=== PATIENT | male | born 1995 | race Caucasian/White ===

== ENCOUNTER 2018-07-03 02:26 | Observation (INO) ==
[2018-07-03] MEDS ORDERED: IOPAMIDOL 100 ML BOTTLE IV ONE (02:27)
[2018-07-03] MEDS ORDERED: ONDANSETRON 4 MG/2 ML VIAL IV ONE (02:40)
[2018-07-03] MEDS ORDERED: 0.9 % SODIUM CHLORIDE 1,000 ML IV ONE ×2 (02:59→04:01)
[2018-07-03] MEDS ORDERED: PROMETHAZINE 25 MG/ML VIAL IV ONE ×2 (03:16→07:08)
--- NOTE | 2018-07-03 03:23 | Emergency Department Note ---
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 Patient unable to give us a history. Does not know if he is aspirated or not. There is been no flulike symptoms he has had no cough, no sputum production. Is been no diarrhea no hematemesis denies urgency frequency dysuriaTemperature is 97.5 the initial pulse was 140 is down to 117 at this time abrasions are 18 blood pressure 145/96 pulse ox is 93. Vital signs reveal a pulse of 117 and a pulse ox of 96% on room air at this time. Apparently patient gets constipated a lot and he was admitted to [facility] in April for fecal impaction - Related Data Home Medications Medication Instructions Recorded Confirmed polyethylene glycol 3350 17 17 g PO BID 03/06/15 07/03/18 gram/dose oral powder Sennosides [Ex-Lax] 15 mg PO DAILY 05/01/18 07/03/18 oxyCODONE HCL [Oxycodone HCl] 1 tab PO Q6 05/01/18 07/03/18 tiZANidine [Zanaflex] 8 mg PO BID 05/01/18 07/03/18 Allergies Allergy/AdvReac Type Severity Reaction Status Date / Time No Known Drug Allergies Allergy Verified 05/15/18 10:38 Review of Systems All systems ED: reviewed and negative except as stated. Constitutional: Denies: fever, chills Cardiovascular: Denies: chest pain Respiratory: Reports: as per HPI. Denies: cough, wheezes Gastrointestinal: Reports: as per HPI, nausea, vomiting, constipation. Denies: diarrhea, hematochezia, melena Genitourinary: Denies: dysuria, frequency, urgency Musculoskeletal: Denies: back pain, joint swelling Integumentary: Denies: rash Neurological: Denies: headache Psychiatric: Denies: anxiety Endocrine: Denies: fatigue Hematological/Lymphatic: Denies: easy bleeding Allergic/Immunologic: Denies: facial swelling Past Medical History - Past Medical History [facility] Narrative: All Active Problems Encounter for postoperative wound check (Acute) Abdominal pain (Acute) Drug-induced nausea and vomiting (Acute) Bacterial conjunctivitis of left eye (Acute) Constipation (Acute) Intractable nausea and vomiting (Acute) Fecal impaction of colon (Acute) Accidental drug ingestion (Acute) S/P orchiopexy (Acute 03/11/15) History of orchiectomy, unilateral (Acute 03/11/15) Torsion of testicle (Acute) Syncope (Acute) History of hip surgery (Acute) Intentional self-harm (Acute) Sleep disturbance (Acute) Epilepsy, generalized nonconvulsive, with intractable epilepsy (Acute) Wheelchair dependent (Acute) Angelman syndrome (Acute) Urinary incontinence (Acute) Epididymitis (Acute) Developmental delay, severe (Acute) Right testicular torsion (Acute) Past Surgical History S/P orchiopexy (Acute 03/11/15) History of orchiectomy, unilateral (Acute 03/11/15) History of hip surgery (Acute) Family History Mother Diabetes mellitus Medical history: Reports: other. Denies: cancer Surgical history ED: Reports: orthopedic, other, other - Social History smoking status: Never smoker Alcohol use: Reports: None Drug use: Reports: none Physical Exam Limitations: no limitations General appearance: alert Head: atraumatic, normocephalic Eye: Present: normal appearance, PERRL ENT: normal exam, normal oropharynx, mucous membranes dry Neck: Present: normal inspection, full ROM, trachea midline Chest: Present: normal inspection, symmetric chest wall rise. Absent: tende rness Respiratory: Present: normal lung sounds bilaterally. Absent: respiratory distress, rales/crackles, wheezes Cardiovascular: Present: regular rate, normal rhythm. Absent: bradycardia, tachycardia Abdominal: Present: soft, normal bowel sounds. Absent: distention, tenderness, guarding, rebound, rigidity Back: Present: normal inspection, full ROM. Absent: tenderness Neurological: Present: other (Patient has Angelman's syndrome developmentally delayed). Absent: motor sensory deficit Skin: Present: warm, dry Course Vital Signs Temperature 97.5 F 07/03/18 02:26 Pulse Rate 140 H 07/03/18 02:26 Respiratory Rate 18 07/03/18 02:26 Blood Pressure 145/96 07/03/18 02:26 Pulse Oximetry (%) 93 07/03/18 02:26 Temperature 101.7 F H 07/03/18 07:09 Pulse Rate 117 H 07/03/18 07:09 Respiratory Rate 20 07/03/18 07:09 Blood Pressure 116/80 07/03/18 07:09 Pulse Oximetry (%) 98 07/03/18 07:09 Nausea/Vomiting/Diarrhea - [facility] Narrative Medical decision making narrative: WBC is 28,000 hemoglobin 14.1 hematocrit of 43.6. Chest x-ray was read as negative via tele-epic radiant analyst acid is 1.1 Evans is 139 potassium 4.2 creatinine is 0.62 BUN is 11 glucose is 157 test shows 2 WBCs 14 RBCs. Case discussed with Dr. Holley. Tested CT of the abdomen first. Patient had a normal temperature when he first arrived there his temperature has spiked to 101.7 his initial temperature was 97.5. His flu test was negative CT of the abdomen revealed fecal impaction with a large amount of stool. dr Clark contacted and patient to be admitted to his service - Lab Data Result diagrams: 07/03/18 02:45 Lab Results 07/03/18 07/03/18 07/03/18 Range/Units 02:45 02:45 03:30 WBC 28.0 H (4.5-11.0) K/mcL RBC 5.24 (4.50-5.90) M/mcL Hgb 14.1 (13.5-16.5) g/dL Hct 43.6 (41.0-55.0) % POC Hct 45.0 (41.0-55.0) % MCV 83.3 (80.0-100.0) fL MCH 26.9 (26.0-34.0) pg MCHC 32.3 (31.0-36.0) g/dL RDW 13.0 (11.5-14.5) % Plt Count 431 (140-440) K/mcL MPV 9.7 (7.4-10.4) fL Gran % 92.2 H (38.0-78.0) % Lymph % (Auto) 4.6 L (15.5-49.0) % Starr % (Auto) 3.0 (1.0-12.0) % Eos % (Auto) 0 (0.0-7.0) % Baso % (Auto) 0.2 (0.0-2.0) % Gran # 25.8 H (1.8-8.0) K/mcL Lymph # (Auto) 1.3 L (1.5-4.8) K/mcL Starr # (Auto) 0.8 (0.1-0.9) K/mcL Eos # (Auto) 0 (0.0-0.7) K/mcL Baso # (Auto) 0.1 (0.0-0.3) K/mcL VBG Lactic Acid 1.1 (0.5-2.0) mmol/L POC Sodium 139 (133-145) mmol/L POC Potassium 4.2 (3.3-5.1) mmol/L POC Chloride 98 (96-108) mmol/L POC Total CO2 28 (22-30) mmol/L POC BUN 11 (6-20) mg/dl POC Creatinine 0.6 L (0.7-1.2) mg/dl POC Glucose 157 H (70-105) mg/dL POC WB Ioniz Calcium 1.18 (1.16-1.32) mmol/L Urine Color Urine Appearance Urine pH (5.0-9.0) Ur Specific [place] (1.000-1.035) Urine Protein (NEG) mg/dL Urine Glucose (UA) (NEG) mg/dL Urine Ketones (NEG) mg/dL Urine Occult Blood (<0.03) mg/dL Urine Nitrate (NEG) Urine Bilirubin (NEG) mg/dL Urine Urobilinogen (NEG) mg/dL Ur Leukocyte Esterase (NEG) /uL Urine RBC (0-1) /hpf Urine WBC (0-4) /hpf Ur Squamous Epith Cells (0-4) /hpf Urine Bacteria (0) /hpf Hyaline Casts (0-2) /lpf Urine Mucus (0) /hpf Ur Culture Indicated? 07/03/18 Range/Units 05:15 WBC (4.5-11.0) K/mcL RBC (4.50-5.90) M/mcL Hgb (13.5-16.5) g/dL Hct (41.0-55.0) % POC Hct (41.0-55.0) % MCV (80.0-100.0) fL MCH (26.0-34.0) pg MCHC (31.0-36.0) g/dL RDW (11.5-14.5) % Plt Count (140-440) K/mcL MPV (7.4-10.4) fL Gran % (38.0-78.0) % Lymph % (Auto) (15.5-49.0) % Starr % (Auto) (1.0-12.0) % Eos % (Auto) (0.0-7.0) % Baso % (Auto) (0.0-2.0) % Gran # (1.8-8.0) K/mcL Lymph # (Auto) (1.5-4.8) K/mcL Starr # (Auto) (0.1-0.9) K/mcL Eos # (Auto) (0.0-0.7) K/mcL Baso # (Auto) (0.0-0.3) K/mcL VBG Lactic Acid (0.5-2.0) mmol/L POC Sodium (133-145) mmol/L POC Potassium (3.3-5.1) mmol/L POC Chloride (96-108) mmol/L POC Total CO2 (22-30) mmol/L POC BUN (6-20) mg/dl POC Creatinine (0.7-1.2) mg/dl POC Glucose (70-105) mg/dL POC WB Ioniz Calcium (1.16-1.32) mmol/L Urine Color Yellow Urine Appearance Hazy Urine pH 7.0 (5.0-9.0) Ur Specific [place] 1.014 (1.000-1.035) Urine Protein Neg (NEG) mg/dL Urine Glucose (UA) Negative (NEG) mg/dL Urine Ketones Neg (NEG) mg/dL Urine Occult Blood 0.03 A (<0.03) mg/dL Urine Nitrate Neg (NEG) Urine Bilirubin Neg (NEG) mg/dL Urine Urobilinogen Neg (NEG) mg/dL Ur Leukocyte Esterase Neg (NEG) /uL Urine RBC 14 H (0-1) /hpf Urine WBC 2 (0-4) /hpf Ur Squamous Epith Cells 0 (0-4) /hpf Urine Bacteria 0 (0) /hpf Hyaline Casts 3 H (0-2) /lpf Urine Mucus Few (0) /hpf Ur Culture Indicated? No Disposition Pt seen by FACILITY SUPERVISOR/PA only: No Clinical Impression: Nausea and vomiting, Leukocytosis, Fecal impaction Disposition: Xfer As Inpt ([facility]) Condition: Fair Referrals: Inez Elkins ARNP [Primary Care Provider] -
[2018-07-03 03:40] LABS: Basophils # (Auto) 0.1 K/mcL (0.0-0.3); Basophils % (Auto) 0.2 % (0.0-2.0); Eosinophils # (Auto) 0 K/mcL (0.0-0.7); Eosinophils % (Auto) 0 % (0.0-7.0); Granulocytes % (Auto) 92.2 % (38.0-78.0); Lymphocytes # (Auto) 1.3 K/mcL (1.5-4.8); Lymphocytes % (Auto) 4.6 % (15.5-49.0); Mean Cell Volume 83.3 fL (80.0-100.0); Mean Corpuscular HGB Conc 32.3 g/dL (31.0-36.0); Monocytes # (Auto) 0.8 K/mcL (0.1-0.9); Platelet Count 431 K/mcL (140-440); RBC 5.24 M/mcL (4.50-5.90)
[2018-07-03 05:59] LABS: Appearance,Urine HAZY; Bacteria,Urine 0 /hpf (0); Bilirubin,Urine NEG (NEG); Color,Urine YELLOW; Glucose,Urine (UA) NEGATIVE (NEG); Leukocyte Esterase,Urine NEG /uL (NEG); Mucus,Urine FEW /hpf (0); Protein,Urine NEG (NEG); Specific Gravity,Urine 1.014 (1.000-1.035); Urine Blood 0.03 mg/dL (<0.03); Urine Hyaline Cast 3 /lpf (0-2); Urine RBC 14 /hpf (0-1); Urine Squamous Epithelial Cell 0 /hpf (0-4); Urine WBC 2 /hpf (0-4); Urobilinogen,Urine NEG (NEG)
[2018-07-03] MEDS ORDERED: cefTRIAXone 1 GM VIAL IV ONE (07:00)
[2018-07-03] MEDS ORDERED: ACETAMINOPHEN 650 MG SUPP.RECT ONE (07:22)
[2018-07-03] MEDS ORDERED: ACETAMINOPHEN 650 MG SUPP.RECT PR ONE (07:40)
--- NOTE | 2018-07-03 08:08 | XRay Report ---
HISTORY: Nausea and aspiration risk FINDINGS: Behind the left heart border there is a band of consolidated lung parenchyma which has developed since 02/13/16. This could be scar or atelectasis. The remainder of the lung william are clear. There is no pleural effusion. The heart size is normal. A moderate dextroscoliotic curvature is present in the midthoracic spine and there is moderately severe rotatory scoliotic curvature in the mid lumbar spine. IMPRESSION: Atelectasis versus scar medially in the left lung base Interpreted and Authenticated by: Danny Garg 07/03/18
--- NOTE | 2018-07-03 08:28 | Cat Scan Report ---
CLINICAL INFORMATION: Nausea and bowel obstruction COMPARISON: 04/30/18 TECHNIQUE: Following injection of intravenous contrast the patient was scanned during the portal venous phase from the diaphragm through the symphysis pubis. Sagittal and coronal reformats were created.. Radiation exposure was limited using dose reduction technology FINDINGS: There is severe fecal impaction in the rectum. The rectum distal sigmoid are distended with stool. The rectum measures up to 10 x 11 cm in transverse dimension. Moderate amount stool is present in the cecum and ascending colon. The transverse and descending colon are normal in caliber. There is a large amount of air within the small intestine but the small bowel is not abnormally dilated heart is a contained abnormal air-fluid levels. There is a percutaneous gastrostomy tube placed through the antrum of the stomach. The antrum of the stomach around the tube is abnormally thickened and appears edematous. Measures up to 1.6 cm in thickness. The esophagus contains some fluid but is not abnormally dilated. Lung bases are clear. The liver, spleen, gallbladder pancreas, adrenals and kidneys are normal. The aorta is normal in caliber. No ascites or abscess are present. 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 Comparison with the prior CT shows fecal impaction become significantly worse IMPRESSION: Severe fecal impaction in the rectum. This is not causing a small bowel obstruction. Abnormally thickened antrum of the stomach surrounding the percutaneous gastrostomy tube. The tube was not present on the recent CT scan. This could be an inflammatory reaction following the tube insertion. Dr. Peace was called with the results Interpreted and Authenticated by: Danny Garg 07/03/18
[2018-07-03] MEDS ORDERED: ONDANSETRON 4 MG/2 ML VIAL IV PRN (08:34)
[2018-07-03] MEDS: 0.9 % SODIUM CHLORIDE 1,000 ML IV SCH ×2 (08:45→18:57)
[2018-07-03 10:23] LABS: ALT/SGPT 17 U/l (0-40); Albumin 4.7 gm/dL (3.2-5.2); Albumin/Globulin Ratio 1.3 (1.0-2.3); Alkaline Phosphatase 93 U/L (39-117); Blood Urea Nitrogen 11 mg/dl (6-20)
--- NOTE | 2018-07-03 13:46 | General Surg History&Physical ---
History of Present Illness Patient information: Note initiated : 07/03/18 at 1:44 pm Service Date, if different from initiated Date: [] Patient: Raúl Hammond 22 y/o M admitted on 07/03/18 for Nausea. Chief Complaint: [] HPI: Mr. Hammond is a 22 year old M with Angelman syndrome. The patient has a long history of recurrent severe constipation. He takes MiraLAX and Ex-Lax on a daily basis. He has been having progressively smaller. He had onset of nausea with vomiting 2 days and was brought to the emergency room where he was noted that he has severe constipation with fecal impaction extending back to the right colon with secondary small bowel obstruction. He is admitted for treatment because of the nausea and vomiting.. Review of Systems ROS unobtainable: due to mental status Past History Past medical history: I Angelman syndrome Seizure disorder Developmental delay Past surgical history: Right orchiectomy History of hip surgery Past family history: Unobtainable Past social history: Totally bedridden and dependent No tobacco alcohol or drug use Recent institution of marijuana use for pain control Medications and Allergies Home Medications Medication Instructions Recorded Confirmed Type polyethylene glycol 3350 17 17 g PO BID 03/06/15 07/03/18 History gram/dose oral powder Sennosides [Ex-Lax] 15 mg PO DAILY 05/01/18 07/03/18 History oxyCODONE HCL [Oxycodone HCl] 1 tab PO Q6H PRN 05/01/18 07/03/18 History tiZANidine [Zanaflex] 8 mg PO TID 05/01/18 07/03/18 History Allergies Allergy/AdvReac Type Severity Reaction Status Date / Time No Known Drug Allergies Allergy Verified 05/15/18 10:38 Exam Temp Pulse Resp BP Pulse Ox 98.8 F 122 H 22 111/70 95 07/03/18 10:23 07/03/18 10:23 07/03/18 09:45 07/03/18 10:23 07/03/18 10:23 - General physical appearance no distress, other (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 Absent: normocephalic ( dysmorphic skull and faCIES) - Neck no masses, no bruits, trachea midline, no lymphadenopathy, no venous distension - Cardiovascular Cardiovascular exam IM: Present: normal rate and rhythm, RRR, +S1, +S2. Absent: JVD - Respiratory normal expansion, normal respiratory effort, clear to auscultation - Abdomen Abdomen: Present: soft, bowel sounds, distended ( diffusely distended with active bowel sounds ;guarding with palpation) Hernia: Present: none - Genitourinary Present: normal penis with no external lesions - Rectum Rectum: Present: normal sphincter tone, no hemorrhoids, no tenderness, no masses, no bleeding, other ( normal anal sphincter with massive volume of soft stool in rectal vault) - Integumentary Present: no rash, no growths, no abnormal pigmentation, other ( superficial skin breakdown left greater trochanter) - Neurologic Present: other ( severe neurologic deficit with spasticITY extensive flexion contractures of upper and lower extremities) - Musculoskeletal Present: normal gait, normal posture - Psychiatric Present: other ( probably not oriented). Absent: oriented to time, oriented to person, oriented to place, speech is normal, memory intact Assessment and Plan (1) Fecal impaction of colon Manual disimpaction MiraLAX 8 ounces 3 times daily by PEG tube Milk of magnesia 30 cc 3 times daily by PEG tube Neurological 12 mg subcutaneous daily 4 days Status: Acute (2) Nausea and vomiting Zofran IV every 4 hours as needed Status: Acute (3) Angelman syndrome Continue oral medication when patient can take by mouth Status: Acute Comment: with severe mental retardation (4) Developmental delay, severe Status: Acute (5) Epilepsy, generalized nonconvulsive, with intractable epilepsy Status: Acute
[2018-07-03] MEDS: METHYLNALTREXONE BROMIDE 12 MG/0.6 ML SYRINGE SQ SCH (16:00)
[2018-07-03] MEDS: POLYETHYLENE GLYCOL 3350 17 GM PACKET PO SCH (16:46)
[2018-07-03] MEDS: MAGNESIUM HYDROXIDE 30 ML ORAL.SUSP PO SCH ×2 (16:46→19:57)
[2018-07-03] MEDS: tiZANidine 4 MG TABLET PO SCH (19:57)
[2018-07-03] MEDS ORDERED: ACETAMINOPHEN 1,000 MG/100 ML BOTTLE IV ONE (22:45)
[2018-07-04] MEDS: POLYETHYLENE GLYCOL 3350 17 GM PACKET PO SCH ×4 (00:14→18:11)
[2018-07-04] MEDS: MAGNESIUM HYDROXIDE 30 ML ORAL.SUSP PO SCH ×4 (02:21→18:33)
[2018-07-04] MEDS ORDERED: ACETAMINOPHEN 1,000 MG/100 ML BOTTLE IV ONE (05:44)
[2018-07-04] MEDS: 0.9 % SODIUM CHLORIDE 1,000 ML IV SCH ×2 (06:10→17:13)
--- NOTE | 2018-07-04 08:46 | XRay Report ---
HISTORY: Follow-up fecal impaction FINDINGS: The severe fecal impaction seen on the CT scan done on 07/03/18 has been corrected. There is no gas in normal caliber colon. Small amount of air seen within nondistended small intestine. Gastrostomy tube remains in the antrum of stomach. IMPRESSION: Resolved fecal impaction Interpreted and Authenticated by: Danny Garg 07/04/18
[2018-07-04] MEDS: tiZANidine 4 MG TABLET PO SCH ×3 (09:46→21:32)
[2018-07-04] MEDS: METHYLNALTREXONE BROMIDE 12 MG/0.6 ML SYRINGE SQ SCH (10:44)
[2018-07-04] MEDS: METOCLOPRAMIDE 10 MG/2 ML VIAL IV SCH ×2 (12:31→18:11)
[2018-07-04] MEDS: ACETAMINOPHEN 500 MG/50 ML BOTTLE IV PRN ×2 (12:32→18:13)
[2018-07-04 13:08] LABS: Basophils # (Auto) 0.1 K/mcL (0.0-0.3); Basophils % (Auto) 0.5 % (0.0-2.0); Eosinophils # (Auto) 0.2 K/mcL (0.0-0.7); Eosinophils % (Auto) 1.4 % (0.0-7.0); Granulocytes % (Auto) 82.1 % (38.0-78.0); Lymphocytes # (Auto) 1.5 K/mcL (1.5-4.8); Lymphocytes % (Auto) 10.4 % (15.5-49.0); Mean Cell Volume 83.3 fL (80.0-100.0); Mean Corpuscular HGB Conc 32.6 g/dL (31.0-36.0); Monocytes # (Auto) 0.8 K/mcL (0.1-0.9); Monocytes % (Auto) 5.6 % (1.0-12.0); Platelet Count 253 K/mcL (140-440); Red Cell Distribution Width 13.3 % (11.5-14.5)
[2018-07-04 13:10] LABS: ALT/SGPT 10 U/l (0-40); Albumin 3.3 gm/dL (3.2-5.2); Albumin/Globulin Ratio 1.2 (1.0-2.3); Alkaline Phosphatase 70 U/L (39-117); Bilirubin,Direct < 0.2 mg/dL (0.0-0.3); Blood Urea Nitrogen 12 mg/dl (6-20); Gamma Glutamyl Transpeptidase 15 U/L (8-61); Uric Acid 3.4 mg/dL (2.5-8.0)
--- NOTE | 2018-07-04 14:41 | General Surgery Progress Note ---
Subjective Patient reports: feels better, pain is less, tolerating liquids well, flatus, bowel movement Narrative: Note initiated : 07/04/18 at 2:39 pm Service Date, if different from initiated Date: [] Patient: Raúl Hammond 22 y/o M admitted on 07/03/18 for Nausea. Chief Complaint: [patient is doing well. He had multiple bowel movements last night and today. His abdominal exam is benign. He had major clearing of his intestinal impaction on the morning x-rays.] Objective Temp Pulse Resp BP Pulse Ox 97.6 F 84 18 82/60 98 07/04/18 11:37 07/04/18 11:37 07/04/18 11:37 07/04/18 11:37 07/04/18 11:37 - Additional Data Intake & Output - Last 24 hours: Intake & Output 07/02/18 07/03/18 07/04/18 07/05/18 05:59 05:59 05:59 05:59 Intake Total 1000 3000 1402 Output Total 1 1 Balance 1000 2999 1401 Weight 70 lb 70 lb 70 lb - General physical appearance no distress, no pain, cachectic, chronically ill - Eyes PERRL, normal ocular movement - ENT normal pinna, normal nares, normal mucosa, no congestion - Neck no masses, no bruits, trachea midline, no lymphadenopathy, no venous distension - Respiratory normal expansion, normal respiratory effort, clear to auscultation - Cardiovascular Cardiovascular exam: Present: normal rate and rhythm, RRR, +S1, +S2. Absent: JVD, tachycardia - Abdomen non tender (abdomen is mildly distended; he has active bowel sounds; his abdominal wall is soft.) - Integumentary no rash, no growths, no abnormal pigmentation - Labs 07/04/18 12:13 07/04/18 12:13 Diabetes panel 07/04/18 Range/Units 12:13 Sodium 137 (133-145) mmol/L Potassium 4.7 (3.3-5.1) mmol/L Chloride 101 (96-108) mmol/L Carbon Dioxide 28 (22-30) mmol/L BUN 12 (6-20) mg/dl Creatinine 0.5 L (0.7-1.2) mg/dl Glucose 80 (70-105) mg/dL Calcium 8.8 (8.6-10.4) mg/dl AST 18 (0-37) U/l ALT 10 (0-40) U/l Alkaline Phosphatase 70 (39-117) U/L Total Protein 6.0 (5.9-8.4) gm/dL Albumin 3.3 (3.2-5.2) gm/dL Triglycerides 55 (<150) mg/dl Calcium panel 07/04/18 Range/Units 12:13 Calcium 8.8 (8.6-10.4) mg/dl Phosphorus 2.9 (2.7-4.5) mg/dL Albumin 3.3 (3.2-5.2) gm/dL Pituitary panel 07/04/18 Range/Units 12:13 Sodium 137 (133-145) mmol/L Potassium 4.7 (3.3-5.1) mmol/L Chloride 101 (96-108) mmol/L Carbon Dioxide 28 (22-30) mmol/L BUN 12 (6-20) mg/dl Creatinine 0.5 L (0.7-1.2) mg/dl Glucose 80 (70-105) mg/dL Calcium 8.8 (8.6-10.4) mg/dl Adrenal panel 07/04/18 Range/Units 12:13 Sodium 137 (133-145) mmol/L Potassium 4.7 (3.3-5.1) mmol/L Chloride 101 (96-108) mmol/L Carbon Dioxide 28 (22-30) mmol/L BUN 12 (6-20) mg/dl Creatinine 0.5 L (0.7-1.2) mg/dl Glucose 80 (70-105) mg/dL Calcium 8.8 (8.6-10.4) mg/dl Total Bilirubin 0.5 (0.0-1.0) mg/dL AST 18 (0-37) U/l ALT 10 (0-40) U/l Alkaline Phosphatase 70 (39-117) U/L Total Protein 6.0 (5.9-8.4) gm/dL Albumin 3.3 (3.2-5.2) gm/dL Assessment and Plan (1) Fecal impaction of colon Status: Acute Assessment and plan: fecal impaction has resolved Diet will be advanced and tube feedings will be started Will probably discharge home tomorrow Current Visit: Yes (2) Nausea and vomiting Status: Acute Assessment and plan: Tolerating liquids and tube feedings without difficulty Current Visit: Yes (3) Angelman syndrome Problem details: with severe mental retardation Status: Acute Current Visit: No (4) Developmental delay, severe Status: Acute Current Visit: No (5) Epilepsy, generalized nonconvulsive, with intractable epilepsy Status: Acute Current Visit: No - Time Spent With Patient Total time spent is greater than 50% in coordination of care (as documented) at patient's floor/unit and/or counseling patient:
[2018-07-05] MEDS: ACETAMINOPHEN 500 MG/50 ML BOTTLE IV PRN ×2 (00:02→06:37)
[2018-07-05] MEDS: METOCLOPRAMIDE 10 MG/2 ML VIAL IV SCH ×3 (00:03→12:07)
[2018-07-05] MEDS: POLYETHYLENE GLYCOL 3350 17 GM PACKET PO SCH ×3 (00:03→12:19)
[2018-07-05] MEDS: 0.9 % SODIUM CHLORIDE 1,000 ML IV SCH ×2 (00:50→05:09)
[2018-07-05] MEDS: MAGNESIUM HYDROXIDE 30 ML ORAL.SUSP PO SCH ×2 (03:06→12:18)
[2018-07-05 06:14] LABS: Basophils # (Auto) 0.1 K/mcL (0.0-0.3); Basophils % (Auto) 0.6 % (0.0-2.0); Eosinophils # (Auto) 0.4 K/mcL (0.0-0.7); Eosinophils % (Auto) 4.1 % (0.0-7.0); Granulocytes % (Auto) 65.5 % (38.0-78.0); Lymphocytes % (Auto) 21.3 % (15.5-49.0); Mean Cell Volume 83.9 fL (80.0-100.0); Mean Corpuscular HGB Conc 32.4 g/dL (31.0-36.0); Monocytes # (Auto) 0.8 K/mcL (0.1-0.9); Monocytes % (Auto) 8.5 % (1.0-12.0); Platelet Count 293 K/mcL (140-440); RBC 4.04 M/mcL (4.50-5.90); Red Cell Distribution Width 12.8 % (11.5-14.5)
[2018-07-05 07:02] LABS: ALT/SGPT 13 U/l (0-40); Albumin 3.3 gm/dL (3.2-5.2); Albumin/Globulin Ratio 1.2 (1.0-2.3); Alkaline Phosphatase 74 U/L (39-117); Bilirubin,Direct < 0.2 mg/dL (0.0-0.3); Blood Urea Nitrogen 9 mg/dl (6-20); Gamma Glutamyl Transpeptidase 14 U/L (8-61); Uric Acid 2.5 mg/dL (2.5-8.0)
[2018-07-05] MEDS: tiZANidine 4 MG TABLET PO SCH ×2 (10:08→15:17)
[2018-07-05] MEDS: METHYLNALTREXONE BROMIDE 12 MG/0.6 ML SYRINGE SQ SCH (12:18)
--- NOTE | 2018-07-05 14:45 | Discharge Summary ---
Providers - Providers Patient information: Note initiated : 07/05/18 at 2:42 pm Service Date, if different from initiated Date: [] Patient: Raúl Hammond 22 y/o M admitted on 07/03/18 for Nausea. 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 Patient has long history of chronic constipation and presented with recurrent nausea and vomiting. She had evidence of major fecal impaction secondary small bowel obstruction leading to nausea and vomiting. He was disimpacted and given a milk and molasses enema followed by MiraLAX and milk of magnesia by G-tube. He had multiple large bowel movements and has now effectively clear his colon and small bowel. Patient is stable for discharge home Discharge diagnosis: massive fecal impaction Secondary discharge diagnosis: Secondary small bowel obstruction Angelman's syndrome Chronic seizure disorder Developmental delay Reason for admission: recurrent nausea and vomiting Procedures: None Pertinent studies/significant findings: CT of abdomen and pelvis with contrast Complications: None Exam Temp Pulse Resp BP Pulse Ox 96.5 F L 66 20 91/54 99 07/05/18 12:00 07/05/18 12:00 07/05/18 12:00 07/05/18 12:00 07/05/18 12:00 - General physical appearance no distress, cachectic, chronically ill - Eyes PERRL, normal ocular movement - ENT normal pinna, normal nares, normal mucosa, no hearing loss, no congestion - Head Head exam IM: Present: atraumatic, normocephalic - Neck no masses, no bruits, trachea midline, no lymphadenopathy, no venous distension - Cardiovascular Cardiovascular exam IM: Present: normal rate and rhythm, RRR, +S1, +S2. Absent: tachycardia - Respiratory normal expansion, normal respiratory effort, clear to auscultation - Abdomen Abdomen: Present: soft, non tender, bowel sounds Hernia: Present: none - Genitourinary Present: normal penis with no external lesions - Rectum Rectum: Present: normal sphincter tone, no hemorrhoids, no tenderness, no masses - Integumentary Present: no rash, no growths, no abnormal pigmentation, other (superficial skin breakdown left hip) - Neurologic Present: other ( severe developmental delay; altered mental status; Extensive flexion contractures and spasticity of upper and lower extremities more prominent in lower extremities) Discharge Plan - Patient/Caregiver Discharge Instructions Activity: increase activity as tolerated Diet: Regular Diet Additional Instructions: MiraLAX 17 g in liquid 3-5 times daily as needed to maintain regular bowel movements - Follow up Plan Follow up with: Inez Elkins ARNP [Primary Care Provider] - Disposition: Home, Self-Care Prognosis: Fair Rehab Potential: Fair I certify that the patient requires SNF services.: No Overall status at discharge: patient is back to baseline Pending Studies Resuscitation Status Full Code Diet Dysphagia Mechanical Altered Diet L2 Start MonJul 04 1027 Sodium Chloride (Sodium Chloride 0.9%) 1,000 mls @ 100 mls/hr IV .Q10H LEON Last Admin: 07/05/18 05:09 Dose: 100 mls/hr Documented by: Infusion: 07/05/18 05:02 Dose: 0 mls/hr Documented by: Admin: 07/05/18 00:50 Dose: Not Given Documented by: Admin: 07/04/18 17:13 Dose: 100 mls/hr Documented by: Infusion: 07/04/18 17:08 Dose: 0 mls/hr Documented by: [email or web address] Admin: 07/04/18 06:10 Dose: 100 mls/hr Documented by: Infusion: 07/04/18 04:57 Dose: 0 mls/hr Documented by: Admin: 07/03/18 18:57 Dose: 100 mls/hr Documented by: Infusion: 07/03/18 18:45 Dose: 0 mls/hr Documented by: Admin: 07/03/18 08:45 Dose: 100 mls/hr Documented by: [email or web address] Acetaminophen (Ofirmev) 500 mg in 50 mls @ 100 mls/hr IV Q6HP PRN PRN Reason: Pain Last Infusion: 07/05/18 07:35 Dose: 100 mls/hr Documented by: Admin: 07/05/18 06:37 Dose: 100 mls/hr Documented by: Infusion: 07/05/18 00:50 Dose: 0 mls/hr Documented by: Admin: 07/05/18 00:02 Dose: 100 mls/hr Documented by: Infusion: 07/04/18 18:45 Dose: 0 mls/hr Documented by: Admin: 07/04/18 18:13 Dose: 100 mls/hr Documented by: Infusion: 07/04/18 14:37 Dose: 0 mls/hr Documented by: Admin: 07/04/18 12:32 Dose: 100 mls/hr Documented by: JEROME Magnesium Hydroxide (Milk Of Magnesia) 30 ml PO Q8H LEON Stop: 07/06/18 03:01 Last Admin: 07/05/18 12:18 Dose: Not Given Documented by: Admin: 07/05/18 03:06 Dose: Not Given Documented by: Admin: 07/04/18 18:33 Dose: 30 ml Documented by: Admin: 07/04/18 12:28 Dose: Not Given Documented by: JEROME Metoclopramide HCl (Reglan) 10 mg IV Q6 [facility] Last Admin: 07/05/18 12:07 Dose: 10 mg Documented by: Admin: 07/05/18 05:09 Dose: 10 mg Documented by: Admin: 07/05/18 00:03 Dose: 10 mg Documented by: Admin: 07/04/18 18:11 Dose: 10 mg Documented by: Admin: 07/04/18 12:31 Dose: 10 mg Documented by: JEROME Polyethylene Glycol (Miralax) 17 gm PO Q6H LEON Stop: 07/06/18 12:01 Last Admin: 07/05/18 12:19 Dose: Not Given Documented by: Admin: 07/05/18 05:09 Dose: 17 gm Documented by: Admin: 07/05/18 00:03 Dose: 17 gm Documented by: Admin: 07/04/18 18:11 Dose: 17 gm Documented by: Admin: 07/04/18 12:32 Dose: 17 gm Documented by: Admin: 07/04/18 06:08 Dose: 17 gm Documented by: Admin: 07/04/18 00:14 Dose: 17 gm Documented by: Admin: 07/03/18 16:46 Dose: 17 gm Documented by: [email or web address] Tizanidine HCl (Zanaflex) 8 mg PO TID [facility] Last Admin: 07/05/18 10:08 Dose: 8 mg Documented by: [email or web address] Admin: 07/04/18 21:32 Dose: 8 mg Documented by: Admin: 07/04/18 14:45 Dose: 8 mg Documented by: [email or web address] Admin: 07/04/18 09:46 Dose: 8 mg Documented by: [email or web address] Admin: 07/03/18 19:57 Dose: 8 mg Documented by: BERNARDA Shift Summary 07/05/18 02:46 Shift Summary by Tulio Foster Hx of Angelman Syndrome, nonverbal, developmentally delayed. Also Hx of recurrent bowel obstructions, pt takes Miralax and Ex-lax daily at home. Pt presented to ED for nausea, was found on CT to have fecal impaction with secondary bowel obstruction. Started on MOM and Miralax q6Hr, as well as enemas and Relistor. Abdomen X-ray yesterday found that impaction cleared and bowel obstruction cleared. Pt has had 4 large, loose liquid bowel movements requiring several bed changes through the night. Averaging one every 2 hours. Caregivers at bedside at all times. Started on diet yesterday as well as 8oz of Ensure QID. Vitals stable. Any further updates to be provided at bedside as necessary. Thank you for the opportunity to provide care for this patient. Pt may possibly be DC'd home today. Initialized on 07/05/18 02:46 - END OF NOTE
== END 2018-07-05 15:50 | disposition home or self-care (01) ==
LOC: ED 02:26 → MEDSUR 09:45 → INTOOBSV 09:54 → MEDSUR 09:54
PROVIDERS: ADMIT Family Medicine Adult Medicine; ATTEND Family Medicine Adult Medicine

== ENCOUNTER 2019-05-03 10:00 | Inpatient (IN) ==
[2019-05-08] MEDS ORDERED: SCOPOLAMINE 1 PATCH PATCH TOPICAL PRN (06:00)
[2019-05-08] MEDS ORDERED: IPRATROPIUM/ALBUTEROL 3 ML AMPUL.NEB NEB PRN ×2 (06:00→10:48)
[2019-05-08 06:04] LABS: POC Blood Urea Nitrogen 14 mg/dl (6-20); POC CO2 28 mmol/L (22-30); POC Calcium, Ionized 1.21 mmol/L (1.16-1.32); POC Chloride 103 mmol/L (96-108); POC Creatinine 0.5 mg/dl (0.7-1.2); POC Glucose, Random 101 mg/dL (70-105); POC Potassium 4.1 mmol/L (3.3-5.1); POC Sodium 139 mmol/L (133-145)
[2019-05-08] MEDS ORDERED: LEVOFLOXACIN 250 MG/50 ML BAG IV SCH (06:45)
[2019-05-08 06:58] LABS: Prothrombin Time 12.9 sec (11.9-14.5)
[2019-05-08 06:59] LABS: Basophils # (Auto) 0.1 K/mcL (0.0-0.3); Basophils % (Auto) 0.6 % (0.0-2.0); Eosinophils # (Auto) 0.6 K/mcL (0.0-0.7); Eosinophils % (Auto) 6.7 % (0.0-7.0); Granulocytes % (Auto) 57.3 % (38.0-78.0); Hematocrit 32.7 % (41.0-55.0); Lymphocytes # (Auto) 2.3 K/mcL (1.5-4.8); Lymphocytes % (Auto) 27.5 % (15.5-49.0); Mean Cell Volume 66.7 fL (80.0-100.0); Mean Corpuscular HGB Conc 30.5 g/dL (31.0-36.0); Mean Platelet Volume 8.8 fL (7.4-10.4); Monocytes # (Auto) 0.7 K/mcL (0.1-0.9); Monocytes % (Auto) 7.9 % (1.0-12.0); Platelet Count 334 K/mcL (140-440); RBC 4.89 M/mcL (4.50-5.90); Red Cell Distribution Width 18.8 % (11.5-14.5); WBC 8.5 K/mcL (4.5-11.0)
[2019-05-08] MEDS ORDERED: DEXAMETHASONE 4 MG/ML VIAL IV ONE (09:50)
[2019-05-08] MEDS ORDERED: fentaNYL 100 MCG/2 ML VIAL IV ONE (09:50)
[2019-05-08] MEDS ORDERED: KETAMINE 10 MG/ML ML IV ONE (09:50)
[2019-05-08] MEDS ORDERED: ROPIVACAINE HCL/PF 20 ML VIAL IJ ONE (09:50)
[2019-05-08] MEDS ORDERED: PROPOFOL 200 MG/20 ML VIAL IV ONE (09:50)
[2019-05-08] MEDS ORDERED: ONDANSETRON 4 MG/2 ML VIAL IV ONE (09:50)
[2019-05-08] MEDS ORDERED: PHENYLEPHRINE 10 MG/ML VIAL IV ONE (09:50)
[2019-05-08] MEDS ORDERED: ROCURONIUM 10 MG/ML ML IV ONE (09:50)
[2019-05-08] MEDS ORDERED: SUGAMMADEX SODIUM 200 MG/2 ML VIAL IV ONE (09:50)
[2019-05-08] MEDS ORDERED: MIDAZOLAM 2 MG/2 ML VIAL IV ONE (09:50)
[2019-05-08] MEDS ORDERED: LIDOCAINE HCL/PF 100 MG/5 ML SYRINGE IV ONE (09:50)
[2019-05-08] MEDS ORDERED: ACETAMINOPHEN 600 MG/60 ML BOTTLE IV ONE (10:48)
[2019-05-08] MEDS ORDERED: FLUMAZENIL 0.1 MG/ML ML IV PRN (10:48)
[2019-05-08] MEDS ORDERED: BENZOCAINE/MENTHOL 1 LOZENGE PO PRN (10:48)
[2019-05-08] MEDS ORDERED: fentaNYL 100 MCG/2 ML VIAL IV PRN (10:48)
[2019-05-08] MEDS ORDERED: ONDANSETRON 4 MG/2 ML VIAL IV PRN (10:48)
[2019-05-08] MEDS ORDERED: NALOXONE HCL 0.4 MG/ML VIAL IV PRN (10:48)
[2019-05-08] MEDS ORDERED: LACTATED RINGERS 250 ML IV PRN (10:48)
[2019-05-08] MEDS ORDERED: LACTATED RINGERS 1,000 ML IV SCH (11:00)
--- NOTE | 2019-05-08 11:59 | Brief Operative Note ---
Date of procedure: 05/16/19 Pre-op diagnosis: gatric reflux with recurrent emesis Post-op diagnosis: same Procedure: gastro jejunostomy with gj tubeinto distal jejunum Grafts/Implants: No (gastrojejunostomy tube) Anesthesia: GETA Complications: none Surgeon: Dara Clark Estimated blood loss (cc): 25 Specimens Removed/Pathology: none sent Condition: stable Disposition: PACU
[2019-05-08] MEDS: 0.9 % SODIUM CHLORIDE 1,000 ML IV SCH (13:05)
[2019-05-08] MEDS: METOCLOPRAMIDE 10 MG/2 ML VIAL IV SCH ×2 (13:21→18:09)
[2019-05-08] MEDS: fentaNYL 100 MCG/2 ML VIAL IV PRN ×4 (13:21→23:31)
[2019-05-08] MEDS: 0.9 % SODIUM CHLORIDE 10 ML SYRINGE IV SCH ×2 (13:44→23:32)
[2019-05-08] MEDS: ACETAMINOPHEN 600 MG/60 ML BOTTLE IV SCH (18:13)
[2019-05-09] MEDS: METOCLOPRAMIDE 10 MG/2 ML VIAL IV SCH ×5 (00:15→23:27)
[2019-05-09] MEDS: ACETAMINOPHEN 600 MG/60 ML BOTTLE IV SCH ×3 (00:15→11:57)
[2019-05-09] MEDS: fentaNYL 100 MCG/2 ML VIAL IV PRN ×5 (02:26→16:48)
[2019-05-09] MEDS: 0.9 % SODIUM CHLORIDE 1,000 ML IV SCH ×2 (04:00→19:56)
[2019-05-09 06:39] LABS: Basophils # (Auto) 0 K/mcL (0.0-0.3); Basophils % (Auto) 0.1 % (0.0-2.0); Eosinophils # (Auto) 0 K/mcL (0.0-0.7); Eosinophils % (Auto) 0.1 % (0.0-7.0); Granulocytes % (Auto) 84.9 % (38.0-78.0); Hematocrit 26.2 % (41.0-55.0); Lymphocytes # (Auto) 1.6 K/mcL (1.5-4.8); Lymphocytes % (Auto) 10.9 % (15.5-49.0); Mean Cell Volume 67.4 fL (80.0-100.0); Mean Corpuscular HGB Conc 30.5 g/dL (31.0-36.0); Mean Platelet Volume 8.6 fL (7.4-10.4); Monocytes # (Auto) 0.6 K/mcL (0.1-0.9); Platelet Count 257 K/mcL (140-440); RBC 3.89 M/mcL (4.50-5.90); Red Cell Distribution Width 18.5 % (11.5-14.5); WBC 14.3 K/mcL (4.5-11.0)
[2019-05-09] MEDS: 0.9 % SODIUM CHLORIDE 10 ML SYRINGE IV SCH ×3 (07:07→21:34)
[2019-05-09] MEDS: BISACODYL 10 MG SUPP.RECT PR SCH (11:48)
--- NOTE | 2019-05-09 16:39 | General Surgery Progress Note ---
Subjective Narrative: Note initiated : 05/09/19 at 4:37 pm Service Date, if different from initiated Date: [] Patient: Raúl Hammond 23 y/o M admitted on 05/08/19 for Open Gastrojejunostomy with J Tube Placement. Chief Complaint: [Patient is clinically stable. Vital signs stable and he's admitted. Incision looks good.] Objective Temp Pulse Resp BP Pulse Ox 98.6 F 108 H 14 93/56 97 05/09/19 08:00 05/09/19 08:00 05/09/19 08:00 05/09/19 08:00 05/09/19 08:00 - Additional Data Intake & Output - Last 24 hours: Intake & Output 05/07/19 05/08/19 05/09/19 05/10/19 05:59 05:59 05:59 05:59 Intake Total 2930 120 Output Total 5 Balance 2925 120 Weight 86 lb 3.2 oz 90 lb 90 lb - General physical appearance moderate pain, chronically ill - Eyes PERRL, normal ocular movement - Neck no masses, no bruits, trachea midline, no lymphadenopathy, no venous distension - Respiratory normal expansion, normal respiratory effort, clear to auscultation - Cardiovascular Cardiovascular exam: Present: normal rate and rhythm, RRR, +S1, +S2. Absent: JVD, tachycardia - Abdomen distended (mild distention; active bowel sounds ) - Labs 05/09/19 03:55 Assessment and Plan (1) Intractable nausea and vomiting Status: Acute Current Visit: No (2) Gastrostomy tube dysfunction Status: Acute Current Visit: No (3) Angelman syndrome Problem details: with severe mental retardation Status: Acute Current Visit: No (4) Developmental delay, severe Status: Acute Current Visit: No - Time Spent With Patient Total time spent is greater than 50% in coordination of care (as documented) at patient's floor/unit and/or counseling patient:
[2019-05-10] MEDS ORDERED: PROMETHAZINE 25 MG/ML VIAL IV PRN (00:33)
[2019-05-10] MEDS ORDERED: ONDANSETRON 4 MG/2 ML VIAL ONE (00:42)
[2019-05-10] MEDS: ONDANSETRON 4 MG/2 ML VIAL IV PRN ×2 (00:45→23:33)
[2019-05-10] MEDS: fentaNYL 100 MCG/2 ML VIAL IV PRN (01:22)
[2019-05-10] MEDS ORDERED: PROMETHAZINE 25 MG/ML VIAL ONE (02:14)
[2019-05-10] MEDS: METOCLOPRAMIDE 10 MG/2 ML VIAL IV SCH ×4 (05:53→23:22)
[2019-05-10] MEDS: 0.9 % SODIUM CHLORIDE 10 ML SYRINGE IV SCH ×3 (05:54→21:19)
--- NOTE | 2019-05-10 08:04 | XRay Report ---
CLINICAL INFORMATION: Status post placement of feeding tube. TECHNIQUE: Supine portable abdomen COMPARISON: Previous CT scan dated 04/18/2019 FINDINGS: There are skin perico in a vertical abdominal incision. There is a catheter overlying the left upper quadrant extending to the right across midline. There is also a curled catheter with fixation device to the right of midline. Anatomic location of this catheter is not certain based upon single AP projection. There is gas throughout small and large bowel. No evidence for obstruction. No focal abnormality. IMPRESSION: Status post feeding tube placement. Interpreted and Authenticated by: Winston Damon 05/10/19
[2019-05-10] MEDS: 0.9 % SODIUM CHLORIDE 1,000 ML IV SCH ×2 (09:01→22:05)
[2019-05-10] MEDS: BISACODYL 10 MG SUPP.RECT PR SCH (09:18)
--- NOTE | 2019-05-10 14:22 | General Surgery Progress Note ---
Subjective Patient reports: pain is less, flatus, bowel movement, nausea, vomiting, afebrile Narrative: Note initiated : 05/10/19 at 2:21 pm Service Date, if different from initiated Date: [] Patient: Raúl Hammond 23 y/o M admitted on 05/08/19 for Open Gastrojejunostomy with J Tube Placement. Chief Complaint: [patient is clinically stable. patient is afebrile. He had some nausea and vomiting last evening but has done well throughout the day. Abdominal x-ray shows the GJ tube to be in the jejunum. He has dilated loops of bowel with gas but it extends into:. His incision looks good.] Objective Temp Pulse Resp BP Pulse Ox 98.1 F 103 H 14 102/64 97 05/10/19 08:00 05/10/19 09:52 05/10/19 09:52 05/10/19 08:00 05/10/19 09:52 - Additional Data Intake & Output - Last 24 hours: Intake & Output 05/08/19 05/09/19 05/10/19 05/11/19 05:59 05:59 05:59 05:59 Intake Total 2930 1120 981 Output Total 5 7 1 Balance 2925 1113 980 Weight 86 lb 3.2 oz 90 lb 92 lb - General physical appearance moderate pain, chronically ill - Eyes PERRL, normal ocular movement - Neck no masses, no bruits, trachea midline, no lymphadenopathy, no venous distension - Respiratory normal expansion, normal respiratory effort, clear to auscultation - Cardiovascular Cardiovascular exam: Present: RRR, +S1, +S2. 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
[2019-05-10] MEDS: DIAZEPAM 10 MG/2 ML SYRINGE IV PRN (14:24)
[2019-05-10] MEDS: MAGNESIUM CITRATE 300 ML ORAL.SOL PO SCH ×3 (16:07→23:22)
[2019-05-11] MEDS: fentaNYL 100 MCG/2 ML VIAL IV PRN ×2 (03:15→09:11)
[2019-05-11] MEDS: MAGNESIUM CITRATE 300 ML ORAL.SOL PO SCH ×2 (03:17→08:57)
[2019-05-11] MEDS: 0.9 % SODIUM CHLORIDE 10 ML SYRINGE IV SCH ×3 (05:27→23:35)
[2019-05-11] MEDS: METOCLOPRAMIDE 10 MG/2 ML VIAL IV SCH ×5 (05:46→23:47)
[2019-05-11] MEDS: DIAZEPAM 10 MG/2 ML SYRINGE IV PRN ×2 (06:30→15:49)
[2019-05-11] MEDS: 0.9 % SODIUM CHLORIDE 1,000 ML IV SCH ×3 (07:35→23:35)
[2019-05-11] MEDS: BISACODYL 10 MG SUPP.RECT PR SCH (10:14)
--- NOTE | 2019-05-11 10:32 | XRay Report ---
CLINICAL INFORMATION: Follow-up ileus TECHNIQUE: AP supine abdomen and pelvis COMPARISON: Previous examination dated 05/10/2019 FINDINGS: Bowel gas pattern is unremarkable. There is gas throughout the colon. No dilated gas filled small bowel. No evidence for mechanical small bowel obstruction or significant ileus No biliary or portal venous gas. No pneumatosis. There is a left-sided feeding tube. There are skin perico in a vertical incision IMPRESSION: Unremarkable bowel gas pattern. No evidence for ileus or obstruction Interpreted and Authenticated by: Winston Damon 05/11/19
--- NOTE | 2019-05-11 13:32 | General Surgery Progress Note ---
Subjective Patient reports: flatus, bowel movement, afebrile Narrative: Note initiated : 05/11/19 at 1:31 pm Service Date, if different from initiated Date: [] Patient: Raúl Hammond 23 y/o M admitted on 05/08/19 for Open Gastrojejunostomy with J Tube Placement. Chief Complaint: [] Patient is stable. He will be started on tube feedings at 30 cc an hour for the next 24 hours and then increase as needed. He is otherwise doing very well. Objective Temp Pulse Resp BP Pulse Ox 98.2 F 101 H 16 114/78 98 05/11/19 11:34 05/11/19 11:34 05/11/19 11:34 05/11/19 11:34 05/11/19 11:34 - Additional Data Intake & Output - Last 24 hours: Intake & Output 05/09/19 05/10/19 05/11/19 05/12/19 05:59 05:59 05:59 05:59 Intake Total 2930 1120 2257 977 Output Total 5 7 60 Balance 2925 1113 2197 977 Weight 90 lb 92 lb 91 lb 9.6 oz - Labs 05/09/19 03:55 Assessment and Plan (1) Intractable nausea and vomiting Status: Resolved Assessment and plan: Started on tube feedings via jejunostomy tube Current Visit: No (2) Angelman syndrome Problem details: with severe mental retardation Status: Acute Current Visit: No (3) Developmental delay, severe Status: Acute Current Visit: No - Time Spent With Patient Total time spent is greater than 50% in coordination of care (as documented) at patient's floor/unit and/or counseling patient:
[2019-05-11] MEDS: ACETAMINOPHEN IV PRN (22:58)
[2019-05-12] MEDS: 0.9 % SODIUM CHLORIDE 1,000 ML IV SCH ×3 (00:48→14:36)
[2019-05-12] MEDS: DIAZEPAM 10 MG/2 ML SYRINGE IV PRN ×4 (02:41→22:43)
[2019-05-12] MEDS: 0.9 % SODIUM CHLORIDE 10 ML SYRINGE IV SCH ×3 (04:01→21:11)
[2019-05-12] MEDS: METOCLOPRAMIDE 10 MG/2 ML VIAL IV SCH ×3 (05:53→17:19)
[2019-05-12 06:13] LABS: Basophils # (Auto) 0 K/mcL (0.0-0.3); Basophils % (Auto) 0.2 % (0.0-2.0); Eosinophils % (Auto) 9.1 % (0.0-7.0); Granulocytes % (Auto) 70.7 % (38.0-78.0); Hematocrit 28.8 % (41.0-55.0); Hemoglobin 8.9 g/dL (13.5-16.5); Lymphocytes # (Auto) 1.3 K/mcL (1.5-4.8); Lymphocytes % (Auto) 12.7 % (15.5-49.0); Mean Cell Volume 66.9 fL (80.0-100.0); Mean Corpuscular HGB Conc 30.8 g/dL (31.0-36.0); Mean Platelet Volume 8.6 fL (7.4-10.4); Monocytes # (Auto) 0.8 K/mcL (0.1-0.9); Monocytes % (Auto) 7.3 % (1.0-12.0); Platelet Count 358 K/mcL (140-440); RBC 4.31 M/mcL (4.50-5.90); Red Cell Distribution Width 18.8 % (11.5-14.5); WBC 10.6 K/mcL (4.5-11.0)
[2019-05-12 06:51] LABS: ALT/SGPT 11 U/l (0-40); AST/SGOT 17 U/l (0-37); Albumin 3.6 gm/dL (3.2-5.2); Albumin/Globulin Ratio 1.4 (1.0-2.3); Alkaline Phosphatase 75 U/L (39-117); Bilirubin,Direct < 0.2 mg/dL (0.0-0.3); Bilirubin,Total < 0.2 mg/dL (0.0-1.0); Blood Urea Nitrogen 5 mg/dl (6-20); Calcium 8.6 mg/dl (8.6-10.4); Carbon Dioxide 26 mmol/L (22-30); Chloride 104 mmol/L (96-108); Globulin 2.5 gm/dL (2.2-3.7); Glomerular Filtration Rate 166; Glucose 105 mg/dL (70-105); Lactate Dehydrogenase 191 U/L (94-250); Phosphorous 2.6 mg/dL (2.7-4.5); Triglycerides 74 mg/dl (<150); Uric Acid 3.7 mg/dL (2.5-8.0)
[2019-05-12] MEDS: BISACODYL 10 MG SUPP.RECT PR SCH (07:35)
[2019-05-12] MEDS: ONDANSETRON 4 MG/2 ML VIAL IV PRN (08:32)
--- NOTE | 2019-05-12 09:45 | XRay Report ---
CLINICAL INFORMATION:Dyspnea. Possible aspiration TECHNIQUE: AP portable semierect chest x-ray COMPARISON: Previous chest x-rays dated 07/03/2018, 02/13/2016 FINDINGS:No focal pulmonary parenchymal infiltrate or mass. Lungs are negative. Heart size and vascularity are normal. No pulmonary edema or pulmonary congestion. There is severe thoracolumbar scoliosis IMPRESSION: Negative AP chest x-ray. No focal or acute abnormality Interpreted and Authenticated by: Winston Damon 05/12/19
--- NOTE | 2019-05-12 09:48 | XRay Report ---
CLINICAL INFORMATION: Status post feeding tube placement TECHNIQUE: AP, supine abdomen COMPARISON: Previous examination dated 05/11/2019 FINDINGS: Severe thoracic and lumbar scoliosis. There are skin perico in the vertical incision. There is a feeding tube in the left upper quadrant consistent with PEG tube. Bowel gas pattern is unremarkable. No mechanical small bowel obstruction. No biliary or portal venous gas. There is no pneumatosis. IMPRESSION: 1. Feeding tube in the left upper abdominal quadrant 2. Unremarkable bowel gas pattern Interpreted and Authenticated by: Winston Damon 05/12/19
[2019-05-12 10:30] LABS: Lactate Dehydrogenase 158 U/L (94-250)
[2019-05-12 10:37] LABS: Basophils # (Auto) 0 K/mcL (0.0-0.3); Basophils % (Auto) 0.2 % (0.0-2.0); Eosinophils # (Auto) 0.8 K/mcL (0.0-0.7); Eosinophils % (Auto) 7.4 % (0.0-7.0); Granulocytes % (Auto) 77.5 % (38.0-78.0); Hematocrit 28.6 % (41.0-55.0); Hemoglobin 8.9 g/dL (13.5-16.5); Lymphocytes % (Auto) 9.2 % (15.5-49.0); Mean Cell Volume 66.7 fL (80.0-100.0); Mean Platelet Volume 8.5 fL (7.4-10.4); Monocytes # (Auto) 0.6 K/mcL (0.1-0.9); Monocytes % (Auto) 5.7 % (1.0-12.0); Platelet Count 391 K/mcL (140-440); RBC 4.29 M/mcL (4.50-5.90); Red Cell Distribution Width 19.3 % (11.5-14.5); WBC 11.2 K/mcL (4.5-11.0)
[2019-05-12] MEDS: ACETAMINOPHEN IV PRN (11:24)
--- NOTE | 2019-05-12 14:23 | General Surgery Progress Note ---
Subjective Patient reports: pain is less, flatus, bowel movement, nausea, vomiting, fever Narrative: Note initiated : 05/12/19 at 2:21 pm Service Date, if different from initiated Date: [] Patient: Raúl Hammond 23 y/o M admitted on 05/08/19 for Open Gastrojejunostomy with J Tube Placement. Chief Complaint: [patient is stable. He did have low-grade temperature. His white count increased to 11.2. He had no nausea, vomiting, and there was some concern about aspiration. The chest x-ray is negative for far. White blood count 11.2, hemoglobin 8.9, hematocrit 28.6, potassium 3.7, BUN 5, creatinine 0.4. Abdominal series is normal and the jejunostomy tube is adequately positioned. Will delay increase in feedings until tomorrow. Will also delay discharge until I'm sure that the nausea and vomiting is improved. He will definitely needs Reglan at the time of discharge.] Objective Temp Pulse Resp BP Pulse Ox 99.0 F 115 H 20 115/71 96 05/12/19 12:00 05/12/19 12:00 05/12/19 12:00 05/12/19 12:00 05/12/19 12:00 - Additional Data Intake & Output - Last 24 hours: Intake & Output 05/10/19 05/11/19 05/12/19 05/13/19 05:59 05:59 05:59 05:59 Intake Total 1120 2257 2549 710 Output Total 7 60 6 1 Balance 1113 2197 2543 709 Weight 92 lb 91 lb 9.6 oz 91 lb 9.6 oz 91 lb 9.6 oz - General physical appearance moderate pain, chronically ill - Eyes PERRL, normal ocular movement - ENT normal pinna, normal nares, normal mucosa, no hearing loss, no congestion - Neck no masses, no bruits, trachea midline, no lymphadenopathy, no venous distension - Respiratory normal expansion, normal respiratory effort, clear to auscultation, other (good breath sounds bilaterally without rhonchi, rales or wheezes) - Cardiovascular Cardiovascular exam: Present: normal rate and rhythm, RRR, +S1, +S2. Absent: JVD, tachycardia - Abdomen non tender, bowel sounds (present), surgical scars (none), masses (none), distended ( nondistended; good active bowel sounds; incision looks good) - Integumentary no rash, no growths, no abnormal pigmentation - Labs 05/12/19 09:36 05/12/19 04:08 Diabetes panel 05/12/19 Range/Units 04:08 Sodium 140 (133-145) mmol/L Potassium 3.7 (3.3-5.1) mmol/L Chloride 104 (96-108) mmol/L Carbon Dioxide 26 (22-30) mmol/L BUN 5 L (6-20) mg/dl Creatinine 0.4 L (0.7-1.2) mg/dl Glucose 105 (70-105) mg/dL Calcium 8.6 (8.6-10.4) mg/dl AST 17 (0-37) U/l ALT 11 (0-40) U/l Alkaline Phosphatase 75 (39-117) U/L Total Protein 6.1 (5.9-8.4) gm/dL Albumin 3.6 (3.2-5.2) gm/dL Triglycerides 74 (<150) mg/dl Calcium panel 05/12/19 Range/Units 04:08 Calcium 8.6 (8.6-10.4) mg/dl Phosphorus 2.6 L (2.7-4.5) mg/dL Albumin 3.6 (3.2-5.2) gm/dL Pituitary panel 05/12/19 Range/Units 04:08 Sodium 140 (133-145) mmol/L Potassium 3.7 (3.3-5.1) mmol/L Chloride 104 (96-108) mmol/L Carbon Dioxide 26 (22-30) mmol/L BUN 5 L (6-20) mg/dl Creatinine 0.4 L (0.7-1.2) mg/dl Glucose 105 (70-105) mg/dL Calcium 8.6 (8.6-10.4) mg/dl Adrenal panel 05/12/19 Range/Units 04:08 Sodium 140 (133-145) mmol/L Potassium 3.7 (3.3-5.1) mmol/L Chloride 104 (96-108) mmol/L Carbon Dioxide 26 (22-30) mmol/L BUN 5 L (6-20) mg/dl Creatinine 0.4 L (0.7-1.2) mg/dl Glucose 105 (70-105) mg/dL Calcium 8.6 (8.6-10.4) mg/dl Total Bilirubin < 0.2 (0.0-1.0) mg/dL AST 17 (0-37) U/l ALT 11 (0-40) U/l Alkaline Phosphatase 75 (39-117) U/L Total Protein 6.1 (5.9-8.4) gm/dL Albumin 3.6 (3.2-5.2) gm/dL Assessment and Plan (1) Intractable nausea and vomiting Status: Resolved Assessment and plan: Started on tube feedings via jejunostomy tube We'll delay discharge because of nausea and vomiting last evening. We'll try to get family A suction set up for gastric decompression When he is at home Current Visit: No (2) Angelman syndrome Problem details: with severe mental retardation Status: Acute Current Visit: No (3) Developmental delay, severe Status: Acute Current Visit: No - Time Spent With Patient Total time spent is greater than 50% in coordination of care (as documented) at patient's floor/unit and/or counseling patient:
[2019-05-13] MEDS: METOCLOPRAMIDE 10 MG/2 ML VIAL IV SCH ×3 (00:30→14:22)
[2019-05-13] MEDS: 0.9 % SODIUM CHLORIDE 10 ML SYRINGE IV SCH ×2 (05:02→13:56)
[2019-05-13 05:46] LABS: ALT/SGPT 12 U/l (0-40); AST/SGOT 14 U/l (0-37); Albumin 3.2 gm/dL (3.2-5.2); Albumin/Globulin Ratio 1.1 (1.0-2.3); Alkaline Phosphatase 68 U/L (39-117); Bilirubin,Direct < 0.2 mg/dL (0.0-0.3); Bilirubin,Total 0.2 mg/dL (0.0-1.0); Blood Urea Nitrogen 6 mg/dl (6-20); Calcium 8.8 mg/dl (8.6-10.4); Carbon Dioxide 23 mmol/L (22-30); Chloride 105 mmol/L (96-108); Globulin 2.9 gm/dL (2.2-3.7); Glomerular Filtration Rate 166; Glucose 115 mg/dL (70-105); Lactate Dehydrogenase 184 U/L (94-250); Phosphorous 2.7 mg/dL (2.7-4.5); Triglycerides 117 mg/dl (<150)
[2019-05-13 05:48] LABS: Uric Acid 2.2 mg/dL (2.5-8.0)
[2019-05-13] MEDS: DIAZEPAM 10 MG/2 ML SYRINGE IV PRN (08:35)
[2019-05-13 10:22] LABS: Basophils # (Auto) 0 K/mcL (0.0-0.3); Basophils % (Auto) 0.1 % (0.0-2.0); Eosinophils # (Auto) 0.8 K/mcL (0.0-0.7); Granulocytes % (Auto) 76.5 % (38.0-78.0); Hematocrit 28.1 % (41.0-55.0); Hemoglobin 8.7 g/dL (13.5-16.5); Lymphocytes # (Auto) 1.2 K/mcL (1.5-4.8); Mean Cell Volume 66.6 fL (80.0-100.0); Mean Corpuscular HGB Conc 30.8 g/dL (31.0-36.0); Mean Platelet Volume 8.7 fL (7.4-10.4); Monocytes # (Auto) 0.8 K/mcL (0.1-0.9); Monocytes % (Auto) 6.4 % (1.0-12.0); Platelet Count 402 K/mcL (140-440); RBC 4.22 M/mcL (4.50-5.90); Red Cell Distribution Width 19.4 % (11.5-14.5); WBC 12.2 K/mcL (4.5-11.0)
[2019-05-13] MEDS ORDERED: METOCLOPRAMIDE ORAL SOL 1 MG/ML ML PT SCH (12:00)
[2019-05-13] MEDS ORDERED: ACETAMINOPHEN 160 MG/5 ML ORAL.SOL PT PRN (13:26)
[2019-05-13] MEDS ORDERED: DIAZEPAM 5 MG TABLET PT PRN (13:33)
--- NOTE | 2019-05-13 13:43 | Discharge Summary ---
Providers - Providers Patient information: Note initiated : 05/13/19 at 1:37 pm Service Date, if different from initiated Date: [] Patient: Raúl Hammond 23 y/o M admitted on 05/08/19 for Open Gastrojejunostomy with J Tube Placement. 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 Patient has severe gastroesophageal reflux and recurrent emesis. He has had multiple gastrostomy tubes in gastrojejunostomy tube in placed without success. The tube would migrate from the proximal jejunum back into the stomach. After much discussion it was decided to do a primary open gastrojejunostomy with positioning of the tube in the distal jejunum through the gastrojejunal anastomosis. This was carried out on the 08 May and he was admitted postoperatively. The tube was secured in the distal jejunum by a single stitch placed around the distal tube through the bowel wall. He had ileus in the postoperative period and has been able to tolerate continuous feeding at 30 cc per hour. He does sleep, intermittent gastrostomy suctioning because of poor emptying of the stomach, through the gastrojejunal anastomosis. In spite of this, the formula is not being instruction and is going distally. Based on x- ray studies the tube has not changed position since surgery and the infusions are occurring without problems. Patient has been able to tolerate feedings and is stable for discharge home. The plan is to increase the feedings by 5 cc/h every 2 days for maximum of 60 cc per hour. The family will be given a suction machine that they can hope to the gastrostomy port intermittently to do gastric decompression. Discharge diagnosis: intractable nausea and vomiting. Secondary discharge diagnosis: Gastroesophageal reflux. Nonfunctioning gastrojejunal tube. Romulo men's syndrome. Developmental delay. Reason for admission: recurrent nausea and vomiting Procedures: Open gastrojejunostomy with gastrojejunal tube placement Distal jejunum Pertinent studies/significant findings: None Complications: None Exam Temp Pulse Resp BP Pulse Ox 99.6 F H 124 H 12 125/75 96 05/13/19 12:00 05/13/19 12:00 05/13/19 12:00 05/13/19 12:00 05/13/19 12:00 - General physical appearance no distress, cachectic, chronically ill - Eyes PERRL, normal ocular movement - ENT normal pinna, normal nares, normal mucosa, no hearing loss, no congestion - Head Head exam IM: Present: atraumatic, normocephalic - Neck no masses, no bruits, trachea midline, no lymphadenopathy, no venous distension - Cardiovascular Cardiovascular exam IM: Present: normal rate and rhythm - Respiratory normal expansion, normal respiratory effort, clear to auscultation - Abdomen Abdomen: Present: soft, tender (mild tenderness of incision; adequately positioned. Gastrojejunal tube.), bowel sounds (Active bowel sounds) Hernia: Present: none - Genitourinary Present: normal penis with no external lesions - Integumentary Present: no rash, no growths, no abnormal pigmentation - Neurologic Present: other (extensive spasm of lower extremities including hips, knees and feet with flexion contractures) - Musculoskeletal Present: other ( in multiple except for upper extremities and head; bony deformity of hips, knees, ankles and feet) - Psychiatric Present: other ( minimal recognition of familial people; tracks with eyes and responds nonverbally) Discharge Plan - Patient/Caregiver Discharge Instructions Activity: increase activity as tolerated, other ( Patient needs total care) Diet: Full Liquid (. Tube feedings as prior to admission) Prescriptions: Metoclopramide Oral Sabina [Reglan Oral Sabina] 5 mg PT Q6 #240 ml Transmission Status: Pending to [facility] - Follow up Plan Disposition: Home Health Service Prognosis: Fair Rehab Potential: Fair I certify that the patient requires SNF services.: No Overall status at discharge: patient is back to baseline Pending Studies Resuscitation Status Full Code Diet Full Liquid Diet Start MonMay 12 1627 Bisacodyl (Dulcolax) 10 mg [place] DAILY [facility] Last Admin: 05/12/19 07:35 Dose: Not Given Documented by: Admin: 05/11/19 10:14 Dose: Not Given Documented by: Admin: 05/10/19 09:18 Dose: Not Given Documented by: Admin: 05/09/19 11:48 Dose: Not Given Documented by: [email or web address] Fentanyl (Sublimaze) 25 mcg IV Q3HP PRN; Protocol PRN Reason: Per Pain Protocol Last Admin: 05/11/19 09:11 Dose: 25 mcg Documented by: Admin: 05/11/19 03:15 Dose: 25 mcg Documented by: Admin: 05/10/19 01:22 Dose: 25 mcg Documented by: Admin: 05/09/19 16:48 Dose: 25 mcg Documented by: Admin: 05/09/19 11:56 Dose: 25 mcg Documented by: Admin: 05/09/19 08:24 Dose: 25 mcg Documented by: Admin: 05/09/19 05:27 Dose: 25 mcg Documented by: Admin: 05/09/19 02:26 Dose: 25 mcg Documented by: Admin: 05/08/19 23:31 Dose: 25 mcg Documented by: Admin: 05/08/19 20:37 Dose: 25 mcg Documented by: Admin: 05/08/19 16:28 Dose: 25 mcg Documented by: [email or web address] Admin: 05/08/19 13:21 Dose: 25 mcg Documented by: DANIEL Sodium Chloride (Sodium Chloride 0.9%) 1,000 mls @ 50 mls/hr IV .Q20H LEON Last Infusion: 05/13/19 09:19 Dose: 0 mls/hr Documented by: Admin: 05/12/19 14:36 Dose: 50 mls/hr Documented by: ANDRÉS Ondansetron HCl (Zofran) 4 mg IV Q4HP PRN PRN Reason: Nausea And Vomiting Last Admin: 05/12/19 08:32 Dose: 4 mg Documented by: Admin: 05/10/19 23:33 Dose: 4 mg Documented by: Admin: 05/10/19 00:45 Dose: 4 mg Documented by: NARENDRA Promethazine HCl (Phenergan) 6.25 mg IV Q4HP PRN PRN Reason: Nausea And Vomiting Last Admin: 05/10/19 02:16 Dose: 6.25 mg Documented by: NARENDRA Sodium Chloride (Saline Flush) 10 ml IV Q8 LEON Last Admin: 05/13/19 05:02 Dose: Not Given Documented by: Admin: 05/12/19 21:11 Dose: Not Given Documented by: Admin: 05/12/19 14:29 Dose: Not Given Documented by: Admin: 05/12/19 04:01 Dose: Not Given Documented by: Admin: 05/11/19 23:35 Dose: Not Given Documented by: Admin: 05/11/19 14:17 Dose: Not Given Documented by: Admin: 05/11/19 05:27 Dose: Not Given Documented by: Admin: 05/10/19 21:19 Dose: Not Given Documented by: Admin: 05/10/19 14:24 Dose: 10 ml Documented by: [email or web address] Admin: 05/10/19 05:54 Dose: Not Given Documented by: Admin: 05/09/19 21:34 Dose: Not Given Documented by: Admin: 05/09/19 14:03 Dose: Not Given Documented by: [email or web address] Admin: 05/09/19 07:07 Dose: Not Given Documented by: [email or web address] Admin: 05/08/19 23:32 Dose: Not Given Documented by: Admin: 05/08/19 13:44 Dose: Not Given Documented by: DANIEL Shift Summary 05/13/19 02:21 Shift Summary by Allison Martinez 05/12/19 Pt. is alert, non-verbal, and developmentally delayed, pleasant and cooperative with nursing cares. Pt. is on a 2QH turning schedule. Pt. slept well last night and was awake and alert most of the morning. Pt. developed chest congestion this morning and was running a low grade temp. Chest x-ray and abdominal x-ray were ordered, both came back with normal findings. Pt. wears attends and has severe contractures to his legs. Dressing to abdomen is c/d/i. IV to rt. upper arm is patent and infusing 75mls/hr of NS. Pt. is to receive tube feedings (home formula) at 30mls/hr continuously. Patient developed nausea and was place pt on suction via the gastric port x1H, with immediate results. Valium given for muscle spasms. Family is requesting that pt. have a 1:1 from [id number]. Update at bedside. 05/13/19 Pt continues on home formula tube feeds at 30mls/hr. HOB at 30deg and tube feed on hold when flat. Patient was placed on suction x1 for "gaging" per family. Green fluid in return. Valium given x1 this shift. Pt able to sleep only a few hours this shift. Family hopes patient can go home today. Family present 18- 00, nursing staff present 00-06. Will update with verbal report. Initialized on 05/13/19 02:21 - END OF NOTE
[2019-05-13] MEDS: BISACODYL 10 MG SUPP.RECT PR SCH (13:45)
[2019-05-13] MEDS: 0.9 % SODIUM CHLORIDE 1,000 ML IV SCH (13:45)
--- NOTE | 2019-05-17 15:00 | Operative Note ---
DATE OF OPERATION: 05/08/2019 PREOPERATIVE DIAGNOSIS: Gastric reflux with recurrent emesis. POSTOPERATIVE DIAGNOSES: Gastroesophageal reflux with recurrent emesis. PROCEDURE: Open gastrojejunostomy with gastrojejunal tube insertion into the distal jejunum. SURGEON: Dara Clark M.D. DESCRIPTION OF PROCEDURE: Under general anesthesia, the patient's abdomen was prepped and draped in a sterile field. Timeout procedure was carried out as per protocol. A midline incision was made. The bowel was eviscerated and followed proximally. The edge of the stomach along its greater curvature was grasped with two Allis clamps. The anterior surface of the stomach was stapled to the antimesenteric side of the jejunum using a LIZZETTE 55 stapler. The old gastrostomy tube was removed and the new gastrojejunal tube was placed. It was positioned through the old opening and then was passed and placed through the anastomosis into the distal jejunum. The opening in the stomach was closed with TA 30 stapler. The staple line was oversewn using running locking 2-0 Prolene. The stomach was sutured to the peritoneum with interrupted 3-0 silk. This was done to prevent traction on the anastomosis. After inspection, it was elected to close but it appeared that the jejunal tube was pulling back, so a single stitch of 3-0 Vicryl was sutured around the jejunostomy tube to hold it in place against the wall of the jejunum, but not tied tight enough to constrict the openings. The balloon to the gastric retention port was insufflated with 15 mL of saline. Position of the tube in the jejunum was confirmed. Irrigation was carried out. Fascia was closed with #1 Prolene. There was no significant subcutaneous tissue. Skin was closed with perico. Dressing was placed. The retention bolster was sutured to the abdominal wall without difficulty. Tegaderm dressing was placed over the dressing. The patient tolerated the procedure well. He was awakened and transferred to the post-anesthetic care unit in a satisfactory condition. LCS:bentley Job ID: [id number] Doc ID: [id number] Dara Clark M.D.
== END 2019-05-13 18:41 | disposition home health service (06) | DRG 345 ==
LOC: MEDSUR 05-08 05:45
PROVIDERS: ADMIT Family Medicine Adult Medicine; ATTEND Family Medicine Adult Medicine

== ENCOUNTER 2019-05-20 06:45 | Inpatient (IN) ==
[2019-05-20] MEDS ORDERED: 0.9 % SODIUM CHLORIDE 1,000 ML IV ONE ×2 (07:11→11:06)
--- NOTE | 2019-05-20 07:24 | Emergency Department Note ---
General Adult HPI - General Chief complaint: Nausea/Vomiting/Diarrhea Stated complaint: Nausea, vomiting Time Seen by Provider: 05/20/19 07:11 Source: family Mode of arrival: wheelchair Limitations: language barrier, physical limitation - History of Present Illness HPI Narrative: 23-year-old male presenting to the emergency department chief complaint of malfunction with his GJ tube. Family states they are noticing that things placed into the J port are returned immediately through the G port when set to suction. Patient with recent malfunction of the tube resulting in Dr. Clark attending him and unplugging the tube. This occurred on Monday. Patient is having ongoing vomiting they have tried some Phenergan and Zofran without benefit. - Related Data Home Medications Medication Instructions Recorded Confirmed polyethylene glycol 3350 17 17 g PT QID 03/06/15 05/08/19 gram/dose oral powder tiZANidine [Zanaflex] 8 mg PT TID 05/01/18 05/08/19 omeprazole 20 mg tablet,delayed 20 mg PT BID tab 04/04/19 05/08/19 release Cannabidiol (Cbd) Extract 3 drop PT PRN PRN 05/02/19 05/10/19 [Epidiolex] Promethazine [Phenergan] 25 mg [place] TID PRN 05/02/19 05/08/19 Previous Rx's Medication Instructions Recorded Metoclopramide Oral Sabina [Reglan 5 mg PT Q6 #240 ml 05/13/19 Oral Sabina] Ondansetron [Zofran ODT] 4 mg SL Q4-6HP PRN #10 tab 05/15/19 Allergies Allergy/AdvReac Type Severity Reaction Status Date / Time No Known Drug Allergies Allergy Verified 05/15/19 23:18 Review of Systems All systems ED: reviewed and negative except as stated. Past Medical History - Past Medical History PMFSH Narrative: All Active Problems (Last Reviewed 04/23/19 @ 12:44 by Dara Clark MD) Encounter for postoperative wound check (Acute) Abdominal pain (Acute) Drug-induced nausea and vomiting (Acute) Bacterial conjunctivitis of left eye (Acute) Constipation (Acute) Fecal impaction of colon (Acute) Accidental drug ingestion (Acute) Nausea and vomiting (Acute) Leukocytosis (Acute) Fecal impaction (Acute) Fecal impaction of colon (Acute) Nausea and vomiting (Acute) PEG tube malfunction (Acute) Vomiting (Acute) S/P orchiopexy (Acute 03/11/15) History of orchiectomy, unilateral (Acute 03/11/15) Torsion of testicle (Acute) Syncope (Acute) History of hip surgery (Acute) Intentional self-harm (Acute) Sleep disturbance (Acute) Epilepsy, generalized nonconvulsive, with intractable epilepsy (Acute) Wheelchair dependent (Acute) Angelman syndrome (Acute) Urinary incontinence (Acute) Epididymitis (Acute) Developmental delay, severe (Acute) Right testicular torsion (Acute) Medical history: Reports: other (history of Angelman syndrome.). Denies: cancer Surgical history ED: Reports: other (status post G-tube placement.) - Social History smoking status: Never smoker Alcohol use: Reports: None Drug use: Reports: none Physical Exam General: Patient is at baseline alertness however does appear like his eyes are more sunken than on previous visits when I am seeing him. Head: Atraumatic, normocephalic Eyes: Extraocular movements intact Neck: Trachea midline, full range of motion Chest: Symmetrical chest wall rise, breathing normally Cardiovascular: Patient with excellent perfusion to the extremities; patient with tachycardia Extremities: Diffuse contractures, warm well perfused Neuro: At neuro baseline Psychiatric: At baseline Limitations: language barrier, physical limitation Course Vital Signs Temperature 97.2 F 05/20/19 06:46 Pulse Rate 126 H 05/20/19 06:46 Respiratory Rate 20 05/20/19 06:46 Blood Pressure 115/94 05/20/19 06:46 Pulse Oximetry (%) 93 05/20/19 06:46 Temperature 97.2 F 05/20/19 06:46 Pulse Rate 123 H 05/20/19 08:16 Respiratory Rate 21 05/20/19 08:16 Blood Pressure 120/84 05/20/19 08:16 Pulse Oximetry (%) 96 05/20/19 08:16 Medical Decision Making - MDM Narrative Medical decision making narrative: 23-year-old male presenting to the emergency department with concern for feeding tube issue. Plain film does demonstrate shift in position of the small caliber tube. Surgeon on-call is actively reviewing the case at time of shift change. Patient still in the emergency department other concerns included possible hypoxia in consultation with nurse patient does have history of not adhering to keeping the O2 sat monitor in place on his finger and had been chewing on it at time of my evaluation. We did place the patient on some oxygen and his sats did improve. Discussed the case with Dr. Singh at time of shift change for ongoing care. - Lab Data Lab Results 05/20/19 Range/Units 07:27 POC Hct 47.0 (41.0-55.0) % POC Sodium 134 (133-145) mmol/L POC Potassium 4.8 (3.3-5.1) mmol/L POC Chloride 98 (96-108) mmol/L POC Total CO2 24 (22-30) mmol/L POC BUN 38 H (6-20) mg/dl POC Creatinine 2.1 H (0.7-1.2) mg/dl POC Glucose 160 H (70-105) mg/dL POC WB Ioniz Calcium 1.14 L (1.16-1.32) mmol/L Disposition Pt seen by LICENSE REGISTRATION EXAMINER/PA only: No Clinical Impression: Feeding tube dysfunction Qualifiers: Encounter type: subsequent encounter Qualified Code(s): T85.598D - Other mechanical complication of other gastrointestinal prosthetic devices, implants and grafts, subsequent encounter Disposition: Still a Patient Condition: Good Referrals: Inez Elkins ARNP [Primary Care Provider] -
[2019-05-20 07:30] LABS: POC Blood Urea Nitrogen 38 mg/dl (6-20); POC CO2 24 mmol/L (22-30); POC Calcium, Ionized 1.14 mmol/L (1.16-1.32); POC Chloride 98 mmol/L (96-108); POC Creatinine 2.1 mg/dl (0.7-1.2); POC Glucose, Random 160 mg/dL (70-105); POC Potassium 4.8 mmol/L (3.3-5.1); POC Sodium 134 mmol/L (133-145)
--- NOTE | 2019-05-20 08:15 | XRay Report ---
HISTORY: Nausea, vomiting and status post recent insertion of a gastrojejunostomy catheter FINDINGS: There is a small caliber catheter oriented vertically. One end is located lateral to the left side of the L2 vertebra and is pointing inferiorly. There is a row sutures superimposed over this end of the catheter. The catheter then extends superiorly and forms a loop in the lower chest, superimposed over the heart and then proceeds inferiorly. At the end of this catheter there is a balloon located to the right side of the L2 vertebra. This is in the general location of the gastric antrum. There is a larger caliber percutaneous catheter connected to the balloon, which extends to the left side of the abdomen. The placement of the percutaneous catheter and balloon is unchanged from 05/17/19. The placement of the smaller caliber catheter has shifted . No free intra-abdominal air is present. The lung bases are clear. There is no apparent bowel obstruction. Stomach is decompressed. IMPRESSION: No evidence of bowel obstruction Changing positioning of the smaller caliber catheter in the left upper quadrant. IMPRESSION: Interpreted and Authenticated by: Danny Garg 05/20/19
--- NOTE | 2019-05-20 09:50 | XRay Report ---
HISTORY: Nausea and vomiting, evaluate placement of percutaneous jejunostomy tube FINDINGS: Barium was injected through the percutaneous feeding tube. The tip of the catheter is in the proximal jejunum. There is no filling of the stomach. Visualized portion of the jejunum appears normal without evidence of obstruction or inflammation. There is no evidence of a leak. IMPRESSION: Normally positioned and functioning jejunostomy catheter Interpreted and Authenticated by: Danny Garg 05/20/19
--- NOTE | 2019-05-20 09:59 | General Surgery Consult Note ---
History of Present Illness Patient information: Note initiated : 05/20/19 at 9:53 am Service Date, if different from initiated Date: [] Patient: Raúl Hammond 23 y/o M admitted on for Nausea, vomiting. Chief Complaint: [] Consult date: 05/20/19 Reason for consult: other (problems with tubes) History of present illness: 23 yo man with Angleman's syndrome Dr. Clark notified me about when he signed out. Complicated history - incredible care by his mother, aunt & 2 brothers since hsi diagnosis at 1 yo. About a year ago required G tube due to inability to eat & maintain nutrition. Done endoscopically at [facility] to my best understanding. Thereafter problems ensued - eventually ended up with endoscopic combined G/J tube but then began having problems with J tube portion "flipping up" back into stomach and actually into esophagus. No mention of aspiration - but was gagging & coughing more. Presented end of March after multiple other possible courses to Dr. Clark - and open side/side gastrojejunostomy done with another combined G/J tube inserted percutaneously through old tract - J tube portion advanced into distal jejunum. At time of surgery noted to be getting pushed back towards stomach - so vicryl suture actually used thru & thru open to attempt to hold tube in jejunum. Came back couple of days ago with tube clogged - able to be opened with forceful irrigation by Dr. Clark. Had about 24 hours doing well - but then last couple of days has had increased gagging & vomiting - and last 24 hours noted that coke and/or tube feedings put down J tube immediately come out of G tube. Had some problems/misunderstandings evidently about how to manage G tube portion - have been irrigating J tube with Coke to keep open & flushed. Brought to ER today - noted to be more lethargic. Weight he originally was able to gain last year up to 80 pounds roughly now back down prior to all the interventions with tubes. Also noted to have tachycardia on presentation - and hypoxia into 80's. O2 started here & SVO2 came up and heart rate came down, according to very observant family. No other new or different changes noted by family. Review of Systems ROS unobtainable: due to mental status - Constitutional weight loss, no fever(s) - Respiratory as per HPI - Gastrointestinal as per HPI Past History Past medical history: no changes from Dr. Clark's prior notes Past surgical history: no changes from Dr. Clark's prior notes Past family history: 2 brothers with no health issues Past social history: very good care at home Medications and Allergies Home Medications Medication Instructions Recorded Confirmed Type polyethylene glycol 3350 17 17 g PT QID 03/06/15 05/08/19 History gram/dose oral powder tiZANidine [Zanaflex] 8 mg PT TID 05/01/18 05/08/19 History omeprazole 20 mg tablet,delayed 20 mg PT BID tab 04/04/19 05/08/19 History release Cannabidiol (Cbd) Extract 3 drop PT PRN PRN 05/02/19 05/10/19 History [Epidiolex] Promethazine [Phenergan] 25 mg [place] TID PRN 05/02/19 05/08/19 History Metoclopramide Oral Sabina [Reglan 5 mg PT Q6 #240 ml 05/13/19 Rx Oral Sabina] Ondansetron [Zofran ODT] 4 mg SL Q4-6HP PRN #10 tab 05/15/19 Rx Allergies Allergy/AdvReac Type Severity Reaction Status Date / Time No Known Drug Allergies Allergy Verified 05/15/19 23:18 Exam Temp Pulse Resp BP Pulse Ox 97.2 F 127 H 21 115/93 96 05/20/19 06:46 05/20/19 09:46 05/20/19 09:46 05/20/19 09:46 05/20/19 09:46 - General physical appearance no distress, cachectic, chronically ill - Eyes PERRL - ENT other (dry mucosa) - Neck no masses, no bruits, trachea midline, no lymphadenopathy, no venous distension - Cardiovascular Cardiovascular exam IM: Present: normal rate and rhythm - Respiratory clear to auscultation, other (decent BS with poor excursion - no rales or rhon chi noted) - Abdomen Abdomen: Present: soft, non tender, bowel sounds, surgical scars (triple tube in place - incision with perico C&D) - Integumentary Present: no rash - Neurologic Present: disoriented, confused, memory loss - Musculoskeletal Present: other (scoliosis, contractures) - Psychiatric Absent: oriented to time, oriented to person, oriented to place, speech is normal, memory intact Results - Labs 05/20/19 07:27 Abnormal lab results 05/20/19 Range/Units 07:27 POC BUN 38 H (6-20) mg/dl POC Creatinine 2.1 H (0.7-1.2) mg/dl POC Glucose 160 H (70-105) mg/dL POC WB Ioniz Calcium 1.14 L (1.16-1.32) mmol/L All other labs normal. Marked leukocytosis - Imaging Chest x-ray: report reviewed, image reviewed (LLL pneumonia by report) Abdominal x-ray: report reviewed, image reviewed (second film shows contrast easily going into colon, no SB dilation, no obstruction and most importantly NO reflux into stomach.), other (multiple plain AXR reviewed Did GG injection into J tube and shows good flow into jejunum immediately) Assessment and Plan (1) Feeding tube dysfunction No evidence obstruction or problem with J tube. No evidence of reflux into stomach - OK to use. Might consider different J tube feeding - son is concerned current one might not be as well as tolerated as one they gave at [place] - associate juvenile court judge will help discus s this. G tube needs to be at constant, low, INTERMITTENT suction over 75 minutes spent in direct patient care/coordination/review of labs/images & discussion with family Status: Acute Qualifiers: Encounter type: subsequent encounter Qualified Code(s): T85.598D - Other mechanical complication of other gastrointestinal prosthetic devices, implants and grafts, subsequent encounter (2) Angelman syndrome Status: Acute Comment: with severe mental retardation (3) Developmental delay, severe Status: Acute (4) Left lower lobe pneumonia With multiple medical problems and significant leukocytosis - defer care/admission/treatment to hospitalist I'll be available PRN Status: Acute Qualifiers: Pneumonia type: due to unspecified organism Qualified Code(s): J18.9 - Pneumonia, unspecified organism
[2019-05-20 10:06] LABS: Basophils # (Auto) 0 K/mcL (0.0-0.3); Basophils % (Auto) 0 % (0.0-2.0); Eosinophils # (Auto) 0 K/mcL (0.0-0.7); Eosinophils % (Auto) 0 % (0.0-7.0); Granulocytes % (Auto) 93.6 % (38.0-78.0); Hematocrit 43.3 % (41.0-55.0); Lymphocytes # (Auto) 1.3 K/mcL (1.5-4.8); Lymphocytes % (Auto) 3.7 % (15.5-49.0); Mean Cell Volume 67.1 fL (80.0-100.0); Mean Corpuscular HGB Conc 30.1 g/dL (31.0-36.0); Mean Platelet Volume 8.2 fL (7.4-10.4); Monocytes # (Auto) 0.9 K/mcL (0.1-0.9); Monocytes % (Auto) 2.7 % (1.0-12.0); Platelet Count 932 K/mcL (140-440); RBC 6.45 M/mcL (4.50-5.90); Red Cell Distribution Width 19.2 % (11.5-14.5); WBC 34.8 K/mcL (4.5-11.0)
--- NOTE | 2019-05-20 11:31 | XRay Report ---
HISTORY: Nausea and vomiting FINDINGS: Supine image was obtained one hour following the injection of Gastrografin contrast through the indwelling jejunostomy catheter. The contrast has passed through the small intestine into the colon without obstruction. Large and small bowel are nondilated. The stomach is decompressed. IMPRESSION: Normal exam Interpreted and Authenticated by: Danny Garg 05/20/19
--- NOTE | 2019-05-20 11:32 | XRay Report ---
HISTORY: Fever, cough, vomiting and elevated white blood cell count FINDINGS: There is a subtle infiltrate posteriorly and medially in the left lower lobe. This has developed since 05/12/19. The right lung is clear. There is no pleural effusion. The heart size is normal. Patient has a moderately severe scoliotic curvature in the thoracic and lumbar spine. Feeding tube is seen beneath the left diaphragm. IMPRESSION: Mild left lower lobe pneumonia Interpreted and Authenticated by: Danny Gagr 05/20/19
--- NOTE | 2019-05-20 12:25 | Internal Med History&Physical ---
Medical - H&P: [facility] Patient information: Note initiated : 05/20/19 at 12:21 pm Service Date, if different from initiated Date: [] Patient: Raúl Hammond 23 y/o M admitted on for Nausea, vomiting. Chief Complaint: [] History of present illness: Mr. Hammond is a 23 year old M He was recently in the hospital at a procedure after multiple gastrostomy tubes and gastrojejunostomy tubes have failed. Then she while here he had a primary open gastrojejunostomy with position of the tube in distal jejunum. He was discharged about a week ago. Since then he did report back to the ER with the tube was clogged which was opened by Dr. Clark. Days after getting home he had some nausea vomiting that is continued to worse. Is noted today that he was hypoxic. Chest x-ray with a mild left lower lobe infiltrate, concern with aspiration pneumonia given the recurrent nausea vomiting problems with the GI track and hypoxia. Able to wean down the oxygen to room air at the moment. Dr. Tracy surgeon evaluated the tube and found to be adequate and patent. Family and ED staff request admission. Also noted on a [id number] his creatinine was elevated, likely prerenal. Leukocytosis is elevated above his normal as well as thrombocytosis. Unable to gather review of systems given patient's underlying mental state. Medical - H&P: H Medical history: Medical History (Last Reviewed 04/23/19 @ 12:44 by Dara Clark MD) Encounter for postoperative wound check (Acute) Abdominal pain (Acute) Drug-induced nausea and vomiting (Acute) Bacterial conjunctivitis of left eye (Acute) Torsion of testicle (Acute) Syncope (Acute) Intentional self-harm (Acute) Sleep disturbance (Acute) Epilepsy, generalized nonconvulsive, with intractable epilepsy (Acute) Wheelchair dependent (Acute) Angelman syndrome (Acute) Urinary incontinence (Acute) Epididymitis (Acute) Developmental delay, severe (Acute) Right testicular torsion (Acute) Past Surgical History (Last Reviewed 04/23/19 @ 12:36 by Ayesha Burns CMA) S/P orchiopexy (Acute 03/11/15) History of orchiectomy, unilateral (Acute 03/11/15) History of hip surgery (Acute) Family History (Last Reviewed 04/23/19 @ 12:36 by Ayesha Grant, CRUDE OIL TREATER) Mother Diabetes mellitus Social History (Last Updated 04/23/19 @ 12:49 by Dara Clark MD) Patient lives at home with family who are primary caretakers Medical - H&P: Meds Home Medications Medication Instructions Recorded Confirmed Type polyethylene glycol 3350 17 17 g PT QID 03/06/15 05/08/19 History gram/dose oral powder tiZANidine [Zanaflex] 8 mg PT TID 05/01/18 05/08/19 History omeprazole 20 mg tablet,delayed 20 mg PT BID tab 04/04/19 05/08/19 History release Cannabidiol (Cbd) Extract 3 drop PT PRN PRN 05/02/19 05/10/19 History [Epidiolex] Promethazine [Phenergan] 25 mg [place] TID PRN 05/02/19 05/08/19 History Metoclopramide Oral Sabina [Reglan 5 mg PT Q6 #240 ml 05/13/19 Rx Oral Sabina] Ondansetron [Zofran ODT] 4 mg SL Q4-6HP PRN #10 tab 05/15/19 Rx Allergies Allergy/AdvReac Type Severity Reaction Status Date / Time No Known Drug Allergies Allergy Verified 05/15/19 23:18 Medical - H&P: Exam - Constitutional Vitals: Temp Pulse Resp BP Pulse Ox 97.2 F 141 H 20 115/80 99 05/20/19 06:46 05/20/19 12:05 05/20/19 12:05 05/20/19 12:01 05/20/19 12:05 Exam: General: Alert, Awake, No acute Distress Eyes/N/T: EOMI, PERRL, Head/Neck: neck supple, normocephalic atraumatic CV: RRR, No murmurs, normal s1/s2 Pulm: Clear b/l, no wheezing/rhonchi/rales Abd: soft, nontender, +BS x4 Ext: no clubbing/cyanosis/edema Neuro: Alert, moves all extremities, does not verbalize skin: warm/dry Medical - H&P: Reslt - Labs CBC & Chem 7: 05/20/19 07:27 Labs: Short CBC 05/20/19 Range/Units 07:27 WBC 34.8 H* (4.5-11.0) K/mcL Hgb 13.0 L (13.5-16.5) g/dL Hct 43.3 (41.0-55.0) % Plt Count 932 H* (140-440) K/mcL Medical - H&P: A/P - Narrative A/P Narrative: A: *Asp PNA: -CXR with LLL infiltrate *Acute hypoxic respiratory failure: Improved significantly in the ED. *ARNAUD: Prerenal *N/V: Feeding tube evaluated by surgeon (Dr. Tracy) and felt adequate and patent *Chronic leukocytosis: ED lab above baseline *Thrombocytosis: 2/2 infection/reactive *Anemia, chronic: *Angelman syndrome/developmental delay: *GERD: * P: -Zosyn, pending BC/SC -check PCT/lactate -IVF's -hold TF's until AM -monitor O2 -ppx: lovenox/home ppi
--- NOTE | 2019-05-20 12:43 | Emergency Department Note ---
Nausea/Vomiting/Diarrhea HPI - General Chief complaint: Nausea/Vomiting/Diarrhea Stated complaint: Nausea, vomiting Time Seen by Provider: 05/20/19 07:11 Source: family Mode of arrival: wheelchair Limitations: language barrier, physical limitation - History of Present Illness HPI Narrative: This mentally handicapped individual has had several days with vomiting even greater than 12 times. This seems to be related with any injection of fluid, pills, formula through his G or J-tube. He has had several procedures to adjust these tubes. He was evaluated by Dr. Tracy here, Gastrografin used to determine function and location with no abnormal findings. Patient had a chest x-ray because of his elevated white count which demonstrates a left lower lobe pneumonia. I am following up patient after change in shift. See history and physical dictated by Dr. Lester Anne also. Patient was seen 2 days ago and given IV fluids and ondansetron. He appears sometimes pale and sunken eyed. His last surgery was on the and was given antibiotics until the day before discharge which was the . He has had temperatures in the 99.2 range. Family reports he has been coughing but no obvious shortness of breath or wheezing or phlegm; but they were observant with his hypoxia noted here in the emergency room. He has had some twitching which they think is indicative of him having abdominal pain. Some of his vomiting may have been related to coughing badly. - Related Data Home Medications Medication Instructions Recorded Confirmed polyethylene glycol 3350 17 17 g PT QID 03/06/15 05/08/19 gram/dose oral powder RX: tiZANidine [Zanaflex] 8 mg PT TID 05/01/18 05/08/19 omeprazole 20 mg tablet,delayed 20 mg PT BID tab 04/04/19 05/08/19 release RX: Cannabidiol (Cbd) Extract 3 drop PT PRN PRN 05/02/19 05/10/19 [Epidiolex] RX: Promethazine [Phenergan] 25 mg [place] TID PRN 05/02/19 05/08/19 Previous Rx's Medication Instructions Recorded RX: Metoclopramide Oral Sabina 5 mg PT Q6 #240 ml 05/13/19 [Reglan Oral Sabina] Ondansetron [Zofran ODT] 4 mg SL Q4-6HP PRN #10 tab 05/15/19 Allergies Allergy/AdvReac Type Severity Reaction Status Date / Time No Known Drug Allergies Allergy Verified 05/15/19 23:18 Past Medical History - Past Medical History Medical history: Reports: other (history of Angelman syndrome.). Denies: cancer Surgical history ED: Reports: other (status post G-tube placement.) - Social History smoking status: Never smoker Alcohol use: Reports: None Drug use: Reports: none Physical Exam Limitations: language barrier, physical limitation General appearance: alert, nontoxic, other (Dysmorphic and microcephalic.) Head: atraumatic Respiratory: Absent: respiratory distress Extremities: Present: other (With hip and knees flexed most of the time/contractures.) Skin: Present: cool, dry Course Vital Signs Temperature 97.2 F 05/20/19 06:46 Pulse Rate 126 H 05/20/19 06:46 Respiratory Rate 20 05/20/19 06:46 Blood Pressure 115/94 05/20/19 06:46 Pulse Oximetry (%) 93 05/20/19 06:46 Temperature 97.2 F 05/20/19 06:46 Pulse Rate 155 H 05/20/19 12:36 Respiratory Rate 20 05/20/19 12:36 Blood Pressure 115/80 05/20/19 12:36 Pulse Oximetry (%) 97 05/20/19 12:36 Nausea/Vomiting/Diarrhea - Lab Data Lab results reviewed: Yes I reviewed the patient's lab results. Result diagrams: 05/20/19 07:27 05/20/19 12:29 Lab Results 05/20/19 05/20/19 05/20/19 Range/Units 07:27 07:27 12:29 WBC 34.8 H* (4.5-11.0) K/mcL RBC 6.45 H (4.50-5.90) M/mcL Hgb 13.0 L (13.5-16.5) g/dL Hct 43.3 (41.0-55.0) % POC Hct 47.0 (41.0-55.0) % MCV 67.1 L (80.0-100.0) fL MCH 20.2 L (26.0-34.0) pg MCHC 30.1 L (31.0-36.0) g/dL RDW 19.2 H (11.5-14.5) % Plt Count 932 H* (140-440) K/mcL MPV 8.2 (7.4-10.4) fL Gran % 93.6 H (38.0-78.0) % Lymph % (Auto) 3.7 L (15.5-49.0) % [place] % (Auto) 2.7 (1.0-12.0) % Eos % (Auto) 0 (0.0-7.0) % Baso % (Auto) 0 (0.0-2.0) % Gran # 32.5 H (1.8-8.0) K/mcL Lymph # (Auto) 1.3 L (1.5-4.8) K/mcL [place] # (Auto) 0.9 (0.1-0.9) K/mcL Eos # (Auto) 0 (0.0-0.7) K/mcL Baso # (Auto) 0 (0.0-0.3) K/mcL Band Neutrophils % Not Reportable POC Sodium 134 (133-145) mmol/L POC Potassium 4.8 (3.3-5.1) mmol/L POC Chloride 98 (96-108) mmol/L POC Total CO2 24 (22-30) mmol/L POC BUN 38 H (6-20) mg/dl POC Creatinine 2.1 H (0.7-1.2) mg/dl POC Glucose 160 H (70-105) mg/dL POC WB Ioniz Calcium 1.14 L (1.16-1.32) mmol/L - Radiology Data Radiology results reviewed: Yes I reviewed the patient's radiology results. Disposition Pt seen by ASSISTANT WOMENS VOLLEYBALL COACH/PA only: No Clinical Impression: LLL pneumonia Qualifiers: Pneumonia type: due to unspecified organism Qualified Code(s): J18.9 - Pneumonia, unspecified organism Nausea & vomiting Qualifiers: Vomiting type: unspecified Vomiting Intractability: non-intractable Qualified Code(s): R11.2 - Nausea with vomiting, unspecified Summary: See previous history and physical. With patient's elevated white count, left lower lobe pneumonia, recent vomiting, aspiration pneumonia certainly of significant concern. Adding hypoxia to this he warrants being in the hospital for treatment. Evaluation of his tube feeding placement and function has concluded adequate and appropriate function and placement, see Dr. Tracy's consultation. I spoke with Dr. Gilmore who kindly accepts this patient for inpatient therapy and evaluation further or treatments. Disposition: Xfer As Inpt ([facility]) Condition: Fair Referrals: Inez Elkins ARNP [Primary Care Provider] -
[2019-05-20] MEDS ORDERED: PIPERACILLIN SODIUM/TAZOBACTAM 3.375 GM in DEXTROSE 5% IN WATER 50 ML IV SCH (13:00)
[2019-05-20 13:26] LABS: ALT/SGPT 117 U/l (0-40); AST/SGOT 36 U/l (0-37); Albumin 4.1 gm/dL (3.2-5.2); Albumin/Globulin Ratio 1.1 (1.0-2.3); Alkaline Phosphatase 127 U/L (39-117); Bilirubin,Direct < 0.2 mg/dL (0.0-0.3); Bilirubin,Total 0.3 mg/dL (0.0-1.0); Calcium 9.3 mg/dl (8.6-10.4); Carbon Dioxide 22 mmol/L (22-30); Chloride 98 mmol/L (96-108); Globulin 3.6 gm/dL (2.2-3.7); Glucose 127 mg/dL (70-105); Lactate Dehydrogenase 182 U/L (94-250); Triglycerides 119 mg/dl (<150)
[2019-05-20 13:27] LABS: Blood Urea Nitrogen 32 mg/dl (6-20); Glomerular Filtration Rate 105; Phosphorous 5.2 mg/dL (2.7-4.5); Uric Acid 6.7 mg/dL (2.5-8.0)
[2019-05-20] MEDS ORDERED: DIAZEPAM 10 MG/2 ML SYRINGE IV ONE (13:34)
[2019-05-20 13:38] LABS: Anisocytosis 1+ (NONE SEEN); Band Neutrophils % 4 % (0-10); Eosinophils % (Manual) 1 % (0-7); Hypochromasia 2+ (NONE SEEN); Lymphocytes % 6 % (15-49); Microcytosis 3+ (NONE SEEN); Monocytes % (Manual) 8 % (1-12); Platelet Estimate INCREASED (NORMAL); Polychromasia 1+ (NONE SEEN); RBC Morphology ABNORM (NORMAL); Segmented Neutrophils % 81 % (38-78)
[2019-05-20] MEDS ORDERED: DIAZEPAM 10 MG/2 ML SYRINGE IM ONE (13:41)
[2019-05-20] MEDS ORDERED: PROMETHAZINE 25 MG/ML VIAL IV PRN (15:10)
[2019-05-20] MEDS ORDERED: SENNOSIDES 1 TABLET PO PRN (15:10)
[2019-05-20] MEDS ORDERED: POTASSIUM CHLORIDE 40 MEQ in DEXTROSE 5% IN WATER 500 ML IV PRN (15:10)
[2019-05-20] MEDS ORDERED: ONDANSETRON 4 MG/2 ML VIAL IV PRN (15:10)
[2019-05-20] MEDS ORDERED: POTASSIUM CHLORIDE 20 MEQ TABLET PO PRN ×2 (15:10)
[2019-05-20] MEDS ORDERED: PROCHLORPERAZINE 10 MG/2 ML VIAL IV PRN (15:10)
[2019-05-20] MEDS ORDERED: POLYETHYLENE GLYCOL 3350 17 GM PACKET PO PRN (15:10)
[2019-05-20] MEDS ORDERED: LACTULOSE 20 GM/30 ML ORAL.SOL PO PRN (15:10)
[2019-05-20] MEDS ORDERED: MAGNESIUM SULFATE 2 GM/50 ML BAG IV PRN (15:10)
[2019-05-20] MEDS ORDERED: IPRATROPIUM/ALBUTEROL 3 ML AMPUL.NEB NEB PRN (15:10)
[2019-05-20] MEDS ORDERED: DEXTROSE 5%-NS 1,000 ML IV SCH (15:10)
[2019-05-20] MEDS ORDERED: METOCLOPRAMIDE 10 MG/2 ML VIAL IV PRN (15:10)
[2019-05-20] MEDS: 0.9 % SODIUM CHLORIDE 10 ML SYRINGE IV SCH ×2 (15:16→22:04)
[2019-05-20] MEDS ORDERED: METOPROLOL TARTRATE 5 MG/5 ML VIAL IV ONE (16:54)
[2019-05-20] MEDS: POLYETHYLENE GLYCOL 3350 17 GM PACKET PT SCH ×2 (20:02→22:03)
[2019-05-20] MEDS: METOCLOPRAMIDE ORAL SOL 1 MG/ML ML PT SCH (20:02)
[2019-05-20] MEDS: FAMOTIDINE 20 MG TABLET PO SCH (20:06)
[2019-05-20] MEDS ORDERED: tiZANidine 4 MG TABLET PO SCH (21:00)
[2019-05-20] MEDS: PIPERACILLIN SODIUM/TAZOBACTAM 3.375 GM in DEXTROSE 5% IN WATER 50 ML IV SCH (21:52)
[2019-05-20] MEDS ORDERED: tiZANidine 4 MG TABLET PO ONE (22:12)
[2019-05-21] MEDS: METOCLOPRAMIDE ORAL SOL 1 MG/ML ML PT SCH ×4 (02:01→17:54)
[2019-05-21] MEDS: PIPERACILLIN SODIUM/TAZOBACTAM 3.375 GM in DEXTROSE 5% IN WATER 50 ML IV SCH ×3 (05:12→22:27)
[2019-05-21] MEDS: 0.9 % SODIUM CHLORIDE 10 ML SYRINGE IV SCH ×3 (05:13→22:29)
[2019-05-21 06:18] LABS: Hematocrit 27.1 % (41.0-55.0); Hemoglobin 8.3 g/dL (13.5-16.5); Mean Cell Volume 67.5 fL (80.0-100.0); Mean Corpuscular HGB Conc 30.5 g/dL (31.0-36.0); Mean Platelet Volume 8.3 fL (7.4-10.4); Platelet Count 565 K/mcL (140-440); RBC 4.01 M/mcL (4.50-5.90); Red Cell Distribution Width 18.7 % (11.5-14.5)
[2019-05-21 06:35] LABS: ALT/SGPT 69 U/l (0-40); AST/SGOT 21 U/l (0-37); Albumin 3.1 gm/dL (3.2-5.2); Albumin/Globulin Ratio 1.1 (1.0-2.3); Alkaline Phosphatase 98 U/L (39-117); Bilirubin,Direct < 0.2 mg/dL (0.0-0.3); Bilirubin,Total 0.2 mg/dL (0.0-1.0); Calcium 8.5 mg/dl (8.6-10.4); Carbon Dioxide 23 mmol/L (22-30); Chloride 105 mmol/L (96-108); Globulin 2.8 gm/dL (2.2-3.7); Glucose 101 mg/dL (70-105); Lactate Dehydrogenase 143 U/L (94-250); Triglycerides 92 mg/dl (<150); Uric Acid 4.9 mg/dL (2.5-8.0)
[2019-05-21 06:36] LABS: Blood Urea Nitrogen 19 mg/dl (6-20); Glomerular Filtration Rate 152
--- NOTE | 2019-05-21 07:19 | Internal Med Progress Note ---
Medical - PN: Subj Patient information: Note initiated : 05/21/19 at 7:12 am Service Date, if different from initiated Date: [] Patient: Ralú Hammond 23 y/o M admitted on 05/20/19 for Nausea, vomiting. Chief Complaint: [] Interval history: Mr. Hammond is a 23 year old M He was recently in the hospital at a procedure after multiple gastrostomy tubes and gastrojejunostomy tubes have failed. Then she while here he had a primary open gastrojejunostomy with position of the tube in distal jejunum. He was discharged about a week ago. Since then he did report back to the ER with the tube was clogged which was opened by Dr. Clark. Days after getting home he had some nausea vomiting that is continued to worse. Is noted today that he was hypoxic. Chest x-ray with a mild left lower lobe infiltrate, concern with aspiration pneumonia given the recurrent nausea vomiting problems with the GI track and hypoxia. Able to wean down the oxygen to room air at the moment. Dr. Tracy surgeon evaluated the tube and found to be adequate and patent. Family and ED staff request admission. Also noted on a [id number] his creatinine was elevated, likely prerenal. Leukocytosis is elevated above his normal as well as thrombocytosis. 05/21 No overnight events. His brother states his cough is loosening up. Patient is on room air. We will start tube feedings today. Awaiting cultures. Unable to gather review of systems given patient's underlying mental state. - Constitutional Vitals: Vital Signs Temp Pulse Resp BP Pulse Ox 99.0 F 104 H 14 114/75 98 05/21/19 04:41 05/21/19 04:41 05/21/19 04:41 05/21/19 04:41 05/21/19 04:41 Period Temp Pulse Resp BP Sys/Lemus Pulse Ox Last 24 Hr 97.2 F-99.8 F 103-157 14-29 81-133/47-110 87-99 Intake and Output 05/20/19 05/21/19 05/21/19 21:59 05:59 13:59 Intake Total 1200 130 Output Total 1 1 Balance 1199 129 Weight 36.287 kg Intake & Output: Intake & Output 05/20/19 05/21/19 05/21/19 21:59 05:59 13:59 Intake Total 1200 130 Output Total 1 1 Balance 1199 129 Weight 36.287 kg Intake: IV 1000 50 Sodium Chloride 0.9% 1,000 ml @ 1000 Wide Open IV BOLUS ONE Rx#: [id number] Zosyn 3.375 gm In Dextrose 5% 50 in Water 50 ml @ 100 mls/hr IV Q8H [facility] Rx#:[id number] Oral 0 GI Tube Flush 200 80 Output: # of times incontinent of urine 1 1 Other: Stool Size Large Stool Color Maria Maria Stool Consistency Liquid Liquid Watery # of times incontinent of 1 1 Bowels Exam: General: Alert, Awake, No acute Distress Eyes/N/T: EOMI, Head/Neck: neck supple, CV: tachy but regular - improved, No murmurs, Pulm: Clear b/l, no wheezing/rhonchi/rales Abd: soft, nontender, +BS x4 Ext: no clubbing/cyanosis/edema Neuro: Alert, moves all extremities, does not verbalize skin: warm/dry Medical - PN: Obj Da - Labs CBC & Chem 7: 05/21/19 04:35 05/21/19 04:35 Labs: Abnormal Lab Results 05/21/19 05/21/19 05/20/19 04:35 04:35 12:29 WBC 24.0 H RBC 4.01 L Hgb 8.3 L Hct 27.1 L MCV 67.5 L MCH 20.6 L MCHC 30.5 L RDW 18.7 H Plt Count 565 H Gran % Lymph % (Auto) Gran # Lymph # (Auto) Seg Neutrophils % Lymphocytes % Platelet Estimate RBC Morphology Polychromasia Hypochromasia Anisocytosis Microcytosis VBG Lactic Acid 2.2 H Anion Gap POC BUN BUN Creatinine 0.5 L POC Creatinine Glucose POC Glucose Calcium 8.5 L POC WB Ioniz Calcium Phosphorus 2.0 L ALT 69 H Alkaline Phosphatase Albumin 3.1 L 05/20/19 05/20/19 05/20/19 12:29 12:29 07:27 WBC 34.8 H* RBC 6.45 H Hgb 13.0 L Hct MCV 67.1 L MCH 20.2 L MCHC 30.1 L RDW 19.2 H Plt Count 932 H* Gran % 93.6 H Lymph % (Auto) 3.7 L Gran # 32.5 H Lymph # (Auto) 1.3 L Seg Neutrophils % 81 H Lymphocytes % 6 L Platelet Estimate Increased A RBC Morphology Abnorm A Polychromasia 1+ A Hypochromasia 2+ A Anisocytosis 1+ A Microcytosis 3+ A VBG Lactic Acid Anion Gap 18.0 H POC BUN BUN 32 H Creatinine POC Creatinine Glucose 127 H POC Glucose Calcium POC WB Ioniz Calcium Phosphorus 5.2 H ALT 117 H Alkaline Phosphatase 127 H Albumin 05/20/19 07:27 WBC RBC Hgb Hct MCV MCH MCHC RDW Plt Count Gran % Lymph % (Auto) Gran # Lymph # (Auto) Seg Neutrophils % Lymphocytes % Platelet Estimate RBC Morphology Polychromasia Hypochromasia Anisocytosis Microcytosis VBG Lactic Acid Anion Gap POC BUN 38 H BUN Creatinine POC Creatinine 2.1 H Glucose POC Glucose 160 H Calcium POC WB Ioniz Calcium 1.14 L Phosphorus ALT Alkaline Phosphatase Albumin Meds: Medications Albuterol/Ipratropium (Duoneb) 3 ml NEB Q4HP PRN PRN Reason: Shortness Of Breath Enoxaparin Sodium (Lovenox) 30 mg SQ DAILY [facility] Famotidine (Pepcid) 20 mg PO BID [facility] Last Admin: 05/20/19 20:06 Dose: 20 mg Documented by: Potassium Chloride 40 meq/ (Dextrose) 520 mls @ 130 mls/hr IV UD PRN PRN Reason: Potassium < 3 Magnesium Sulfate (Magnesium Sulfate) 2 gm in 50 mls @ 50 mls/hr IV UD PRN PRN Reason: Magnesium </= 1.6 Dextrose/Sodium Chloride (Dextrose 5%-Ns Iv Solution) 1,000 mls @ 50 mls/hr IV .Q20H [facility] Stop: 05/21/19 11:09 Last Admin: 05/20/19 15:15 Dose: 50 mls/hr Documented by: Piperacillin Sod/Tazobactam (Sod 3.375 gm/ Dextrose) 50 mls @ 100 mls/hr IV Q8H [facility]; Protocol Last Admin: 05/21/19 05:12 Dose: 100 mls/hr Documented by: Lactulose (Cephulac) 20 gm PO DAILYP PRN PRN Reason: Constipation Metoclopramide HCl (Reglan Oral Sabina) 10 mg PT Q6 [facility] Last Admin: 05/21/19 05:12 Dose: 10 mg Documented by: Ondansetron HCl (Zofran) 4 mg IV Q4HP PRN PRN Reason: Nausea And Vomiting Pneumococcal Polyvalent Vaccine (Pneumovax 23) 0.5 ml IM .ONCE ONE Stop: 05/21/19 10:01 Polyethylene Glycol (Miralax) 17 gm PO DAILYP PRN PRN Reason: Constipation Polyethylene Glycol (Miralax) 17 gm PT QID [facility] Last Admin: 05/20/19 22:03 Dose: Not Given Documented by: Potassium Chloride (Kdur) 40 meq PO UD PRN PRN Reason: Potssium is 3-3.5 Potassium Chloride (Kdur) 40 meq PO UD PRN PRN Reason: Potassium < 3 Prochlorperazine (Compazine) 10 mg IV Q6HP PRN PRN Reason: Nausea And Vomiting Promethazine HCl (Phenergan) 12.5 mg IV Q6HP PRN PRN Reason: Nausea And Vomiting Senna (Senokot) 2 tab PO DAILYP PRN PRN Reason: Constipation Sodium Chloride (Saline Flush) 10 ml IV Q8 [facility] Last Admin: 05/21/19 05:13 Dose: 10 ml Documented by: Tizanidine HCl (Zanaflex) 8 mg PO TID [facility] Medical - PN: A/P - Time Spent With Patient Total time spent is greater than 50% in coordination of care (as documented) at patient's floor/unit and/or counseling patient: - Narrative A/P Narrative: A: *Asp PNA: -CXR with LLL infiltrate -leukocytosis improved; PCT improving *Acute hypoxic respiratory failure: Improved significantly in the ED. -lactic acidosis resolved -on room air overnight *Volume Depletion w/hemoconcentration: Improved *N/V: Feeding tube evaluated by surgeon (Dr. Tracy) and felt adequate and patent -improved, *Chronic leukocytosis: ED lab above baseline *Thrombocytosis: 2/2 infection/reactive *Anemia, chronic: *Angelman syndrome/developmental delay: *GERD: *chronic sinus tach: back to baseline *Dysphagia, with G-J tube: P: -Zosyn, pending BC/SC -IVF's d/c today -restart TF's, dietary consult -monitor O2 -ppx: lovenox/home ppi Medical - PN: Qual - VTE Deep Vein Thrombosis/Pulmonary Embolism Present on Admission: No
[2019-05-21 07:20] LABS: Anisocytosis 1+ (NONE SEEN); Eosinophils % (Manual) 1 % (0-7); Hypochromasia 2+ (NONE SEEN); Lymphocytes % 10 % (15-49); Microcytosis 3+ (NONE SEEN); Monocytes % (Manual) 4 % (1-12); Platelet Estimate INCREASED (NORMAL); RBC Morphology ABNORM (NORMAL); Segmented Neutrophils % 85 % (38-78)
[2019-05-21] MEDS: ENOXAPARIN 30 MG/0.3 ML SYRINGE SQ SCH (08:44)
[2019-05-21] MEDS: POLYETHYLENE GLYCOL 3350 17 GM PACKET PT SCH ×4 (08:45→20:14)
[2019-05-21] MEDS: tiZANidine 4 MG TABLET PO SCH ×3 (08:47→20:13)
[2019-05-21] MEDS: FAMOTIDINE 20 MG TABLET PO SCH ×2 (08:47→20:13)
--- NOTE | 2019-05-21 09:34 | General Surgery Progress Note ---
Subjective Narrative: Note initiated : 05/21/19 at 9:32 am Service Date, if different from initiated Date: [] Patient: Raúl Hammond 23 y/o M admitted on 05/20/19 for Nausea, vomiting. Chief Complaint: [] Following patient just to help with tube management & feedings. Cough seems more productive overnight according to brother. came in last night to clarify orders regarding meds per which tube & how to administer. I routinely try to avoid anything with granularity down J tube but his family has been doing this but with longer times to soak and dissolve pills/capsules then would be reasonably possible here while in-pt. So - we changed routes as noted in med orders. Swimming Pool Service Technician discussing other options with family - concern being less concentrated formula would require higher rates. Objective Temp Pulse Resp BP Pulse Ox 99.0 F 104 H 14 114/75 98 05/21/19 04:41 05/21/19 04:41 05/21/19 04:41 05/21/19 04:41 05/21/19 04:41 - Additional Data Intake & Output - Last 24 hours: Intake & Output 05/19/19 05/20/19 05/21/19 05/22/19 05:59 05:59 05:59 05:59 Intake Total 2380 50 Output Total 2 Balance 2378 50 Weight 80 lb - General physical appearance other (essentially no changes today - no significant exam by me) - Labs 05/21/19 04:35 05/21/19 04:35 Diabetes panel 05/20/19 05/21/19 Range/Units 12:29 04:35 Sodium 138 139 (133-145) mmol/L Potassium 4.3 4.0 (3.3-5.1) mmol/L Chloride 98 105 (96-108) mmol/L Carbon Dioxide 22 23 (22-30) mmol/L BUN 32 H 19 (6-20) mg/dl Creatinine 1.0 0.5 L (0.7-1.2) mg/dl Glucose 127 H 101 (70-105) mg/dL Calcium 9.3 8.5 L (8.6-10.4) mg/dl AST 36 21 (0-37) U/l ALT 117 H 69 H (0-40) U/l Alkaline Phosphatase 127 H 98 (39-117) U/L Total Protein 7.7 5.9 (5.9-8.4) gm/dL Albumin 4.1 3.1 L (3.2-5.2) gm/dL Triglycerides 119 92 (<150) mg/dl Calcium panel 05/20/19 05/21/19 Range/Units 12:29 04:35 Calcium 9.3 8.5 L (8.6-10.4) mg/dl Phosphorus 5.2 H 2.0 L (2.7-4.5) mg/dL Albumin 4.1 3.1 L (3.2-5.2) gm/dL Pituitary panel 05/20/19 05/21/19 Range/Units 12:29 04:35 Sodium 138 139 (133-145) mmol/L Potassium 4.3 4.0 (3.3-5.1) mmol/L Chloride 98 105 (96-108) mmol/L Carbon Dioxide 22 23 (22-30) mmol/L BUN 32 H 19 (6-20) mg/dl Creatinine 1.0 0.5 L (0.7-1.2) mg/dl Glucose 127 H 101 (70-105) mg/dL Calcium 9.3 8.5 L (8.6-10.4) mg/dl Adrenal panel 05/20/19 05/21/19 Range/Units 12:29 04:35 Sodium 138 139 (133-145) mmol/L Potassium 4.3 4.0 (3.3-5.1) mmol/L Chloride 98 105 (96-108) mmol/L Carbon Dioxide 22 23 (22-30) mmol/L BUN 32 H 19 (6-20) mg/dl Creatinine 1.0 0.5 L (0.7-1.2) mg/dl Glucose 127 H 101 (70-105) mg/dL Calcium 9.3 8.5 L (8.6-10.4) mg/dl Total Bilirubin 0.3 0.2 (0.0-1.0) mg/dL AST 36 21 (0-37) U/l ALT 117 H 69 H (0-40) U/l Alkaline Phosphatase 127 H 98 (39-117) U/L Total Protein 7.7 5.9 (5.9-8.4) gm/dL Albumin 4.1 3.1 L (3.2-5.2) gm/dL Assessment and Plan (1) Angelman syndrome Problem details: with severe mental retardation Status: Acute Current Visit: No (2) Developmental delay, severe Status: Acute Current Visit: No (3) Left lower lobe pneumonia Status: Acute Current Visit: Yes - Narrative A/P Narrative: As noted - meds per route we discussed last night TF per dietary I'll see prn. - Time Spent With Patient Total time spent is greater than 50% in coordination of care (as documented) at patient's floor/unit and/or counseling patient: less than 15 minutes
--- NOTE | 2019-05-21 09:50 | Discharge Summary ---
Medical - DS: Prov Patient information: Note initiated : 05/21/19 at 9:45 am Service Date, if different from initiated Date: [] Patient: Raúl Hammond 23 y/o M admitted on 05/20/19 for Nausea, vomiting. Chief Complaint: [] Date of admission: 05/20/19 14:12 Discharge date: 05/22/19 Primary care physician: Inez Elkins Consults: 05/20/19 07:54 Consult to Physician [CONS] Stat Comment: Consulting Provider: Armand Tracy Reason For Exam: Physician to Consult 05/20/19 12:21 Consult to Physician [CONS] Stat Comment: Consulting Provider: Singh Gilmore Reason For Exam: Physician to Consult Medical - DS: Meds - Discharge Medications Prescriptions: Amoxicillin/Potassium Clav [Augmentin] 875 mg PT Q12H #8 tab Active and Home Medications: Home Medications polyethylene glycol 3350 17 gram/dose oral powder 17 g PT QID 03/06/15 [History Confirmed 05/20/19 Last Taken 05/19/19] tiZANidine [Zanaflex] 4 mg PT TID 05/01/18 [History Confirmed 05/20/19 Last Taken 05/19/19] omeprazole 20 mg tablet,delayed release 20 mg PT BID tab 04/04/19 [History Confirmed 05/20/19 Last Taken 05/19/19] Cannabidiol (Cbd) Extract [Epidiolex] 3 drop PT PRN PRN 05/02/19 [History Confirmed 05/20/19 Last Taken 05/19/19] Promethazine [Phenergan] 25 mg SD TID PRN 05/02/19 [History Confirmed 05/20/19 Last Taken 05/19/19] Ondansetron [Zofran ODT] 4 mg SL Q4-6HP PRN #10 tab 05/15/19 [Rx Confirmed 05/20/19 Last Taken 05/19/19] Metoclopramide Oral Sabina [Reglan Oral Sabina] 10 mg PT Q6 05/20/19 [History Confirmed 05/20/19 Last Taken 05/19/19] Medical - DS: Hosp Hospital Course: A: *Asp PNA: -CXR with LLL infiltrate -leukocytosis improved; PCT improving *Acute hypoxic respiratory failure: Improved significantly in the ED. -lactic acidosis resolved -on room air overnight *Volume Depletion w/hemoconcentration: Improved *N/V: Feeding tube evaluated by surgeon (Dr. Tracy) and felt adequate and patent -improved, *Chronic leukocytosis: ED lab above baseline *Thrombocytosis: 2/2 infection/reactive *Anemia, chronic: *Angelman syndrome/developmental delay: *GERD: *chronic sinus tach: back to baseline *Dysphagia, with G-J tube: Mr. Hammond is a 23 year old M He was recently in the hospital at a procedure after multiple gastrostomy tubes and gastrojejunostomy tubes have failed. Then she while here he had a primary open gastrojejunostomy with position of the tube in distal jejunum. He was discharged about a week ago. Since then he did report back to the ER with the tube was clogged which was opened by Dr. Clark. Days after getting home he had some nausea vomiting that is continued to worse. Is noted today that he was hypoxic. Chest x-ray with a mild left lower lobe infiltrate, concern with aspiration pneumonia given the recurrent nausea vomiting problems with the GI track and hypoxia. Able to wean down the oxygen to room air at the moment. Dr. Tracy surgeon evaluated the tube and found to be adequate and patent. Family and ED staff request admission. Also noted on a [id number] his creatinine was elevated, likely prerenal. Leukocytosis is elevated above his normal as well as thrombocytosis. 05/21 No overnight events. His brother states his cough is loosening up. Patient is on room air. We will start tube feedings today. Awaiting cultures. 05/22 Overnight events. Patient doing well on room air. Stable for discharge. Discharge diagnosis: Aspiration pneumonia acute hypoxic respite failure developed depletion naus Secondary discharge diagnosis: Chronic leukocytosis chronic sinus tach dysphasia GERD - Time Spent with Patient Total time spent providing and/or coordinating discharge services: Greater than 30 minutes Medical - DS: Exam - Constitutional Vitals: Vital Signs Temp Pulse Pulse Resp BP BP Pulse Ox 05/21/19 04:41 99.0 F 104 H 14 114/75 98 05/20/19 23:50 99/58 05/20/19 23:34 98.6 F 103 H 16 81/47 95 05/20/19 18:41 99.2 F H 108 H 16 114/68 95 05/20/19 17:32 123/78 05/20/19 15:10 99.8 F H 135 H 18 102/67 94 05/20/19 14:12 97.2 F 157 H 135 H 19 128/81 102/67 95 05/20/19 13:16 157 H 19 128/81 95 05/20/19 13:01 156 H 22 114/88 94 05/20/19 12:46 156 H 18 103/92 96 05/20/19 12:36 155 H 20 115/80 97 05/20/19 12:05 141 H 20 99 05/20/19 12:01 139 H 23 H 115/80 99 05/20/19 11:51 142 H 24 H 97 05/20/19 11:31 134 H 23 H 120/81 97 05/20/19 11:01 129 H 23 H 109/81 98 05/20/19 10:31 132 H 22 122/68 96 05/20/19 10:16 127 H 25 H 111/93 96 05/20/19 10:01 124 H 23 H 125/93 96 05/20/19 09:46 127 H 21 115/93 96 Intake and Output 05/20/19 05/21/19 05/21/19 21:59 05:59 13:59 Intake Total 1200 130 50 Output Total 1 1 Balance 1199 129 50 Intake: IV 1000 50 50 Sodium Chloride 0.9% 1,000 ml @ 1000 Wide Open IV BOLUS ONE Rx#: [id number] Zosyn 3.375 gm In Dextrose 5% 50 50 in Water 50 ml @ 100 mls/hr IV Q8H LEON Rx#:[id number] Oral 0 GI Tube Flush 200 80 Output: # of times incontinent of urine 1 1 Other: Stool Size Large Stool Color Maria Maria Stool Consistency Liquid Liquid Watery # of times incontinent of 1 1 Bowels Weight 36.287 kg Medical - DS: Data Labs on day of discharge: Labs from last 24 hours 05/21/19 05/21/19 05/21/19 04:35 04:35 04:35 WBC 24.0 H RBC 4.01 L Hgb 8.3 L Hct 27.1 L MCV 67.5 L MCH 20.6 L MCHC 30.5 L RDW 18.7 H Plt Count 565 H MPV 8.3 Gran % Lymph % (Auto) [place] % (Auto) Eos % (Auto) Baso % (Auto) Gran # Lymph # (Auto) [place] # (Auto) Eos # (Auto) Baso # (Auto) Total Counted 100 Seg Neutrophils % 85 H Band Neutrophils % Not Reportable Lymphocytes % 10 L Monocytes % (Manual) 4 Eosinophils % (Manual) 1 Platelet Estimate Increased A RBC Morphology Abnorm A Polychromasia Hypochromasia 2+ A Anisocytosis 1+ A Microcytosis 3+ A VBG Lactic Acid Sodium 139 Potassium 4.0 Chloride 105 Carbon Dioxide 23 Anion Gap 11.0 BUN 19 Creatinine 0.5 L GFR Calculation 152 Glucose 101 Uric Acid 4.9 Calcium 8.5 L Phosphorus 2.0 L Magnesium 2.4 Total Bilirubin 0.2 Direct Bilirubin < 0.2 GGT 42 AST 21 ALT 69 H Alkaline Phosphatase 98 Lactate Dehydrogenase 143 Total Protein 5.9 Albumin 3.1 L Globulin 2.8 Albumin/Globulin Ratio 1.1 Triglycerides 92 Procalcitonin 0.80 05/21/19 05/20/19 05/20/19 04:35 12:29 12:29 WBC RBC Hgb Hct MCV MCH MCHC RDW Plt Count MPV Gran % Lymph % (Auto) [place] % (Auto) Eos % (Auto) Baso % (Auto) Gran # Lymph # (Auto) [place] # (Auto) Eos # (Auto) Baso # (Auto) Total Counted Seg Neutrophils % Band Neutrophils % Lymphocytes % Monocytes % (Manual) Eosinophils % (Manual) Platelet Estimate RBC Morphology Polychromasia Hypochromasia Anisocytosis Microcytosis VBG Lactic Acid 0.5 2.2 H Sodium Potassium Chloride Carbon Dioxide Anion Gap BUN Creatinine GFR Calculation Glucose Uric Acid Calcium Phosphorus Magnesium Total Bilirubin Direct Bilirubin GGT AST ALT Alkaline Phosphatase Lactate Dehydrogenase Total Protein Albumin Globulin Albumin/Globulin Ratio Triglycerides Procalcitonin 0.92 05/20/19 05/20/19 05/20/19 12:29 12:29 07:27 WBC 34.8 H* RBC 6.45 H Hgb 13.0 L Hct 43.3 MCV 67.1 L MCH 20.2 L MCHC 30.1 L RDW 19.2 H Plt Count 932 H* MPV 8.2 Gran % 93.6 H Lymph % (Auto) 3.7 L [place] % (Auto) 2.7 Eos % (Auto) 0 Baso % (Auto) 0 Gran # 32.5 H Lymph # (Auto) 1.3 L [place] # (Auto) 0.9 Eos # (Auto) 0 Baso # (Auto) 0 Total Counted 100 Seg Neutrophils % 81 H Band Neutrophils % 4 Lymphocytes % 6 L Monocytes % (Manual) 8 Eosinophils % (Manual) 1 Platelet Estimate Increased A RBC Morphology Abnorm A Polychromasia 1+ A Hypochromasia 2+ A Anisocytosis 1+ A Microcytosis 3+ A VBG Lactic Acid Sodium 138 Potassium 4.3 Chloride 98 Carbon Dioxide 22 Anion Gap 18.0 H BUN 32 H Creatinine 1.0 GFR Calculation 105 Glucose 127 H Uric Acid 6.7 Calcium 9.3 Phosphorus 5.2 H Magnesium 2.3 Total Bilirubin 0.3 Direct Bilirubin < 0.2 GGT 59 AST 36 ALT 117 H Alkaline Phosphatase 127 H Lactate Dehydrogenase 182 Total Protein 7.7 Albumin 4.1 Globulin 3.6 Albumin/Globulin Ratio 1.1 Triglycerides 119 Procalcitonin Medical - DS: A/P - Patient/Caregiver Discharge Instructions Activity: increase activity as tolerated Diet: NPO (tube feed) Prescriptions: Amoxicillin/Potassium Clav [Augmentin] 875 mg PT Q12H #8 tab - Follow up Plan Follow up with: Inez Elkins ARNP [Primary Care Provider] - Disposition: Home, Self-Care Care Plan Goals: This discharge packet is provided to you to help keep you informed about your care. We want to ensure you get everything you need when you go home. You will also be receiving a call from us in a few days to follow up with you and see how you are doing since your discharge. This gives us a chance to listen to any concerns you maybe experiencing since you were discharged or any additional needs you may have, as well as providing us feedback on your care experience. We strive to always provide excellent care and thank you for your feedback and for choosing [facility]. Prognosis: Fair Rehab Potential: Fair Overall status at discharge: patient is progressing back to baseline Medical - DS: Qual - VTE Deep Vein Thrombosis/Pulmonary Embolism Present on Admission: No
[2019-05-21] MEDS ORDERED: PNEUMOCOCCAL 23-VAL P-SAC VAC 0.5 ML SYRINGE IM ONE (10:00)
[2019-05-21 12:31] LABS: Prealbumin 15.9 mg/dl (20-40)
[2019-05-21] MEDS ORDERED: DEXTROSE 50% 50 ML VIAL IV PRN (19:58)
[2019-05-21] MEDS ORDERED: DEXTROSE 31 GM ORAL.SUSP PO PRN (19:58)
[2019-05-21] MEDS: CHLORHEXIDINE GLUCONATE 1 ML ORAL.SOL SWABMOUTH SCH (20:13)
[2019-05-21] MEDS: INSULIN LISPRO 1 UNIT/0.01 ML UNIT SQ SCH (21:19)
[2019-05-22] MEDS: METOCLOPRAMIDE ORAL SOL 1 MG/ML ML PT SCH ×2 (00:02→05:34)
[2019-05-22] MEDS: INSULIN LISPRO 1 UNIT/0.01 ML UNIT SQ SCH ×2 (01:22→05:47)
[2019-05-22] MEDS: 0.9 % SODIUM CHLORIDE 10 ML SYRINGE IV SCH (05:35)
[2019-05-22] MEDS: PIPERACILLIN SODIUM/TAZOBACTAM 3.375 GM in DEXTROSE 5% IN WATER 50 ML IV SCH (05:35)
[2019-05-22 06:29] LABS: Basophils # (Auto) 0.1 K/mcL (0.0-0.3); Basophils % (Auto) 0.4 % (0.0-2.0); Eosinophils # (Auto) 0.6 K/mcL (0.0-0.7); Eosinophils % (Auto) 4.1 % (0.0-7.0); Granulocytes % (Auto) 70.8 % (38.0-78.0); Hematocrit 25.8 % (41.0-55.0); Hemoglobin 7.9 g/dL (13.5-16.5); Lymphocytes # (Auto) 2.6 K/mcL (1.5-4.8); Lymphocytes % (Auto) 16.6 % (15.5-49.0); Mean Cell Volume 67.3 fL (80.0-100.0); Mean Corpuscular HGB Conc 30.5 g/dL (31.0-36.0); Mean Platelet Volume 8.2 fL (7.4-10.4); Monocytes # (Auto) 1.3 K/mcL (0.1-0.9); Monocytes % (Auto) 8.1 % (1.0-12.0); Platelet Count 505 K/mcL (140-440); RBC 3.84 M/mcL (4.50-5.90); WBC 15.4 K/mcL (4.5-11.0)
[2019-05-22 06:51] LABS: ALT/SGPT 48 U/l (0-40); AST/SGOT 17 U/l (0-37); Albumin 3.2 gm/dL (3.2-5.2); Albumin/Globulin Ratio 1.1 (1.0-2.3); Alkaline Phosphatase 86 U/L (39-117); Bilirubin,Direct < 0.2 mg/dL (0.0-0.3); Bilirubin,Total 0.2 mg/dL (0.0-1.0); Blood Urea Nitrogen 8 mg/dl (6-20); Calcium 8.5 mg/dl (8.6-10.4); Carbon Dioxide 23 mmol/L (22-30); Chloride 102 mmol/L (96-108); Globulin 2.8 gm/dL (2.2-3.7); Glomerular Filtration Rate 166; Glucose 91 mg/dL (70-105); Lactate Dehydrogenase 143 U/L (94-250); Phosphorous 2.5 mg/dL (2.7-4.5); Triglycerides 121 mg/dl (<150); Uric Acid 2.4 mg/dL (2.5-8.0)
[2019-05-22] MEDS: FAMOTIDINE 20 MG TABLET PO SCH (09:24)
[2019-05-22] MEDS: tiZANidine 4 MG TABLET PO SCH (09:24)
[2019-05-22] MEDS: ENOXAPARIN 30 MG/0.3 ML SYRINGE SQ SCH (09:25)
[2019-05-22] MEDS: CHLORHEXIDINE GLUCONATE 1 ML ORAL.SOL SWABMOUTH SCH (09:31)
[2019-05-22] MEDS: POLYETHYLENE GLYCOL 3350 17 GM PACKET PT SCH (09:31)
== END 2019-05-22 10:15 | disposition home or self-care (01) | DRG 177 ==
LOC: ED 06:45 → MEDSUR 14:12
PROVIDERS: ADMIT Internal Medicine; ATTEND Internal Medicine

== ENCOUNTER 2019-06-07 16:28 | Inpatient (IN) ==
--- NOTE | 2019-06-07 18:07 | Emergency Department Note ---
Nausea/Vomiting/Diarrhea HPI - General Chief complaint: Nausea/Vomiting/Diarrhea Stated complaint: Not Able to Eat Time Seen by Provider: 06/07/19 17:05 Mode of arrival: wheelchair - History of Present Illness HPI Narrative: Patient presents to the emergency room with problems of tube feedings going into the stomach followed by quickly vomiting and coming out the mouth. He was 2 days ago released from [facility] in [place] after he was seen for aspiration pneumonia and G-J tube difficulties and problems. Patient's brother is accompanying him today has caregiver and information personal care assistant. He reports that the radiologist was able to identify that the tube had oriented into the duodenum instead of the jejunum and was able to get it to change back to the jejunum but had informed the family that there was a significant concern or risk that it could to where it was. The brother reports that there has been no similar aspiration that he has seen her known. There is been no breathing difficulties. But because of not being able to keep down food and fluids today concern of dehydration etc. The problem began even some yesterday even after being released. There is been no rapid breathing, obvious shortness of breath or other respiratory difficulties. No fevers. This current G-J-tube was placed by Dr. Clark May 08. He also reports that family at one point was considering a simple J-tube but were concerned about higher reported risks of infection; now they would consider this. Patient has been able to tolerate Reglan 10 mg (10 mL's) every 6 hours without vomiting this. He has not exhibited other pain behaviors except his normal pain behaviors that seem to be related to his con tractures and scoliosis. He has lost 10 pounds since the complications and problems since April when the tube was placed. He is down to 75 pounds. - Related Data Home Medications Medication Instructions Recorded Confirmed polyethylene glycol 3350 17 17 g PT QID 03/06/15 05/30/19 gram/dose oral powder tiZANidine [Zanaflex] 4 mg PT TID 05/01/18 05/30/19 omeprazole 20 mg tablet,delayed 20 mg PT BID tab 04/04/19 05/30/19 release Cannabidiol (Cbd) Extract 3 drop PT PRN PRN 05/02/19 05/30/19 [Epidiolex] Promethazine [Phenergan] 25 mg RI TID PRN 05/02/19 05/30/19 Metoclopramide Oral Sabina [Reglan 10 mg PT Q6 05/20/19 05/30/19 Oral Sabina] Previous Rx's Medication Instructions Recorded Ondansetron [Zofran ODT] 4 mg SL Q4-6HP PRN #10 tab 05/15/19 Allergies Allergy/AdvReac Type Severity Reaction Status Date / Time No Known Drug Allergies Allergy Verified 05/26/19 19:19 Past Medical History - Past Medical History [facility] Narrative: Medical History (Last Updated 06/07/19 @ 19:21 by Jr Singh DO) History of aspiration pneumonia (Chronic) Angelman syndrome (Chronic) Constipation (Chronic) PEG tube malfunction (Resolved) Intentional self-harm (Chronic) Sleep disturbance (Chronic) Epilepsy, generalized nonconvulsive, with intractable epilepsy (Chronic) Wheelchair dependent (Chronic) Urinary incontinence (Chronic) Developmental delay, severe (Chronic) Abdominal pain (Resolved) Accidental drug ingestion (Resolved) Community acquired pneumonia (Resolved) Encounter for postoperative wound check (Resolved) Epididymitis (Resolved) Fecal impaction (Resolved) Fecal impaction of colon (Resolved) Fecal impaction of colon (Resolved) Intractable nausea and vomiting (Resolved) Left lower lobe pneumonia (Resolved) Leukocytosis (Resolved) Nausea and vomiting (Resolved) Nausea and vomiting (Resolved) Right testicular torsion (Resolved) Syncope (Resolved) Torsion of testicle (Resolved) Vomiting (Resolved) Past Surgical History (Last Updated 06/07/19 @ 19:30 by Jr Singh DO) History of laparotomy (Acute ~04/2019) History of hip surgery (Acute) History of orchiectomy, unilateral (Acute 03/11/15) S/P orchiopexy (Acute 03/11/15) Family History (Last Reviewed 04/23/19 @ 12:36 by Ayesha Burns CMA) Mother Diabetes mellitus Medical history: Reports: other (history of Angelman syndrome.). Denies: cancer Surgical history ED: Reports: other (status post G-tube placement.) - Social History smoking status: Never smoker Alcohol use: Reports: None Drug use: Reports: none Physical Exam Limitations: language barrier, altered mental status, physical limitation General appearance: alert, in no apparent distress Head: atraumatic Eye: Present: other (usual asymmetric gaze with limited movements, sometimes focuses on face or screen.) ENT: Present: mucous membranes moist Chest: Present: symmetric chest wall rise Respiratory: Present: normal lung sounds bilaterally. Absent: respiratory distress, wheezes, stridor, accessory muscle use, prolonged expiratory phase Cardiovascular: Present: regular rate, normal rhythm. Absent: tachycardia, systolic murmur, diastolic murmur Abdominal: Present: soft, other (the tube button is in place. There is surrounding normal erythema and changes of some chronic moisture but no erosions or ulcers or cellulitic appearance or swelling.). Absent: distention, tenderness, guarding, rebound, rigidity, organomegaly, mass Extremities: Present: other (Significantly contracted and with generalized muscle atrophy.) Neurological: Present: other (Awake but nonverbal and limited communication ability except grimacing for pain.) Psychiatric: Present: other (See neurology above) Skin: Present: cool, dry Course Vital Signs Temperature 97.3 F 06/07/19 16:29 Pulse Rate 117 H 06/07/19 16:29 Respiratory Rate 18 06/07/19 16:29 Blood Pressure 85/49 06/07/19 16:29 Pulse Oximetry (%) 95 06/07/19 16:29 Temperature 97.3 F 06/07/19 16:29 Pulse Rate 92 H 06/07/19 19:26 Respiratory Rate 18 06/07/19 16:29 Blood Pressure 121/76 06/07/19 19:26 Pulse Oximetry (%) 98 06/07/19 19:26 Nausea/Vomiting/Diarrhea - [facility] Narrative Medical decision making narrative: 5:17 PM - vomiting with any significant fluids and nutrition through the GJ tube with history of displacement of the tip. I will draw some basic labs although is not tachycardic at this point so he is not likely to be severely dehydrated at this point. I will discuss with his surgeon, Dr. Clark. 5:48 PM - I spoke with Dr. Clark who indicates that likely this patient's problem is not actually fixable correctable. He is willing to put a J-tube to see if this will work. It would require an operative intervention. Patient has or seems to have reflux and/or lower bowel dysfunction no matter which type of tube is present. His current tube goes through his gastric wall and jejunum and is fairly long and fairly stiff. How it displaces into the duodenum is peculiar but this is what was documented apparently it [place] and was able to actually be moved back into the jejunum. He indicates that it is long enough that it is at or just above the jejunal ileal junction. Any lower than this then malnutrition becomes problematic. Patient requires open tube placement i.e. laparotomy, because of his torsion from scoliosis and trunk as well as visceral malposition. He is willing to see patient in the hospital and discussed with family and arrange the circumstances. He does not feel that a plain jejunostomy tube will work specifically although he is willing to have it give a try. I had patient's brother talk with the mother regarding these considerations. They would like to consider going ahead and trying the J-tube. 7:20 PM - I called the [facility] med-con service to discuss considerations and options. 7:37 PM - General surgeon on-order caller called me back directly. [email or web address]. 7:41 PM - I spoke with on-call general surgeon above who asked about previous jejunostomy tubes and that this seemed to be a consideration in an option. Also wondering if fundoplication would be a consideration or an option. I spoke with family who says that that had never been mentioned previously. 7:50 PM - I spoke with Dr. Clark again about circumstances. A fundoplication would make things worse, patient unable to burp, is contraindicated because of his gastroparesis, etc. He will be admitted under observation and given his usual medications, IV fluids and further discussion with family tomorrow with Dr. Clark in consideration for the probability of a jejunostomy tube. Because of his history with also constipation, tube placement issues it, etc. a plain film abdomen also was ordered. Of note is that I did speak with patient's brother who reports that he is also spoken with the mother regarding the limited options to fix the underlying problem, possibility of prognosis being rather poor, considerations of how serious or aggressive interventions should be you are aware there should be a limitation considering quality of life circumstances etc. He reports having discussed and mention these things with his mother. This may be the last option her last ditch effort and they are aware of this. - Lab Data Lab results reviewed: Yes I reviewed the patient's lab results. Result diagrams: 06/07/19 17:46 06/07/19 17:45 Lab Results 06/07/19 06/07/19 Range/Units 17:45 17:46 WBC 7.6 (4.50-11.00) K/mcL RBC 5.02 (4.63-6.08) M/mcL Hgb 9.9 L (13.7-17.5) g/dL Hct 34.3 L (40.1-51.0) % MCV 68.3 L (80.0-100.0) fL MCH 19.7 L (26.0-34.0) pg MCHC 28.9 L (31.0-36.0) g/dL RDW 17.7 H (11.5-14.5) % Plt Count 382 (140-440) K/mcL MPV 9.6 (7.4-10.4) fL Gran % 67.1 (38.0-78.0) % Lymph % (Auto) 20.7 (15.5-49.0) % [place] % (Auto) 8.8 (1.0-12.0) % Eos % (Auto) 3.0 (0.0-7.0) % Baso % (Auto) 0.4 (0.0-2.0) % Gran # 5.13 (1.80-8.00) K/mcL Lymph # (Auto) 1.58 (1.50-4.80) K/mcL [place] # (Auto) 0.67 (0.10-0.90) K/mcL Eos # (Auto) 0.23 (0.00-0.70) K/mcL Baso # (Auto) 0.03 (0.00-0.30) K/mcL Sodium 134 (133-145) mmol/L Potassium 3.9 (3.3-5.1) mmol/L Chloride 99 (96-108) mmol/L Carbon Dioxide 19 L (22-30) mmol/L Anion Gap 16.0 (8-16) BUN 9 (6-20) mg/dl Creatinine 0.6 L (0.7-1.2) mg/dl GFR Calculation 141 Glucose 96 (70-105) mg/dL Calcium 8.9 (8.6-10.4) mg/dl Total Bilirubin 0.2 (0.0-1.0) mg/dL AST 19 (0-37) U/l ALT 14 (0-40) U/l Alkaline Phosphatase 81 (39-117) U/L Total Protein 6.6 (5.9-8.4) gm/dL Albumin 3.7 (3.2-5.2) gm/dL Globulin 2.9 (2.2-3.7) gm/dL Albumin/Globulin Ratio 1.3 (1.0-2.3) Disposition Pt seen by AGRICULTURAL EDUCATION TEACHER/PA only: No Clinical Impression: Vomiting alone, Encounter for care related to feeding tube Disposition: Xfer As Outpt/Obs ([facility]) Condition: Fair Referrals: Inez Elkins ARNP [Primary Care Provider] -
[2019-06-07 18:26] LABS: Basophils # (Auto) 0.03 K/mcL (0.00-0.30); Basophils % (Auto) 0.4 % (0.0-2.0); Eosinophils # (Auto) 0.23 K/mcL (0.00-0.70); Granulocytes % (Auto) 67.1 % (38.0-78.0); Hematocrit 34.3 % (40.1-51.0); Hemoglobin 9.9 g/dL (13.7-17.5); Lymphocytes # (Auto) 1.58 K/mcL (1.50-4.80); Lymphocytes % (Auto) 20.7 % (15.5-49.0); Mean Cell Volume 68.3 fL (80.0-100.0); Mean Corpuscular HGB Conc 28.9 g/dL (31.0-36.0); Mean Platelet Volume 9.6 fL (7.4-10.4); Monocytes # (Auto) 0.67 K/mcL (0.10-0.90); Monocytes % (Auto) 8.8 % (1.0-12.0); RBC 5.02 M/mcL (4.63-6.08); Red Cell Distribution Width 17.7 % (11.5-14.5); WBC 7.6 K/mcL (4.50-11.00)
[2019-06-07] MEDS: LACTATED RINGERS 1,000 ML IV SCH ×3 (18:26→23:17)
[2019-06-07 18:35] LABS: ALT/SGPT 14 U/l (0-40); AST/SGOT 19 U/l (0-37); Albumin 3.7 gm/dL (3.2-5.2); Albumin/Globulin Ratio 1.3 (1.0-2.3); Alkaline Phosphatase 81 U/L (39-117); Bilirubin,Total 0.2 mg/dL (0.0-1.0); Blood Urea Nitrogen 9 mg/dl (6-20); Calcium 8.9 mg/dl (8.6-10.4); Globulin 2.9 gm/dL (2.2-3.7); Glomerular Filtration Rate 141; Glucose 96 mg/dL (70-105)
[2019-06-07 18:38] LABS: Carbon Dioxide 19 mmol/L (22-30); Chloride 99 mmol/L (96-108)
[2019-06-07 18:39] LABS: Platelet Count 382 K/mcL (140-440)
[2019-06-07] MEDS ORDERED: DIAZEPAM 10 MG/2 ML SYRINGE IV PRN (20:12)
[2019-06-08] MEDS ORDERED: METOCLOPRAMIDE ORAL SOL 1 MG/ML ML PO SCH
[2019-06-08] MEDS ORDERED: fentaNYL 100 MCG/2 ML VIAL IV PRN (00:04)
[2019-06-08] MEDS: METOCLOPRAMIDE 10 MG/2 ML VIAL IV SCH ×5 (00:11→23:42)
[2019-06-08] MEDS: DIAZEPAM 10 MG/2 ML SYRINGE IV PRN ×2 (00:11→07:24)
--- NOTE | 2019-06-08 09:28 | XRay Report ---
HISTORY: Vomiting FINDINGS: There is a percutaneous gastrostomy tube in the stomach. Stomach, small intestine and colon are decompressed. No gross free intra-abdominal air is seen on the supine view. There is a row of surgical sutures in the left upper quadrant. The lung bases are clear. A severe rotary scoliotic curvature is noted. IMPRESSION: No acute abnormality Interpreted and Authenticated by: Danny Garg 06/08/19
--- NOTE | 2019-06-08 13:41 | General Surg History&Physical ---
History of Present Illness Patient information: Note initiated : 06/08/19 at 1:36 pm Service Date, if different from initiated Date: [] Patient: Raúl Hammond 23 y/o M admitted on 06/07/19 for Not Able to Eat. Chief Complaint: [] HPI: Mr. Hammond is a 23 year old M admitted for evaluation of recurrent nausea, vomiting. The patient has a long history of difficulty with feedings. He has poor gastric emptying and extensive reflux of gastric contents into his retropharynx. He was recently discharged from [facility] in [place] for treatment of aspiration pneumonia. He started having recurrent episodes of vomiting yesterday and was admitted last evening. His problem is that he has poor emptying and it has been difficult to place percutaneous or open replace a gastrojejunal tube. He had placement of gastrojejunostomy with positioning of jejunal tube through the anastomosis into the distal jejunum in April. He has a gastrojejunal tube which will allow suction on the gastric port since reflux of contents into the stomach Leads to nausea and vomiting. He has been on Reglan every 6 hours without major improvement. Over the past month has lost about 10 pounds. I will try to get regular jejunostomy tubes and another gastrojejunal tube and determine whether or not I can place the tube open and sutured the end of the tube to low wall of the bowel to keep it from dislodging. 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 Past surgical history: Right orchiectomy. History of hip surgery Past family history: Mother with diabetes mellitus Past social history: Disabled Total care. History of CBD use for medical reasons Medications and Allergies Home Medications Medication Instructions Recorded Confirmed Type polyethylene glycol 3350 17 17 g PT QID 03/06/15 06/07/19 History gram/dose oral powder tiZANidine [Zanaflex] 4 mg PT TID 05/01/18 06/07/19 History omeprazole 20 mg tablet,delayed 20 mg PT BID tab 04/04/19 06/07/19 History release Cannabidiol (Cbd) Extract 3 drop PT PRN PRN 05/02/19 06/07/19 History [Epidiolex] Promethazine [Phenergan] 25 mg NJ TID PRN 05/02/19 06/07/19 History Ondansetron [Zofran ODT] 4 mg SL Q4-6HP PRN #10 tab 05/15/19 06/07/19 Rx Metoclopramide Oral Sabina [Reglan 10 mg PT Q6 05/20/19 06/07/19 History Oral Sabina] Allergies Allergy/AdvReac Type Severity Reaction Status Date / Time No Known Drug Allergies Allergy Verified 05/26/19 19:19 Exam Temp Pulse Resp BP Pulse Ox 98.3 F 85 12 112/77 98 06/08/19 11:41 06/08/19 11:41 06/08/19 11:41 06/08/19 11:41 06/08/19 11:41 - General physical appearance no distress, cachectic, chronically ill - Eyes PERRL, normal ocular movement - ENT normal pinna, normal nares, normal mucosa, no hearing loss, no congestion - Head Head exam IM: Present: atraumatic, normal inspection, normocephalic - Neck no masses, no bruits, trachea midline, no lymphadenopathy, no venous distension - Cardiovascular Cardiovascular exam IM: Present: normal rate and rhythm, RRR, +S1, +S2, tachycardia. Absent: JVD - Respiratory normal expansion, normal respiratory effort, clear to percussion, clear to auscultation - Abdomen Abdomen: Present: soft, non tender, bowel sounds, surgical scars (well-healed surgical scar upper midline; Gastrojejunal tube epigastrium) Hernia: Present: none - Genitourinary Present: normal penis with no external lesions - Integumentary Present: no rash, no growths, no abnormal pigmentation - Neurologic Present: other (severe flexion contractures of upper and lower extremities, especially in hips, knees, and ankles) - Musculoskeletal Present: other (extensive bony deformity of pelvis and lower extremities) - Psychiatric Present: other (noncommunicative but relates to family members with eye movements and hand gestures) Assessment and Plan (1) Intractable nausea and vomiting Discussed with geek squad agent, the potential for open repositioning of the tube with the permanent suturing of the tube to the bowel wall. We'll discuss this further. Continue Reglan IV every 6 hours Consider placement of percutaneous jejunostomy tube Status: Acute (2) Malfunction of jejunostomy tube Tube to be repositioned endoscopically or open Status: Acute (3) History of aspiration pneumonia Monitor closely for vomiting. 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
[2019-06-08] MEDS ORDERED: ONDANSETRON 4 MG/2 ML VIAL IV PRN (14:15)
[2019-06-08] MEDS: LACTATED RINGERS 1,000 ML IV SCH (18:07)
[2019-06-08] MEDS: DOCUSATE SODIUM 100 MG CAPSULE PO SCH (20:25)
[2019-06-08] MEDS ORDERED: SENNOSIDES 1 TABLET PO SCH (21:00)
[2019-06-08] MEDS: 0.9 % SODIUM CHLORIDE 10 ML SYRINGE IV SCH (21:07)
[2019-06-09] MEDS: METOCLOPRAMIDE 10 MG/2 ML VIAL IV SCH ×4 (05:30→23:55)
[2019-06-09] MEDS: 0.9 % SODIUM CHLORIDE 10 ML SYRINGE IV SCH ×3 (05:30→22:02)
[2019-06-09] MEDS: DIAZEPAM 10 MG/2 ML SYRINGE IV PRN ×2 (05:38→12:27)
[2019-06-09] MEDS: DOCUSATE SODIUM 100 MG CAPSULE PO SCH (09:02)
--- NOTE | 2019-06-09 14:16 | General Surgery Progress Note ---
Subjective Patient reports: other Narrative: Note initiated : 06/09/19 at 2:13 pm Service Date, if different from initiated Date: [] Patient: Raúl Hammond 23 y/o M admitted on 06/08/19 for Not Able to Eat. Chief Complaint: [Patient is stable. There is no significant change clinically. Discussed with family the plan to proceed with laparotomy and open placement of the jejunostomy tube with suturing of the tube to the jejunal wall. They are agreeable with this and it will be done tomorrow. We'll also try to place a PICC line while patient is asleep for supplemental TPN while he is recovering from the surgery.] Objective Temp Pulse Resp BP Pulse Ox 98.6 F 118 H 14 120/74 96 06/09/19 06:36 06/09/19 06:36 06/09/19 06:36 06/09/19 06:36 06/09/19 06:36 - Additional Data Intake & Output - Last 24 hours: Intake & Output 06/07/19 06/08/19 06/09/19 06/10/19 05:59 05:59 05:59 05:59 Intake Total 1000 942 Output Total 1 353 1 Balance 999 589 -1 Weight 79 lb 78 lb 6.4 oz - General physical appearance no distress, no pain, chronically ill - Eyes PERRL, normal ocular movement - ENT normal pinna, normal nares, normal mucosa, no hearing loss, no congestion - Neck no masses, no bruits, trachea midline, no lymphadenopathy, no venous distension - Respiratory normal respiratory effort, clear to auscultation - Cardiovascular Cardiovascular exam: Present: normal rate and rhythm, RRR, +S1, +S2. Absent: JVD, tachycardia - Abdomen non tender, bowel sounds (present), surgical scars (none), masses (none) - Integumentary no rash, no growths, no abnormal pigmentation - Neurologic normal coordination, normal sensation - Musculoskeletal normal gait, normal posture - Psychiatric oriented to time, oriented to person, oriented to place, speech is normal, memory intact - Labs 06/07/19 17:46 06/07/19 17:45 Assessment and Plan (1) Intractable nausea and vomiting Status: Acute Assessment and plan: Patient is scheduled for exploratory laparotomy and positioning of jejunostomy tube tomorrow Current Visit: Yes (2) Malfunction of jejunostomy tube Status: Acute Current Visit: Yes (3) History of aspiration pneumonia Status: Chronic Current Visit: No (4) Angelman syndrome Problem details: with severe mental retardation Status: Chronic Current Vi sit: No (5) Epilepsy, generalized nonconvulsive, with intractable epilepsy Status: Chronic Current Visit: No (6) Developmental delay, severe Status: Chronic Current Visit: No - Time Spent With Patient Total time spent is greater than 50% in coordination of care (as documented) at patient's floor/unit and/or counseling patient:
[2019-06-09] MEDS: LACTATED RINGERS 1,000 ML IV SCH (15:57)
[2019-06-10] MEDS: METOCLOPRAMIDE 10 MG/2 ML VIAL IV SCH ×4 (05:52→23:20)
[2019-06-10] MEDS: 0.9 % SODIUM CHLORIDE 10 ML SYRINGE IV SCH ×3 (05:53→23:02)
[2019-06-10 06:51] LABS: Basophils # (Auto) 0.05 K/mcL (0.00-0.30); Basophils % (Auto) 0.6 % (0.0-2.0); Eosinophils # (Auto) 0.24 K/mcL (0.00-0.70); Eosinophils % (Auto) 3.1 % (0.0-7.0); Granulocytes % (Auto) 58.3 % (38.0-78.0); Hematocrit 31.4 % (40.1-51.0); Hemoglobin 9.1 g/dL (13.7-17.5); Lymphocytes # (Auto) 2.34 K/mcL (1.50-4.80); Lymphocytes % (Auto) 30.1 % (15.5-49.0); Mean Cell Volume 69.6 fL (80.0-100.0); Mean Platelet Volume 9.8 fL (7.4-10.4); Monocytes # (Auto) 0.61 K/mcL (0.10-0.90); Monocytes % (Auto) 7.9 % (1.0-12.0); Platelet Count 411 K/mcL (140-440); RBC 4.51 M/mcL (4.63-6.08); Red Cell Distribution Width 17.8 % (11.5-14.5); WBC 7.8 K/mcL (4.50-11.00)
[2019-06-10 07:16] LABS: ALT/SGPT 9 U/l (0-40); AST/SGOT 13 U/l (0-37); Albumin 3.7 gm/dL (3.2-5.2); Albumin/Globulin Ratio 1.4 (1.0-2.3); Alkaline Phosphatase 78 U/L (39-117); Bilirubin,Direct < 0.2 mg/dL (0.0-0.3); Bilirubin,Total 0.2 mg/dL (0.0-1.0); Blood Urea Nitrogen 4 mg/dl (6-20); Calcium 9.2 mg/dl (8.6-10.4); Carbon Dioxide 20 mmol/L (22-30); Chloride 98 mmol/L (96-108); Globulin 2.7 gm/dL (2.2-3.7); Glomerular Filtration Rate 152; Glucose 60 mg/dL (70-105); Lactate Dehydrogenase 139 U/L (94-250); Phosphorous 3.2 mg/dL (2.7-4.5); Triglycerides 71 mg/dl (<150); Uric Acid 7.2 mg/dL (2.5-8.0)
[2019-06-10] MEDS: LACTATED RINGERS 1,000 ML IV SCH (07:53)
[2019-06-10] MEDS ORDERED: DEXTROSE 5%-LR 1,000 ML IV SCH (08:00)
--- NOTE | 2019-06-10 15:12 | General Surgery Progress Note ---
Subjective Patient reports: other (patient has not had any clinical change. He still has emesis with any feedings. His surgery is rescheduled for tomorrow because of scheduling conflicts. Discussed this with his mother. He is scheduled for 7:30 in the morning) Narrative: Note initiated : 06/10/19 at 3:11 pm Service Date, if different from initiated Date: [] Patient: Raúl Hammond 23 y/o M admitted on 06/08/19 for Not Able to Eat. Chief Complaint: [] Objective Temp Pulse Resp BP Pulse Ox 97.8 F 80 16 118/76 97 06/10/19 12:00 06/10/19 12:00 06/10/19 12:00 06/10/19 12:00 06/10/19 12:00 - Additional Data Intake & Output - Last 24 hours: Intake & Output 06/08/19 06/09/19 06/10/19 06/11/19 05:59 05:59 05:59 05:59 Intake Total 2959 050 9625 796 Output Total 1 353 554 1 Balance 999 589 446 795 Weight 79 lb 78 lb 6.4 oz 75 lb 8 oz 75 lb 8 oz - Labs 06/10/19 05:53 06/10/19 05:53 Diabetes panel 06/10/19 Range/Units 05:53 Sodium 138 (133-145) mmol/L Potassium 3.7 (3.3-5.1) mmol/L Chloride 98 (96-108) mmol/L Carbon Dioxide 20 L (22-30) mmol/L BUN 4 L (6-20) mg/dl Creatinine 0.5 L (0.7-1.2) mg/dl Glucose 60 L (70-105) mg/dL Calcium 9.2 (8.6-10.4) mg/dl AST 13 (0-37) U/l ALT 9 (0-40) U/l Alkaline Phosphatase 78 (39-117) U/L Total Protein 6.4 (5.9-8.4) gm/dL Albumin 3.7 (3.2-5.2) gm/dL Triglycerides 71 (<150) mg/dl Calcium panel 06/10/19 Range/Units 05:53 Calcium 9.2 (8.6-10.4) mg/dl Phosphorus 3.2 (2.7-4.5) mg/dL Albumin 3.7 (3.2-5.2) gm/dL Pituitary panel 06/10/19 Range/Units 05:53 Sodium 138 (133-145) mmol/L Potassium 3.7 (3.3-5.1) mmol/L Chloride 98 (96-108) mmol/L Carbon Dioxide 20 L (22-30) mmol/L BUN 4 L (6-20) mg/dl Creatinine 0.5 L (0.7-1.2) mg/dl Glucose 60 L (70-105) mg/dL Calcium 9.2 (8.6-10.4) mg/dl Adrenal panel 06/10/19 Range/Units 05:53 Sodium 138 (133-145) mmol/L Potassium 3.7 (3.3-5.1) mmol/L Chloride 98 (96-108) mmol/L Carbon Dioxide 20 L (22-30) mmol/L BUN 4 L (6-20) mg/dl Creatinine 0.5 L (0.7-1.2) mg/dl Glucose 60 L (70-105) mg/dL Calcium 9.2 (8.6-10.4) mg/dl Total Bilirubin 0.2 (0.0-1.0) mg/dL AST 13 (0-37) U/l ALT 9 (0-40) U/l Alkaline Phosphatase 78 (39-117) U/L Total Protein 6.4 (5.9-8.4) gm/dL Albumin 3.7 (3.2-5.2) gm/dL Assessment and Plan (1) Intractable nausea and vomiting Status: Ruled-out Assessment and plan: Patient is scheduled for exploratory laparotomy and positioning of jejunostomy t ube tomorrow Current Visit: Yes (2) Malfunction of jejunostomy tube Status: Acute Current Visit: Yes (3) History of aspiration pneumonia Status: Chronic Current Visit: No (4) Angelman syndrome Problem details: with severe mental retardation Status: Chronic Current Visit: No (5) Epilepsy, generalized nonconvulsive, with intractable epilepsy Status: Chronic Current Visit: No (6) Developmental delay, severe Status: Chronic Current Visit: No - Time Spent With Patient Total time spent is greater than 50% in coordination of care (as documented) at patient's floor/unit and/or counseling patient:
[2019-06-10] MEDS: DIAZEPAM 10 MG/2 ML SYRINGE IV PRN (23:03)
[2019-06-11] MEDS: LACTATED RINGERS 1,000 ML IV SCH ×3 (02:00→12:55)
[2019-06-11] MEDS: METOCLOPRAMIDE 10 MG/2 ML VIAL IV SCH ×4 (05:55→23:53)
[2019-06-11] MEDS: 0.9 % SODIUM CHLORIDE 10 ML SYRINGE IV SCH ×4 (05:56→21:43)
[2019-06-11 06:46] LABS: Basophils # (Auto) 0.04 K/mcL (0.00-0.30); Basophils % (Auto) 0.5 % (0.0-2.0); Eosinophils # (Auto) 0.31 K/mcL (0.00-0.70); Eosinophils % (Auto) 4.3 % (0.0-7.0); Granulocytes % (Auto) 63.9 % (38.0-78.0); Hematocrit 31.6 % (40.1-51.0); Hemoglobin 9.2 g/dL (13.7-17.5); Lymphocytes # (Auto) 1.71 K/mcL (1.50-4.80); Lymphocytes % (Auto) 23.5 % (15.5-49.0); Mean Cell Volume 69.9 fL (80.0-100.0); Mean Corpuscular HGB Conc 29.1 g/dL (31.0-36.0); Mean Platelet Volume 9.6 fL (7.4-10.4); Monocytes # (Auto) 0.57 K/mcL (0.10-0.90); Monocytes % (Auto) 7.8 % (1.0-12.0); Platelet Count 430 K/mcL (140-440); RBC 4.52 M/mcL (4.63-6.08); Red Cell Distribution Width 17.8 % (11.5-14.5); WBC 7.3 K/mcL (4.50-11.00)
[2019-06-11 07:10] LABS: ALT/SGPT 9 U/l (0-40); AST/SGOT 14 U/l (0-37); Albumin 3.6 gm/dL (3.2-5.2); Albumin/Globulin Ratio 1.4 (1.0-2.3); Alkaline Phosphatase 74 U/L (39-117); Bilirubin,Direct < 0.2 mg/dL (0.0-0.3); Bilirubin,Total 0.2 mg/dL (0.0-1.0); Calcium 9.2 mg/dl (8.6-10.4); Carbon Dioxide 22 mmol/L (22-30); Chloride 101 mmol/L (96-108); Globulin 2.6 gm/dL (2.2-3.7); Glomerular Filtration Rate 152; Glucose 65 mg/dL (70-105); Lactate Dehydrogenase 180 U/L (94-250); Triglycerides 59 mg/dl (<150); Uric Acid 7.3 mg/dL (2.5-8.0)
[2019-06-11 07:11] LABS: Blood Urea Nitrogen 3 mg/dl (6-20)
[2019-06-11] MEDS ORDERED: fentaNYL 100 MCG/2 ML VIAL IV ONE (07:45)
[2019-06-11] MEDS ORDERED: MIDAZOLAM 2 MG/2 ML VIAL IV ONE (07:45)
[2019-06-11] MEDS ORDERED: DEXAMETHASONE 10 MG/ML VIAL IV ONE (07:45)
[2019-06-11] MEDS ORDERED: SUGAMMADEX SODIUM 200 MG/2 ML VIAL IV ONE (07:45)
[2019-06-11] MEDS ORDERED: LIDOCAINE HCL/PF 100 MG/5 ML SYRINGE IV ONE (07:45)
[2019-06-11] MEDS ORDERED: METOCLOPRAMIDE 10 MG/2 ML VIAL IV ONE (07:45)
[2019-06-11] MEDS ORDERED: ROPIVACAINE HCL/PF 20 ML VIAL IJ ONE (07:45)
[2019-06-11] MEDS ORDERED: ROCURONIUM 10 MG/ML ML IV ONE (07:45)
[2019-06-11] MEDS ORDERED: FAMOTIDINE/PF 20 MG/2 ML VIAL IV ONE (07:45)
[2019-06-11] MEDS ORDERED: DOXAPRAM HCL 20 MG/ML IV ONE (07:45)
[2019-06-11] MEDS ORDERED: ONDANSETRON 4 MG/2 ML VIAL IV ONE (07:45)
[2019-06-11] MEDS ORDERED: KETAMINE 100 MG/ML ML IV ONE (07:45)
[2019-06-11] MEDS ORDERED: PHENYLEPHRINE 10 MG/ML VIAL IV ONE (07:45)
[2019-06-11] MEDS ORDERED: PROPOFOL 200 MG/20 ML VIAL IV ONE (07:45)
[2019-06-11] MEDS ORDERED: MAGNESIUM SULFATE 8.12 MEQ in DEXTROSE 5% IN WATER 50 ML IV ONE (08:34)
[2019-06-11] MEDS ORDERED: cefTRIAXone 1 GM VIAL IV ONE (09:41)
--- NOTE | 2019-06-11 10:04 | Brief Operative Note ---
Date of procedure: 06/19/19 Pre-op diagnosis: intractable nausea and vomiting;g-j tube malfunction Post-op diagnosis: other (nausea and vomithing) Procedure: laparotomy with open replacement of g-j tube through gj anastomosis upper endoscopy with positioning of gastrojejunostomy tube into distal jejunum Grafts/Implants: Yes (g j tube) Anesthesia: GETA Findings: tube was positioned through pylorus and was in direct continuity with th g j anastomotic opening Complications: none Surgeon: Dara Clark Estimated blood loss (cc): 20 Specimens Removed/Pathology: none sent Condition: stable Disposition: PACU
[2019-06-11] MEDS ORDERED: 0.9 % SODIUM CHLORIDE 10 ML SYRINGE IV PRN (10:31)
--- NOTE | 2019-06-11 12:23 | XRay Report ---
CLINICAL INFORMATION: PICC PLACEMENT COMPARISON: 06/04/2019 FINDINGS: Left PICC line tip overlies the SVC/ right atrial junction. NG tube overlies the gastric body. Endotracheal tube is 3 cm above the moni. Heart size, mediastinum and pulmonary vessels are normal. Lungs are clear. No effusions. Severe scoliotic curve appreciated IMPRESSION: No acute disease. Left PICC line is satisfactory position Interpreted and Authenticated by: Winston Beckett 06/11/19
[2019-06-11] MEDS ORDERED: cefTRIAXone 1 GM VIAL IV SCH (12:48)
[2019-06-11] MEDS: fentaNYL 100 MCG/2 ML VIAL IV PRN (13:22)
[2019-06-11] MEDS ORDERED: KETOROLAC 15 MG/ML VIAL IV SCH (14:48)
[2019-06-11] MEDS: KETOROLAC 15 MG/ML VIAL IV PRN (15:03)
[2019-06-11] MEDS: ACETAMINOPHEN 500 MG/50 ML BOTTLE IV PRN (15:03)
[2019-06-11] MEDS ORDERED: TPN PER PHARMACY IV SCH (17:15)
[2019-06-11] MEDS: DIAZEPAM 10 MG/2 ML SYRINGE IV PRN (21:45)
[2019-06-12] MEDS: 0.9 % SODIUM CHLORIDE 10 ML SYRINGE IV SCH ×5 (05:23→20:59)
[2019-06-12] MEDS: METOCLOPRAMIDE 10 MG/2 ML VIAL IV SCH ×3 (05:23→18:03)
[2019-06-12 08:01] LABS: Basophils # (Auto) 0.03 K/mcL (0.00-0.30); Basophils % (Auto) 0.1 % (0.0-2.0); Eosinophils # (Auto) 0 K/mcL (0.00-0.70); Eosinophils % (Auto) 0 % (0.0-7.0); Granulocytes % (Auto) 92.6 % (38.0-78.0); Hematocrit 30.3 % (40.1-51.0); Hemoglobin 8.9 g/dL (13.7-17.5); Lymphocytes # (Auto) 1.13 K/mcL (1.50-4.80); Lymphocytes % (Auto) 4.1 % (15.5-49.0); Mean Cell Volume 68.9 fL (80.0-100.0); Mean Corpuscular HGB Conc 29.4 g/dL (31.0-36.0); Mean Platelet Volume 10.4 fL (7.4-10.4); Monocytes # (Auto) 0.88 K/mcL (0.10-0.90); Monocytes % (Auto) 3.2 % (1.0-12.0); Platelet Count 365 K/mcL (140-440); WBC 27.3 K/mcL (4.50-11.00)
[2019-06-12 08:31] LABS: ALT/SGPT 7 U/l (0-40); AST/SGOT 12 U/l (0-37); Albumin 2.8 gm/dL (3.2-5.2); Albumin/Globulin Ratio 1.2 (1.0-2.3); Alkaline Phosphatase 60 U/L (39-117); Bilirubin,Direct < 0.2 mg/dL (0.0-0.3); Bilirubin,Total 0.2 mg/dL (0.0-1.0); Blood Urea Nitrogen 2 mg/dl (6-20); Calcium 8.4 mg/dl (8.6-10.4); Carbon Dioxide 20 mmol/L (22-30); Chloride 101 mmol/L (96-108); Globulin 2.3 gm/dL (2.2-3.7); Glomerular Filtration Rate 152; Glucose 68 mg/dL (70-105); Lactate Dehydrogenase 184 U/L (94-250); Phosphorous 3.8 mg/dL (2.7-4.5); Triglycerides 31 mg/dl (<150); Uric Acid 5.5 mg/dL (2.5-8.0)
[2019-06-12] MEDS: DIAZEPAM 10 MG/2 ML SYRINGE IV PRN ×3 (08:56→20:58)
[2019-06-12] MEDS ORDERED: cefTRIAXone 1 GM VIAL IV SCH (09:00)
[2019-06-12] MEDS: LACTATED RINGERS 1,000 ML IV SCH (09:15)
[2019-06-12] MEDS: ACETAMINOPHEN 500 MG/50 ML BOTTLE IV PRN (11:18)
[2019-06-12] MEDS ORDERED: MAGNESIUM SULFATE 2 GM/50 ML BAG IV ONE (11:45)
[2019-06-12] MEDS ORDERED: CALCIUM GLUCONATE 5 MEQ, MAGNESIUM SULFATE 16.24 MEQ, SODIUM CHLORIDE 20 MEQ, POTASSIUM... IV SCH (12:00)
[2019-06-12] MEDS: INSULIN LISPRO 1 UNIT/0.01 ML UNIT SQ SCH ×2 (12:52→18:07)
--- NOTE | 2019-06-12 15:14 | General Surgery Progress Note ---
Subjective Patient reports: fever Narrative: Note initiated : 06/12/19 at 3:11 pm Service Date, if different from initiated Date: [] Patient: Raúl Hammond 23 y/o M admitted on 06/08/19 for Not Able to Eat. Chief Complaint: [patient has been relatively stable. He did have mild tachycardia in the 100 range. Last evening and earlier today. He had stable blood pressure and heart rate. His morning white blood count is 27,300 and hemoglobin 8.9. There was concern about possible leak from the enterotomy was made to position the tube. A contrast study was performed via the gastric port and the jejunal port. There is no evidence of leak noted on either of these injections. Discussed with radiologist and he will have CT of abdomen and pelvis tomorrow morning after the contrast has had time to transit.] Objective Temp Pulse Resp BP Pulse Ox 99.6 F H 111 H 20 109/66 96 06/12/19 12:03 06/12/19 11:53 06/12/19 11:53 06/12/19 11:53 06/12/19 11:53 - Additional Data Intake & Output - Last 24 hours: Intake & Output 06/10/19 06/11/19 06/12/19 06/13/19 05:59 05:59 05:59 05:59 Intake Total 1000 1905 1702 1000 Output Total 554 603 101 Balance 446 1302 1601 1000 Weight 75 lb 8 oz 78 lb 82 lb 82 lb - General physical appearance cachectic, chronically ill - Eyes PERRL, normal ocular movement - Respiratory normal expansion, normal respiratory effort, clear to auscultation - Cardiovascular Cardiovascular exam: Present: normal rate and rhythm, RRR, +S1, +S2. Absent: JVD, tachycardia - Abdomen soft, tender (mild tenderness in operative site), bowel sounds (. Hypoactive bowel sounds), surgical scars (. Incision looks good), distended (. Mild distention) - Integumentary no rash, no growths, no abnormal pigmentation - Neurologic normal coordination, normal sensation - Musculoskeletal normal gait, normal posture - Psychiatric oriented to time, oriented to person, oriented to place, speech is normal, memory intact - Labs 06/12/19 06:00 06/12/19 06:00 Diabetes panel 06/12/19 Range/Units 06:00 Sodium 140 (133-145) mmol/L Potassium 3.8 (3.3-5.1) mmol/L Chloride 101 (96-108) mmol/L Carbon Dioxide 20 L (22-30) mmol/L BUN 2 L (6-20) mg/dl Creatinine 0.5 L (0.7-1.2) mg/dl Glucose 68 L (70-105) mg/dL Calcium 8.4 L (8.6-10.4) mg/dl AST 12 (0-37) U/l ALT 7 (0-40) U/l Alkaline Phosphatase 60 (39-117) U/L Total Protein 5.1 L (5.9-8.4) gm/dL Albumin 2.8 L (3.2-5.2) gm/dL Triglycerides 31 (<150) mg/dl Calcium panel 06/12/19 Range/Units 06:00 Calcium 8.4 L (8.6-10.4) mg/dl Phosphorus 3.8 (2.7-4.5) mg/dL Albumin 2.8 L (3.2-5.2) gm/dL Pituitary panel 06/12/19 Range/Units 06:00 Sodium 140 (133-145) mmol/L Potassium 3.8 (3.3-5.1) mmol/L Chloride 101 (96-108) mmol/L Carbon Dioxide 20 L (22-30) mmol/L BUN 2 L (6-20) mg/dl Creatinine 0.5 L (0.7-1.2) mg/dl Glucose 68 L (70-105) mg/dL Calcium 8.4 L (8.6-10.4) mg/dl Adrenal panel 06/12/19 Range/Units 06:00 Sodium 140 (133-145) mmol/L Potassium 3.8 (3.3-5.1) mmol/L Chloride 101 (96-108) mmol/L Carbon Dioxide 20 L (22-30) mmol/L BUN 2 L (6-20) mg/dl Creatinine 0.5 L (0.7-1.2) mg/dl Glucose 68 L (70-105) mg/dL Calcium 8.4 L (8.6-10.4) mg/dl Total Bilirubin 0.2 (0.0-1.0) mg/dL AST 12 (0-37) U/l ALT 7 (0-40) U/l Alkaline Phosphatase 60 (39-117) U/L Total Protein 5.1 L (5.9-8.4) gm/dL Albumin 2.8 L (3.2-5.2) gm/dL Assessment and Plan (1) Intractable nausea and vomiting Status: Ruled-out Assessment and plan: And CT of abdomen and pelvis with IV contrast tomorrow. *TPN today. Hold tube feedings until there is assurance that there is no intestinal leak Current Visit: Yes (2) Malfunction of jejunostomy tube Status: Acute Current Visit: Yes (3) History of aspiration pneumonia Status: Chronic Current Visit: No (4) Angelman syndrome Problem details: with severe mental retardation Status: Chronic Current Visit: No (5) Epilepsy, generalized nonconvulsive, with intractable epilepsy Status: Chronic Current Visit: No (6) Developmental delay, severe Status: Chronic Current Visit: No - Time Spent With Patient Total time spent is greater than 50% in coordination of care (as documented) at patient's floor/unit and/or counseling patient:
[2019-06-12] MEDS ORDERED: IOHEXOL 180 10 ML VIAL IT ONE (15:19)
[2019-06-12] MEDS: ONDANSETRON 4 MG/2 ML VIAL IV PRN (15:39)
[2019-06-12] MEDS: PIPERACILLIN SODIUM/TAZOBACTAM 3.375 GM in DEXTROSE 5% IN WATER 50 ML IV SCH (15:45)
[2019-06-12] MEDS: KETOROLAC 15 MG/ML VIAL IV PRN (15:45)
[2019-06-12] MEDS ORDERED: FAT EMULSION 20% 250 ML IV SCH (16:00)
--- NOTE | 2019-06-12 18:34 | XRay Report ---
CLINICAL INFORMATION: gastrostomy and jejunostomy contrast study. Abdominal pain evaluate for tube leg TECHNIQUE: Following bombsight specialist images, water soluble enteric contrast was injected first into the gastric port followed by jejunal port injection. Multiple images were obtained. Total fluoroscopy time two minutes. FINDINGS: Tube enters the stomach through the anterior gastric fundus wall that extends through the gastric body exiting through a gastrojejunostomy. The distal end of the tube is within the lumen of the proximal jejunum. Stomach is grossly normal with unremarkable rugal fold pattern. Duodenum and jejunum, including the gastrojejunostomy anastomosis, appear grossly normal no evidence of leak IMPRESSION: Normal exam - no evidence of leak. Interpreted and Authenticated by: Winston Beckett 06/12/19
[2019-06-12] MEDS: fentaNYL 100 MCG/2 ML VIAL IV PRN (20:58)
[2019-06-13] MEDS: METOCLOPRAMIDE 10 MG/2 ML VIAL IV SCH ×5 (00:03→23:51)
[2019-06-13] MEDS: KETOROLAC 15 MG/ML VIAL IV PRN (00:03)
[2019-06-13] MEDS: PIPERACILLIN SODIUM/TAZOBACTAM 3.375 GM in DEXTROSE 5% IN WATER 50 ML IV SCH ×5 (00:04→23:52)
[2019-06-13] MEDS: INSULIN LISPRO 1 UNIT/0.01 ML UNIT SQ SCH ×5 (00:22→23:57)
[2019-06-13] MEDS: ACETAMINOPHEN 500 MG/50 ML BOTTLE IV PRN ×2 (02:40→21:29)
[2019-06-13] MEDS: DIAZEPAM 10 MG/2 ML SYRINGE IV PRN ×2 (02:41→08:21)
[2019-06-13] MEDS: LACTATED RINGERS 1,000 ML IV SCH (05:19)
[2019-06-13] MEDS: 0.9 % SODIUM CHLORIDE 10 ML SYRINGE IV SCH ×5 (05:53→22:41)
[2019-06-13 06:45] LABS: Basophils # (Auto) 0.04 K/mcL (0.00-0.30); Basophils % (Auto) 0.2 % (0.0-2.0); Eosinophils # (Auto) 1.28 K/mcL (0.00-0.70); Eosinophils % (Auto) 6.9 % (0.0-7.0); Granulocytes % (Auto) 80.9 % (38.0-78.0); Hematocrit 23.8 % (40.1-51.0); Hemoglobin 6.9 g/dL (13.7-17.5); Lymphocytes % (Auto) 7.5 % (15.5-49.0); Mean Cell Volume 69.8 fL (80.0-100.0); Mean Platelet Volume 10.1 fL (7.4-10.4); Monocytes # (Auto) 0.64 K/mcL (0.10-0.90); Monocytes % (Auto) 3.4 % (1.0-12.0); Platelet Count 276 K/mcL (140-440); RBC 3.41 M/mcL (4.63-6.08); WBC 18.6 K/mcL (4.50-11.00)
[2019-06-13 07:26] LABS: ALT/SGPT 6 U/l (0-40); AST/SGOT 10 U/l (0-37); Albumin 2.6 gm/dL (3.2-5.2); Alkaline Phosphatase 71 U/L (39-117); Bilirubin,Direct < 0.2 mg/dL (0.0-0.3); Bilirubin,Total 0.2 mg/dL (0.0-1.0); Calcium 8.3 mg/dl (8.6-10.4); Chloride 108 mmol/L (96-108); Globulin 2.5 gm/dL (2.2-3.7); Glomerular Filtration Rate 152; Glucose 107 mg/dL (70-105); Lactate Dehydrogenase 151 U/L (94-250); Triglycerides 67 mg/dl (<150)
[2019-06-13 07:47] LABS: Blood Urea Nitrogen 5 mg/dl (6-20); Carbon Dioxide 28 mmol/L (22-30); Phosphorous 2.5 mg/dL (2.7-4.5); Uric Acid 2.2 mg/dL (2.5-8.0)
[2019-06-13] MEDS ORDERED: POTASSIUM CHLORIDE 40 MEQ in DEXTROSE 5% IN WATER 500 ML IV ONE (07:56)
[2019-06-13] MEDS ORDERED: 0.9 % SODIUM CHLORIDE 250 ML IV SCH (08:00)
[2019-06-13] MEDS ORDERED: IOPAMIDOL 100 ML BOTTLE IV ONE (11:59)
--- NOTE | 2019-06-13 12:11 | General Surgery Progress Note ---
Subjective Patient reports: flatus, bowel movement, afebrile Narrative: Note initiated : 06/13/19 at 12:11 pm Service Date, if different from initiated Date: [] Patient: Raúl Hammond 23 y/o M admitted on 06/08/19 for Not Able to Eat. Chief Complaint: [patient is clinically stable. He is afebrile And his vital signs are stable. There is no increased abdominal distention. White blood count 18.6 Cervical hemoglobin 6; hematocrit 23.8; potassium 2.1 phosphorus , 2.5. CT of the abdomen does not reveal any contrast leakage, especially in the retroperitoneal area and the area of gastrojejunostomy or pelvis where the enterotomy was made In the jejunum.] Objective Temp Pulse Resp BP Pulse Ox 98.5 F 93 H 16 97/58 100 06/13/19 07:15 06/13/19 03:22 06/13/19 07:15 06/13/19 07:15 06/13/19 07:15 - Additional Data Intake & Output - Last 24 hours: Intake & Output 06/11/19 06/12/19 06/13/19 06/14/19 05:59 05:59 05:59 05:59 Intake Total 1905 1702 3500 50 Output Total 603 101 2 2 Balance 1302 1601 3498 48 Weight 78 lb 82 lb 82 lb - General physical appearance no distress, moderate pain, cachectic, chronically ill - Eyes PERRL, normal ocular movement - ENT normal pinna, normal nares, normal mucosa, no hearing loss, no congestion - Neck no masses, no bruits, trachea midline, no lymphadenopathy, no venous distension - Respiratory normal expansion, normal respiratory effort, clear to auscultation - Cardiovascular Cardiovascular exam: Present: normal rate and rhythm, RRR, +S1, +S2. Absent: JVD, tachycardia - Abdomen distended (abdomen is mildly distended with active bowel; incision looks good) - Integumentary no rash, no growths, no abnormal pigmentation - Neurologic normal coordination, normal sensation - Labs 06/13/19 05:00 06/13/19 05:00 Diabetes panel 06/13/19 Range/Units 05:00 Sodium 145 (133-145) mmol/L Potassium 2.9 L* (3.3-5.1) mmol/L Chloride 108 (96-108) mmol/L Carbon Dioxide 28 (22-30) mmol/L BUN 5 L (6-20) mg/dl Creatinine 0.5 L (0.7-1.2) mg/dl Glucose 107 H (70-105) mg/dL Calcium 8.3 L (8.6-10.4) mg/dl AST 10 (0-37) U/l ALT 6 (0-40) U/l Alkaline Phosphatase 71 (39-117) U/L Total Protein 5.1 L (5.9-8.4) gm/dL Albumin 2.6 L (3.2-5.2) gm/dL Triglycerides 67 (<150) mg/dl Calcium panel 06/13/19 Range/Units 05:00 Calcium 8.3 L (8.6-10.4) mg/dl Phosphorus 2.5 L (2.7-4.5) mg/dL Albumin 2.6 L (3.2-5.2) gm/dL Pituitary panel 06/13/19 Range/Units 05:00 Sodium 145 (133-145) mmol/L Potassium 2.9 L* (3.3-5.1) mmol/L Chloride 108 (96-108) mmol/L Carbon Dioxide 28 (22-30) mmol/L BUN 5 L (6-20) mg/dl Creatinine 0.5 L (0.7-1.2) mg/dl Glucose 107 H (70-105) mg/dL Calcium 8.3 L (8.6-10.4) mg/dl Adrenal panel 06/13/19 Range/Units 05:00 Sodium 145 (133-145) mmol/L Potassium 2.9 L* (3.3-5.1) mmol/L Chloride 108 (96-108) mmol/L Carbon Dioxide 28 (22-30) mmol/L BUN 5 L (6-20) mg/dl Creatinine 0.5 L (0.7-1.2) mg/dl Glucose 107 H (70-105) mg/dL Calcium 8.3 L (8.6-10.4) mg/dl Total Bilirubin 0.2 (0.0-1.0) mg/dL AST 10 (0-37) U/l ALT 6 (0-40) U/l Alkaline Phosphatase 71 (39-117) U/L Total Protein 5.1 L (5.9-8.4) gm/dL Albumin 2.6 L (3.2-5.2) gm/dL Assessment and Plan (1) Intractable nausea and vomiting Status: Ruled-out Assessment and plan: And continue TPN increased to maximum *Jejunal tube feedings at 10 cc per hour for the first 24 hours. MiraLAX 60 cc every 6 hours 4 doses Current Visit: Yes (2) Malfunction of jejunostomy tube Status: Acute Current Visit: Yes (3) History of aspiration pneumonia Status: Chronic Current Visit: No (4) Angelman syndrome Problem details: with severe mental retardation Status: Chronic Current Visit: No (5) Epilepsy, generalized nonconvulsive, with intractable epilepsy Status: Chronic Current Visit: No (6) Developmental delay, severe Status: Chronic Current Visit: No (7) Postoperative anemia Status: Acute Assessment and plan: transfuse 2 units of packed Current Visit: Yes - Time Spent With Patient Total time spent is greater than 50% in coordination of care (as documented) at patient's floor/unit and/or counseling patient:
[2019-06-13] MEDS ORDERED: MAGNESIUM SULFATE IV SCH (13:00)
[2019-06-13] MEDS ORDERED: [UNRECOGNIZED DRUG - OTHER] IV SCH (13:00)
[2019-06-13] MEDS ORDERED: CALCIUM GLUCONATE IV SCH (13:00)
[2019-06-13] MEDS ORDERED: MVI IV SCH (13:00)
[2019-06-13] MEDS ORDERED: POTASSIUM CHLORIDE IV SCH (13:00)
--- NOTE | 2019-06-13 13:31 | Cat Scan Report ---
CLINICAL INFORMATION: Recent gastrojejunostomy. Evaluate for leak. COMPARISON: 05/30/2019 chest, abdomen and pelvic CT TECHNIQUE: Following enteric contrast, 0.625 mm helical slices were obtained from the mid heart through the subtrochanteric regions. Following reconstruction, 2.5 mm sagittal, coronal and axial reformatted images were processed and reviewed at bone, lung and soft tissue windows. The exam was performed using radiation dose optimization techniques including, but not limited to, automated exposure control, adjustment of the mA and/or kV according to patient size and use of iterative reconstruction technique. FINDINGS: Lung bases show near complete interval resolution in the centrilobular infiltrates since the CT two weeks ago. No effusions. The visualized heart is normal. Abdominal images show the gallbladder and bile ducts, liver, both kidneys, adrenal glands, spleen, pancreas, and aorta including aortic branches are normal in size configuration and attenuation without focal lesion. There is no adenopathy or free fluid. Moderate free intracranial air in the upper abdomen is expected two days status post gastrojejunostomy. Pelvic images show urinary bladder to be normal. The gastrojejunostomy tube enters through the epigastric region into the anterior wall of the gastric antrum the tube goes through the newly created gastrojejunostomy into a loop of proximal jejunum. There is no evidence of leak. 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 Patient also has severe idiopathic scoliosis of the prostate and lumbar spine IMPRESSION: 1. Gastrojejunostomy is unremarkable. There is no leak of enteric contrast. Moderate free intraperitoneal air is expected following abdominal surgery. 2. Near-complete interval resolution of centrilobular infiltrates in the lung bases since the chest CT two weeks ago. Small right and tiny left pleural effusion is noted. 3. Mild ileus Interpreted and Authenticated by: Winston Beckett 06/13/19
[2019-06-13] MEDS: POLYETHYLENE GLYCOL 3350 17 GM PACKET PT SCH ×3 (13:58→23:51)
[2019-06-14] MEDS: POLYETHYLENE GLYCOL 3350 17 GM PACKET PT SCH ×3 (02:50→14:09)
[2019-06-14] MEDS: PIPERACILLIN SODIUM/TAZOBACTAM 3.375 GM in DEXTROSE 5% IN WATER 50 ML IV SCH ×4 (05:48→23:52)
[2019-06-14] MEDS: METOCLOPRAMIDE 10 MG/2 ML VIAL IV SCH ×3 (05:49→18:32)
[2019-06-14] MEDS: INSULIN LISPRO 1 UNIT/0.01 ML UNIT SQ SCH ×3 (05:49→18:03)
[2019-06-14] MEDS: 0.9 % SODIUM CHLORIDE 10 ML SYRINGE IV SCH ×6 (05:50→23:52)
[2019-06-14 07:20] LABS: Basophils # (Auto) 0.03 K/mcL (0.00-0.30); Basophils % (Auto) 0.3 % (0.0-2.0); Eosinophils # (Auto) 1.54 K/mcL (0.00-0.70); Eosinophils % (Auto) 13.8 % (0.0-7.0); Granulocytes % (Auto) 66.4 % (38.0-78.0); Hematocrit 37.4 % (40.1-51.0); Lymphocytes # (Auto) 1.75 K/mcL (1.50-4.80); Lymphocytes % (Auto) 15.7 % (15.5-49.0); Mean Cell Volume 79.7 fL (80.0-100.0); Mean Corpuscular HGB Conc 29.4 g/dL (31.0-36.0); Mean Platelet Volume 10.4 fL (7.4-10.4); Monocytes # (Auto) 0.43 K/mcL (0.10-0.90); Monocytes % (Auto) 3.8 % (1.0-12.0); Platelet Count 256 K/mcL (140-440); RBC 4.69 M/mcL (4.63-6.08); Red Cell Distribution Width 20.3 % (11.5-14.5); WBC 11.2 K/mcL (4.50-11.00)
[2019-06-14] MEDS: LACTATED RINGERS 1,000 ML IV SCH ×3 (08:12→20:24)
[2019-06-14 10:13] LABS: ALT/SGPT 7 U/l (0-40); AST/SGOT 10 U/l (0-37); Albumin/Globulin Ratio 1.1 (1.0-2.3); Alkaline Phosphatase 77 U/L (39-117); Bilirubin,Direct < 0.2 mg/dL (0.0-0.3); Bilirubin,Total 0.9 mg/dL (0.0-1.0); Blood Urea Nitrogen 3 mg/dl (6-20); Calcium 8.8 mg/dl (8.6-10.4); Carbon Dioxide 28 mmol/L (22-30); Chloride 99 mmol/L (96-108); Globulin 2.8 gm/dL (2.2-3.7); Glomerular Filtration Rate 166; Glucose 81 mg/dL (70-105); Lactate Dehydrogenase 184 U/L (94-250); Triglycerides 101 mg/dl (<150); Uric Acid 0.5 mg/dL (2.5-8.0)
[2019-06-14 10:21] LABS: Phosphorous 1.8 mg/dL (2.7-4.5)
[2019-06-14] MEDS: ACETAMINOPHEN 500 MG/50 ML BOTTLE IV PRN ×2 (12:24→18:44)
[2019-06-14] MEDS ORDERED: [UNRECOGNIZED DRUG - OTHER] IV SCH (13:00)
[2019-06-14] MEDS ORDERED: MVI IV SCH (13:00)
[2019-06-14] MEDS ORDERED: MAGNESIUM SULFATE IV SCH (13:00)
[2019-06-14] MEDS ORDERED: CALCIUM GLUCONATE IV SCH (13:00)
[2019-06-14] MEDS ORDERED: POTASSIUM CHLORIDE IV SCH (13:00)
[2019-06-14] MEDS ORDERED: POTASSIUM PHOSPHATE 40 MEQ in DEXTROSE 5% IN WATER 500 ML IV ONE (16:07)
--- NOTE | 2019-06-14 16:11 | General Surgery Progress Note ---
Subjective Patient reports: feels better, flatus, bowel movement, afebrile Narrative: Note initiated : 06/14/19 at 4:09 pm Service Date, if different from initiated Date: [] Patient: Raúl Hammond 23 y/o M admitted on 06/08/19 for Not Able to Eat. Chief Complaint: [Patient is clinically stable. He is afebrile. His pain appears to be well controlled. White blood count 11.2, hemoglobin 11, hematocrit 37.4, potassium 3.1, BUN 3, creatinine 0.4, phosphorus 1.8. His tolerating TPN and early tube feeds and low-grade without difficulty.] Objective Temp Pulse Resp BP Pulse Ox 98.7 F 89 16 130/87 99 06/14/19 12:00 06/14/19 12:00 06/14/19 12:00 06/14/19 12:00 06/14/19 12:00 - Additional Data Intake & Output - Last 24 hours: Intake & Output 06/12/19 06/13/19 06/14/19 06/15/19 05:59 05:59 05:59 05:59 Intake Total 1702 3500 2365 100 Output Total 101 2 70 Balance 1601 3498 2295 100 Weight 82 lb 82 lb 84 lb 3.2 oz - General physical appearance no distress, cachectic, chronically ill - Eyes PERRL, normal ocular movement - ENT normal pinna, normal nares, normal mucosa, no hearing loss, no congestion - Neck no masses, no bruits, trachea midline, no lymphadenopathy, no venous distension - Respiratory normal expansion, normal respiratory effort, clear to auscultation - Cardiovascular Cardiovascular exam: Present: normal rate and rhythm, RRR, +S1, +S2. Absent: gallop, irregular rhythm, JVD, tachycardia - Abdomen distended (abdomen is mildly distended; good active bowel sounds; incision looks good; gastrojejunal tube is functioning appropriately) - Integumentary no rash, no growths, no abnormal pigmentation - Labs 06/14/19 05:23 06/14/19 08:58 Diabetes panel 06/14/19 06/14/19 Range/Units 05:23 08:58 Sodium 130 L 138 (133-145) mmol/L Potassium 5.5 H 3.1 L (3.3-5.1) mmol/L Chloride 97 99 (96-108) mmol/L Carbon Dioxide 26 28 (22-30) mmol/L BUN 3 L 3 L (6-20) mg/dl Creatinine 0.5 L 0.4 L (0.7-1.2) mg/dl Glucose TNP 81 Calcium 8.6 8.8 (8.6-10.4) mg/dl AST 8 10 (0-37) U/l ALT 5 7 (0-40) U/l Alkaline Phosphatase 65 77 (39-117) U/L Total Protein 5.0 L 5.8 L (5.9-8.4) gm/dL Albumin 2.7 L 3.0 L (3.2-5.2) gm/dL Triglycerides 62 101 (<150) mg/dl Calcium panel 06/14/19 06/14/19 Range/Units 05:23 08:58 Calcium 8.6 8.8 (8.6-10.4) mg/dl Phosphorus 2.1 L 1.8 L (2.7-4.5) mg/dL Albumin 2.7 L 3.0 L (3.2-5.2) gm/dL Pituitary panel 06/14/19 06/14/19 Range/Units 05:23 08:58 Sodium 130 L 138 (133-145) mmol/L Potassium 5.5 H 3.1 L (3.3-5.1) mmol/L Chloride 97 99 (96-108) mmol/L Carbon Dioxide 26 28 (22-30) mmol/L BUN 3 L 3 L (6-20) mg/dl Creatinine 0.5 L 0.4 L (0.7-1.2) mg/dl Glucose TNP 81 Calcium 8.6 8.8 (8.6-10.4) mg/dl Adrenal panel 06/14/19 06/14/19 Range/Units 05:23 08:58 Sodium 130 L 138 (133-145) mmol/L Potassium 5.5 H 3.1 L (3.3-5.1) mmol/L Chloride 97 99 (96-108) mmol/L Carbon Dioxide 26 28 (22-30) mmol/L BUN 3 L 3 L (6-20) mg/dl Creatinine 0.5 L 0.4 L (0.7-1.2) mg/dl Glucose TNP 81 Calcium 8.6 8.8 (8.6-10.4) mg/dl Total Bilirubin 0.8 0.9 (0.0-1.0) mg/dL AST 8 10 (0-37) U/l ALT 5 7 (0-40) U/l Alkaline Phosphatase 65 77 (39-117) U/L Total Protein 5.0 L 5.8 L (5.9-8.4) gm/dL Albumin 2.7 L 3.0 L (3.2-5.2) gm/dL Assessment and Plan (1) Intractable nausea and vomiting Status: Ruled-out Assessment and plan: And continue TPN increased to maximum *Jejunal tube feedings at 10 cc per hour for the first 24 hours. 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
[2019-06-14] MEDS: FAT EMULSION 20% 250 ML IV SCH (17:23)
[2019-06-14] MEDS: ONDANSETRON 4 MG/2 ML VIAL IV PRN (18:49)
[2019-06-15] MEDS: METOCLOPRAMIDE 10 MG/2 ML VIAL IV SCH ×5 (00:13→23:45)
[2019-06-15] MEDS: INSULIN LISPRO 1 UNIT/0.01 ML UNIT SQ SCH ×4 (00:15→17:18)
[2019-06-15] MEDS: 0.9 % SODIUM CHLORIDE 10 ML SYRINGE IV SCH ×6 (05:28→23:45)
[2019-06-15] MEDS: PIPERACILLIN SODIUM/TAZOBACTAM 3.375 GM in DEXTROSE 5% IN WATER 50 ML IV SCH ×4 (05:28→23:45)
[2019-06-15] MEDS: ACETAMINOPHEN 500 MG/50 ML BOTTLE IV PRN ×2 (06:03→17:16)
[2019-06-15] MEDS: LACTATED RINGERS 1,000 ML IV SCH ×2 (06:03→17:19)
[2019-06-15 06:27] LABS: Basophils # (Auto) 0.03 K/mcL (0.00-0.30); Basophils % (Auto) 0.2 % (0.0-2.0); Eosinophils # (Auto) 0.99 K/mcL (0.00-0.70); Eosinophils % (Auto) 6.5 % (0.0-7.0); Granulocytes % (Auto) 77.1 % (38.0-78.0); Hematocrit 38.3 % (40.1-51.0); Hemoglobin 11.9 g/dL (13.7-17.5); Lymphocytes # (Auto) 1.82 K/mcL (1.50-4.80); Lymphocytes % (Auto) 11.9 % (15.5-49.0); Mean Cell Volume 73.9 fL (80.0-100.0); Mean Corpuscular HGB Conc 31.1 g/dL (31.0-36.0); Mean Platelet Volume 9.7 fL (7.4-10.4); Monocytes # (Auto) 0.65 K/mcL (0.10-0.90); Monocytes % (Auto) 4.3 % (1.0-12.0); Platelet Count 290 K/mcL (140-440); RBC 5.18 M/mcL (4.63-6.08); Red Cell Distribution Width 20.7 % (11.5-14.5); WBC 15.3 K/mcL (4.50-11.00)
[2019-06-15 07:03] LABS: ALT/SGPT 6 U/l (0-40); AST/SGOT 10 U/l (0-37); Albumin 2.7 gm/dL (3.2-5.2); Albumin/Globulin Ratio 0.9 (1.0-2.3); Alkaline Phosphatase 79 U/L (39-117); Bilirubin,Direct < 0.2 mg/dL (0.0-0.3); Bilirubin,Total 0.3 mg/dL (0.0-1.0); Calcium 8.7 mg/dl (8.6-10.4); Carbon Dioxide 25 mmol/L (22-30); Chloride 101 mmol/L (96-108); Globulin 3.1 gm/dL (2.2-3.7); Glucose 73 mg/dL (70-105); Lactate Dehydrogenase 217 U/L (94-250); Triglycerides 58 mg/dl (<150); Uric Acid 0.5 mg/dL (2.5-8.0)
[2019-06-15 07:04] LABS: Blood Urea Nitrogen 4 mg/dl (6-20); Glomerular Filtration Rate 187; Phosphorous 3.2 mg/dL (2.7-4.5)
--- NOTE | 2019-06-15 13:41 | General Surgery Progress Note ---
Subjective Patient reports: flatus, bowel movement, afebrile Narrative: Note initiated : 06/15/19 at 1:39 pm Service Date, if different from initiated Date: [] Patient: Raúl Hammond 23 y/o M admitted on 06/08/19 for Not Able to Eat. Chief Complaint: [Patient continues to be clinically stable. He's been afebrile. He is tolerating TPN and slow drip. Tube feedings well at this time. He has not had nausea or vomiting. He's had multiple bowel movements. White blood count 15.3, hemoglobin 11.9, hematocrit 30.3, potassium 3.6, BUN 4, creatinine 0 point] Objective Temp Pulse Resp BP Pulse Ox 97.9 F 103 H 16 119/85 96 06/15/19 12:00 06/15/19 03:31 06/15/19 12:00 06/15/19 12:00 06/15/19 12:00 - Additional Data Intake & Output - Last 24 hours: Intake & Output 06/13/19 06/14/19 06/15/19 06/16/19 05:59 05:59 05:59 05:59 Intake Total 3500 2365 1650 90 Output Total 2 70 508 Balance 3498 2295 1142 90 Weight 82 lb 84 lb 3.2 oz 84 lb - General physical appearance chronically ill - Eyes PERRL, normal ocular movement - ENT normal pinna, normal nares, normal mucosa, no congestion - Neck no masses, no bruits, trachea midline, no lymphadenopathy, no venous distension - Respiratory normal expansion, normal respiratory effort, clear to auscultation (lungs are clear bilaterally with equal Breath sounds) - Cardiovascular Cardiovascular exam: Present: normal rate and rhythm, RRR, +S1, +S2. Absent: JVD, tachycardia - Abdomen distended (bowel is nondistended. Active bowel sounds; incision looks good; GJ catheter is well positioned) - Integumentary no rash, no growths, no abnormal pigmentation - Labs 06/15/19 05:28 06/15/19 05:28 Diabetes panel 06/14/19 06/15/19 Range/Units 05:23 05:28 Sodium 140 (133-145) mmol/L Potassium 3.6 (3.3-5.1) mmol/L Chloride 101 (96-108) mmol/L Carbon Dioxide 25 (22-30) mmol/L BUN 4 L (6-20) mg/dl Creatinine 0.3 L (0.7-1.2) mg/dl Glucose 73 (70-105) mg/dL Calcium 8.7 (8.6-10.4) mg/dl AST 10 (0-37) U/l ALT 6 (0-40) U/l Alkaline Phosphatase 79 (39-117) U/L Total Protein 5.8 L (5.9-8.4) gm/dL Albumin 2.7 L (3.2-5.2) gm/dL Triglycerides 58 (<150) mg/dl Calcium panel 06/14/19 06/15/19 Range/Units 05:23 05:28 Calcium 8.7 (8.6-10.4) mg/dl Phosphorus 3.2 (2.7-4.5) mg/dL Albumin 2.7 L (3.2-5.2) gm/dL Pituitary panel 06/14/19 06/15/19 Range/Units 05:23 05:28 Sodium 140 (133-145) mmol/L Potassium 3.6 (3.3-5.1) mmol/L Chloride 101 (96-108) mmol/L Carbon Dioxide 25 (22-30) mmol/L BUN 4 L (6-20) mg/dl Creatinine 0.3 L (0.7-1.2) mg/dl Glucose 73 (70-105) mg/dL Calcium 8.7 (8.6-10.4) mg/dl Adrenal panel 06/14/19 06/15/19 Range/Units 05:23 05:28 Sodium 140 (133-145) mmol/L Potassium 3.6 (3.3-5.1) mmol/L Chloride 101 (96-108) mmol/L Carbon Dioxide 25 (22-30) mmol/L BUN 4 L (6-20) mg/dl Creatinine 0.3 L (0.7-1.2) mg/dl Glucose 73 (70-105) mg/dL Calcium 8.7 (8.6-10.4) mg/dl Total Bilirubin 0.3 (0.0-1.0) mg/dL AST 10 (0-37) U/l ALT 6 (0-40) U/l Alkaline Phosphatase 79 (39-117) U/L Total Protein 5.8 L (5.9-8.4) gm/dL Albumin 2.7 L (3.2-5.2) gm/dL Assessment and Plan (1) Intractable nausea and vomiting Status: Ruled-out Assessment and plan: And continue TPN increased to maximum *Jejunal tube feedings at 30cc per hour for the first 24 hours. 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
[2019-06-15] MEDS: CALCIUM GLUCONATE IV SCH (15:13)
[2019-06-15] MEDS: [UNRECOGNIZED DRUG - OTHER] IV SCH (15:13)
[2019-06-15] MEDS: MAGNESIUM SULFATE IV SCH (15:13)
[2019-06-15] MEDS: POTASSIUM CHLORIDE IV SCH (15:13)
[2019-06-15] MEDS: MVI IV SCH (15:13)
[2019-06-16] MEDS: INSULIN LISPRO 1 UNIT/0.01 ML UNIT SQ SCH ×4 (00:21→18:42)
[2019-06-16] MEDS: METOCLOPRAMIDE 10 MG/2 ML VIAL IV SCH ×3 (05:44→19:23)
[2019-06-16] MEDS: 0.9 % SODIUM CHLORIDE 10 ML SYRINGE IV SCH ×4 (05:44→20:02)
[2019-06-16] MEDS: PIPERACILLIN SODIUM/TAZOBACTAM 3.375 GM in DEXTROSE 5% IN WATER 50 ML IV SCH ×3 (05:44→18:00)
[2019-06-16] MEDS: ACETAMINOPHEN 500 MG/50 ML BOTTLE IV PRN ×2 (09:45→20:01)
[2019-06-16] MEDS: DIAZEPAM 10 MG/2 ML SYRINGE IV PRN ×2 (09:48→20:01)
[2019-06-16] MEDS: MAGNESIUM SULFATE IV SCH (14:06)
[2019-06-16] MEDS: CALCIUM GLUCONATE IV SCH (14:06)
[2019-06-16] MEDS: POTASSIUM CHLORIDE IV SCH (14:06)
[2019-06-16] MEDS: MVI IV SCH (14:06)
[2019-06-16] MEDS: [UNRECOGNIZED DRUG - OTHER] IV SCH (14:06)
--- NOTE | 2019-06-16 15:12 | General Surgery Progress Note ---
Subjective Narrative: Note initiated : 06/16/19 at 3:10 pm Service Date, if different from initiated Date: [] Patient: Raúl Hammond 23 y/o M admitted on 06/08/19 for Not Able to Eat. Chief Complaint: [patient is going well. He is tolerating TPN and tube feedings at this time. The position of the catheter will be checked tomorrow and then we will make plans for him to be transferred home. The plan is to continue TPN for at least another month so that I do not have to maximize tube feedings. Hopefully this will allow his gut to accommodate and he will not have nausea and vomiting with potential for aspiration.] Objective Temp Pulse Resp BP Pulse Ox 98.1 F 106 H 16 106/68 98 06/16/19 12:00 06/16/19 12:00 06/16/19 12:00 06/16/19 12:00 06/16/19 12:00 - Additional Data Intake & Output - Last 24 hours: Intake & Output 06/14/19 06/15/19 06/16/19 06/17/19 05:59 05:59 05:59 05:59 Intake Total 2365 1650 1093 1490 Output Total 70 508 805 802 Balance 2295 1142 288 688 Weight 84 lb 3.2 oz 84 lb 84 lb 8 oz - General physical appearance chronically ill - Eyes PERRL, normal ocular movement - ENT normal pinna, normal nares, normal mucosa, no hearing loss, no congestion - Neck no masses, no bruits, trachea midline, no lymphadenopathy, no venous distension - Respiratory normal expansion, normal respiratory effort, clear to auscultation - Cardiovascular Cardiovascular exam: Present: normal rate and rhythm, RRR, +S1, +S2, tachycardia. Absent: JVD - Abdomen non tender, bowel sounds (present), surgical scars (none), masses (none) - Integumentary no rash, no growths, no abnormal pigmentation - Labs 06/15/19 05:28 06/15/19 05:28 Assessment and Plan (1) Intractable nausea and vomiting Status: Ruled-out Assessment and plan: And continue TPN increased to maximum *Jejunal tube feedings at 30cc per hour for the first 24 hours. 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
[2019-06-16] MEDS: LACTATED RINGERS 1,000 ML IV SCH (15:41)
--- NOTE | 2019-06-16 18:46 | XRay Report ---
CLINICAL INFORMATION: to check position of jejunostomy catheter COMPARISON: 06/07/2019 FINDINGS: Gastrojejunostomy catheter tip overlies the expected location of the gastric antrum. The stool gas pattern is unremarkable. There is moderate persistent free air IMPRESSION: Gastrojejunostomy tube overlying gastric antrum, however the exact location would require repeat contrast tube injection. Moderate persistent free intraperitoneal air noted - recent abdominal surgery noted Interpreted and Authenticated by: Winston Beckett 06/16/19
[2019-06-17] MEDS: PIPERACILLIN SODIUM/TAZOBACTAM 3.375 GM in DEXTROSE 5% IN WATER 50 ML IV SCH ×4 (00:28→18:49)
[2019-06-17] MEDS: METOCLOPRAMIDE 10 MG/2 ML VIAL IV SCH ×5 (00:28→23:12)
[2019-06-17] MEDS: 0.9 % SODIUM CHLORIDE 10 ML SYRINGE IV SCH ×6 (00:29→22:00)
[2019-06-17] MEDS: INSULIN LISPRO 1 UNIT/0.01 ML UNIT SQ SCH ×4 (00:46→19:00)
[2019-06-17] MEDS: ACETAMINOPHEN 500 MG/50 ML BOTTLE IV PRN ×3 (06:03→21:30)
[2019-06-17 07:25] LABS: ALT/SGPT 7 U/l (0-40); AST/SGOT 13 U/l (0-37); Albumin 3.2 gm/dL (3.2-5.2); Alkaline Phosphatase 73 U/L (39-117); Bilirubin,Direct < 0.2 mg/dL (0.0-0.3); Bilirubin,Total 0.2 mg/dL (0.0-1.0); Calcium 9.1 mg/dl (8.6-10.4); Carbon Dioxide 28 mmol/L (22-30); Chloride 97 mmol/L (96-108); Globulin 3.1 gm/dL (2.2-3.7); Glucose 77 mg/dL (70-105); Lactate Dehydrogenase 195 U/L (94-250); Phosphorous 3.8 mg/dL (2.7-4.5); Triglycerides 115 mg/dl (<150); Uric Acid 0.6 mg/dL (2.5-8.0)
[2019-06-17 07:33] LABS: Blood Urea Nitrogen 12 mg/dl (6-20); Glomerular Filtration Rate 166
--- NOTE | 2019-06-17 08:46 | XRay Report ---
CLINICAL INFORMATION: to check position of jejunostomy tube COMPARISON: 06/16/2019 FINDINGS: Gastrojejunostomy tip enters the stomach loops in the gastric fundus extends through the gastrojejunostomy with the tip in the expected location of the proximal jejunum in the mid abdomen. The gas pattern is normal. Postoperative free air, in the upper abdomen, has diminished modestly. No organomegaly, soft soft tissue mass or organomegaly. IMPRESSION: Gastrojejunostomy tip overlies the expected location of the mid jejunum. Modest decrease in postoperative intraperitoneal air - as expected Interpreted and Authenticated by: Winston Beckett 06/17/19
[2019-06-17] MEDS ORDERED: MAGNESIUM SULFATE IV SCH (13:00)
[2019-06-17] MEDS ORDERED: [UNRECOGNIZED DRUG - OTHER] IV SCH (13:00)
[2019-06-17] MEDS ORDERED: MVI IV SCH (13:00)
[2019-06-17] MEDS ORDERED: POTASSIUM CHLORIDE IV SCH (13:00)
[2019-06-17] MEDS ORDERED: CALCIUM GLUCONATE IV SCH (13:00)
[2019-06-17] MEDS: LACTATED RINGERS 1,000 ML IV SCH (13:59)
--- NOTE | 2019-06-17 14:15 | General Surgery Progress Note ---
Subjective Patient reports: flatus, bowel movement, diarrhea, afebrile Narrative: Note initiated : 06/17/19 at 2:13 pm Service Date, if different from initiated Date: [] Patient: Raúl Hammond 23 y/o M admitted on 06/08/19 for Not Able to Eat. Chief Complaint: [patient is clinically improved. Labs normal. He is having regular bowel movements. He is tolerating TPN and low dose tube feeds at this time. The plan is to discharge him on slow drip tube feeds. Continue TPN until he has good return of function.] Objective Temp Pulse Resp BP Pulse Ox 98.1 F 111 H 16 108/58 97 06/17/19 12:00 06/17/19 12:00 06/17/19 12:00 06/17/19 12:00 06/17/19 12:00 - Additional Data Intake & Output - Last 24 hours: Intake & Output 06/15/19 06/16/19 06/17/19 06/18/19 05:59 05:59 05:59 05:59 Intake Total 1650 1093 3090 1160 Output Total 413 213 2983 100 Balance 1142 818 355 3158 Weight 84 lb 84 lb 8 oz 78 lb 11.2 oz - General physical appearance chronically ill - Eyes PERRL, normal ocular movement - ENT normal pinna, normal nares, normal mucosa, no hearing loss, no congestion - Neck no masses, no bruits, trachea midline, no lymphadenopathy, no venous distension - Respiratory normal expansion, normal respiratory effort, clear to auscultation - Cardiovascular Cardiovascular exam: Present: normal rate and rhythm, RRR, +S1, +S2. Absent: JV D, tachycardia - Abdomen tender (mild tenderness around incision. Otherwise healthy looking incision; active bowel sounds), bowel sounds (present), surgical scars (none), masses (none) - Integumentary no rash, no growths, no abnormal pigmentation - Neurologic normal coordination, normal sensation - Musculoskeletal normal gait, normal posture - Psychiatric oriented to time, oriented to person, oriented to place, speech is normal, memory intact - Labs 06/15/19 05:28 06/17/19 05:25 Diabetes panel 06/17/19 Range/Units 05:25 Sodium 137 (133-145) mmol/L Potassium 4.2 (3.3-5.1) mmol/L Chloride 97 (96-108) mmol/L Carbon Dioxide 28 (22-30) mmol/L BUN 12 (6-20) mg/dl Creatinine 0.4 L (0.7-1.2) mg/dl Glucose 77 (70-105) mg/dL Calcium 9.1 (8.6-10.4) mg/dl AST 13 (0-37) U/l ALT 7 (0-40) U/l Alkaline Phosphatase 73 (39-117) U/L Total Protein 6.3 (5.9-8.4) gm/dL Albumin 3.2 (3.2-5.2) gm/dL Triglycerides 115 (<150) mg/dl Calcium panel 06/17/19 Range/Units 05:25 Calcium 9.1 (8.6-10.4) mg/dl Phosphorus 3.8 (2.7-4.5) mg/dL Albumin 3.2 (3.2-5.2) gm/dL Pituitary panel 06/17/19 Range/Units 05:25 Sodium 137 (133-145) mmol/L Potassium 4.2 (3.3-5.1) mmol/L Chloride 97 (96-108) mmol/L Carbon Dioxide 28 (22-30) mmol/L BUN 12 (6-20) mg/dl Creatinine 0.4 L (0.7-1.2) mg/dl Glucose 77 (70-105) mg/dL Calcium 9.1 (8.6-10.4) mg/dl Adrenal panel 06/17/19 Range/Units 05:25 Sodium 137 (133-145) mmol/L Potassium 4.2 (3.3-5.1) mmol/L Chloride 97 (96-108) mmol/L Carbon Dioxide 28 (22-30) mmol/L BUN 12 (6-20) mg/dl Creatinine 0.4 L (0.7-1.2) mg/dl Glucose 77 (70-105) mg/dL Calcium 9.1 (8.6-10.4) mg/dl Total Bilirubin 0.2 (0.0-1.0) mg/dL AST 13 (0-37) U/l ALT 7 (0-40) U/l Alkaline Phosphatase 73 (39-117) U/L Total Protein 6.3 (5.9-8.4) gm/dL Albumin 3.2 (3.2-5.2) gm/dL Assessment and Plan (1) Intractable nausea and vomiting Status: Ruled-out Assessment and plan: And continue TPN increased to maximum *Jejunal tube feedings at 30cc per hour for the first 24 hours. 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
[2019-06-17] MEDS: FAT EMULSION 20% 250 ML IV SCH (16:52)
[2019-06-17] MEDS: ONDANSETRON 4 MG/2 ML VIAL IV PRN ×2 (17:40→23:30)
[2019-06-18] MEDS: PIPERACILLIN SODIUM/TAZOBACTAM 3.375 GM in DEXTROSE 5% IN WATER 50 ML IV SCH ×5 (00:12→23:48)
[2019-06-18] MEDS: 0.9 % SODIUM CHLORIDE 10 ML SYRINGE IV SCH ×6 (00:14→23:49)
[2019-06-18] MEDS: INSULIN LISPRO 1 UNIT/0.01 ML UNIT SQ SCH ×4 (01:05→17:44)
[2019-06-18] MEDS: METOCLOPRAMIDE 10 MG/2 ML VIAL IV SCH ×3 (06:11→17:44)
[2019-06-18] MEDS: ONDANSETRON 4 MG/2 ML VIAL IV PRN ×2 (06:11→18:32)
[2019-06-18] MEDS: ACETAMINOPHEN 500 MG/50 ML BOTTLE IV PRN ×2 (06:11→18:11)
[2019-06-18] MEDS: DIAZEPAM 10 MG/2 ML SYRINGE IV PRN (06:48)
[2019-06-18 07:10] LABS: Basophils # (Auto) 0.03 K/mcL (0.00-0.30); Basophils % (Auto) 0.3 % (0.0-2.0); Eosinophils # (Auto) 0.32 K/mcL (0.00-0.70); Eosinophils % (Auto) 2.8 % (0.0-7.0); Granulocytes % (Auto) 73.8 % (38.0-78.0); Hematocrit 37.1 % (40.1-51.0); Hemoglobin 11.7 g/dL (13.7-17.5); Lymphocytes # (Auto) 1.64 K/mcL (1.50-4.80); Lymphocytes % (Auto) 14.2 % (15.5-49.0); Mean Cell Volume 74.3 fL (80.0-100.0); Mean Corpuscular HGB Conc 31.5 g/dL (31.0-36.0); Mean Platelet Volume 9.7 fL (7.4-10.4); Monocytes # (Auto) 1.02 K/mcL (0.10-0.90); Monocytes % (Auto) 8.9 % (1.0-12.0); Platelet Count 351 K/mcL (140-440); RBC 4.99 M/mcL (4.63-6.08); Red Cell Distribution Width 22.1 % (11.5-14.5); WBC 11.5 K/mcL (4.50-11.00)
[2019-06-18 07:24] LABS: ALT/SGPT 18 U/l (0-40); AST/SGOT 23 U/l (0-37); Albumin 3.4 gm/dL (3.2-5.2); Albumin/Globulin Ratio 1.1 (1.0-2.3); Alkaline Phosphatase 123 U/L (39-117); Bilirubin,Direct < 0.2 mg/dL (0.0-0.3); Bilirubin,Total 0.2 mg/dL (0.0-1.0); Blood Urea Nitrogen 13 mg/dl (6-20); Calcium 9.4 mg/dl (8.6-10.4); Carbon Dioxide 31 mmol/L (22-30); Globulin 3.1 gm/dL (2.2-3.7); Glucose 82 mg/dL (70-105); Lactate Dehydrogenase 234 U/L (94-250); Phosphorous 4.5 mg/dL (2.7-4.5); Triglycerides 98 mg/dl (<150); Uric Acid 0.7 mg/dL (2.5-8.0)
[2019-06-18 07:26] LABS: Chloride 94 mmol/L (96-108); Glomerular Filtration Rate 141
[2019-06-18] MEDS: LACTATED RINGERS 1,000 ML IV SCH ×2 (11:30→12:17)
[2019-06-18] MEDS ORDERED: POTASSIUM CHLORIDE IV SCH (13:00)
[2019-06-18] MEDS ORDERED: MVI IV SCH (13:00)
[2019-06-18] MEDS ORDERED: CALCIUM GLUCONATE IV SCH (13:00)
[2019-06-18] MEDS ORDERED: MAGNESIUM SULFATE IV SCH (13:00)
[2019-06-18] MEDS ORDERED: [UNRECOGNIZED DRUG - OTHER] IV SCH (13:00)
--- NOTE | 2019-06-18 14:41 | Discharge Summary ---
Providers - Providers Patient information: Note initiated : 06/18/19 at 2:33 pm Service Date, if different from initiated Date: [] Patient: Raúl Hammond 23 y/o M admitted on 06/08/19 for Not Able to Eat. Chief Complaint: [] Date of admission: 06/07/19 Discharge date: 06/19/19 Attending physician: Dara Clark Hospitalization Hospital Course: 23-year-old male admitted on 07 June with recurrent abdominal pain, nausea, vomiting. The patient was recently hospitalized at [place] for treatment of aspiration pneumonia and sepsis. He has a gastrojejunal tube that was placed percutaneously through a gastrojejunal anastomosis in the midportion of the jejunum. The flipped back into the stomach and he was getting tube feedings into the body of the stomach. This led to nausea and vomiting and subsequent aspiration. While he was hospitalized interventional radiology place a tube through the pylorus and into the first portion of the duodenum. By doing this, the tube feedings were pouring directly through the anastomosis back into the stomach. This causes more nausea, vomiting. He had been placed on suction with suctioning all of the tube feedings that were being infused through the j ejunostomy opening. Patient was admitted and started on hydration. After stabilization, he had exploratory laparotomy for May. Endoscopic placement the jejunostomy catheter was placed anastomosis and was then sutured to the wall of the mid jejunum. The and the enterotomy. TWO Sutures of 3-0 Prolene were used to suture the 2 along the mesenteric border of the jejunum for stabilization. This seems to have been impacted after he had return of intestinal activity. He has been started on slow tube feeds and has tolerated this well so far. None of the fetus appeared to be washing back to stomach. He has been on TPN. This has gradually increased. He is tolerating this well. Because of the slow activity and is now the plan is for him to be discharged on TPN for about 1 month As I slowly increase the jejunostomy feedings. Patient clinically stable at this time . He has had stable vital signs and is tolerating feedings well. Plan is to discharge him TPN with [facility] infusion service. He will have weekly labs. The plan is to do TPN until we can maximize his tube feeds. Discharge diagnosis: gastroparesis Secondary discharge diagnosis: Recurrent nausea and vomiting. AngelMAN syndrome. Chronic seizure disorder. Developmental delay. Reason for admission: recurrent nausea and vomiting Procedures: Exploratory laparotomy with endoscopic positioning of GJ tube into the mid jejunum. and open fixation of tube to jejunal wall. Pertinent studies/significant findings: Contrast study for positioning of gastrojejunal tube. CT of abdomen and pelvis with contrast Complications: None Exam Temp Pulse Resp BP Pulse Ox 98.7 F 115 H 16 119/78 95 06/18/19 11:43 06/18/19 11:43 06/18/19 11:43 06/18/19 11:43 06/18/19 11:43 - General physical appearance no distress, cachectic, chronically ill - Eyes PERRL, normal ocular movement - ENT normal pinna, normal nares, normal mucosa, no hearing loss, no congestion - Head Head exam IM: Present: atraumatic, normocephalic - Neck no masses, no bruits, trachea midline, no lymphadenopathy, no venous distension - Cardiovascular Cardiovascular exam IM: Present: normal rate and rhythm - Respiratory normal expansion, normal respiratory effort, clear to percussion, clear to auscultation - Abdomen Abdomen: Present: soft, tender (incision is healing nicely; gastrojejunal tube is adequately positioned), bowel sounds Hernia: Present: none - Genitourinary Present: normal penis with no external lesions - Rectum Rectum: Present: normal sphincter tone, no hemorrhoids, no tenderness, no masses, no bleeding - Integumentary Present: no rash, no growths, no abnormal pigmentation - Neurologic Present: other (severe neurologic deficit of upper and lower extremity; severe mental developmental delay) - Musculoskeletal Present: other (extensive flexion contractures of hips, knees and feet) - Psychiatric Present: other (nonverbal; patient is nonresponsive to voice) Discharge Plan - Patient/Caregiver Discharge Instructions Activity: as per physical therapy Diet: Full Liquid (NUTREN 2.0 tube feeds) Additional Instructions: Discharge Instructions: Accu-Cheks twice daily with insulin coverage with Humalog via medium scale. NUTREN 2.0 AT 30 CC/HR X 2 WEEKS THEN INCREASE TO 40 CC/ HR. Patients needs 30 cc of water every 4 hours through J tube for maintaining patency of tube. When TPN is finished you will need to give 225 ml of water every 4 hours per assistant professor of education recommendations. Tube feedings are going through the J Tube as prescribed above. Leave dressing in place until your follow up appointment with Dr Clark. Aspiration Prescautions: Keep head of bed up at 30-45 degrees at all times. [facility] Will be managing your TPN/Lipids, labs and your PICC line care. Leave PICC line in until okay with Dr Clark to discontinue. [facility] to continue as before. Polysomnography Tech with [facility] to continue to follow tube feeds. Prescriptions: Fat Emulsion 20% [Intralipid 20%] 250 ml IV MOWEFR@1600 #14 bag Prescription Printed - Follow up Plan Follow up with: Dara Clark MD [Physician] - 06/27/19 2:30 pm Inez Elkins ARNP [Primary Care Provider] - Disposition: Home Health Service Care Plan Goals: Continue TPN for 30 days. Gradually increase tube feeds with Nutren 2.0 TO maximum Check CBC and metabolic panel twice weekly and adjust electrolytes accordingly This discharge packet is provided to you to help keep you informed about your care. We want to ensure you get everything you need when you go home. You will also be receiving a call from us in a few days to follow up with you and see how you are doing since your discharge. This gives us a chance to listen to any concerns you maybe experiencing since you were discharged or any additional needs you may have, as well as providing us feedback on your care experience. We strive to always provide excellent care and thank you for your feedback and for choosing [facility]. Prognosis: Fair Rehab Potential: Fair I certify that the patient requires SNF services.: No Overall status at discharge: patient is progressing back to baseline Pending Studies Resuscitation Status Do Not Resuscitate Diet NPO Diet (NOW) Start Yulissa Jun 13 1500 Diagnostic Test (Pha) (Accu-Chek) 1 each FS Q6 LEON Last Admin: 06/18/19 12:17 Dose: 1 each Documented by: Admin: 06/18/19 06:27 Dose: 1 each Documented by: Admin: 06/18/19 01:04 Dose: 1 each Documented by: Admin: 06/17/19 19:00 Dose: 1 each Documented by: Admin: 06/17/19 12:46 Dose: 1 each Documented by: Admin: 06/17/19 05:38 Dose: 1 each Documented by: Admin: 06/17/19 00:45 Dose: 1 each Documented by: Admin: 06/16/19 18:42 Dose: 1 each Documented by: Admin: 06/16/19 14:05 Dose: 1 each Documented by: Admin: 06/16/19 05:44 Dose: 1 each Documented by: Admin: 06/15/19 23:45 Dose: 1 each Documented by: Admin: 06/15/19 17:18 Dose: 1 each Documented by: Admin: 06/15/19 12:00 Dose: 1 each Documented by: Admin: 06/15/19 05:29 Dose: 1 each Documented by: Admin: 06/15/19 00:13 Dose: 1 each Documented by: Admin: 06/14/19 18:03 Dose: 1 each Documented by: Admin: 06/14/19 14:18 Dose: 1 each Documented by: Admin: 06/14/19 05:50 Dose: 1 each Documented by: Admin: 06/13/19 23:55 Dose: 1 each Documented by: Admin: 06/13/19 18:40 Dose: 1 each Documented by: Admin: 06/13/19 12:34 Dose: 1 each Documented by: Admin: 06/13/19 05:52 Dose: 1 each Documented by: Admin: 06/13/19 00:20 Dose: 1 each Documented by: Admin: 06/12/19 18:07 Dose: 1 each Documented by: Admin: 06/12/19 12:52 Dose: 1 each Documented by: [email or web address] Diazepam (Valium) 5 mg IV Q4-6HP PRN PRN Reason: Muscle Spasm Last Admin: 06/18/19 06:48 Dose: 5 mg Documented by: Admin: 06/16/19 20:01 Dose: 5 mg Documented by: Admin: 06/16/19 09:48 Dose: 5 mg Documented by: Admin: 06/13/19 08:21 Dose: 5 mg Documented by: Admin: 06/13/19 02:41 Dose: 5 mg Documented by: Admin: 06/12/19 20:58 Dose: 5 mg Documented by: Admin: 06/12/19 14:10 Dose: 5 mg Documented by: [email or web address] Admin: 06/12/19 08:56 Dose: 5 mg Documented by: Admin: 06/11/19 21:45 Dose: 5 mg Documented by: CHELY Fentanyl (Sublimaze) 25 mcg IV Q2HP PRN; Protocol PRN Reason: Per Pain Protocol Last Admin: 06/12/19 20:58 Dose: 25 mcg Documented by: Admin: 06/11/19 13:22 Dose: 25 mcg Documented by: [email or web address] Heparin Sodium (Porcine) (Heparin Flush) 2 ml IV Q12 [facility] Last Admin: 06/18/19 11:28 Dose: Not Given Documented by: Admin: 06/17/19 20:21 Dose: Not Given Documented by: Admin: 06/17/19 09:54 Dose: 2 ml Documented by: Admin: 06/17/19 00:03 Dose: Not Given Documented by: Admin: 06/16/19 09:47 Dose: 2 ml Documented by: Admin: 06/15/19 21:22 Dose: Not Given Documented by: Admin: 06/15/19 09:26 Dose: Not Given Documented by: Admin: 06/14/19 22:24 Dose: Not Given Documented by: Admin: 06/14/19 14:11 Dose: 2 ml Documented by: Admin: 06/13/19 23:53 Dose: 2 ml Documented by: Admin: 06/13/19 12:40 Dose: Not Given Documented by: Admin: 06/12/19 20:58 Dose: 2 ml Documented by: Admin: 06/12/19 09:14 Dose: 2 ml Documented by: [email or web address] Admin: 06/11/19 21:40 Dose: 2 ml Documented by: CHELY Lactated Ringer's (Lactated Ringers) 1,000 mls @ 50 mls/hr IV .Q20H [facility] Admin: 06/18/19 12:17 Dose: 50 mls/hr Documented by: Admin: 06/18/19 11:30 Dose: Not Given Documented by: Infusion: 06/18/19 09:59 Dose: 50 mls/hr Documented by: Admin: 06/17/19 13:59 Dose: 50 mls/hr Documented by: Infusion: 06/17/19 11:41 Dose: 50 mls/hr Documented by: Admin: 06/16/19 15:41 Dose: 50 mls/hr Documented by: Infusion: 06/16/19 13:19 Dose: 50 mls/hr Documented by: Admin: 06/15/19 17:19 Dose: 50 mls/hr Documented by: Infusion: 06/15/19 17:19 Dose: 50 mls/hr Documented by: Admin: 06/15/19 06:03 Dose: 50 mls/hr Documented by: Infusion: 06/15/19 04:12 Dose: 50 mls/hr Documented by: Admin: 06/14/19 20:24 Dose: Not Given Documented by: Admin: 06/14/19 08:12 Dose: 50 mls/hr Documented by: Infusion: 06/14/19 01:19 Dose: 50 mls/hr Documented by: Admin: 06/14/19 00:00 Dose: Not Given Documented by: Admin: 06/13/19 05:19 Dose: 50 mls/hr Documented by: Infusion: 06/13/19 05:15 Dose: 50 mls/hr Documented by: Admin: 06/12/19 09:15 Dose: 50 mls/hr Documented by: Infusion: 06/12/19 08:55 Dose: 50 mls/hr Documented by: Admin: 06/11/19 12:55 Dose: 50 mls/hr Documented by: [email or web address] Acetaminophen (Ofirmev) 500 mg in 50 mls @ 100 mls/hr IV Q6HP PRN PRN Reason: PAIN/FEVER > 101 Last Infusion: 06/18/19 06:50 Dose: 0 mls/hr Documented by: Admin: 06/18/19 06:11 Dose: 100 mls/hr Documented by: Infusion: 06/17/19 22:01 Dose: 0 mls/hr Documented by: Admin: 06/17/19 21:30 Dose: 100 mls/hr Documented by: Infusion: 06/17/19 15:20 Dose: 0 mls/hr Documented by: Admin: 06/17/19 14:48 Dose: 100 mls/hr Documented by: Infusion: 06/17/19 06:33 Dose: 100 mls/hr Documented by: Admin: 06/17/19 06:03 Dose: 100 mls/hr Documented by: Infusion: 06/16/19 21:51 Dose: 0 mls/hr Documented by: Admin: 06/16/19 20:01 Dose: 100 mls/hr Documented by: Infusion: 06/16/19 10:15 Dose: 0 mls/hr Documented by: Admin: 06/16/19 09:45 Dose: 100 mls/hr Documented by: Infusion: 06/15/19 18:51 Dose: 0 mls/hr Documented by: Admin: 06/15/19 17:16 Dose: 100 mls/hr Documented by: Infusion: 06/15/19 06:33 Dose: 100 mls/hr Documented by: Admin: 06/15/19 06:03 Dose: 100 mls/hr Documented by: Infusion: 06/14/19 19:20 Dose: 0 mls/hr Documented by: Admin: 06/14/19 18:44 Dose: 200 mls/hr Documented by: Infusion: 06/14/19 12:54 Dose: 0 mls/hr Documented by: Admin: 06/14/19 12:24 Dose: 100 mls/hr Documented by: Infusion: 06/13/19 21:59 Dose: 100 mls/hr Documented by: Admin: 06/13/19 21:29 Dose: 100 mls/hr Documented by: Infusion: 06/13/19 03:25 Dose: 0 mls/hr Documented by: Admin: 06/13/19 02:40 Dose: 100 mls/hr Documented by: Infusion: 06/12/19 11:48 Dose: 0 mls/hr Documented by: [email or web address] Admin: 06/12/19 11:18 Dose: 100 mls/hr Documented by: Infusion: 06/11/19 16:18 Dose: 100 mls/hr Documented by: Admin: 06/11/19 15:03 Dose: 100 mls/hr Documented by: [email or web address] Piperacillin Sod/Tazobactam (Sod 3.375 gm/ Dextrose) 50 mls @ 100 mls/hr IV Q6H LEON; Protocol Last Admin: 06/18/19 12:17 Dose: 100 mls/hr Documented by: Infusion: 06/18/19 06:05 Dose: 100 mls/hr Documented by: Admin: 06/18/19 05:32 Dose: 100 mls/hr Documented by: Infusion: 06/18/19 00:45 Dose: 0 mls/hr Documented by: Admin: 06/18/19 00:12 Dose: 100 mls/hr Documented by: Infusion: 06/17/19 19:30 Dose: 0 mls/hr Documented by: Admin: 06/17/19 18:49 Dose: 100 mls/hr Documented by: Infusion: 06/17/19 13:30 Dose: 0 mls/hr Documented by: Admin: 06/17/19 12:53 Dose: 100 mls/hr Documented by: Infusion: 06/17/19 06:25 Dose: 0 mls/hr Documented by: Admin: 06/17/19 05:21 Dose: 100 mls/hr Documented by: Infusion: 06/17/19 00:58 Dose: 100 mls/hr Documented by: Admin: 06/17/19 00:28 Dose: 100 mls/hr Documented by: Infusion: 06/16/19 20:02 Dose: 0 mls/hr Documented by: Admin: 06/16/19 18:00 Dose: 100 mls/hr Documented by: Infusion: 06/16/19 14:35 Dose: 0 mls/hr Documented by: Admin: 06/16/19 14:02 Dose: 100 mls/hr Documented by: Infusion: 06/16/19 06:34 Dose: 0 mls/hr Documented by: Admin: 06/16/19 05:44 Dose: 100 mls/hr Documented by: Infusion: 06/16/19 00:21 Dose: 0 mls/hr Documented by: Admin: 06/15/19 23:45 Dose: 100 mls/hr Documented by: Infusion: 06/15/19 18:53 Dose: 0 mls/hr Documented by: Admin: 06/15/19 17:15 Dose: 100 mls/hr Documented by: Infusion: 06/15/19 13:00 Dose: 100 mls/hr Documented by: Admin: 06/15/19 12:30 Dose: 100 mls/hr Documented by: Infusion: 06/15/19 06:08 Dose: 0 mls/hr Documented by: Admin: 06/15/19 05:28 Dose: 100 mls/hr Documented by: Infusion: 06/15/19 00:25 Dose: 100 mls/hr Documented by: Admin: 06/14/19 23:52 Dose: 100 mls/hr Documented by: Infusion: 06/14/19 17:52 Dose: 0 mls/hr Documented by: Admin: 06/14/19 17:22 Dose: 100 mls/hr Documented by: Infusion: 06/14/19 14:38 Dose: 100 mls/hr Documented by: Admin: 06/14/19 14:08 Dose: 100 mls/hr Documented by: Infusion: 06/14/19 06:18 Dose: 100 mls/hr Documented by: Admin: 06/14/19 05:48 Dose: 100 mls/hr Documented by: Infusion: 06/14/19 00:22 Dose: 100 mls/hr Documented by: Admin: 06/13/19 23:52 Dose: 100 mls/hr Documented by: Infusion: 06/13/19 19:13 Dose: 100 mls/hr Documented by: Admin: 06/13/19 18:43 Dose: 100 mls/hr Documented by: [email or web address] Infusion: 06/13/19 10:34 Dose: 0 mls/hr Documented by: Admin: 06/13/19 10:04 Dose: 100 mls/hr Documented by: Infusion: 06/13/19 06:22 Dose: 100 mls/hr Documented by: Admin: 06/13/19 05:52 Dose: 100 mls/hr Documented by: Infusion: 06/13/19 00:34 Dose: 100 mls/hr Documented by: Admin: 06/13/19 00:04 Dose: 100 mls/hr Documented by: Infusion: 06/12/19 16:15 Dose: 0 mls/hr Documented by: Admin: 06/12/19 15:45 Dose: 100 mls/hr Documented by: YRN Fat Emulsion Intravenous (Intralipid 20%) 250 mls @ 25 mls/hr IV MoWeFr@1600 [facility] Last Infusion: 06/18/19 02:56 Dose: 0 mls/hr Documented by: Admin: 06/17/19 16:52 Dose: 25 mls/hr Documented by: Infusion: 06/15/19 05:28 Dose: 0 mls/hr Documented by: Admin: 06/14/19 17:23 Dose: 25 mls/hr Documented by: [email or web address] Calcium Gluconate 5 meq/Magnesium Sulfate 16.24 meq/Potassium Chloride 40 meq/Multivitamins/Minerals 10 ml/Selenium 60 mcg/ Sodium Chloride 30 meq/ Amino Acids 1,053.7526 mls @ 45 mls/hr IV Q24H [facility] Last Admin: 06/18/19 13:38 Dose: 45 mls/hr Documented by: [email or web address] Insulin Human Lispro (Humalog) 0 unit SQ Q6 [facility]; Protocol Last Admin: 06/18/19 12:24 Dose: Not Given Documented by: Admin: 06/18/19 07:07 Dose: Not Given Documented by: Admin: 06/18/19 01:05 Dose: Not Given Documented by: Admin: 06/17/19 19:00 Dose: Not Given Documented by: Admin: 06/17/19 12:52 Dose: Not Given Documented by: Admin: 06/17/19 05:41 Dose: Not Given Documented by: Admin: 06/17/19 00:46 Dose: Not Given Documented by: Admin: 06/16/19 18:42 Dose: Not Given Documented by: Admin: 06/16/19 14:05 Dose: Not Given Documented by: Admin: 06/16/19 05:50 Dose: Not Given Documented by: Admin: 06/16/19 00:21 Dose: Not Given Documented by: Admin: 06/15/19 17:18 Dose: Not Given Documented by: Admin: 06/15/19 15:12 Dose: Not Given Documented by: Admin: 06/15/19 05:29 Dose: Not Given Documented by: Admin: 06/15/19 00:15 Dose: Not Given Documented by: Admin: 06/14/19 18:03 Dose: Not Given Documented by: Admin: 06/14/19 14:18 Dose: Not Given Documented by: Admin: 06/14/19 05:49 Dose: Not Given Documented by: Admin: 06/13/19 23:57 Dose: Not Given Documented by: Admin: 06/13/19 18:42 Dose: Not Given Documented by: [email or web address] Admin: 06/13/19 12:35 Dose: Not Given Documented by: Admin: 06/13/19 05:53 Dose: Not Given Documented by: Admin: 06/13/19 00:22 Dose: Not Given Documented by: Admin: 06/12/19 18:07 Dose: Not Given Documented by: [email or web address] Admin: 06/12/19 12:52 Dose: Not Given Documented by: [email or web address] Metoclopramide HCl (Reglan) 10 mg IV Q6 LEON [facility] Admin: 06/18/19 12:17 Dose: 10 mg Documented by: Admin: 06/18/19 06:11 Dose: 10 mg Documented by: Admin: 06/17/19 23:12 Dose: 10 mg Documented by: Admin: 06/17/19 17:40 Dose: 10 mg Documented by: Admin: 06/17/19 12:45 Dose: 10 mg Documented by: Admin: 06/17/19 05:31 Dose: 10 mg Documented by: Admin: 06/17/19 00:28 Dose: 10 mg Documented by: Admin: 06/16/19 19:23 Dose: 10 mg Documented by: Admin: 06/16/19 14:01 Dose: 10 mg Documented by: Admin: 06/16/19 05:44 Dose: 10 mg Documented by: Admin: 06/15/19 23:45 Dose: 10 mg Documented by: Admin: 06/15/19 17:20 Dose: 10 mg Documented by: Admin: 06/15/19 12:00 Dose: 10 mg Documented by: Admin: 06/15/19 05:29 Dose: 10 mg Documented by: Admin: 06/15/19 00:13 Dose: 10 mg Documented by: Admin: 06/14/19 18:32 Dose: 10 mg Documented by: Admin: 06/14/19 14:09 Dose: 10 mg Documented by: Admin: 06/14/19 05:49 Dose: 10 mg Documented by: Admin: 06/13/19 23:51 Dose: 10 mg Documented by: Admin: 06/13/19 18:42 Dose: 10 mg Documented by: [email or web address] Admin: 06/13/19 12:35 Dose: 10 mg Documented by: Admin: 06/13/19 05:52 Dose: 10 mg Documented by: Admin: 06/13/19 00:03 Dose: 10 mg Documented by: Admin: 06/12/19 18:03 Dose: 10 mg Documented by: [email or web address] Admin: 06/12/19 13:09 Dose: 10 mg Documented by: [email or web address] Admin: 06/12/19 05:23 Dose: 10 mg Documented by: [email or web address] Admin: 06/11/19 23:53 Dose: 10 mg Documented by: [email or web address] Admin: 06/11/19 17:46 Dose: 10 mg Documented by: [email or web address] Ondansetron HCl (Zofran) 4 mg IV Q6HP PRN PRN Reason: Nausea And Vomiting Last Admin: 06/18/19 06:11 Dose: 4 mg Documented by: Admin: 06/17/19 23:30 Dose: 4 mg Documented by: Admin: 06/17/19 17:40 Dose: 4 mg Documented by: Admin: 06/14/19 18:49 Dose: 4 mg Documented by: Admin: 06/12/19 15:39 Dose: 4 mg Documented by: [email or web address] Sodium Chloride (Saline Flush) 10 ml IV Q12 [facility] Last Admin: 06/18/19 11:29 Dose: Not Given Documented by: Admin: 06/17/19 21:57 Dose: 10 ml Documented by: Admin: 06/17/19 09:49 Dose: 10 ml Documented by: Admin: 06/16/19 20:02 Dose: 10 ml Documented by: Admin: 06/16/19 09:48 Dose: 10 ml Documented by: Admin: 06/15/19 23:45 Dose: 10 ml Documented by: Admin: 06/15/19 09:26 Dose: 10 ml Documented by: Admin: 06/15/19 05:28 Dose: 10 ml Documented by: Admin: 06/14/19 23:52 Dose: 10 ml Documented by: Admin: 06/14/19 22:24 Dose: Not Given Documented by: Admin: 06/14/19 14:14 Dose: 10 ml Documented by: Admin: 06/13/19 22:40 Dose: Not Given Documented by: Admin: 06/13/19 10:04 Dose: 10 ml Documented by: [id number] Admin: 06/12/19 20:59 Dose: 10 ml Documented by: Admin: 06/12/19 09:15 Dose: 10 ml Documented by: [id number] Admin: 06/11/19 21:41 Dose: 10 ml Documented by: [email or web address] Sodium Chloride (Saline Flush) 10 ml IV Q8 [facility] Last Admin: 06/18/19 13:47 Dose: Not Given Documented by: [email or web address] Admin: 06/18/19 07:07 Dose: Not Given Documented by: Admin: 06/18/19 00:14 Dose: 10 ml Documented by: Admin: 06/17/19 14:02 Dose: 10 ml Documented by: Admin: 06/17/19 05:31 Dose: 10 ml Documented by: Admin: 06/17/19 00:29 Dose: 10 ml Documented by: Admin: 06/16/19 18:42 Dose: Not Given Documented by: Admin: 06/16/19 05:44 Dose: 10 ml Documented by: Admin: 06/15/19 23:45 Dose: Not Given Documented by: Admin: 06/15/19 15:13 Dose: Not Given Documented by: [email or web address] Admin: 06/15/19 05:29 Dose: 10 ml Documented by: Admin: 06/14/19 22:24 Dose: Not Given Documented by: Admin: 06/14/19 14:18 Dose: Not Given Documented by: Admin: 06/14/19 05:50 Dose: Not Given Documented by: Admin: 06/13/19 22:41 Dose: Not Given Documented by: Admin: 06/13/19 13:34 Dose: Not Given Documented by: [email or web address] Admin: 06/13/19 05:53 Dose: 10 ml Documented by: Admin: 06/12/19 20:59 Dose: 10 ml Documented by: Admin: 06/12/19 13:14 Dose: 10 ml Documented by: [email or web address] Admin: 06/12/19 05:23 Dose: Not Given Documented by: [email or web address] Admin: 06/11/19 21:43 Dose: Not Given Documented by: [email or web address] Admin: 06/11/19 12:50 Dose: Not Given Documented by: [email or web address] Shift Summary 06/18/19 02:19 Shift Summary by Beatriz Martinez Addendum entered by Beatriz Martinez R.N. 06/18/19 04:28: Pt had moderate, incontinent BM this AM (loose/liquid, yip). Original Note: Pt is non-verbal. Hx of Angelman's syndrome. Significant contractures to b ilateral legs. GJ tube in place to midline abdomen - G-tube set at medium intermittent suction and J-tube feedings with Vital AF at 30 ml/hr. Tubing/Feed bag and Vital AF formula replaced with new equipment at 2200. Tolerating tube feeding ok. No emesis, but gave Zofran x1. Abdominal binder in place. Dual lumen PICC to CATHIE - dressing CDI. Incontinent of urine. Attends in place. No BM so far this shift. LR infusing at 50 ml/hr. TPN infusing at 45 ml/hr. Lipids infusing at 25 ml/hr. Also getting Zosyn Q6H. Medicated for pain with Ofirmev x1. On Turn Q2H schedule. Protective Mepilex to bilateral hips. Hip/groin folds reddened - using calazime cream. Will update with verbal report. Initialized on 06/18/19 02:19 - END OF NOTE
[2019-06-19] MEDS: INSULIN LISPRO 1 UNIT/0.01 ML UNIT SQ SCH ×3 (00:33→11:35)
[2019-06-19] MEDS: METOCLOPRAMIDE 10 MG/2 ML VIAL IV SCH ×2 (00:37→05:34)
[2019-06-19] MEDS: LACTATED RINGERS 1,000 ML IV SCH (00:38)
[2019-06-19] MEDS: DIAZEPAM 10 MG/2 ML SYRINGE IV PRN (01:13)
[2019-06-19] MEDS: ACETAMINOPHEN 500 MG/50 ML BOTTLE IV PRN (05:33)
[2019-06-19] MEDS: 0.9 % SODIUM CHLORIDE 10 ML SYRINGE IV SCH ×2 (05:48→09:01)
[2019-06-19] MEDS: PIPERACILLIN SODIUM/TAZOBACTAM 3.375 GM in DEXTROSE 5% IN WATER 50 ML IV SCH (06:09)
[2019-06-19] MEDS: fentaNYL 100 MCG/2 ML VIAL IV PRN (07:16)
[2019-06-19 07:30] LABS: Basophils # (Auto) 0.04 K/mcL (0.00-0.30); Basophils % (Auto) 0.4 % (0.0-2.0); Eosinophils # (Auto) 0.24 K/mcL (0.00-0.70); Eosinophils % (Auto) 2.7 % (0.0-7.0); Granulocytes % (Auto) 65.1 % (38.0-78.0); Hematocrit 36.3 % (40.1-51.0); Hemoglobin 11.1 g/dL (13.7-17.5); Lymphocytes # (Auto) 1.81 K/mcL (1.50-4.80); Lymphocytes % (Auto) 20.2 % (15.5-49.0); Mean Corpuscular HGB Conc 30.6 g/dL (31.0-36.0); Mean Platelet Volume 9.7 fL (7.4-10.4); Monocytes # (Auto) 1.04 K/mcL (0.10-0.90); Monocytes % (Auto) 11.6 % (1.0-12.0); Platelet Count 412 K/mcL (140-440); RBC 4.84 M/mcL (4.63-6.08)
[2019-06-19 07:51] LABS: ALT/SGPT 21 U/l (0-40); AST/SGOT 22 U/l (0-37); Albumin 3.4 gm/dL (3.2-5.2); Albumin/Globulin Ratio 1.1 (1.0-2.3); Alkaline Phosphatase 131 U/L (39-117); Bilirubin,Direct < 0.2 mg/dL (0.0-0.3); Bilirubin,Total 0.3 mg/dL (0.0-1.0); Blood Urea Nitrogen 16 mg/dl (6-20); Calcium 9.5 mg/dl (8.6-10.4); Carbon Dioxide 29 mmol/L (22-30); Chloride 100 mmol/L (96-108); Globulin 3.2 gm/dL (2.2-3.7); Glomerular Filtration Rate 166; Glucose 78 mg/dL (70-105); Lactate Dehydrogenase 213 U/L (94-250); Triglycerides 132 mg/dl (<150); Uric Acid 0.9 mg/dL (2.5-8.0)
--- NOTE | 2019-06-19 10:50 | Operative Note ---
DATE OF OPERATION: 06/11/2019 PROCEDURE PERFORMED: Gastrojejunal tube malfunction with intractable nausea and vomiting. POSTOPERATIVE DIAGNOSIS: Gastrojejunal tube malfunction with intractable nausea and vomiting. PROCEDURE: 1. Laparotomy with repositioning of gastrojejunal tube. 2. Esophagogastroduodenoscopy with direct placement of jejunal tube through gastrojejunal anastomosis into the distal jejunum. SURGEON: Dara Clark MD DESCRIPTION OF PROCEDURE: Under general anesthesia, the patient's abdomen was prepped and draped in the sterile field. The old incision was opened. Adhesions to the anterior wall were taken down with electrocautery and Metzenbaum scissors. The anastomosis was pulled into the operative field. The gastrojejunostomy tube was followed and it had been placed through the pylorus into the mid jejunum which was in direct continuity with the gastrojejunal anastomosis. This, in essence allowed the tube feedings to the pumped directly into the stomach which had difficulty emptying and was therefore the result of the recurrent nausea and vomiting. The tube was pulled back into the stomach and an attempt was made to place a line made through the anastomosis, but this was not effective. I made an enterotomy along the antimesenteric border and with a long peon clamp, I was able to find the anastomosis and push it into the stomach. I could not grasp the tube because the jejunostomy tube and the opening of the gastrojejunostomy were parallel. It was therefore decided to do an endoscopy. The endoscopic equipment was set up and with the junior sales assistant holding the bowel, I was able to insert the endoscope through the retropharynx into the stomach. The end of the jejunostomy tube was found. The opening to the gastrojejunal anastomosis was found. I was able to grasp the end of the jejunostomy tube and pulled it snug to the end of the endoscope. I was then able to push the end of the tube through the gastrojejunostomy until the junior sales assistant could grab it and hold it in place with another clamp to keep it from retracting. Once that was done, I rescrubbed and positioned the tube into the distal jejunum. Another enterotomy was made along the antimesenteric border of the jejunum and the end of the tube was then sutured full thickness to the wall of the bowel into the mesenteric border so that there was no free passage of the suture through the outer wall of the jejunum. I did this with two sutures. The catheter was sutured through and through the wall into the mesentery. Once this was done, I rechecked his positioning endoscopically and the tube was not under any tension. The endoscope was then removed. The two enterotomies were closed with TA 30 stapler. The peritoneum was irrigated. The fascia was closed with running #1 Prolene. Subcutaneous tissue was closed with 2-0 Monocryl. Skin was closed with perico. The retaining bolster was sutured to the skin with interrupted 2-0 nylon in two positions. A dressing was placed. The patient was awakened, extubated, and transferred to the postanesthetic care unit in stable, satisfactory condition. LCS:severiano Job ID: [id number] Doc ID: [id number] Dara Clark M.D.
== END 2019-06-19 11:45 | disposition home health service (06) | DRG 345 ==
LOC: ED 16:28 → MEDSUR 16:28
PROVIDERS: ADMIT Family Medicine Adult Medicine; ATTEND Family Medicine Adult Medicine

== ENCOUNTER 2019-07-20 04:51 | Observation (INO) ==
--- NOTE | 2019-07-20 05:16 | Emergency Department Note ---
Skin/Abscess/FB HPI - General Chief complaint: Skin/Abscess/Foreign Body Stated complaint: GJ Tube displacement Time Seen by Provider: 07/20/19 04:54 Source: family Mode of arrival: wheelchair Limitations: other - History of Present Illness HPI Narrative: 23-year-old developmentally delayed nonverbal male comes in in the company of his brother after pulling out his GJ tube-the patient's brother did not bring the tube with him as the balloon had popped. Dr. Sav Clark, general surgeon, put in a GJ tube that was sewn in both on the inside and the outside for medicine administration-this was about 6 weeks ago. The patient gets TPN through a PICC line in his left arm. Anyway sometime in the night he pulled out his GJ tube. His brother brought him in. Patient is otherwise at his baseline - Related Data Home Medications Medication Instructions Recorded Confirmed polyethylene glycol 3350 17 17 g PT QID 03/06/15 06/24/19 gram/dose oral powder tiZANidine [Zanaflex] 4 mg PT TID 05/01/18 06/24/19 omeprazole 20 mg tablet,delayed 20 mg PT BID tab 04/04/19 06/24/19 release Cannabidiol (Cbd) Extract 3 drop PT PRN PRN 05/02/19 06/24/19 [Epidiolex] Promethazine [Phenergan] 25 mg DC TID PRN 05/02/19 06/24/19 Metoclopramide Oral Sabina [Reglan 10 mg PT Q6 05/20/19 06/24/19 Oral Sabina] Previous Rx's Medication Instructions Recorded Ondansetron [Zofran ODT] 4 mg SL Q4-6HP PRN #10 tab 05/15/19 Fat Emulsion 20% [Intralipid 20%] 250 ml IV MOWEFR@1600 #14 bag 06/18/19 Blood Sugar Diagnostic [Glucose 1 each MC BID 30 Days #100 strip 06/26/19 Test Strip] Insulin Lispro [Humalog] 0 unit SQ BID 30 Days ml 06/26/19 Sodium/Pot/Mag/Calc/Chlor/Acet 100 ml IV DAILY #30 unit 06/28/19 [TPN Electrolytes II IV Soln] Fat Emulsion 20% [Intralipid 20%] 250 ml IV MoWeFr@1600 bag 07/05/19 LORazepam [Ativan] 0.5 mg PO Q4HP PRN #90 tab 07/05/19 Lancets [Trueplus Lancet] 1 each MC Q6-12HP PRN #100 each 07/05/19 fentaNYL [Fentanyl] 25 mcg TD Q3D #10 patch.td72 07/05/19 Allergies Allergy/AdvReac Type Severity Reaction Status Date / Time No Known Drug Allergies Allergy Verified 07/20/19 04:55 Review of Systems Limitations: ROS unobtainable due to patients medical condition Past Medical History - Past Medical History [facility] Narrative: Family History (Last Reviewed 04/23/19 @ 12:36 by Ayesha Burns CMA) Mother Diabetes mellitus Medical History (Last Updated 06/07/19 @ 19:21 by Jr Singh DO) History of aspiration pneumonia (Chronic) Angelman syndrome (Chronic) Constipation (Resolved) PEG tube malfunction (Resolved) Intentional self-harm (Chronic) Sleep disturbance (Chronic) Epilepsy, generalized nonconvulsive, with intractable epilepsy (Chronic) Wheelchair dependent (Chronic) Urinary incontinence (Chronic) Developmental delay, severe (Chronic) Abdominal pain (Resolved) Accidental drug ingestion (Resolved) Community acquired pneumonia (Resolved) Encounter for postoperative wound check (Resolved) Epididymitis (Resolved) Fecal impaction (Resolved) Fecal impaction of colon (Resolved) Fecal impaction of colon (Resolved) Intractable nausea and vomiting (Resolved) Left lower lobe pneumonia (Resolved) Leukocytosis (Resolved) Nausea and vomiting (Resolved) Nausea and vomiting (Resolved) Right testicular torsion (Resolved) Syncope (Resolved) Torsion of testicle (Resolved) Vomiting (Resolved) Past Surgical History (Last Updated 06/07/19 @ 19:30 by Jr Singh DO) History of hip surgery (Acute) History of laparotomy (Acute ~04/2019) History of orchiectomy, unilateral (Acute 03/11/15) S/P orchiopexy (Acute 03/11/15) Medical history: Reports: other (history of Angelman syndrome.). Denies: cancer Surgical history ED: Reports: other (status post G-tube placement.) - Social History smoking status: Never smoker Alcohol use: Reports: None Drug use: Reports: none Physical Exam Patient is resting comfortably at his baseline. He is thin and small for his age. He remains nonverbal. He regards me but does not appear particularly agitated. No respiratory distress. Exam of the abdomen shows intact GJ tube site. I do not see significant bleeding here nor evidence of trauma but certainly the tube is out. Abdomen is not particularly tender. TPN is flowing into his PICC line at the left arm. Limitations: other Course Vital Signs Temperature 97.5 F 07/20/19 04:52 Pulse Rate 133 H 07/20/19 04:52 Respiratory Rate 18 07/20/19 04:52 Blood Pressure 122/86 07/20/19 04:52 Pulse Oximetry (%) 98 07/20/19 04:52 Temperature 97.5 F 07/20/19 04:52 Pulse Rate 115 H 07/20/19 05:04 Respiratory Rate 18 07/20/19 05:04 Blood Pressure 113/82 07/20/19 05:04 Pulse Oximetry (%) 97 07/20/19 05:04 Procedures - Other Procedure: Placed 18 Chinese Christian catheter into the G-tube hole and used 4 cc of normal saline to inflate the balloon. Abdominal binder is put over this so that he does not pull this out Disposition Pt seen by DAY TREATMENT CLINICIAN/ART THERAPIST/PA only: No Clinical Impression: Gastrojejunostomy tube dislodgement Summary: I placed that 18 Chinese Christian in the G-tube call within 15 minutes of arrival to maximize her chance of saving that. I then ordered x-ray with Gastrografin to evaluate for placement. I discussed the scenario with Dr. Shields, on-call general surgeon. He agreed to accept the patient. He had previously discussed the patient actually with Dr. Sav Clark at checkout and knew about this patient. Anyways he advised me to bring the patient in the hospital and write transition orders. Dr. Shields will coordinate for replacement of the tube. Basic laboratory is ordered to facilitate that Disposition: Xfer As Outpt/Obs ([facility]) Condition: Fair Referrals: Inez Elkins, DRAFTER SEISMOGRAPH [Primary Care Provider] -
--- NOTE | 2019-07-20 08:56 | XRay Report ---
CLINICAL INFORMATION: Replace gastrostomy catheter TECHNIQUE: The patient's gastrostomy catheter had been pulled inadvertently. A pediatric Christian catheter was placed by the emergency room physician. Water-soluble contrast material was injected and overhead supine abdomen images obtained. COMPARISON: None. FINDINGS: There is contrast material within the stomach on immediate postinjection image. There is also contrast material within the jejunum consistent with gastrojejunostomy. Three-minute delayed image demonstrates some reflux of contrast material into the esophagus There is no extraluminal contrast material IMPRESSION: Intraluminal catheter as above Interpreted and Authenticated by: Winston Damon 07/20/19
[2019-07-20 08:57] LABS: Basophils # (Auto) 0.07 K/mcL (0.00-0.30); Basophils % (Auto) 0.6 % (0.0-2.0); Eosinophils # (Auto) 0.93 K/mcL (0.00-0.70); Eosinophils % (Auto) 8.5 % (0.0-7.0); Granulocytes % (Auto) 68.1 % (38.0-78.0); Hematocrit 38.1 % (40.1-51.0); Hemoglobin 12.1 g/dL (13.7-17.5); Lymphocytes % (Auto) 14.5 % (15.5-49.0); Mean Cell Volume 76.4 fL (80.0-100.0); Mean Corpuscular HGB Conc 31.8 g/dL (31.0-36.0); Mean Platelet Volume 11.2 fL (7.4-10.4); Monocytes # (Auto) 0.91 K/mcL (0.10-0.90); Monocytes % (Auto) 8.3 % (1.0-12.0); Platelet Count 251 K/mcL (140-440); RBC 4.99 M/mcL (4.63-6.08); Red Cell Distribution Width 20.9 % (11.5-14.5)
[2019-07-20] MEDS ORDERED: ONDANSETRON 4 MG ODT TABLET SL PRN (09:53)
[2019-07-20] MEDS ORDERED: PROMETHAZINE 25 MG SUPP.RECT PR PRN (09:53)
[2019-07-20] MEDS ORDERED: CANNABIDIOL SL PRN (09:53)
[2019-07-20] MEDS ORDERED: LORazepam 0.5 MG TABLET PO PRN (09:53)
--- NOTE | 2019-07-20 09:59 | Discharge Summary ---
Providers - Providers Patient information: Note initiated : 07/20/19 at 9:56 am Service Date, if different from initiated Date: [] Patient: Raúl Hammond 23 y/o M admitted on 07/20/19 for GJ Tube displacement. Chief Complaint: [] Date of admission: 07/20/19 Discharge date: 07/20/19 Attending physician: Pancho Shields Hospitalization Hospital Course: Patient admitted to observation status untill we could determine what to do withhis G-tube. After discussion with his regular general Surgeon, Dr. Horace Clark we decided to manage this as an outpatient later this week. Discharge diagnosis: Dislodged G-tube Secondary discharge diagnosis: Angelman's syndrome with Developmental delay and mental retardation Reason for admission: Malfunction of Gastrostomy feeding tube Procedures: replacement of feeding tube Exam Temp Pulse Resp BP Pulse Ox 97.9 F 117 H 12 110/66 96 07/20/19 07:25 07/20/19 07:25 07/20/19 07:25 07/20/19 07:25 07/20/19 07:25 Discharge Plan - Patient/Caregiver Discharge Instructions Discharge Summary: As above family will arrange follow up with Dr. Horace Clark later this week Activity: other Diet: NPO Additional Instructions: Continue TPN as before - Follow up Plan Follow up with: Inez Elkins ARNP [Primary Care Provider] - Dara Clark MD [Physician] - Disposition: Home, Self-Care Prognosis: Good Rehab Potential: Undetermined Overall status at discharge: patient is back to baseline Pending Studies Resuscitation Status Full Code Diet NPO Diet (NOW) Start Sat Jul 20 511
[2019-07-20] MEDS ORDERED: fentaNYL 25 MCG PATCH TD SCH (10:00)
--- NOTE | 2019-07-20 10:04 | General Surg History&Physical ---
History of Present Illness Patient information: Note initiated : 07/20/19 at 10:02 am Service Date, if different from initiated Date: [] Patient: Raúl Hammond 23 y/o M admitted on 07/20/19 for GJ Tube displacement. Chief Complaint: [] Chief complaint: non-verbal HPI: Mr. Hammond is a 23 year old M well known to Dr. Horace Clark MD who has dislodged his G-tube. A 18French Christian catheter has been placed by the ED Physician to keep site open for now. Review of Systems ROS unobtainable: due to mental status Past History Past medical history: developmental delay 2 Angelman's synd Past surgical history: Feeding tube placement multiple times Past family history: no associated family medical problems Past social history: Needs 24 hour supervision lives with family and other care givers Medications and Allergies Home Medications Medication Instructions Recorded Confirmed Type polyethylene glycol 3350 17 17 g PT QID 03/06/15 07/20/19 History gram/dose oral powder omeprazole 20 mg tablet,delayed 20 mg PT BID tab 04/04/19 07/20/19 History release Cannabidiol (Cbd) Extract 3 drop PT PRN PRN 05/02/19 07/20/19 History [Epidiolex] Promethazine [Phenergan] 25 mg [place] TID PRN 05/02/19 07/20/19 History Ondansetron [Zofran ODT] 4 mg SL Q4-6HP PRN #10 tab 05/15/19 07/20/19 Rx Metoclopramide Oral Sabina [Reglan 10 mg PT Q6 05/20/19 07/20/19 History Oral Sabina] Fat Emulsion 20% [Intralipid 20%] 250 ml IV MOWEFR@1600 #14 bag 06/18/19 07/20/19 Rx Blood Sugar Diagnostic [Glucose 1 each MC BID 30 Days #100 strip 06/26/19 07/20/19 Rx Test Strip] Insulin Lispro [Humalog] 0 unit SQ BID 30 Days ml 06/26/19 07/20/19 Rx Sodium/Pot/Mag/Calc/Chlor/Acet 100 ml IV DAILY #30 unit 06/28/19 07/20/19 Rx [TPN Electrolytes II IV Soln] Fat Emulsion 20% [Intralipid 20%] 250 ml IV MoWeFr@1600 bag 07/05/19 07/20/19 Rx LORazepam [Ativan] 0.5 mg PO Q4HP PRN #90 tab 07/05/19 07/20/19 Rx Lancets [Trueplus Lancet] 1 each MC Q6-12HP PRN #100 each 07/05/19 07/20/19 Rx fentaNYL [Fentanyl] 25 mcg TD Q3D #10 patch.td72 07/05/19 07/20/19 Rx Flexeril 5 mg G-TUBE TID 07/20/19 07/20/19 History Allergies Allergy/AdvReac Type Severity Reaction Status Date / Time No Known Drug Allergies Allergy Verified 07/20/19 04:55 Exam Temp Pulse Resp BP Pulse Ox 97.9 F 117 H 12 110/66 96 07/20/19 07:25 07/20/19 07:25 07/20/19 07:25 07/20/19 07:25 07/20/19 07:25 - General physical appearance no distress, chronically ill - Cardiovascular Cardiovascular exam IM: Present: normal rate and rhythm - Respiratory normal respiratory effort, clear to percussion - Abdomen Abdomen: Present: soft, non tender, wound (G-tube in place moderate erythema around site ). Absent: rebound, distended - Musculoskeletal Present: other (Spastic paralysis of all 4 extremities ) Assessment and Plan (1) Malfunction of jejunostomy tube Status: Chronic (2) Gastrojejunostomy tube dislodgement Status: Resolved
[2019-07-20] MEDS ORDERED: METOCLOPRAMIDE ORAL SOL 1 MG/ML ML PT SCH (12:00)
[2019-07-20] MEDS ORDERED: CYCLOBENZAPRINE 10 MG TABLET PT SCH (15:00)
[2019-07-20] MEDS ORDERED: BLOOD SUGAR DIAGNOSTIC MC SCH (21:00)
[2019-07-22] MEDS ORDERED: FAT EMULSION 20% 250 ML BAG IV SCH ×2 (16:00)
== END 2019-07-20 10:50 | disposition home or self-care (01) ==
LOC: ED 04:51 → MEDSUR 04:51
PROVIDERS: ADMIT Specialist; ATTEND Specialist

== ENCOUNTER 2019-08-10 16:10 | Inpatient (IN) ==
[2019-08-10] MEDS ORDERED: 0.9 % SODIUM CHLORIDE 1,000 ML IV ONE ×3 (16:33→19:35)
--- NOTE | 2019-08-10 16:36 | Emergency Department Note ---
Arrhythmia/Palpitations HPI - General Chief Complaint: Arrhythmia/Palpitations Stated Complaint: Fever Time Seen by Provider: 08/10/19 16:30 Source: family Mode of arrival: other Limitations: language barrier, physical limitation - History of Present Illness HPI Narrative: Patient is a 23-year-old male who is brought into the emergency department this evening by private vehicle. Patient is nonverbal and his brother who is the caregiver is with him today. His brother reports that Dr. Clark at perform endoscopic replacement of the PEG tube on August 01, 2019. His brother reports that he was started on antibiotic for possibly aspiration pneumonia after being seen here in the emergency Department August 01, 2019. His brother reports that on August 01, 2019 he had a fever of 102. He was given IV Rocephin and started on Augmentin. His brother reports that he has been receiving the Augmentin through his G-tube, and appeared to be doing well over the last several days, but today he spiked another fever of 102. Patient also has PICC line to the left upper arm in which he is been receiving TPN at home. - Related Data Home Medications Medication Instructions Recorded Confirmed polyethylene glycol 3350 17 17 g PT QID 03/06/15 08/10/19 gram/dose oral powder omeprazole 20 mg tablet,delayed 20 mg PT BID tab 04/04/19 08/10/19 release Cannabidiol (Cbd) Extract 3 drp PT PRN PRN 05/02/19 08/10/19 [Epidiolex] Promethazine [Phenergan] 25 mg MN TID PRN 05/02/19 08/10/19 Metoclopramide Oral Sabina [Reglan 10 mg PT Q6 05/20/19 08/10/19 Oral Sabina] Flexeril 5 mg G-TUBE TID 07/20/19 08/10/19 Ferrous Sulfate [Iron] 08/10/19 TPN Electrolytes II IV Soln 1,200 ml 08/10/19 Previous Rx's Medication Instructions Recorded Ondansetron [Zofran ODT] 4 mg SL Q4-6HP PRN #10 tab 05/15/19 LORazepam [Ativan] 0.5 mg PO Q4HP PRN #90 tab 07/05/19 Lancets [Trueplus Lancet] 1 each MC Q6-12HP PRN #100 each 07/05/19 Amoxicillin/Clavulanate [Augmentin] 400 mg PO Q12H #100 ml 08/01/19 fentanyl 25 mcg/hr transdermal 25 mcg TRANSDERMA Q3D #10 08/07/19 patch [id number] Allergies Allergy/AdvReac Type Severity Reaction Status Date / Time No Known Drug Allergies Allergy Verified 08/01/19 16:58 Review of Systems Limitations: ROS unobtainable due to patients medical condition Past Medical History - Past Medical History Medical history: Reports: other (history of Angelman syndrome.). Denies: cancer Surgical history ED: Reports: other (status post G-tube placement.) - Social History smoking status: Never smoker Alcohol use: Reports: None Drug use: Reports: none Physical Exam Limitations: language barrier, physical limitation General appearance: alert, in no apparent distress, other (Patient is looking around the room and does maintain eye contact.) Eye: Present: normal appearance ENT: Present: normal oropharynx, mucous membranes moist Neck: Present: trachea midline. Absent: lymphadenopathy, thyromegaly Chest: Present: normal inspection, symmetric chest wall rise Respiratory: Present: other (Respirations even and unlabored. Lung sounds clear to auscultate with diminished bases bilaterally.) Cardiovascular: Present: tachycardia, +S1, +S2 Abdominal: Present: other (PEG tube in place in left upper quadrant. Scant amount of serous discharge around the insertion site. Abdomen soft and nontender to palpate. Normal active bowel tones 4 quadrants.) Extremities: Present: other (contractures of the upper and lower extremities.) Back: Present: normal inspection. Absent: CVA tenderness (R), CVA tenderness (L) Neurological: Present: alert Skin: Present: warm, dry, intact, normal color Course - Reevaluation(s) Time: 19:41 (patient continues to remain tachycardic with pulse around 130 and blood pressure 90s over 50s. Third liter of normal saline being administered. Ordered 1 g of vancomycin to be given IV.) Time: 20:31 (Consultation with Dr. Sav Clark today about patient and his condition today. Dr. Clark did not feel that any further imaging would be needed for the abdomen is likely suspicious of possible PICC line being the source of infection. Patient has had 1 blood cultures drawn from the PICC line, and 1 source was drawn peripherally. Vancomycin will be started after the blood cultures are collected. Patient is currently receiving his third liter of normal saline. Pulse remains 140s and blood pressure 84/54. Consulted with hospitalist, Dr. Gilmore who will come to the emergency department to see the patient for admission.) Vital Signs Temperature 99 F 08/10/19 16:14 Pulse Rate 194 H 08/10/19 16:14 Respiratory Rate 24 H 08/10/19 16:14 Blood Pressure 90/56 08/10/19 16:14 Pulse Oximetry (%) 96 08/10/19 16:14 Temperature 99 F 08/10/19 16:14 Pulse Rate 128 H 08/10/19 20:29 Respiratory Rate 15 08/10/19 21:16 Blood Pressure 84/53 08/10/19 21:16 Pulse Oximetry (%) 100 08/10/19 21:01 Arrhythmia/Palpitations - [facility] Narrative Medical decision making narrative: Patient's pulse decreased from 194 down to 128. Blood pressure remains hypertensive. Patient received the 3 L of normal saline in the emergency department and a dose of vancomycin. Blood cultures were drawn. Dr. Gilmore will admit patient to [facility]. EKG showed sinus tachycardia. Chest x-ray did reveal Alonzo of bilateral pneumonia. Suspect possible PICC line infection as possible source. The patient's urine today was unremarkable. - Lab Data Lab results reviewed: Yes I reviewed the patient's lab results. Result diagrams: 08/10/19 16:35 08/10/19 16:35 Lab Results 08/10/19 08/10/19 08/10/19 Range/Units 16:35 16:35 16:35 WBC 13.8 H (4.50-11.00) K/mcL RBC 4.76 (4.63-6.08) M/mcL Hgb 11.5 L (13.7-17.5) g/dL Hct 37.1 L (40.1-51.0) % MCV 77.9 L (80.0-100.0) fL MCH 24.2 L (26.0-34.0) pg MCHC 31.0 (31.0-36.0) g/dL RDW 19.9 H (11.5-14.5) % Plt Count 245 (140-440) K/mcL MPV 10.8 H (7.4-10.4) fL Gran % 90.6 H (38.0-78.0) % Lymph % (Auto) 3.6 L (15.5-49.0) % [place] % (Auto) 4.8 (1.0-12.0) % Eos % (Auto) 0.6 (0.0-7.0) % Baso % (Auto) 0.4 (0.0-2.0) % Gran # 12.52 H (1.80-8.00) K/mcL Lymph # (Auto) 0.50 L (1.50-4.80) K/mcL [place] # (Auto) 0.66 (0.10-0.90) K/mcL Eos # (Auto) 0.08 (0.00-0.70) K/mcL Baso # (Auto) 0.05 (0.00-0.30) K/mcL ESR 23 H (0-15) mm/hr VBG Lactic Acid 1.3 (0.5-2.0) mmol/L Sodium 137 (133-145) mmol/L Potassium 3.5 (3.3-5.1) mmol/L Chloride 102 (96-108) mmol/L Carbon Dioxide 23 (22-30) mmol/L Anion Gap 12.0 (8-16) BUN 24 H (6-20) mg/dl Creatinine 0.7 (0.7-1.2) mg/dl GFR Calculation 132 Glucose 92 (70-105) mg/dL Calcium 9.1 (8.6-10.4) mg/dl Total Bilirubin 0.6 (0.0-1.0) mg/dL AST 51 H (0-37) U/l ALT 74 H (0-40) U/l Alkaline Phosphatase 102 (39-117) U/L C-Reactive Protein (0.0-0.8) mg/dl Total Protein 7.2 (5.9-8.4) gm/dL Albumin 4.1 (3.2-5.2) gm/dL Globulin 3.1 (2.2-3.7) gm/dL Albumin/Globulin Ratio 1.3 (1.0-2.3) Procalcitonin (<0.10) ng/mL Urine Color Urine Appearance Urine pH (5.0-9.0) Ur Specific [place] (1.000-1.035) Urine Protein (NEG) mg/dL Urine Glucose (UA) (NEG) mg/dL Urine Ketones (NEG) mg/dL Urine Occult Blood (<0.03) mg/dL Urine Nitrate (NEG) Urine Bilirubin (NEG) mg/dL Urine Urobilinogen (NEG) mg/dL Ur Leukocyte Esterase (NEG) /uL Urine RBC (0-1) /hpf Urine WBC (0-4) /hpf Ur Squamous Epith Cells (0-4) /hpf Urine Bacteria (0) /hpf Urine Mucus (0) /hpf Ur Culture Indicated? 08/10/19 08/10/19 08/10/19 Range/Units 16:35 16:35 18:33 WBC (4.50-11.00) K/mcL RBC (4.63-6.08) M/mcL Hgb (13.7-17.5) g/dL Hct (40.1-51.0) % MCV (80.0-100.0) fL MCH (26.0-34.0) pg MCHC (31.0-36.0) g/dL RDW (11.5-14.5) % Plt Count (140-440) K/mcL MPV (7.4-10.4) fL Gran % (38.0-78.0) % Lymph % (Auto) (15.5-49.0) % [place] % (Auto) (1.0-12.0) % Eos % (Auto) (0.0-7.0) % Baso % (Auto) (0.0-2.0) % Gran # (1.80-8.00) K/mcL Lymph # (Auto) (1.50-4.80) K/mcL [place] # (Auto) (0.10-0.90) K/mcL Eos # (Auto) (0.00-0.70) K/mcL Baso # (Auto) (0.00-0.30) K/mcL ESR (0-15) mm/hr VBG Lactic Acid (0.5-2.0) mmol/L Sodium (133-145) mmol/L Potassium (3.3-5.1) mmol/L Chloride (96-108) mmol/L Carbon Dioxide (22-30) mmol/L Anion Gap (8-16) BUN (6-20) mg/dl Creatinine (0.7-1.2) mg/dl GFR Calculation Glucose (70-105) mg/dL Calcium (8.6-10.4) mg/dl Total Bilirubin (0.0-1.0) mg/dL AST (0-37) U/l ALT (0-40) U/l Alkaline Phosphatase (39-117) U/L C-Reactive Protein 1.1 H (0.0-0.8) mg/dl Total Protein (5.9-8.4) gm/dL Albumin (3.2-5.2) gm/dL Globulin (2.2-3.7) gm/dL Albumin/Globulin Ratio (1.0-2.3) Procalcitonin 9.46 (<0.10) ng/mL Urine Color Yellow Urine Appearance Clear Urine pH 5.0 (5.0-9.0) Ur Specific [place] 1.032 (1.000-1.035) Urine Protein Neg (NEG) mg/dL Urine Glucose (UA) Negative (NEG) mg/dL Urine Ketones Neg (NEG) mg/dL Urine Occult Blood Neg (<0.03) mg/dL Urine Nitrate Neg (NEG) Urine Bilirubin Neg (NEG) mg/dL Urine Urobilinogen Neg (NEG) mg/dL Ur Leukocyte Esterase Neg (NEG) /uL Urine RBC < 1 (0-1) /hpf Urine WBC 1 (0-4) /hpf Ur Squamous Epith Cells 0 (0-4) /hpf Urine Bacteria 0 (0) /hpf Urine Mucus Few (0) /hpf Ur Culture Indicated? No - Radiology Data Ordering Physician: Dagoberto Martinez Date of Service: 08/10/19 Procedure(s): XR chest 1V portable Accession Number(s): [id number] CLINICAL INFORMATION: Tachycardia COMPARISON: [facility] 2020. TECHNIQUE: Portable FINDINGS: The heart size, mediastinum and pulmonary vessels are unremarkable. Left PICC line is stable satisfactory position The lungs are clear - viral pneumonia has cleared since previous study. There are no effusions. The bones and soft tissues are within normal limits. IMPRESSION: Normal chest. Interval clearance of bilateral pneumonia. Interpreted and Authenticated by: Winston Beckett 08/10/19 - EKG Data EKG attestation: Yes There are no EKG findings of acute coronary syndrome, Yes This EKG will be read by test engineering manager EKG shows normal: sinus rhythm Rate: tachycardia Disposition Pt seen by KITMAN/PA only: Yes Clinical Impression: Sepsis associated hypotension Disposition: Xfer As Inpt ([facility]) Condition: Undetermined Referrals: Inez Elkins ARNP [Primary Care Provider] -
[2019-08-10 17:50] LABS: Basophils # (Auto) 0.05 K/mcL (0.00-0.30); Basophils % (Auto) 0.4 % (0.0-2.0); Eosinophils # (Auto) 0.08 K/mcL (0.00-0.70); Eosinophils % (Auto) 0.6 % (0.0-7.0); Granulocytes % (Auto) 90.6 % (38.0-78.0); Hematocrit 37.1 % (40.1-51.0); Hemoglobin 11.5 g/dL (13.7-17.5); Lymphocytes % (Auto) 3.6 % (15.5-49.0); Mean Cell Volume 77.9 fL (80.0-100.0); Mean Platelet Volume 10.8 fL (7.4-10.4); Monocytes # (Auto) 0.66 K/mcL (0.10-0.90); Monocytes % (Auto) 4.8 % (1.0-12.0); Platelet Count 245 K/mcL (140-440); RBC 4.76 M/mcL (4.63-6.08); Red Cell Distribution Width 19.9 % (11.5-14.5); WBC 13.8 K/mcL (4.50-11.00)
[2019-08-10 18:10] LABS: ALT/SGPT 74 U/l (0-40); AST/SGOT 51 U/l (0-37); Albumin 4.1 gm/dL (3.2-5.2); Albumin/Globulin Ratio 1.3 (1.0-2.3); Alkaline Phosphatase 102 U/L (39-117); Bilirubin,Total 0.6 mg/dL (0.0-1.0); Blood Urea Nitrogen 24 mg/dl (6-20); Calcium 9.1 mg/dl (8.6-10.4); Carbon Dioxide 23 mmol/L (22-30); Chloride 102 mmol/L (96-108); Globulin 3.1 gm/dL (2.2-3.7); Glomerular Filtration Rate 132; Glucose 92 mg/dL (70-105)
[2019-08-10 18:31] LABS: Erythrocyte Sedimentation Rate 23 mm/hr (0-15)
--- NOTE | 2019-08-10 18:41 | XRay Report ---
CLINICAL INFORMATION: Tachycardia COMPARISON: 2019. TECHNIQUE: Portable FINDINGS: The heart size, mediastinum and pulmonary vessels are unremarkable. Left PICC line is stable satisfactory position The lungs are clear - viral pneumonia has cleared since previous study. There are no effusions. The bones and soft tissues are within normal limits. IMPRESSION: Normal chest. Interval clearance of bilateral pneumonia. Interpreted and Authenticated by: Winston Beckett 08/10/19
[2019-08-10 19:26] LABS: Appearance,Urine CLEAR; Bacteria,Urine 0 /hpf (0); Bilirubin,Urine NEG (NEG); Color,Urine YELLOW; Culture Indicated,Urine NO; Glucose,Urine (UA) NEGATIVE (NEG); Ketones,Urine NEG (NEG); Leukocyte Esterase,Urine NEG /uL (NEG); Mucus,Urine FEW /hpf (0); Nitrate,Urine NEG (NEG); Protein,Urine NEG (NEG); Specific Gravity,Urine 1.032 (1.000-1.035); Urine Blood NEG mg/dL (<0.03); Urine RBC < 1 /hpf (0-1); Urine Squamous Epithelial Cell 0 /hpf (0-4); Urine WBC 1 /hpf (0-4); Urobilinogen,Urine NEG (NEG)
[2019-08-10] MEDS ORDERED: VANCOMYCIN 1,000 MG in 0.9 % SODIUM CHLORIDE 250 ML IV ONE (19:34)
--- NOTE | 2019-08-10 20:54 | Internal Med History&Physical ---
Medical - H&P: [facility] Patient information: Note initiated : 08/10/19 at 8:51 pm Service Date, if different from initiated Date: [] Patient: Raúl Hammond 23 y/o M admitted on for Fever. Chief Complaint: [] History of present illness: Mr. Hammond is a 23 year old M Presents the ED with brother after becoming more irritable and "whiny" and also developing a fever. Patient recently seen in the ED for pneumonia and was given antibiotics. Chest x-ray today shows improvement. However he is tachycardic and hypotensive. Procalcitonin is elevated. Lactate okay. White blood cell count elevated. No obvious source as urine and chest x-ray are okay. Source could be PICC line as most likely source. Could be GI with history of GI procedures but spec more likely from picc. He has been on TPN for about a month, PICC line placed at that time. Sinus tach in the ED. Still tachycardic but improved with IV fluids. Case discussed with Dr. Clark will follow along. Source likely pick patient may benefit from port. Brother bedside given history as patient is unable given chronic condition. Medical - H&P: H Medical history: Medical History (Last Reviewed 04/23/19 @ 12:44 by Dara Clark MD) Encounter for postoperative wound check (Acute) Abdominal pain (Acute) Drug-induced nausea and vomiting (Acute) Bacterial conjunctivitis of left eye (Acute) Torsion of testicle (Acute) Syncope (Acute) Intentional self-harm (Acute) Sleep disturbance (Acute) Epilepsy, generalized nonconvulsive, with intractable epilepsy (Acute) Wheelchair dependent (Acute) Angelman syndrome (Acute) Urinary incontinence (Acute) Epididymitis (Acute) Developmental delay, severe (Acute) Right testicular torsion (Acute) Past Surgical History (Last Reviewed 04/23/19 @ 12:36 by Ayesha Burns CMA) S/P orchiopexy (Acute 03/11/15) History of orchiectomy, unilateral (Acute 03/11/15) History of hip surgery (Acute) Family History (Last Reviewed 04/23/19 @ 12:36 by Ayesha Burns CMA) Mother Diabetes mellitus Social History (Last Updated 04/23/19 @ 12:49 by Dara Clark MD) Patient lives at home with family who are primary caretakers Medical - H&P: Meds Home Medications Medication Instructions Recorded Confirmed Type polyethylene glycol 3350 17 17 g PT QID 03/06/15 08/10/19 History gram/dose oral powder omeprazole 20 mg tablet,delayed 20 mg PT BID tab 04/04/19 08/10/19 History release Cannabidiol (Cbd) Extract 3 drp PT PRN PRN 05/02/19 08/10/19 History [Epidiolex] Promethazine [Phenergan] 25 mg IN TID PRN 05/02/19 08/10/19 History Ondansetron [Zofran ODT] 4 mg SL Q4-6HP PRN #10 tab 05/15/19 08/10/19 Rx Metoclopramide Oral Sabina [Reglan 10 mg PT Q6 05/20/19 08/10/19 History Oral Sabina] LORazepam [Ativan] 0.5 mg PO Q4HP PRN #90 tab 07/05/19 08/10/19 Rx Lancets [Trueplus Lancet] 1 each MC Q6-12HP PRN #100 each 07/05/19 08/10/19 Rx Flexeril 5 mg G-TUBE TID 07/20/19 08/10/19 History Amoxicillin/Clavulanate [Augmentin] 400 mg PO Q12H #100 ml 08/01/19 08/10/19 Rx fentanyl 25 mcg/hr transdermal 25 mcg TRANSDERMA Q3D #10 08/07/19 08/10/19 Rx patch [id number] Ferrous Sulfate [Iron] 08/10/19 History TPN Electrolytes II IV Soln 1,200 ml 08/10/19 History Allergies Allergy/AdvReac Type Severity Reaction Status Date / Time No Known Drug Allergies Allergy Verified 08/01/19 16:58 Medical - H&P: Exam - Constitutional Vitals: Temp Pulse Resp BP Pulse Ox 99 F 128 H 18 83/36 99 08/10/19 16:14 08/10/19 20:29 08/10/19 20:29 08/10/19 20:16 08/10/19 20:29 Exam: General: Alert, Awake, No acute Distress Eyes/N/T: EOMI, PERRL, Head/Neck: neck supple, normocephalic atraumatic CV: Tachycardia but regular, No murmurs, normal s1/s2 Pulm: Clear b/l, no wheezing/rhonchi/rales Abd: soft, nontender, +BS x4, PEG site looks good Ext: no clubbing/cyanosis/edema Neuro: Alert, moves all extremities, does not verbalize skin: warm/dry Medical - H&P: Reslt - Labs CBC & Chem 7: 08/11/19 05:00 08/11/19 05:00 Labs: Short CBC 08/10/19 Range/Units 16:35 WBC 13.8 H (4.50-11.00) K/mcL Hgb 11.5 L (13.7-17.5) g/dL Hct 37.1 L (40.1-51.0) % Plt Count 245 (140-440) K/mcL BMP 08/10/19 16:35 Sodium 137 Potassium 3.5 Chloride 102 Carbon Dioxide 23 BUN 24 H Creatinine 0.7 Glucose 92 Calcium 9.1 Liver Function 08/10/19 Range/Units 16:35 Total Bilirubin 0.6 (0.0-1.0) mg/dL AST 51 H (0-37) U/l ALT 74 H (0-40) U/l Alkaline Phosphatase 102 (39-117) U/L Albumin 4.1 (3.2-5.2) gm/dL Urine 08/10/19 Range/Units 18:33 Urine Color Yellow Urine Appearance Clear Urine pH 5.0 (5.0-9.0) Ur Specific [place] 1.032 (1.000-1.035) Urine Protein Neg (NEG) mg/dL Urine Glucose (UA) Negative (NEG) mg/dL Medical - H&P: A/P - Narrative A/P Narrative: A: *Sepsis: source most likely PICC, other source GI given h/o procedures. CXR/UA ok -PCT elevated -lactate ok *Volume Depletion: *WBC frequently elevated *Anemia, chronic: *Angelman syndrome/developmental delay: *GERD: *h/o N/V: *chronic sinus tach: *Dysphagia, with G-J tube: -on TPN P: -Zosyn, pending BC -IVF's -Dr. Clark consulted -If PICC source of infection may benefit from port -medications via PEG -nutrition via PICC for now with continued TPN - -ppx: lovenox/home ppi DNR Medical - H&P: Qual - Stroke Symptom Onset Unknown: No
[2019-08-10] MEDS ORDERED: PROMETHAZINE 25 MG/ML VIAL IV PRN (21:43)
[2019-08-10] MEDS ORDERED: 0.9 % SODIUM CHLORIDE 1,000 ML IV SCH (21:43)
[2019-08-10] MEDS ORDERED: POLYETHYLENE GLYCOL 3350 17 GM PACKET PO PRN (21:43)
[2019-08-10] MEDS ORDERED: TPN PER PHARMACY IV ONE (21:43)
[2019-08-10] MEDS ORDERED: POTASSIUM CHLORIDE 40 MEQ in DEXTROSE 5% IN WATER 500 ML IV PRN (21:43)
[2019-08-10] MEDS ORDERED: SENNOSIDES 1 TABLET PO PRN (21:43)
[2019-08-10] MEDS ORDERED: ACETAMINOPHEN 325 MG TABLET PO PRN (21:43)
[2019-08-10] MEDS ORDERED: MAGNESIUM SULFATE 2 GM/50 ML BAG IV PRN (21:43)
[2019-08-10] MEDS ORDERED: IPRATROPIUM/ALBUTEROL 3 ML AMPUL.NEB NEB PRN (21:43)
[2019-08-10] MEDS ORDERED: POTASSIUM CHLORIDE 20 MEQ TABLET PO PRN ×2 (21:43)
[2019-08-10] MEDS ORDERED: ACETAMINOPHEN 1,000 MG/100 ML BOTTLE IV ONE (22:21)
[2019-08-10] MEDS: 0.9 % SODIUM CHLORIDE 10 ML SYRINGE IV SCH (22:44)
[2019-08-10] MEDS: 0.9 % SODIUM CHLORIDE 250 ML IV SCH (22:49)
[2019-08-11] MEDS: FAMOTIDINE/PF 20 MG/2 ML VIAL IV SCH ×3 (00:16→20:43)
[2019-08-11] MEDS: PIPERACILLIN SODIUM/TAZOBACTAM 3.375 GM in DEXTROSE 5% IN WATER 50 ML IV SCH ×4 (00:21→17:51)
[2019-08-11] MEDS: PROCHLORPERAZINE 10 MG/2 ML VIAL IV PRN (03:15)
[2019-08-11] MEDS: 0.9 % SODIUM CHLORIDE 10 ML SYRINGE IV SCH ×3 (05:54→20:44)
[2019-08-11 06:39] LABS: Hematocrit 27.6 % (40.1-51.0); Hemoglobin 8.5 g/dL (13.7-17.5); Mean Cell Volume 79.1 fL (80.0-100.0); Mean Corpuscular HGB Conc 30.8 g/dL (31.0-36.0); Mean Platelet Volume 11.1 fL (7.4-10.4); Platelet Count 173 K/mcL (140-440); RBC 3.49 M/mcL (4.63-6.08); WBC 8.1 K/mcL (4.50-11.00)
[2019-08-11] MEDS ORDERED: TPN PER PHARMACY IV SCH (07:00)
[2019-08-11 07:01] LABS: ALT/SGPT 51 U/l (0-40); AST/SGOT 36 U/l (0-37); Albumin 2.5 gm/dL (3.2-5.2); Alkaline Phosphatase 48 U/L (39-117); Bilirubin,Direct 0.6 mg/dL (0.0-0.3); Bilirubin,Total 1.1 mg/dL (0.0-1.0); Blood Urea Nitrogen 10 mg/dl (6-20); Calcium 7.9 mg/dl (8.6-10.4); Carbon Dioxide 22 mmol/L (22-30); Chloride 107 mmol/L (96-108); Glucose 94 mg/dL (70-105); Lactate Dehydrogenase 168 U/L (94-250); Phosphorous 2.9 mg/dL (2.7-4.5); Triglycerides 40 mg/dl (<150); Uric Acid 0.7 mg/dL (2.5-8.0)
[2019-08-11 07:02] LABS: Albumin/Globulin Ratio 0.9 (1.0-2.3); Globulin 2.8 gm/dL (2.2-3.7); Glomerular Filtration Rate 166
[2019-08-11 07:29] LABS: Anisocytosis 2+ (NONE SEEN); Band Neutrophils % 17 % (0-10); Hypochromasia FEW (NONE SEEN); Lymphocytes % 13 % (15-49); Microcytosis FEW (NONE SEEN); Monocytes % (Manual) 7 % (1-12); Ovalocytes 1+ (NONE SEEN); Platelet Estimate NORMAL (NORMAL); RBC Morphology ABNORM (NORMAL); Reactive Lymphocytes 1 % (0-2); Segmented Neutrophils % 62 % (38-78)
[2019-08-11] MEDS: NOREPINEPHRINE BITARTRATE 16 MG in 0.9 % SODIUM CHLORIDE 234 ML IV SCH ×2 (07:56→20:30)
[2019-08-11] MEDS ORDERED: CANNABIDIOL PO PRN (08:03)
[2019-08-11] MEDS ORDERED: PROMETHAZINE 25 MG SUPP.RECT PR PRN (08:03)
--- NOTE | 2019-08-11 08:08 | Internal Med Progress Note ---
Medical - PN: Subj Patient information: Note initiated : 08/11/19 at 8:05 am Service Date, if different from initiated Date: [] Patient: Raúl Hammond 23 y/o M admitted on 08/10/19 for Fever. Chief Complaint: [] Interval history: Mr. Hammond is a 23 year old M Presents the ED with brother after becoming more irritable and "whiny" and also developing a fever. Patient recently seen in the ED for pneumonia and was given antibiotics. Chest x-ray today shows improvement. However he is tachycardic and hypotensive. Procalcitonin is elevated. Lactate okay. White blood cell count elevated. No obvious source as urine and chest x-ray are okay. Source could be PICC line as most likely source. Could be GI with history of GI procedures but spec more likely from picc. He has been on TPN for about a month, PICC line placed at that time. Sinus tach in the ED. Still tachycardic but improved with IV fluids. Case discussed with Dr. Clark will follow along. Source likely pick patient may benefit from port. 08/10 Uneventful night. Did not need any levo fed. Peers to be comfortable in bed this morning with brother at bedside. Leukocytosis improved. Afebrile overnight. Unable to gather review of systems given patient's chronic condition. - Constitutional Vitals: Vital Signs Temp Pulse Resp BP Pulse Ox 99.1 F H 109 H 21 112/65 100 08/11/19 07:31 08/11/19 07:31 08/11/19 07:31 08/11/19 07:31 08/11/19 07:31 Period Temp Pulse Resp BP Sys/Lemus Pulse Ox Last 24 Hr 98.5 F-100.2 F 101-194 12-26 75-134/36-84 94-100 Intake and Output 08/10/19 08/11/19 08/11/19 21:59 05:59 13:59 Intake Total 3250 150 50 Output Total 2 Balance 3250 148 50 Weight 36.287 kg Intake & Output: Intake & Output 08/10/19 08/11/19 08/11/19 21:59 05:59 13:59 Intake Total 3250 150 50 Output Total 2 Balance 3250 148 50 Weight 36.287 kg Intake: IV 3250 150 50 Sodium Chloride 0.9% 1,000 ml @ 3000 Wide Open IV BOLUS ONE Rx#: [id number] OFIRMEV 1,000 mg In 100 ml @ 0 100 mls/hr IV .STK-MED ONE Rx#: [id number] Zosyn 3.375 gm In Dextrose 5% 50 50 in Water 50 ml @ 100 mls/hr IV Q6H LEON Rx#:[id number] Vancomycin 1,000 mg In Sodium 250 Chloride 0.9% 250 ml @ 250 mls/ hr IV ONCE ONE Rx#:[id number] Output: # of times incontinent of urine 2 Other: Urine Color Dark Yellow Exam: General: Alert, Awake, No acute Distress Eyes/N/T: EOMI, Head/Neck: neck supple, CV: Tachycardia but regular, No murmurs, Pulm: Clear b/l, no wheezing/rhonchi/rales Abd: soft, nontender, +BS x4, PEG site looks good Ext: no clubbing/cyanosis/edema Neuro: Alert, moves all extremities, does not verbalize skin: warm/dry Medical - PN: Obj Da - Labs CBC & Chem 7: 08/11/19 05:00 08/11/19 05:00 Labs: Abnormal Lab Results 08/11/19 08/11/19 08/10/19 05:00 05:00 16:35 WBC RBC 3.49 L Hgb 8.5 L Hct 27.6 L MCV 79.1 L MCH 24.4 L MCHC 30.8 L RDW 20.0 H MPV 11.1 H Gran % Lymph % (Auto) Gran # Lymph # (Auto) Band Neutrophils % 17 H Lymphocytes % 13 L RBC Morphology Abnorm A Hypochromasia Few A Anisocytosis 2+ A Microcytosis Few A Ovalocytes 1+ A ESR BUN Creatinine 0.4 L Uric Acid 0.7 L Calcium 7.9 L Total Bilirubin 1.1 H Direct Bilirubin 0.6 H GGT 77 H AST ALT 51 H C-Reactive Protein 1.1 H Total Protein 5.3 L Albumin 2.5 L Albumin/Globulin Ratio 0.9 L 08/10/19 08/10/19 16:35 16:35 WBC 13.8 H RBC Hgb 11.5 L Hct 37.1 L MCV 77.9 L MCH 24.2 L MCHC RDW 19.9 H MPV 10.8 H Gran % 90.6 H Lymph % (Auto) 3.6 L Gran # 12.52 H Lymph # (Auto) 0.50 L Band Neutrophils % Lymphocytes % RBC Morphology Hypochromasia Anisocytosis Microcytosis Ovalocytes ESR 23 H BUN 24 H Creatinine Uric Acid Calcium Total Bilirubin Direct Bilirubin GGT AST 51 H ALT 74 H C-Reactive Protein Total Protein Albumin Albumin/Globulin Ratio Meds: Medications Acetaminophen (Tylenol) 650 mg PO Q6HP PRN PRN Reason: PAIN/FEVER > 101 Albuterol/Ipratropium (Duoneb) 3 ml NEB Q4HP PRN PRN Reason: Shortness Of Breath Enoxaparin Sodium (Lovenox) 30 mg SQ DAILY [facility] Famotidine (Pepcid) 20 mg IV Q12 [facility] Last Admin: 08/11/19 00:16 Dose: 20 mg Documented by: Potassium Chloride 40 meq/ (Dextrose) 520 mls @ 130 mls/hr IV UD PRN PRN Reason: Potassium < 3 Magnesium Sulfate (Magnesium Sulfate) 2 gm in 50 mls @ 50 mls/hr IV UD PRN PRN Reason: Magnesium </= 1.6 Sodium Chloride (Sodium Chloride 0.9%) 1,000 mls @ 75 mls/hr IV .[id number] [facility] Stop: 08/11/19 11:02 Last Admin: 08/11/19 00:17 Dose: 75 mls/hr Documented by: Piperacillin Sod/Tazobactam (Sod 3.375 gm/ Dextrose) 50 mls @ 100 mls/hr IV Q6H [facility]; Protocol Last Infusion: 08/11/19 06:25 Dose: Infused Documented by: Norepinephrine Bitartrate 16 (mg/ Sodium Chloride) 250 mls @ 9.375 mls/hr IV Q24H [facility]; Protocol Last Admin: 08/11/19 07:56 Dose: Not Given Documented by: Sodium Chloride (Sodium Chloride 0.9%) 250 mls @ 20 mls/hr IV .[id number] [facility] Last Admin: 08/10/19 22:49 Dose: Not Given Documented by: Acetaminophen (Ofirmev) 650 mg in 65 mls @ 130 mls/hr IV Q6HP PRN; Protocol PRN Reason: PAIN/FEVER > 101 Lorazepam (Ativan) 0.5 mg PO Q4HP PRN PRN Reason: Anxiety Metoclopramide HCl (Reglan Oral Sabina) 10 mg PT Q6 [facility] Non-Formulary Medication (Fentanyl [Fentanyl]) 25 mcg TRANSDERMA Q3D [facility] Non-Formulary Medication (Polyethylene Glycol 3350) 17 g PT QID [facility] Non-Formulary Medication (Cannabidiol (Cbd) Extract [Epidiolex]) 3 drp PT PRN PRN PRN Reason: Pain Non-Formulary Medication (Flexeril) 5 mg G-tube TID [facility] Ondansetron HCl (Zofran) 4 mg IV Q4HP PRN PRN Reason: Nausea And Vomiting Polyethylene Glycol (Miralax) 17 gm PO DAILYP PRN PRN Reason: Constipation Potassium Chloride (Kdur) 40 meq PO UD PRN PRN Reason: Potssium is 3-3.5 Potassium Chloride (Kdur) 40 meq PO UD PRN PRN Reason: Potassium < 3 Prochlorperazine (Compazine) 10 mg IV Q6HP PRN PRN Reason: Nausea And Vomiting Last Admin: 08/11/19 03:15 Dose: 10 mg Documented by: Promethazine HCl (Phenergan) [address] TID PRN PRN Reason: Pain Senna (Senokot) 2 tab PO DAILYP PRN PRN Reason: Constipation Sodium Chloride (Saline Flush) 10 ml IV Q8 [facility] Last Admin: 08/11/19 05:54 Dose: Not Given Documented by: Medical - PN: A/P - Time Spent With Patient Total time spent is greater than 50% in coordination of care (as documented) at patient's floor/unit and/or counseling patient: - Narrative A/P Narrative: A: *Sepsis: source most likely PICC, other source GI given h/o procedures. CXR/UA ok -PCT elevated, bandemia present -lactate ok *Hypotension: 2/2 above, resolved with IVF's *Volume Depletion: improved *WBC frequently elevated *Anemia, chronic: *Angelman syndrome/developmental delay: *GERD: *h/o N/V: *chronic sinus tach: improved *Dysphagia, with G-J tube: -on TPN P: -Zosyn, pending BC including culture via PICC -IVF's d/c today -Dr. Clark consulted -If PICC source of infection may benefit from port -medications via PEG -nutrition via PICC for now with continued TPN - -ppx: lovenox/home ppi DNR Medical - PN: Qual - Stroke Symptom Onset Unknown: No - VTE Deep Vein Thrombosis/Pulmonary Embolism Present on Admission: No
[2019-08-11] MEDS: ACETAMINOPHEN 650 MG/65 ML BOTTLE IV PRN ×2 (08:09→20:57)
[2019-08-11] MEDS: ENOXAPARIN 30 MG/0.3 ML SYRINGE SQ SCH (08:13)
[2019-08-11] MEDS: CYCLOBENZAPRINE 10 MG TABLET PT SCH ×3 (09:15→20:43)
[2019-08-11] MEDS: fentaNYL 25 MCG PATCH TOPICAL SCH (09:15)
[2019-08-11] MEDS: POLYETHYLENE GLYCOL 3350 17 GM PACKET PT SCH ×4 (09:15→20:43)
[2019-08-11] MEDS: 0.9 % SODIUM CHLORIDE 250 ML IV SCH ×2 (11:34→21:21)
[2019-08-11] MEDS: METOCLOPRAMIDE ORAL SOL 1 MG/ML ML PT SCH ×2 (12:21→17:51)
[2019-08-11] MEDS ORDERED: VANCOMYCIN PER PHARMACY IV SCH (15:08)
[2019-08-11] MEDS: DEXTROSE 5%-1/2NS W/20MEQ KCL 1,000 ML IV SCH (16:08)
[2019-08-11] MEDS: VANCOMYCIN 500 MG in 0.9 % SODIUM CHLORIDE 100 ML IV SCH ×2 (16:09→22:33)
[2019-08-12] MEDS: LORazepam 0.5 MG TABLET PO PRN ×2 (00:04→09:20)
[2019-08-12] MEDS: PIPERACILLIN SODIUM/TAZOBACTAM 3.375 GM in DEXTROSE 5% IN WATER 50 ML IV SCH ×3 (00:05→12:04)
[2019-08-12] MEDS: METOCLOPRAMIDE ORAL SOL 1 MG/ML ML PT SCH ×4 (00:05→16:55)
[2019-08-12] MEDS: ACETAMINOPHEN 650 MG/65 ML BOTTLE IV PRN ×3 (04:21→22:03)
[2019-08-12] MEDS: 0.9 % SODIUM CHLORIDE 10 ML SYRINGE IV SCH ×3 (05:19→22:04)
[2019-08-12 06:41] LABS: Hematocrit 31.2 % (40.1-51.0); Hemoglobin 9.4 g/dL (13.7-17.5); Mean Cell Volume 80.2 fL (80.0-100.0); Mean Corpuscular HGB Conc 30.1 g/dL (31.0-36.0); Mean Platelet Volume 11.1 fL (7.4-10.4); Platelet Count 184 K/mcL (140-440); RBC 3.89 M/mcL (4.63-6.08); Red Cell Distribution Width 19.9 % (11.5-14.5); WBC 6.2 K/mcL (4.50-11.00)
[2019-08-12 06:46] LABS: ALT/SGPT 53 U/l (0-40); AST/SGOT 34 U/l (0-37); Alkaline Phosphatase 50 U/L (39-117); Bilirubin,Total 0.7 mg/dL (0.0-1.0); Calcium 8.6 mg/dl (8.6-10.4); Carbon Dioxide 23 mmol/L (22-30); Chloride 102 mmol/L (96-108); Glucose 79 mg/dL (70-105); Lactate Dehydrogenase 172 U/L (94-250); Phosphorous 3.1 mg/dL (2.7-4.5); Triglycerides 85 mg/dl (<150)
[2019-08-12 06:58] LABS: Bilirubin,Direct 0.3 mg/dL (0.0-0.3); Blood Urea Nitrogen 4 mg/dl (6-20); Glomerular Filtration Rate 152; Uric Acid 0.9 mg/dL (2.5-8.0)
[2019-08-12] MEDS: VANCOMYCIN 500 MG in 0.9 % SODIUM CHLORIDE 100 ML IV SCH ×3 (07:28→23:10)
--- NOTE | 2019-08-12 07:46 | Internal Med Progress Note ---
Medical - PN: Subj Patient information: Note initiated : 08/12/19 at 7:44 am Service Date, if different from initiated Date: [] Patient: Raúl Hammond 23 y/o M admitted on 08/10/19 for Fever. Chief Complaint: [] Interval history: Mr. Hammond is a 23 year old M Presents the ED with brother after becoming more irritable and "whiny" and also developing a fever. Patient recently seen in the ED for pneumonia and was given antibiotics. Chest x-ray today shows improvement. However he is tachycardic and hypotensive. Procalcitonin is elevated. Lactate okay. White blood cell count elevated. No obvious source as urine and chest x-ray are okay. Source could be PICC line as most likely source. Could be GI with history of GI procedures but spec more likely from picc. He has been on TPN for about a month, PICC line placed at that time. Sinus tach in the ED. Still tachycardic but improved with IV fluids. Case discussed with Dr. Clark will follow along. Source likely pick patient may benefit from port. 08/10 Uneventful night. Did not need any levo fed. Peers to be comfortable in bed this morning with brother at bedside. Leukocytosis improved. Afebrile overnight. 08/11 Patient slept most the day yesterday and so was up quite a bit last night. Otherwise no overnight events events or new issues. Will start low rate tube feedings through the feeding tube this morning. Unable to gather review of systems given patient's chronic condition. - Constitutional Vitals: Vital Signs Temp Pulse Resp BP Pulse Ox 97.6 F 86 18 103/65 97 08/12/19 04:01 08/12/19 07:08 08/12/19 03:01 08/12/19 07:01 08/12/19 07:08 Period Temp Pulse Resp BP Sys/Lemus Pulse Ox Last 24 Hr 97.6 F-99.8 F 85-126 11-23 85-114/48-72 93-100 Intake and Output 08/11/19 08/12/19 08/12/19 21:59 05:59 13:59 Intake Total 535 275 Output Total 1 Balance 534 275 Weight 38.329 kg Intake & Output: Intake & Output 08/11/19 08/12/19 08/12/19 21:59 05:59 13:59 Intake Total 535 275 Output Total 1 Balance 534 275 Weight 38.329 kg Intake: IV 175 215 Zosyn 3.375 gm In Dextrose 5% 50 50 in Water 50 ml @ 100 mls/hr IV Q6H [facility] Rx#:[id number] Vancomycin 500 mg In Sodium 60 100 Chloride 0.9% 100 ml @ 100 mls/ hr IV Q8H [facility] Rx#:[id number] Tube Feeding 0 GI Tube Flush 360 60 Output: # of times incontinent of urine 1 Other: Stool Size Small Stool Color Green Stool Consistency Liquid Loose # Voids 1 1 Exam: General: Alert, Awake, No acute Distress Eyes/N/T: EOMI, Head/Neck: neck supple, CV: mildy Tachy but regular, No murmurs, Pulm: Clear b/l, no wheezing/rhonchi/rales Abd: soft, nontender, +BS x4, PEG site looks good Ext: no clubbing/cyanosis/edema Neuro: Alert, moves all extremities, does not verbalize skin: warm/dry Medical - PN: Obj Da - Labs CBC & Chem 7: 08/12/19 04:44 08/12/19 04:44 Labs: Abnormal Lab Results 08/12/19 08/12/19 08/11/19 04:44 04:44 05:00 WBC RBC 3.89 L Hgb 9.4 L Hct 31.2 L MCV MCH 24.2 L MCHC 30.1 L RDW 19.9 H MPV 11.1 H Gran % Lymph % (Auto) Gran # Lymph # (Auto) Band Neutrophils % Lymphocytes % RBC Morphology Hypochromasia Anisocytosis Microcytosis Ovalocytes ESR BUN 4 L Creatinine 0.5 L 0.4 L Uric Acid 0.9 L 0.7 L Calcium 7.9 L Total Bilirubin 1.1 H Direct Bilirubin 0.6 H GGT 104 H 77 H AST ALT 53 H 51 H C-Reactive Protein Total Protein 5.3 L Albumin 3.0 L 2.5 L Albumin/Globulin Ratio 0.9 L 08/11/19 08/10/19 08/10/19 05:00 16:35 16:35 WBC RBC 3.49 L Hgb 8.5 L Hct 27.6 L MCV 79.1 L MCH 24.4 L MCHC 30.8 L RDW 20.0 H MPV 11.1 H Gran % Lymph % (Auto) Gran # Lymph # (Auto) Band Neutrophils % 17 H Lymphocytes % 13 L RBC Morphology Abnorm A Hypochromasia Few A Anisocytosis 2+ A Microcytosis Few A Ovalocytes 1+ A ESR BUN 24 H Creatinine Uric Acid Calcium Total Bilirubin Direct Bilirubin GGT AST 51 H ALT 74 H C-Reactive Protein 1.1 H Total Protein Albumin Albumin/Globulin Ratio 08/10/19 16:35 WBC 13.8 H RBC Hgb 11.5 L Hct 37.1 L MCV 77.9 L MCH 24.2 L MCHC RDW 19.9 H MPV 10.8 H Gran % 90.6 H Lymph % (Auto) 3.6 L Gran # 12.52 H Lymph # (Auto) 0.50 L Band Neutrophils % Lymphocytes % RBC Morphology Hypochromasia Anisocytosis Microcytosis Ovalocytes ESR 23 H BUN Creatinine Uric Acid Calcium Total Bilirubin Direct Bilirubin GGT AST ALT C-Reactive Protein Total Protein Albumin Albumin/Globulin Ratio Meds: Medications Acetaminophen (Tylenol) 650 mg PO Q6HP PRN PRN Reason: PAIN/FEVER > 101 Albuterol/Ipratropium (Duoneb) 3 ml NEB Q4HP PRN PRN Reason: Shortness Of Breath Cyclobenzaprine HCl (Flexeril) 5 mg PT TID [facility] Last Admin: 08/11/19 20:43 Dose: 5 mg Documented by: Enoxaparin Sodium (Lovenox) 30 mg SQ DAILY [facility] Last Admin: 08/11/19 08:13 Dose: 30 mg Documented by: Famotidine (Pepcid) 20 mg IV Q12 [facility] Last Admin: 08/11/19 20:43 Dose: 20 mg Documented by: Fentanyl (Duragesic) 25 mcg TOPICAL Q72H [facility] Last Admin: 08/11/19 09:15 Dose: 25 mcg Documented by: Potassium Chloride 40 meq/ (Dextrose) 520 mls @ 130 mls/hr IV UD PRN PRN Reason: Potassium < 3 Magnesium Sulfate (Magnesium Sulfate) 2 gm in 50 mls @ 50 mls/hr IV UD PRN PRN Reason: Magnesium </= 1.6 Piperacillin Sod/Tazobactam (Sod 3.375 gm/ Dextrose) 50 mls @ 100 mls/hr IV Q6H [facility]; Protocol Last Admin: 08/12/19 05:18 Dose: 100 mls/hr Documented by: Norepinephrine Bitartrate 16 (mg/ Sodium Chloride) 250 mls @ 9.375 mls/hr IV Q24H [facility]; Protocol Last Admin: 08/11/19 20:30 Dose: Not Given Documented by: Sodium Chloride (Sodium Chloride 0.9%) 250 mls @ 20 mls/hr IV .[id number] [facility] Last Admin: 08/11/19 21:21 Dose: Not Given Documented by: Acetaminophen (Ofirmev) 650 mg in 65 mls @ 130 mls/hr IV Q6HP PRN; Protocol PRN Reason: PAIN/FEVER > 101 Last Infusion: 08/12/19 05:15 Dose: Infused Documented by: Potassium Chloride/Dextrose/Sod Cl (Dextrose 5%-1/2ns W/20meq Kcl) 1,000 mls @ 50 mls/hr IV .Q20H [facility] Last Admin: 08/11/19 16:08 Dose: 50 mls/hr Documented by: Vancomycin HCl 500 mg/ Sodium (Chloride) 100 mls @ 100 mls/hr IV Q8H [facility] Last Admin: 08/12/19 07:28 Dose: 100 mls/hr Documented by: Lorazepam (Ativan) 0.5 mg PO Q4HP PRN PRN Reason: Anxiety Last Admin: 08/12/19 00:04 Dose: 0.5 mg Documented by: Metoclopramide HCl (Reglan Oral Sabina) 10 mg PT Q6 [facility] Last Admin: 08/12/19 05:18 Dose: 10 mg Documented by: Ondansetron HCl (Zofran) 4 mg IV Q4HP PRN PRN Reason: Nausea And Vomiting Cannabidiol (Cbd) Extract [Epidiolex] 3 Drp 1 dose PO PRN PRN PRN Reason: Pain Polyethylene Glycol (Miralax) 17 gm PO DAILYP PRN PRN Reason: Constipation Polyethylene Glycol (Miralax) 17 gm PT QID [facility] Last Admin: 08/11/19 20:43 Dose: 17 gm Documented by: Potassium Chloride (Kdur) 40 meq PO UD PRN PRN Reason: Potssium is 3-3.5 Potassium Chloride (Kdur) 40 meq PO UD PRN PRN Reason: Potassium < 3 Prochlorperazine (Compazine) 10 mg IV Q6HP PRN PRN Reason: Nausea And Vomiting Last Admin: 08/11/19 03:15 Dose: 10 mg Documented by: Promethazine HCl (Phenergan) 25 mg [place] TIDP PRN PRN Reason: Pain Senna (Senokot) 2 tab PO DAILYP PRN PRN Reason: Constipation Sodium Chloride (Saline Flush) 10 ml IV Q8 [facility] Last Admin: 08/12/19 05:19 Dose: 10 ml Documented by: Vancomycin HCl (Vancomycin Per Pharmacy) 1 order IV UD [facility]; Protocol Medical - PN: A/P - Time Spent With Patient Total time spent is greater than 50% in coordination of care (as documented) at patient's floor/unit and/or counseling patient: - Narrative A/P Narrative: A: *MRSE (Methicillin Resistant Staph Epidermidis) Bacteremia: PICC source -echo *Sepsis: 2/2 above -PCT elevated but improving, bandemia resolved, lactate ok *Hypotension: 2/2 above, resolved with IVF's *Volume Depletion: improved *Anemia, chronic: *Angelman syndrome/developmental delay: *GERD: *h/o N/V: *chronic sinus tach: improved *Dysphagia, with G-J tube: -on TPN P: -Vanc/Zosyn(will d/c) -pending final BC including culture via PICC, PICC d/c'd and tip cultured -Dr. Clark consulted -pt will likely get port once BC's become negative -echo results pending -will d/w ID -d/c IVF's and start low dose TF's via feeding tube -medications via PEG -CM for needs -ppx: lovenox/home ppi DNR Medical - PN: Qual - Stroke Symptom Onset Unknown: No - VTE Deep Vein Thrombosis/Pulmonary Embolism Present on Admission: No
[2019-08-12 08:14] LABS: Anisocytosis 1+ (NONE SEEN); Band Neutrophils % 7 % (0-10); Basophils % (Manual) 1 % (0-2); Eosinophils % (Manual) 8 % (0-7); Hypochromasia FEW (NONE SEEN); Lymphocytes % 19 % (15-49); Monocytes % (Manual) 7 % (1-12); Ovalocytes FEW (NONE SEEN); Platelet Estimate NORMAL (NORMAL); Poikilocytosis FEW (NONE SEEN); Polychromasia 1+ (NONE SEEN); RBC Morphology ABNORM (NORMAL); Reactive Lymphocytes 1 % (0-2); Segmented Neutrophils % 57 % (38-78)
[2019-08-12] MEDS: CYCLOBENZAPRINE 10 MG TABLET PT SCH ×3 (09:20→22:01)
[2019-08-12] MEDS: POLYETHYLENE GLYCOL 3350 17 GM PACKET PT SCH ×4 (09:20→22:01)
[2019-08-12] MEDS: FAMOTIDINE/PF 20 MG/2 ML VIAL IV SCH ×2 (09:20→22:02)
[2019-08-12] MEDS: ENOXAPARIN 30 MG/0.3 ML SYRINGE SQ SCH (09:20)
[2019-08-12] MEDS: DEXTROSE 5%-1/2NS W/20MEQ KCL 1,000 ML IV SCH (11:18)
[2019-08-12] MEDS: 0.9 % SODIUM CHLORIDE 250 ML IV SCH (11:18)
[2019-08-12] MEDS: ONDANSETRON 4 MG/2 ML VIAL IV PRN (21:22)
[2019-08-12] MEDS: NOREPINEPHRINE BITARTRATE 16 MG in 0.9 % SODIUM CHLORIDE 234 ML IV SCH (23:09)
[2019-08-13] MEDS: METOCLOPRAMIDE ORAL SOL 1 MG/ML ML PT SCH ×5 (00:25→23:39)
[2019-08-13] MEDS: 0.9 % SODIUM CHLORIDE 250 ML IV SCH ×3 (00:26→23:39)
[2019-08-13] MEDS ORDERED: LORazepam 2 MG/ML VIAL ONE (00:26)
[2019-08-13] MEDS: PROCHLORPERAZINE 10 MG/2 ML VIAL IV PRN (05:58)
[2019-08-13] MEDS: 0.9 % SODIUM CHLORIDE 10 ML SYRINGE IV SCH ×3 (05:58→21:13)
[2019-08-13 06:45] LABS: Blood Urea Nitrogen 6 mg/dl (6-20); Calcium 8.9 mg/dl (8.6-10.4); Carbon Dioxide 24 mmol/L (22-30); Chloride 103 mmol/L (96-108); Glomerular Filtration Rate 152; Glucose 74 mg/dL (70-105)
[2019-08-13] MEDS: LORazepam 2 MG/ML VIAL ONE ×2 (06:45→07:28)
[2019-08-13] MEDS: ONDANSETRON 4 MG/2 ML VIAL IV PRN (06:51)
[2019-08-13] MEDS: LORazepam 2 MG/ML VIAL IV PRN ×3 (07:00→21:13)
[2019-08-13] MEDS ORDERED: NOREPINEPHRINE BITARTRATE 16 MG in 0.9 % SODIUM CHLORIDE 234 ML IV PRN (07:15)
[2019-08-13] MEDS: VANCOMYCIN 500 MG in 0.9 % SODIUM CHLORIDE 100 ML IV SCH ×3 (07:49→23:38)
[2019-08-13] MEDS: POLYETHYLENE GLYCOL 3350 17 GM PACKET PT SCH ×4 (10:35→21:13)
[2019-08-13] MEDS: ENOXAPARIN 30 MG/0.3 ML SYRINGE SQ SCH (10:35)
[2019-08-13] MEDS: FAMOTIDINE/PF 20 MG/2 ML VIAL IV SCH ×2 (10:35→21:12)
[2019-08-13] MEDS: CYCLOBENZAPRINE 10 MG TABLET PT SCH ×3 (10:35→21:12)
--- NOTE | 2019-08-13 11:01 | Internal Med Progress Note ---
Medical - PN: Subj Patient information: Note initiated : 08/13/19 at 10:57 am Service Date, if different from initiated Date: [] Patient: Raúl Hammond 23 y/o M admitted on 08/10/19 for Fever. Chief Complaint: [] Interval history: Mr. Hammond is a 23 year old M Presents the ED with brother after becoming more irritable and "whiny" and also developing a fever. Patient recently seen in the ED for pneumonia and was given antibiotics. Chest x-ray today shows improvement. However he is tachycardic and hypotensive. Procalcitonin is elevated. Lactate okay. White blood cell count elevated. No obvious source as urine and chest x-ray are okay. Source could be PICC line as most likely source. Could be GI with history of GI procedures but spec more likely from picc. He has been on TPN for about a month, PICC line placed at that time. Sinus tach in the ED. Still tachycardic but improved with IV fluids. Case discussed with Dr. Clark will follow along. Source likely pick patient may benefit from port. 08/10 Uneventful night. Did not need any levo fed. Peers to be comfortable in bed this morning with brother at bedside. Leukocytosis improved. Afebrile overnight. 08/11 Patient slept most the day yesterday and so was up quite a bit last night. Otherwise no overnight events events or new issues. Will start low rate tube feedings through the feeding tube this morning. 08/12-patient experiencing nausea following tube feeds. Discontinued. Await Port-A-Cath placement once blood cultures negative. Mother at bedside. No overnight events. No concerns per staff. Resting comfortably during my visit. - Constitutional Vitals: Vital Signs Temp Pulse Resp BP Pulse Ox 98.3 F 97 H 12 99/54 95 08/13/19 08:57 08/13/19 00:30 08/13/19 10:40 08/13/19 10:40 08/13/19 10:40 Period Temp Pulse Resp BP Sys/Lemus Pulse Ox Last 24 Hr 97.6 F-98.3 F 88-115 10-20 92-119/47-75 95-100 Intake and Output 08/12/19 08/13/19 08/13/19 21:59 05:59 13:59 Intake Total 200 402 Output Total 2 1 Balance 198 402 -1 Weight 83 lb 8 oz Intake & Output: Intake & Output 08/12/19 08/13/19 08/13/19 21:59 05:59 13:59 Intake Total 200 402 Output Total 2 1 Balance 198 402 -1 Weight 83 lb 8 oz Intake: IV 100 165 Vancomycin 500 mg In Sodium 100 100 Chloride 0.9% 100 ml @ 100 mls/ hr IV Q8H [facility] Rx#:[id number] Tube Feeding 100 177 GI Tube Flush 60 Output: # of times incontinent of urine 2 1 Other: Urine Color Dark Yellow Stool Size Moderate Stool Color Brown Green Stool Consistency Liquid # Unmeasured Emesis 2 # of times incontinent of 1 1 Bowels General appearance: no acute distress Exam: Alert oriented Nonlabored breathing No anxiety No pallor Medical - PN: Obj Da - Labs CBC & Chem 7: 08/12/19 04:44 08/13/19 05:05 Labs: Abnormal Lab Results 08/13/19 08/12/19 08/12/19 05:05 04:44 04:44 WBC RBC 3.89 L Hgb 9.4 L Hct 31.2 L MCV MCH 24.2 L MCHC 30.1 L RDW 19.9 H MPV 11.1 H Gran % Lymph % (Auto) Gran # Lymph # (Auto) Band Neutrophils % Lymphocytes % Eosinophils % (Manual) 8 H RBC Morphology Abnorm A Polychromasia 1+ A Hypochromasia Few A Poikilocytosis Few A Anisocytosis 1+ A Microcytosis Ovalocytes Few A ESR BUN 4 L Creatinine 0.5 L 0.5 L Uric Acid 0.9 L Calcium Total Bilirubin Direct Bilirubin GGT 104 H AST ALT 53 H C-Reactive Protein Total Protein Albumin 3.0 L Albumin/Globulin Ratio 08/11/19 08/11/19 08/10/19 05:00 05:00 16:35 WBC RBC 3.49 L Hgb 8.5 L Hct 27.6 L MCV 79.1 L MCH 24.4 L MCHC 30.8 L RDW 20.0 H MPV 11.1 H Gran % Lymph % (Auto) Gran # Lymph # (Auto) Band Neutrophils % 17 H Lymphocytes % 13 L Eosinophils % (Manual) RBC Morphology Abnorm A Polychromasia Hypochromasia Few A Poikilocytosis Anisocytosis 2+ A Microcytosis Few A Ovalocytes 1+ A ESR BUN Creatinine 0.4 L Uric Acid 0.7 L Calcium 7.9 L Total Bilirubin 1.1 H Direct Bilirubin 0.6 H GGT 77 H AST ALT 51 H C-Reactive Protein 1.1 H Total Protein 5.3 L Albumin 2.5 L Albumin/Globulin Ratio 0.9 L 08/10/19 08/10/19 16:35 16:35 WBC 13.8 H RBC Hgb 11.5 L Hct 37.1 L MCV 77.9 L MCH 24.2 L MCHC RDW 19.9 H MPV 10.8 H Gran % 90.6 H Lymph % (Auto) 3.6 L Gran # 12.52 H Lymph # (Auto) 0.50 L Band Neutrophils % Lymphocytes % Eosinophils % (Manual) RBC Morphology Polychromasia Hypochromasia Poikilocytosis Anisocytosis Microcytosis Ovalocytes ESR 23 H BUN 24 H Creatinine Uric Acid Calcium Total Bilirubin Direct Bilirubin GGT AST 51 H ALT 74 H C-Reactive Protein Total Protein Albumin Albumin/Globulin Ratio Meds: Medications Acetaminophen (Tylenol) 650 mg PO Q6HP PRN PRN Reason: PAIN/FEVER > 101 Albuterol/Ipratropium (Duoneb) 3 ml NEB Q4HP PRN PRN Reason: Shortness Of Breath Cyclobenzaprine HCl (Flexeril) 5 mg PT TID [facility] Last Admin: 08/13/19 10:35 Dose: 5 mg Documented by: Enoxaparin Sodium (Lovenox) 30 mg SQ DAILY [facility] Last Admin: 08/13/19 10:35 Dose: 30 mg Documented by: Famotidine (Pepcid) 20 mg IV Q12 [facility] Last Admin: 08/13/19 10:35 Dose: 20 mg Documented by: Fentanyl (Duragesic) 25 mcg TOPICAL Q72H [facility] Last Admin: 08/11/19 09:15 Dose: 25 mcg Documented by: Potassium Chloride 40 meq/ (Dextrose) 520 mls @ 130 mls/hr IV UD PRN PRN Reason: Potassium < 3 Magnesium Sulfate (Magnesium Sulfate) 2 gm in 50 mls @ 50 mls/hr IV UD PRN PRN Reason: Magnesium </= 1.6 Last Infusion: 08/12/19 11:58 Dose: Infused Documented by: Sodium Chloride (Sodium Chloride 0.9%) 250 mls @ 20 mls/hr IV .[id number] [facility] Last Admin: 08/13/19 00:26 Dose: Not Given Documented by: Acetaminophen (Ofirmev) 650 mg in 65 mls @ 130 mls/hr IV Q6HP PRN; Protocol PRN Reason: PAIN/FEVER > 101 Last Infusion: 08/12/19 22:33 Dose: Infused Documented by: Vancomycin HCl 500 mg/ Sodium (Chloride) 100 mls @ 100 mls/hr IV Q8H [facility] Last Admin: 08/13/19 07:49 Dose: 100 mls/hr Documented by: Norepinephrine Bitartrate 16 (mg/ Sodium Chloride) 250 mls @ 9.375 mls/hr IV Q24HP PRN; Protocol PRN Reason: Hypotension Lorazepam (Ativan) 0.5 mg IV Q4HP PRN PRN Reason: ANXIETY/SEDATION Last Admin: 08/13/19 07:00 Dose: 0.5 mg Documented by: Metoclopramide HCl (Reglan Oral Sabina) 10 mg PT Q6 [facility] Last Admin: 08/13/19 05:57 Dose: 10 mg Documented by: Ondansetron HCl (Zofran) 4 mg IV Q4HP PRN PRN Reason: Nausea And Vomiting Last Admin: 08/13/19 06:51 Dose: 4 mg Documented by: Cannabidiol (Cbd) Extract [Epidiolex] 3 Drp 1 dose PO PRN PRN PRN Reason: Pain Polyethylene Glycol (Miralax) 17 gm PO DAILYP PRN PRN Reason: Constipation Polyethylene Glycol (Miralax) 17 gm PT QID [facility] Last Admin: 08/13/19 10:35 Dose: 17 gm Documented by: Potassium Chloride (Kdur) 40 meq PO UD PRN PRN Reason: Potssium is 3-3.5 Potassium Chloride (Kdur) 40 meq PO UD PRN PRN Reason: Potassium < 3 Prochlorperazine (Compazine) 10 mg IV Q6HP PRN PRN Reason: Nausea And Vomiting Last Admin: 08/13/19 05:58 Dose: 10 mg Documented by: Promethazine HCl (Phenergan) 25 mg [place] TIDP PRN PRN Reason: Pain Last Admin: 08/13/19 01:13 Dose: 25 mg Documented by: Senna (Senokot) 2 tab PO DAILYP PRN PRN Reason: Constipation Sodium Chloride (Saline Flush) 10 ml IV Q8 [facility] Last Admin: 08/13/19 05:58 Dose: 10 ml Documented by: Vancomycin HCl (Vancomycin Per Pharmacy) 1 order IV UD [facility]; Protocol Medical - PN: A/P - Time Spent With Patient Total time spent is greater than 50% in coordination of care (as documented) at patient's floor/unit and/or counseling patient: 25 - 35 minutes - Narrative A/P Narrative: Assessment * MRSE (Methicillin Resistant Staph Epidermidis) Bacteremia: PICC source-echo results pending. * Sepsis: 2/2 above. Clinically resolved. White count normalized. Infected catheter discontinued. * Hypotension: 2/2 above, resolved with IVF's * Anemia, chronic * Angelman syndrome/developmental delay * GERD * h/o N/V * chronic sinus tach: Persistent * Dysphagia, with G-J tube:on TPN, however unable to tolerate tube feeds after central line discontinued. Await Port-A-Cath placement to reinitiate TPN. P: * Vanc, Zosyn(will d/c); will need 7-days of Vanco from first negative blood culture * pending final BC including culture via PICC, PICC d/c'd and tip cultured * Dr. Clark consulted for Port-A-Cath placement * DC tube feeds as unable to tolerate * medications via PEG * Discharge planning * Prophylaxis PPI/Lovenox Medical - PN: Qual - Stroke Symptom Onset Unknown: No - VTE Deep Vein Thrombosis/Pulmonary Embolism Present on Admission: No
[2019-08-13] MEDS: ACETAMINOPHEN 650 MG/65 ML BOTTLE IV PRN ×2 (15:39→23:40)
[2019-08-13] MEDS: DEXTROSE 10 % IN WATER 1,000 ML IV SCH (21:11)
[2019-08-14] MEDS: LORazepam 2 MG/ML VIAL IV PRN ×2 (03:50→09:03)
[2019-08-14] MEDS: 0.9 % SODIUM CHLORIDE 10 ML SYRINGE IV SCH ×3 (05:36→20:53)
[2019-08-14] MEDS: METOCLOPRAMIDE ORAL SOL 1 MG/ML ML PT SCH ×4 (05:46→23:19)
[2019-08-14] MEDS: VANCOMYCIN 500 MG in 0.9 % SODIUM CHLORIDE 100 ML IV SCH ×3 (07:00→23:19)
[2019-08-14 08:02] LABS: Basophils # (Auto) 0.01 K/mcL (0.00-0.30); Basophils % (Auto) 0.1 % (0.0-2.0); Eosinophils % (Auto) 1.8 % (0.0-7.0); Granulocytes % (Auto) 83.5 % (38.0-78.0); Hematocrit 29.2 % (40.1-51.0); Hemoglobin 9.3 g/dL (13.7-17.5); Lymphocytes # (Auto) 1.21 K/mcL (1.50-4.80); Lymphocytes % (Auto) 10.8 % (15.5-49.0); Mean Cell Volume 76.4 fL (80.0-100.0); Mean Corpuscular HGB Conc 31.8 g/dL (31.0-36.0); Mean Platelet Volume 10.9 fL (7.4-10.4); Monocytes # (Auto) 0.42 K/mcL (0.10-0.90); Monocytes % (Auto) 3.8 % (1.0-12.0); Platelet Count 239 K/mcL (140-440); RBC 3.82 M/mcL (4.63-6.08); Red Cell Distribution Width 19.3 % (11.5-14.5); WBC 11.2 K/mcL (4.50-11.00)
[2019-08-14 08:16] LABS: ALT/SGPT 33 U/l (0-40); AST/SGOT 16 U/l (0-37); Albumin 3.3 gm/dL (3.2-5.2); Albumin/Globulin Ratio 1.1 (1.0-2.3); Alkaline Phosphatase 98 U/L (39-117); Bilirubin,Total 0.5 mg/dL (0.0-1.0); Blood Urea Nitrogen 5 mg/dl (6-20); Calcium 8.8 mg/dl (8.6-10.4); Carbon Dioxide 27 mmol/L (22-30); Chloride 97 mmol/L (96-108); Globulin 3.1 gm/dL (2.2-3.7); Glomerular Filtration Rate 152; Glucose 157 mg/dL (70-105); Lactate Dehydrogenase 144 U/L (94-250); Phosphorous 3.3 mg/dL (2.7-4.5); Triglycerides 75 mg/dl (<150)
[2019-08-14 08:18] LABS: Bilirubin,Direct < 0.2 mg/dL (0.0-0.3); Uric Acid 3.2 mg/dL (2.5-8.0)
[2019-08-14] MEDS: DEXTROSE 10 % IN WATER 1,000 ML IV SCH (09:22)
[2019-08-14] MEDS: CYCLOBENZAPRINE 10 MG TABLET PT SCH ×3 (09:23→20:53)
[2019-08-14] MEDS: FAMOTIDINE/PF 20 MG/2 ML VIAL IV SCH ×2 (09:23→20:53)
[2019-08-14] MEDS: POLYETHYLENE GLYCOL 3350 17 GM PACKET PT SCH ×4 (09:23→20:53)
[2019-08-14] MEDS: ENOXAPARIN 30 MG/0.3 ML SYRINGE SQ SCH (09:23)
[2019-08-14] MEDS: fentaNYL 25 MCG PATCH TOPICAL SCH (12:26)
--- NOTE | 2019-08-14 14:23 | Internal Med Progress Note ---
Medical - PN: Subj Patient information: Note initiated : 08/14/19 at 2:20 pm Service Date, if different from initiated Date: [] Patient: Raúl Hammond 23 y/o M admitted on 08/10/19 for Fever. Chief Complaint: [] Interval history: Mr. Hammond is a 23 year old M Presents the ED with brother after becoming more irritable and "whiny" and also developing a fever. Patient recently seen in the ED for pneumonia and was given antibiotics. Chest x-ray today shows improvement. However he is tachycardic and hypotensive. Procalcitonin is elevated. Lactate okay. White blood cell count elevated. No obvious source as urine and chest x-ray are okay. Source could be PICC line as most likely source. Could be GI with history of GI procedures but spec more likely from picc. He has been on TPN for about a month, PICC line placed at that time. Sinus tach in the ED. Still tachycardic but improved with IV fluids. Case discussed with Dr. Clark will follow along. Source likely pick patient may benefit from port. 08/10 Uneventful night. Did not need any levo fed. Peers to be comfortable in bed this morning with brother at bedside. Leukocytosis improved. Afebrile overnight. 08/11 Patient slept most the day yesterday and so was up quite a bit last night. Otherwise no overnight events events or new issues. Will start low rate tube feedings through the feeding tube this morning. 08/12-patient experiencing nausea following tube feeds. Discontinued. Await Port-A-Cath placement once blood cultures negative. Mother at bedside. No overnight events. No concerns per staff. Resting comfortably during my visit. 08/13-patient failed attempts at tube feeds. Persistent nausea. Starting peripheral IV nutrition. White count 11.2. Tachycardia improved. Mother at bedside. No overnight events. No concerns per staff. - Constitutional Vitals: Vital Signs Temp Pulse Resp BP Pulse Ox 98.1 F 110 H 20 120/83 98 08/14/19 14:00 08/14/19 14:00 08/14/19 14:00 08/14/19 14:00 08/14/19 14:00 Period Temp Pulse Resp BP Sys/Lemus Pulse Ox Last 24 Hr 97.8 F-99 F 108-123 12-20 99-120/61-89 94-98 Intake and Output 08/14/19 08/14/19 08/14/19 05:59 13:59 21:59 Intake Total 225 1100 Output Total 3 Balance 225 1097 Intake & Output: Intake & Output 08/14/19 08/14/19 08/14/19 05:59 13:59 21:59 Intake Total 225 1100 Output Total 3 Balance 225 1097 Intake: IV 165 1100 Dextrose 10%-Water IV Solution 1000 1,000 ml @ 100 mls/hr IV .Q10H [facility] Rx#:[id number] Vancomycin 500 mg In Sodium 100 100 Chloride 0.9% 100 ml @ 100 mls/ hr IV Q8H [facility] Rx#:[id number] Tube Feeding 0 0 GI Tube Flush 60 Output: # of times incontinent of urine 3 Other: Urine Color Dark Yellow Stool Size Moderate Stool Color Brown Green Stool Consistency Liquid # Voids 2 General appearance: no acute distress Exam: Resting comfortably Nonlabored breathing No anxiety Medical - PN: Obj Da - Labs CBC & Chem 7: 08/14/19 07:18 08/14/19 07:18 Labs: Abnormal Lab Results 08/14/19 08/14/19 08/13/19 07:18 07:18 05:05 WBC 11.2 H RBC 3.82 L Hgb 9.3 L Hct 29.2 L MCV 76.4 L MCH 24.3 L MCHC RDW 19.3 H MPV 10.9 H Gran % 83.5 H Lymph % (Auto) 10.8 L Gran # 9.33 H Lymph # (Auto) 1.21 L Eosinophils % (Manual) RBC Morphology Polychromasia Hypochromasia Poikilocytosis Anisocytosis Ovalocytes Sodium 132 L BUN 5 L Creatinine 0.5 L 0.5 L Glucose 157 H Uric Acid GGT 90 H ALT Albumin 08/12/19 08/12/19 04:44 04:44 WBC RBC 3.89 L Hgb 9.4 L Hct 31.2 L MCV MCH 24.2 L MCHC 30.1 L RDW 19.9 H MPV 11.1 H Gran % Lymph % (Auto) Gran # Lymph # (Auto) Eosinophils % (Manual) 8 H RBC Morphology Abnorm A Polychromasia 1+ A Hypochromasia Few A Poikilocytosis Few A Anisocytosis 1+ A Ovalocytes Few A Sodium BUN 4 L Creatinine 0.5 L Glucose Uric Acid 0.9 L GGT 104 H ALT 53 H Albumin 3.0 L Meds: Medications Acetaminophen (Tylenol) 650 mg PO Q6HP PRN PRN Reason: PAIN/FEVER > 101 Albuterol/Ipratropium (Duoneb) 3 ml NEB Q4HP PRN PRN Reason: Shortness Of Breath Cyclobenzaprine HCl (Flexeril) 5 mg PT TID [facility] Last Admin: 08/14/19 09:23 Dose: 5 mg Documented by: Enoxaparin Sodium (Lovenox) 30 mg SQ DAILY [facility] Last Admin: 08/14/19 09:23 Dose: 30 mg Documented by: Famotidine (Pepcid) 20 mg IV Q12 [facility] Last Admin: 08/14/19 09:23 Dose: 20 mg Documented by: Fentanyl (Duragesic) 25 mcg TOPICAL Q72H [facility] Last Admin: 08/14/19 12:26 Dose: 25 mcg Documented by: Potassium Chloride 40 meq/ (Dextrose) 520 mls @ 130 mls/hr IV UD PRN PRN Reason: Potassium < 3 Magnesium Sulfate (Magnesium Sulfate) 2 gm in 50 mls @ 50 mls/hr IV UD PRN PRN Reason: Magnesium </= 1.6 Last Infusion: 08/12/19 11:58 Dose: Infused Documented by: Sodium Chloride (Sodium Chloride 0.9%) 250 mls @ 20 mls/hr IV .[id number] [facility] Last Admin: 08/13/19 23:39 Dose: Not Given Documented by: Acetaminophen (Ofirmev) 650 mg in 65 mls @ 130 mls/hr IV Q6HP PRN; Protocol PRN Reason: PAIN/FEVER > 101 Last Infusion: 08/14/19 00:22 Dose: Infused Documented by: Vancomycin HCl 500 mg/ Sodium (Chloride) 100 mls @ 100 mls/hr IV Q8H [facility] Last Infusion: 08/14/19 08:10 Dose: Infused Documented by: Norepinephrine Bitartrate 16 (mg/ Sodium Chloride) 250 mls @ 9.375 mls/hr IV Q24HP PRN; Protocol PRN Reason: Hypotension Dextrose (Dextrose 10%-Water Iv Solution) 1,000 mls @ 100 mls/hr IV .Q10H [facility] Stop: 08/14/19 15:59 Last Admin: 08/14/19 09:22 Dose: 100 mls/hr Documented by: Lorazepam (Ativan) 0.5 mg IV Q4HP PRN PRN Reason: ANXIETY/SEDATION Last Admin: 08/14/19 09:03 Dose: 0.5 mg Documented by: Metoclopramide HCl (Reglan Oral Sabina) 10 mg PT Q6 [facility] Last Admin: 08/14/19 12:26 Dose: 10 mg Documented by: Ondansetron HCl (Zofran) 4 mg IV Q4HP PRN PRN Reason: Nausea And Vomiting Last Admin: 08/13/19 06:51 Dose: 4 mg Documented by: Cannabidiol (Cbd) Extract [Epidiolex] 3 Drp 1 dose PO PRN PRN PRN Reason: Pain Polyethylene Glycol (Miralax) 17 gm PO DAILYP PRN PRN Reason: Constipation Polyethylene Glycol (Miralax) 17 gm PT QID [facility] Last Admin: 08/14/19 12:25 Dose: 17 gm Documented by: Potassium Chloride (Kdur) 40 meq PO UD PRN PRN Reason: Potssium is 3-3.5 Potassium Chloride (Kdur) 40 meq PO UD PRN PRN Reason: Potassium < 3 Prochlorperazine (Compazine) 10 mg IV Q6HP PRN PRN Reason: Nausea And Vomiting Last Admin: 08/13/19 05:58 Dose: 10 mg Documented by: Promethazine HCl (Phenergan) 25 mg OR TIDP PRN PRN Reason: Pain Last Admin: 08/13/19 01:13 Dose: 25 mg Documented by: Senna (Senokot) 2 tab PO DAILYP PRN PRN Reason: Constipation Sodium Chloride (Saline Flush) 10 ml IV Q8 [facility] Last Admin: 08/14/19 05:36 Dose: Not Given Documented by: Vancomycin HCl (Vancomycin Per Pharmacy) 1 order IV UD [facility]; Protocol Medical - PN: A/P - Time Spent With Patient Total time spent is greater than 50% in coordination of care (as documented) at patient's floor/unit and/or counseling patient: 25 - 35 minutes - Narrative A/P Narrative: Assessment * MRSE (Methicillin Resistant Staph Epidermidis) Bacteremia: PICC source-echo EF 60%, no vegetations identified. Recommends transesophageal echocardiogram. Last positive blood culture 315. 3/16 blood cultures negative so far. * Sepsis: 2/2 above. Clinically resolved. White count normalized. Infected catheter discontinued. * Hypotension: 2/2 above, resolved with IVF's * Anemia, chronic stable * Angelman syndrome/developmental delay * GERD on PPI * h/o N/V with attempts at tube feeds. * chronic sinus tach: Persistent * Dysphagia, with G-J tube:on TPN, however unable to tolerate tube feeds after central line discontinued. Await Port-A-Cath placement. Continued TPN * Parenteral nutrition via peripheral line. P: * Vanc, Zosyn(will d/c); will need 7-days of Vanco from first negative blood culture * Dr. Clark consulted for Port-A-Cath placement * Peripheral nutrition * Continue medications via PEG * Discharge planning after negative blood culture and Port-A-Cath placement * Prophylaxis PPI/Lovenox Medical - PN: Qual - Stroke Symptom Onset Unknown: No - VTE Deep Vein Thrombosis/Pulmonary Embolism Present on Admission: No
[2019-08-14] MEDS ORDERED: TPN PER PHARMACY IV SCH (14:55)
[2019-08-14] MEDS ORDERED: FAT EMULSION 20% 250 ML IV SCH (16:00)
[2019-08-14 16:08] LABS: ALT/SGPT 31 U/l (0-40); AST/SGOT 17 U/l (0-37); Albumin 3.3 gm/dL (3.2-5.2); Alkaline Phosphatase 100 U/L (39-117); Bilirubin,Direct < 0.2 mg/dL (0.0-0.3); Bilirubin,Total 0.5 mg/dL (0.0-1.0); Calcium 8.8 mg/dl (8.6-10.4); Carbon Dioxide 26 mmol/L (22-30); Chloride 97 mmol/L (96-108); Globulin 3.2 gm/dL (2.2-3.7); Glomerular Filtration Rate 152; Glucose 150 mg/dL (70-105); Lactate Dehydrogenase 168 U/L (94-250); Phosphorous 3.5 mg/dL (2.7-4.5); Prealbumin 12.4 mg/dl (20-40); Triglycerides 63 mg/dl (<150); Uric Acid 3.1 mg/dL (2.5-8.0)
[2019-08-14] MEDS: 0.9 % SODIUM CHLORIDE 250 ML IV SCH (16:10)
[2019-08-14 16:11] LABS: Blood Urea Nitrogen 3 mg/dl (6-20)
[2019-08-14] MEDS ORDERED: MAGNESIUM SULFATE IV SCH (18:00)
[2019-08-14] MEDS ORDERED: SODIUM CHLORIDE IV SCH (18:00)
[2019-08-14] MEDS ORDERED: [UNRECOGNIZED DRUG - OTHER] IV SCH (18:00)
[2019-08-14] MEDS ORDERED: CALCIUM GLUCONATE IV SCH (18:00)
[2019-08-14] MEDS: PROCHLORPERAZINE 10 MG/2 ML VIAL IV PRN (22:12)
[2019-08-15] MEDS: 0.9 % SODIUM CHLORIDE 250 ML IV SCH ×3 (01:08→21:22)
[2019-08-15] MEDS: LORazepam 2 MG/ML VIAL IV PRN ×2 (01:29→21:52)
[2019-08-15] MEDS: METOCLOPRAMIDE ORAL SOL 1 MG/ML ML PT SCH ×3 (05:46→18:58)
[2019-08-15] MEDS: 0.9 % SODIUM CHLORIDE 10 ML SYRINGE IV SCH ×3 (05:47→21:24)
[2019-08-15 05:58] LABS: Basophils # (Auto) 0.01 K/mcL (0.00-0.30); Basophils % (Auto) 0.1 % (0.0-2.0); Eosinophils # (Auto) 0.54 K/mcL (0.00-0.70); Eosinophils % (Auto) 7.1 % (0.0-7.0); Granulocytes % (Auto) 59.3 % (38.0-78.0); Hematocrit 31.5 % (40.1-51.0); Hemoglobin 9.8 g/dL (13.7-17.5); Lymphocytes # (Auto) 1.99 K/mcL (1.50-4.80); Lymphocytes % (Auto) 26.1 % (15.5-49.0); Mean Cell Volume 78.6 fL (80.0-100.0); Mean Corpuscular HGB Conc 31.1 g/dL (31.0-36.0); Mean Platelet Volume 11.1 fL (7.4-10.4); Monocytes # (Auto) 0.56 K/mcL (0.10-0.90); Monocytes % (Auto) 7.4 % (1.0-12.0); Platelet Count 277 K/mcL (140-440); RBC 4.01 M/mcL (4.63-6.08); Red Cell Distribution Width 19.6 % (11.5-14.5); WBC 7.6 K/mcL (4.50-11.00)
[2019-08-15 06:07] LABS: ALT/SGPT 32 U/l (0-40); AST/SGOT 22 U/l (0-37); Albumin 3.3 gm/dL (3.2-5.2); Alkaline Phosphatase 104 U/L (39-117); Bilirubin,Direct < 0.2 mg/dL (0.0-0.3); Bilirubin,Total 0.3 mg/dL (0.0-1.0); Calcium 9.2 mg/dl (8.6-10.4); Carbon Dioxide 27 mmol/L (22-30); Chloride 103 mmol/L (96-108); Globulin 3.3 gm/dL (2.2-3.7); Glomerular Filtration Rate 152; Glucose 96 mg/dL (70-105); Lactate Dehydrogenase 166 U/L (94-250); Triglycerides 60 mg/dl (<150); Uric Acid 2.7 mg/dL (2.5-8.0)
[2019-08-15 06:15] LABS: Blood Urea Nitrogen 2 mg/dl (6-20); Phosphorous 4.6 mg/dL (2.7-4.5)
[2019-08-15] MEDS: VANCOMYCIN 500 MG in 0.9 % SODIUM CHLORIDE 100 ML IV SCH ×3 (07:08→23:44)
[2019-08-15] MEDS ORDERED: MAGNESIUM SULFATE 2 GM/50 ML BAG IV PRN (07:53)
[2019-08-15] MEDS ORDERED: VANCOMYCIN PER PHARMACY IV SCH (07:53)
[2019-08-15] MEDS ORDERED: POTASSIUM CHLORIDE 20 MEQ TABLET PO PRN ×2 (07:53)
[2019-08-15] MEDS ORDERED: SENNOSIDES 1 TABLET PO PRN (07:53)
[2019-08-15] MEDS ORDERED: PROMETHAZINE 25 MG SUPP.RECT PR PRN (07:53)
[2019-08-15] MEDS ORDERED: ACETAMINOPHEN 325 MG TABLET PO PRN (07:53)
[2019-08-15] MEDS ORDERED: PROCHLORPERAZINE 10 MG/2 ML VIAL IV PRN (07:53)
[2019-08-15] MEDS ORDERED: POTASSIUM CHLORIDE 40 MEQ in DEXTROSE 5% IN WATER 500 ML IV PRN (07:53)
[2019-08-15] MEDS ORDERED: NOREPINEPHRINE BITARTRATE 16 MG in 0.9 % SODIUM CHLORIDE 234 ML IV PRN (07:53)
[2019-08-15] MEDS ORDERED: TPN PER PHARMACY IV SCH (07:53)
[2019-08-15] MEDS ORDERED: CANNABIDIOL PO PRN (07:53)
[2019-08-15] MEDS ORDERED: ONDANSETRON 4 MG/2 ML VIAL IV PRN (07:53)
[2019-08-15] MEDS ORDERED: POLYETHYLENE GLYCOL 3350 17 GM PACKET PO PRN (07:53)
[2019-08-15] MEDS ORDERED: IPRATROPIUM/ALBUTEROL 3 ML AMPUL.NEB NEB PRN (07:53)
[2019-08-15] MEDS: ACETAMINOPHEN 650 MG/65 ML BOTTLE IV PRN ×2 (09:12→15:46)
[2019-08-15] MEDS: CYCLOBENZAPRINE 10 MG TABLET PT SCH ×3 (12:30→21:22)
[2019-08-15] MEDS: FAMOTIDINE/PF 20 MG/2 ML VIAL IV SCH ×2 (12:31→21:23)
[2019-08-15] MEDS: ENOXAPARIN 30 MG/0.3 ML SYRINGE SQ SCH (12:32)
[2019-08-15] MEDS: POLYETHYLENE GLYCOL 3350 17 GM PACKET PT SCH ×4 (12:33→23:44)
[2019-08-15] MEDS ORDERED: FAT EMULSION 20% 250 ML IV SCH ×2 (16:00)
--- NOTE | 2019-08-15 16:24 | Internal Med Progress Note ---
Medical - PN: Subj Patient information: Note initiated : 08/15/19 at 4:24 pm Service Date, if different from initiated Date: [] Patient: Raúl Hammond 23 y/o M admitted on 08/10/19 for Fever. Chief Complaint: [] Interval history: Mr. Hammond is a 23 year old M Presents the ED with brother after becoming more irritable and "whiny" and also developing a fever. Patient recently seen in the ED for pneumonia and was given antibiotics. Chest x-ray today shows improvement. However he is tachycardic and hypotensive. Procalcitonin is elevated. Lactate okay. White blood cell count elevated. No obvious source as urine and chest x-ray are okay. Source could be PICC line as most likely source. Could be GI with history of GI procedures but spec more likely from picc. He has been on TPN for about a month, PICC line placed at that time. Sinus tach in the ED. Still tachycardic but improved with IV fluids. Case discussed with Dr. Clark will follow along. Source likely pick patient may benefit from port. 08/10 Uneventful night. Did not need any levo fed. Peers to be comfortable in bed this morning with brother at bedside. Leukocytosis improved. Afebrile overnight. 08/11 Patient slept most the day yesterday and so was up quite a bit last night. Otherwise no overnight events events or new issues. Will start low rate tube feedings through the feeding tube this morning. 08/12-patient experiencing nausea following tube feeds. Discontinued. Await Port-A-Cath placement once blood cultures negative. Mother at bedside. No overnight events. No concerns per staff. Resting comfortably during my visit. 08/13-patient failed attempts at tube feeds. Persistent nausea. Starting peripheral IV nutrition. White count 11.2. Tachycardia improved. Mother at bedside. No overnight events. No concerns per staff. 08/14-patient doing well. No overnight events. Blood cultures negative so far. Will likely undergo Port-A-Cath placement on Monday. On the peripheral parenteral nutrition. Family at bedside. - Constitutional Vitals: Vital Signs Temp Pulse Resp BP Pulse Ox 97.9 F 98 H 18 118/74 93 08/15/19 15:58 08/15/19 15:58 08/15/19 15:58 08/15/19 15:58 08/15/19 15:58 Period Temp Pulse Resp BP Sys/Lemus Pulse Ox Last 24 Hr 97.5 F-98.6 F 90-100 16-20 106-118/66-74 93-100 Intake and Output 08/15/19 08/15/19 08/15/19 05:59 13:59 21:59 Intake Total 1140 185 Output Total 4 2 Balance 1136 183 Intake & Output: Intake & Output 08/15/19 08/15/19 08/15/19 05:59 13:59 21:59 Intake Total 1140 185 Output Total 4 2 Balance 1136 183 Intake: IV 1100 65 Dextrose 10%-Water IV Solution 1000 1,000 ml @ 100 mls/hr IV .Q10H [facility] Rx#:[id number] Vancomycin 500 mg In Sodium 100 Chloride 0.9% 100 ml @ 100 mls/ hr IV Q8H [facility] Rx#:[id number] Tube Feeding 0 0 GI Tube Flush 40 120 Output: # of times incontinent of urine 4 2 Other: Urine Color Dark Yellow Stool Size Moderate Stool Color Green Stool Consistency Liquid Watery General appearance: no acute distress Exam: Resting comfortably. No anxiety Mild pallor Medical - PN: Obj Da - Labs CBC & Chem 7: 08/15/19 04:35 08/15/19 04:35 Labs: Abnormal Lab Results 08/15/19 08/15/19 08/14/19 04:35 04:35 14:45 WBC RBC 4.01 L Hgb 9.8 L Hct 31.5 L MCV 78.6 L MCH 24.4 L RDW 19.6 H MPV 11.1 H Gran % Lymph % (Auto) Eos % (Auto) 7.1 H Gran # Lymph # (Auto) Sodium BUN 2 L 3 L Creatinine 0.5 L 0.5 L Glucose 150 H Phosphorus 4.6 H GGT 88 H 93 H Prealbumin 12.4 L 08/14/19 08/14/19 08/13/19 07:18 07:18 05:05 WBC 11.2 H RBC 3.82 L Hgb 9.3 L Hct 29.2 L MCV 76.4 L MCH 24.3 L RDW 19.3 H MPV 10.9 H Gran % 83.5 H Lymph % (Auto) 10.8 L Eos % (Auto) Gran # 9.33 H Lymph # (Auto) 1.21 L Sodium 132 L BUN 5 L Creatinine 0.5 L 0.5 L Glucose 157 H Phosphorus GGT 90 H Prealbumin Meds: Medications Acetaminophen (Tylenol) 650 mg PO Q6HP PRN PRN Reason: PAIN/FEVER > 101 Albuterol/Ipratropium (Duoneb) 3 ml NEB Q4HP PRN PRN Reason: Shortness Of Breath Cyclobenzaprine HCl (Flexeril) 5 mg PT TID [facility] Last Admin: 08/15/19 15:45 Dose: 5 mg Documented by: Enoxaparin Sodium (Lovenox) 30 mg SQ DAILY [facility] Last Admin: 08/15/19 12:32 Dose: 30 mg Documented by: Famotidine (Pepcid) 20 mg IV Q12 [facility] Last Admin: 08/15/19 12:31 Dose: 20 mg Documented by: Fentanyl (Duragesic) 25 mcg TOPICAL Q72H [facility] Fat Emulsion Intravenous (Intralipid 20%) 250 mls @ 25 mls/hr IV DAILY@1600 [facility] Potassium Chloride 40 meq/ (Dextrose) 520 mls @ 130 mls/hr IV UD PRN PRN Reason: Potassium < 3 Magnesium Sulfate (Magnesium Sulfate) 2 gm in 50 mls @ 50 mls/hr IV UD PRN PRN Reason: Magnesium </= 1.6 Norepinephrine Bitartrate 16 (mg/ Sodium Chloride) 250 mls @ 9.375 mls/hr IV Q24HP PRN; Protocol PRN Reason: Hypotension Sodium Chloride (Sodium Chloride 0.9%) 250 mls @ 20 mls/hr IV .[id number] [facility] Last Admin: 08/15/19 13:55 Dose: 20 mls/hr Documented by: Acetaminophen (Ofirmev) 650 mg in 65 mls @ 130 mls/hr IV Q6HP PRN; Protocol PRN Reason: PAIN/FEVER > 101 Last Admin: 08/15/19 15:46 Dose: 130 mls/hr Documented by: Vancomycin HCl 500 mg/ Sodium (Chloride) 100 mls @ 100 mls/hr IV Q8H [facility] Last Admin: 08/15/19 15:32 Dose: 100 mls/hr Documented by: Calcium Gluconate 5 meq/Magnesium Sulfate 8.12 meq/Sodium Chloride 30 meq/Potassium Chloride 30 meq/Multivitamins/Minerals 10 ml/Sterile Water 1,000 ml/ Amino Acids 2,045.2526 mls @ 70 mls/hr IV Q24H [facility] Lorazepam (Ativan) 0.5 mg IV Q4HP PRN PRN Reason: ANXIETY/SEDATION Metoclopramide HCl (Reglan Oral Sabina) 10 mg PT Q6 [facility] Last Admin: 08/15/19 13:32 Dose: 10 mg Documented by: Ondansetron HCl (Zofran) 4 mg IV Q4HP PRN PRN Reason: Nausea And Vomiting Cannabidiol (Cbd) (Extract 3 Drp) 1 dose PO PRN PRN PRN Reason: Pain Polyethylene Glycol (Miralax) 17 gm PT QID [facility] Last Admin: 08/15/19 14:06 Dose: 17 gm Documented by: Potassium Chloride (Kdur) 40 meq PO UD PRN PRN Reason: Potssium is 3-3.5 Potassium Chloride (Kdur) 40 meq PO UD PRN PRN Reason: Potassium < 3 Prochlorperazine (Compazine) 10 mg IV Q6HP PRN PRN Reason: Nausea And Vomiting Promethazine HCl (Phenergan) 25 mg ME TIDP PRN PRN Reason: Pain Senna (Senokot) 2 tab PO DAILYP PRN PRN Reason: Constipation Sodium Chloride (Saline Flush) 10 ml IV Q8 [facility] Last Admin: 08/15/19 14:05 Dose: 10 ml Documented by: Vancomycin HCl (Vancomycin Per Pharmacy) 1 order IV UD [facility]; Protocol Medical - PN: A/P - Time Spent With Patient Total time spent is greater than 50% in coordination of care (as documented) at patient's floor/unit and/or counseling patient: 25 - 35 minutes - Narrative A/P Narrative: Assessment * MRSE (Methicillin Resistant Staph Epidermidis) Bacteremia: PICC source-echo EF 60%, no vegetations identified. ID recommends transesophageal ec hocardiogram. Last positive blood culture 08/10. 08/11 blood cultures negative so far. * Sepsis: 2/2 above. Clinically resolved. White count normalized. Infected catheter discontinued. * Hypotension: 2/2 above, resolved with IVF's * Anemia, chronic stable * Angelman syndrome/developmental delay * GERD on PPI * h/o N/V with attempts at tube feeds. * chronic sinus tach: Persistent * Dysphagia, with G-J tube:on TPN, however unable to tolerate tube feeds after central line discontinued. Await Port-A-Cath placement. Continue peripheral parenteral nutrition * Parenteral nutrition via peripheral line. P: * Vanc, Zosyn(will d/c); will need 7-days of Vanco from first negative blood culture * Port-A-Cath placement likely Monday by surgery * Peripheral nutrition * Continue medications via PEG * Discharge planning after negative blood culture and Port-A-Cath placement * Prophylaxis PPI/Lovenox Medical - PN: Qual - Stroke Symptom Onset Unknown: No - VTE Deep Vein Thrombosis/Pulmonary Embolism Present on Admission: No
[2019-08-15] MEDS: FAT EMULSION 20% 250 ML IV SCH (17:40)
[2019-08-15] MEDS ORDERED: CALCIUM GLUCONATE IV SCH ×2 (18:00)
[2019-08-15] MEDS ORDERED: SODIUM CHLORIDE IV SCH ×2 (18:00)
[2019-08-15] MEDS ORDERED: [UNRECOGNIZED DRUG - OTHER] IV SCH ×2 (18:00)
[2019-08-15] MEDS ORDERED: MAGNESIUM SULFATE IV SCH ×2 (18:00)
[2019-08-16] MEDS: METOCLOPRAMIDE ORAL SOL 1 MG/ML ML PT SCH ×4 (00:48→17:40)
[2019-08-16] MEDS: ACETAMINOPHEN 650 MG/65 ML BOTTLE IV PRN ×2 (00:56→11:48)
[2019-08-16] MEDS: 0.9 % SODIUM CHLORIDE 10 ML SYRINGE IV SCH ×3 (05:05→20:01)
[2019-08-16] MEDS: LORazepam 2 MG/ML VIAL IV PRN ×2 (06:01→20:48)
[2019-08-16] MEDS: VANCOMYCIN 500 MG in 0.9 % SODIUM CHLORIDE 100 ML IV SCH ×3 (06:52→22:56)
[2019-08-16 07:42] LABS: ALT/SGPT 28 U/l (0-40); AST/SGOT 21 U/l (0-37); Albumin 3.2 gm/dL (3.2-5.2); Alkaline Phosphatase 112 U/L (39-117); Bilirubin,Direct < 0.2 mg/dL (0.0-0.3); Bilirubin,Total 0.2 mg/dL (0.0-1.0); Calcium 8.8 mg/dl (8.6-10.4); Carbon Dioxide 26 mmol/L (22-30); Chloride 102 mmol/L (96-108); Globulin 3.2 gm/dL (2.2-3.7); Glomerular Filtration Rate 152; Glucose 102 mg/dL (70-105); Lactate Dehydrogenase 161 U/L (94-250); Phosphorous 4.4 mg/dL (2.7-4.5); Triglycerides 67 mg/dl (<150); Uric Acid 2.3 mg/dL (2.5-8.0)
[2019-08-16 07:49] LABS: Blood Urea Nitrogen 3 mg/dl (6-20)
[2019-08-16] MEDS: FAMOTIDINE/PF 20 MG/2 ML VIAL IV SCH ×2 (10:01→20:00)
[2019-08-16] MEDS: POLYETHYLENE GLYCOL 3350 17 GM PACKET PT SCH ×4 (10:01→19:57)
[2019-08-16] MEDS: CYCLOBENZAPRINE 10 MG TABLET PT SCH ×3 (10:02→19:57)
[2019-08-16] MEDS: ENOXAPARIN 30 MG/0.3 ML SYRINGE SQ SCH (10:02)
--- NOTE | 2019-08-16 13:48 | General Surgery Consult Note ---
History of Present Illness Patient information: Note initiated : 08/16/19 at 1:46 pm Service Date, if different from initiated Date: [] Patient: Raúl Hammond 23 y/o M admitted on 08/10/19 for Fever. Chief Complaint: [] Reason for consult: other (inadequate venous access) History of present illness: Patient with multiple comorbidities with difficulty with gastroparesis and inability to place gastrojejunal tube. Patient has been on TPN via PICC line, but developed sepsis. He has had 4 days of negative blood cultures and is being seen for placement of a port. This was discussed with his brother and plans were made for the port to be placed tomorrow. Medications and Allergies Home Medications Medication Instructions Recorded Confirmed Type polyethylene glycol 3350 17 17 g PT QID 03/06/15 08/10/19 History gram/dose oral powder omeprazole 20 mg tablet,delayed 20 mg PT BID tab 04/04/19 08/10/19 History release Cannabidiol (Cbd) Extract 3 drp PT PRN PRN 05/02/19 08/10/19 History [Epidiolex] Promethazine [Phenergan] 25 mg CA TID PRN 05/02/19 08/10/19 History Ondansetron [Zofran ODT] 4 mg SL Q4-6HP PRN #10 tab 05/15/19 08/10/19 Rx Metoclopramide Oral Sabina [Reglan 10 mg PT Q6 05/20/19 08/10/19 History Oral Sabina] LORazepam [Ativan] 0.5 mg PO Q4HP PRN #90 tab 07/05/19 08/10/19 Rx Lancets [Trueplus Lancet] 1 each MC Q6-12HP PRN #100 each 07/05/19 08/10/19 Rx Flexeril 5 mg G-TUBE TID 07/20/19 08/10/19 History Amoxicillin/Clavulanate [Augmentin] 400 mg PO Q12H #100 ml 08/01/19 08/10/19 Rx fentanyl 25 mcg/hr transdermal 25 mcg TRANSDERMA Q3D #10 08/07/19 08/10/19 Rx patch patch.td72 Ferrous Sulfate [Iron] 08/10/19 History TPN Electrolytes II IV Soln 1,200 ml 08/10/19 History Allergies Allergy/AdvReac Type Severity Reaction Status Date / Time No Known Drug Allergies Allergy Verified 08/01/19 16:58 Exam Temp Pulse Resp BP Pulse Ox 98.3 F 97 H 16 99/64 95 08/16/19 12:00 08/16/19 12:00 08/16/19 12:00 08/16/19 12:00 08/16/19 12:00 - General physical appearance no distress, other (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) - Eyes PERRL, normal ocular movement - ENT normal pinna, normal nares, normal mucosa, no hearing loss, no congestion - Neck no masses, trachea midline, no venous distension - Respiratory normal expansion, normal respiratory effort, clear to percussion, clear to auscultation - Abdomen Abdomen: Present: distended (, mildly distended; site in upper midline) Results - Labs 08/15/19 04:35 08/16/19 05:30 Abnormal lab results 08/16/19 Range/Units 05:30 BUN 3 L (6-20) mg/dl Creatinine 0.5 L (0.7-1.2) mg/dl Uric Acid 2.3 L (2.5-8.0) mg/dL GGT 93 H (8-61) U/L Diabetes panel 08/16/19 Range/Units 05:30 Sodium 138 (133-145) mmol/L Potassium 3.6 (3.3-5.1) mmol/L Chloride 102 (96-108) mmol/L Carbon Dioxide 26 (22-30) mmol/L BUN 3 L (6-20) mg/dl Creatinine 0.5 L (0.7-1.2) mg/dl Glucose 102 (70-105) mg/dL Calcium 8.8 (8.6-10.4) mg/dl AST 21 (0-37) U/l ALT 28 (0-40) U/l Alkaline Phosphatase 112 (39-117) U/L Total Protein 6.4 (5.9-8.4) gm/dL Albumin 3.2 (3.2-5.2) gm/dL Triglycerides 67 (<150) mg/dl Calcium panel 08/16/19 Range/Units 05:30 Calcium 8.8 (8.6-10.4) mg/dl Phosphorus 4.4 (2.7-4.5) mg/dL Albumin 3.2 (3.2-5.2) gm/dL Pituitary panel 08/16/19 Range/Units 05:30 Sodium 138 (133-145) mmol/L Potassium 3.6 (3.3-5.1) mmol/L Chloride 102 (96-108) mmol/L Carbon Dioxide 26 (22-30) mmol/L BUN 3 L (6-20) mg/dl Creatinine 0.5 L (0.7-1.2) mg/dl Glucose 102 (70-105) mg/dL Calcium 8.8 (8.6-10.4) mg/dl Adrenal panel 08/16/19 Range/Units 05:30 Sodium 138 (133-145) mmol/L Potassium 3.6 (3.3-5.1) mmol/L Chloride 102 (96-108) mmol/L Carbon Dioxide 26 (22-30) mmol/L BUN 3 L (6-20) mg/dl Creatinine 0.5 L (0.7-1.2) mg/dl Glucose 102 (70-105) mg/dL Calcium 8.8 (8.6-10.4) mg/dl Total Bilirubin 0.2 (0.0-1.0) mg/dL AST 21 (0-37) U/l ALT 28 (0-40) U/l Alkaline Phosphatase 112 (39-117) U/L Total Protein 6.4 (5.9-8.4) gm/dL Albumin 3.2 (3.2-5.2) gm/dL All other labs normal. Assessment and Plan (1) Sepsis associated hypotension Sepsis has been controlled and patient is now stable for Port-A-Cath placement. This will be performed tomorrow. Status: Acute (2) Angelman syndrome Status: Chronic Comment: with severe mental retardation (3) Developmental delay, severe Status: Chronic (4) Intractable nausea and vomiting Status: Chronic (5) Malfunction of jejunostomy tube Status: Chronic
[2019-08-16] MEDS: FAT EMULSION 20% 250 ML IV SCH (16:37)
[2019-08-16] MEDS ORDERED: SODIUM CHLORIDE IV SCH (18:00)
[2019-08-16] MEDS ORDERED: MAGNESIUM SULFATE IV SCH (18:00)
[2019-08-16] MEDS ORDERED: [UNRECOGNIZED DRUG - OTHER] IV SCH (18:00)
[2019-08-16] MEDS ORDERED: CALCIUM GLUCONATE IV SCH (18:00)
--- NOTE | 2019-08-16 22:13 | Internal Med Progress Note ---
Medical - PN: Subj Patient information: Note initiated : 08/16/19 at 10:11 pm Service Date, if different from initiated Date: [] Patient: Raúl Hammond 23 y/o M admitted on 08/10/19 for Fever. Chief Complaint: [] Interval history: Mr. Hammond is a 23 year old M Presents the ED with brother after becoming more irritable and "whiny" and also developing a fever. Patient recently seen in the ED for pneumonia and was given antibiotics. Chest x-ray today shows improvement. However he is tachycardic and hypotensive. Procalcitonin is elevated. Lactate okay. White blood cell count elevated. No obvious source as urine and chest x-ray are okay. Source could be PICC line as most likely source. Could be GI with history of GI procedures but spec more likely from picc. He has been on TPN for about a month, PICC line placed at that time. Sinus tach in the ED. Still tachycardic but improved with IV fluids. Case discussed with Dr. Clark will follow along. Source likely pick patient may benefit from port. 08/10 Uneventful night. Did not need any levo fed. Peers to be comfortable in bed this morning with brother at bedside. Leukocytosis improved. Afebrile overnight. 08/11 Patient slept most the day yesterday and so was up quite a bit last night. Otherwise no overnight events events or new issues. Will start low rate tube feedings through the feeding tube this morning. 08/12-patient experiencing nausea following tube feeds. Discontinued. Await Port-A-Cath placement once blood cultures negative. Mother at bedside. No overnight events. No concerns per staff. Resting comfortably during my visit. 08/13-patient failed attempts at tube feeds. Persistent nausea. Starting peripheral IV nutrition. White count 11.2. Tachycardia improved. Mother at bedside. No overnight events. No concerns per staff. 08/14-patient doing well. No overnight events. Blood cultures negative so far. Will likely undergo Port-A-Cath placement on Monday. On the peripheral parenteral nutrition. Family at bedside. 08/15-cultures negative so far. Due for Port-A-Cath placement tomorrow. Ongoing peripheral nutrition. Brother at bedside. Discussed plan. Will possibly discharge on Monday after Port-A-Cath placement. - Constitutional Vitals: Vital Signs Temp Pulse Resp BP Pulse Ox 98.2 F 91 H 18 101/74 97 08/16/19 20:00 08/16/19 20:00 08/16/19 20:00 08/16/19 20:00 08/16/19 20:00 Period Temp Pulse Resp BP Sys/Lemus Pulse Ox Last 24 Hr 97.8 F-99.0 F 87-100 15-18 99-108/64-74 95-98 Intake and Output 08/16/19 08/16/19 08/17/19 13:59 21:59 05:59 Intake Total 100 165 Output Total 300 Balance 100 -135 Weight 83 lb Patient Weight 08/17/19 05:59 Weight 83 lb Intake & Output: Intake & Output 08/16/19 08/16/19 08/17/19 13:59 21:59 05:59 Intake Total 100 165 Output Total 300 Balance 100 -135 Weight 83 lb Intake: IV 100 165 Vancomycin 500 mg In Sodium 100 100 Chloride 0.9% 100 ml @ 100 mls/ hr IV Q8H [facility] Rx#:[id number] Tube Feeding 0 0 GI Tube Flush 0 Output: Gastric Drainage 300 Left Upper Quadrant Gastrostomy 300 Other: Urine Color Dark Yellow Stool Size Small Stool Color Green Stool Consistency Loose # of times incontinent of 1 Bowels General appearance: no acute distress Exam: Alert Nonverbal No anxiety agitation Nonlabored breathing Medical - PN: Obj Da - Labs CBC & Chem 7: 08/15/19 04:35 08/16/19 05:30 Labs: Abnormal Lab Results 08/16/19 08/15/19 08/15/19 05:30 04:35 04:35 WBC RBC 4.01 L Hgb 9.8 L Hct 31.5 L MCV 78.6 L MCH 24.4 L RDW 19.6 H MPV 11.1 H Gran % Lymph % (Auto) Eos % (Auto) 7.1 H Gran # Lymph # (Auto) Sodium BUN 3 L 2 L Creatinine 0.5 L 0.5 L Glucose Uric Acid 2.3 L Phosphorus 4.6 H GGT 93 H 88 H Prealbumin 08/14/19 08/14/19 08/14/19 14:45 07:18 07:18 WBC 11.2 H RBC 3.82 L Hgb 9.3 L Hct 29.2 L MCV 76.4 L MCH 24.3 L RDW 19.3 H MPV 10.9 H Gran % 83.5 H Lymph % (Auto) 10.8 L Eos % (Auto) Gran # 9.33 H Lymph # (Auto) 1.21 L Sodium 132 L BUN 3 L 5 L Creatinine 0.5 L 0.5 L Glucose 150 H 157 H Uric Acid Phosphorus GGT 93 H 90 H Prealbumin 12.4 L Meds: Medications Acetaminophen (Tylenol) 650 mg PO Q6HP PRN PRN Reason: PAIN/FEVER > 101 Albuterol/Ipratropium (Duoneb) 3 ml NEB Q4HP PRN PRN Reason: Shortness Of Breath Cyclobenzaprine HCl (Flexeril) 5 mg PT TID [facility] Last Admin: 08/16/19 19:57 Dose: Not Given Documented by: Famotidine (Pepcid) 20 mg IV Q12 [facility] Last Admin: 08/16/19 20:00 Dose: 20 mg Documented by: Fentanyl (Duragesic) 25 mcg TOPICAL Q72H [facility] Potassium Chloride 40 meq/ (Dextrose) 520 mls @ 130 mls/hr IV UD PRN PRN Reason: Potassium < 3 Magnesium Sulfate (Magnesium Sulfate) 2 gm in 50 mls @ 50 mls/hr IV UD PRN PRN Reason: Magnesium </= 1.6 Acetaminophen (Ofirmev) 650 mg in 65 mls @ 130 mls/hr IV Q6HP PRN; Protocol PRN Reason: PAIN/FEVER > 101 Last Infusion: 08/16/19 14:21 Dose: Infused Documented by: Vancomycin HCl 500 mg/ Sodium (Chloride) 100 mls @ 100 mls/hr IV Q8H [facility] Last Infusion: 08/16/19 16:41 Dose: Infused Documented by: Fat Emulsion Intravenous (Intralipid 20%) 250 mls @ 25 mls/hr IV DAILY@1600 [facility] Last Admin: 08/16/19 16:37 Dose: 25 mls/hr Documented by: Calcium Gluconate 5 meq/Magnesium Sulfate 8.12 meq/Sodium Chloride 30 meq/Potassium Chloride 30 meq/Multivitamins/Minerals 10 ml/Sterile Water 1,000 ml/ Amino Acids 2,045.2526 mls @ 90 mls/hr IV Q23H [facility] Last Admin: 08/16/19 16:17 Dose: 90 mls/hr Documented by: Lorazepam (Ativan) 0.5 mg IV Q4HP PRN PRN Reason: ANXIETY/SEDATION Last Admin: 08/16/19 20:48 Dose: 0.5 mg Documented by: Metoclopramide HCl (Reglan Oral Sabina) 10 mg PT Q6 [facility] Last Admin: 08/16/19 17:40 Dose: 10 mg Documented by: Ondansetron HCl (Zofran) 4 mg IV Q4HP PRN PRN Reason: Nausea And Vomiting Last Admin: 08/16/19 20:01 Dose: 4 mg Documented by: Cannabidiol (Cbd) (Extract 3 Drp) 1 dose PO PRN PRN PRN Reason: Pain Polyethylene Glycol (Miralax) 17 gm PT QID [facility] Last Admin: 08/16/19 19:57 Dose: Not Given Documented by: Potassium Chloride (Kdur) 40 meq PO UD PRN PRN Reason: Potssium is 3-3.5 Potassium Chloride (Kdur) 40 meq PO UD PRN PRN Reason: Potassium < 3 Prochlorperazine (Compazine) 10 mg IV Q6HP PRN PRN Reason: Nausea And Vomiting Promethazine HCl (Phenergan) 25 mg ID TIDP PRN PRN Reason: Pain Senna (Senokot) 2 tab PO DAILYP PRN PRN Reason: Constipation Sodium Chloride (Saline Flush) 10 ml IV Q8 [facility] Last Admin: 08/16/19 20:01 Dose: 10 ml Documented by: Vancomycin HCl (Vancomycin Per Pharmacy) 1 order IV UD [facility]; Protocol Medical - PN: A/P - Time Spent With Patient Total time spent is greater than 50% in coordination of care (as documented) at patient's floor/unit and/or counseling patient: 15 - 24 minutes - Narrative A/P Narrative: Assessment * MRSE (Methicillin Resistant Staph Epidermidis) Bacteremia: PICC source-echo EF 60%, no vegetations identified. ID recommends transesophageal echocardiogram. Last positive blood culture 08/10. * Sepsis: 2/2 above. Clinically resolved. White count normalized. Infected catheter discontinued. * Hypotension: 2/2 above, resolved with IVF's * Parenteral nutrition via peripheral line. Will undergo Port-A-Cath placement in 24 hours by surgery. * Anemia, chronic stable * Angelman syndrome/developmental delay * GERD on PPI * h/o N/V with attempts at tube feeds. * chronic sinus tach: Persistent * Dysphagia, with G-J tube:on TPN, however unable to tolerate tube feeds after central line discontinued. Will undergo Port-A-Cath placement on Monday P: * Continue 7-days of Vanco from first negative blood culture * Port-A-Cath placement Monday * Continue peripheral nutrition * Continue medications via PEG * Discharge planning after negative blood culture and Port-A-Cath placement * Prophylaxis PPI/Lovenox Medical - PN: Qual - Stroke Symptom Onset Unknown: No - VTE Deep Vein Thrombosis/Pulmonary Embolism Present on Admission: No
[2019-08-17] MEDS: METOCLOPRAMIDE ORAL SOL 1 MG/ML ML PT SCH ×5 (00:04→22:01)
[2019-08-17] MEDS: ACETAMINOPHEN 650 MG/65 ML BOTTLE IV PRN (01:05)
[2019-08-17] MEDS: 0.9 % SODIUM CHLORIDE 10 ML SYRINGE IV SCH ×3 (04:36→21:55)
[2019-08-17] MEDS: VANCOMYCIN 500 MG in 0.9 % SODIUM CHLORIDE 100 ML IV SCH ×3 (07:49→21:55)
[2019-08-17 07:54] LABS: ALT/SGPT 22 U/l (0-40); AST/SGOT 18 U/l (0-37); Albumin 3.3 gm/dL (3.2-5.2); Albumin/Globulin Ratio 0.9 (1.0-2.3); Alkaline Phosphatase 117 U/L (39-117); Bilirubin,Direct < 0.2 mg/dL (0.0-0.3); Bilirubin,Total 0.2 mg/dL (0.0-1.0); Calcium 9.1 mg/dl (8.6-10.4); Carbon Dioxide 26 mmol/L (22-30); Chloride 100 mmol/L (96-108); Globulin 3.5 gm/dL (2.2-3.7); Glomerular Filtration Rate 152; Glucose 96 mg/dL (70-105); Lactate Dehydrogenase 181 U/L (94-250); Phosphorous 3.7 mg/dL (2.7-4.5); Triglycerides 72 mg/dl (<150)
[2019-08-17 08:02] LABS: Blood Urea Nitrogen 6 mg/dl (6-20); Uric Acid 1.7 mg/dL (2.5-8.0)
[2019-08-17] MEDS ORDERED: HEPARIN SODIUM,PORCINE/PF 500 UNIT/5 ML SYRINGE IV ONE ×3 (08:29→08:47)
[2019-08-17] MEDS ORDERED: KETAMINE 10 MG/ML ML ONE (09:05)
[2019-08-17] MEDS ORDERED: fentaNYL 100 MCG/2 ML VIAL IV ONE (09:05)
[2019-08-17] MEDS ORDERED: SUCCINYLCHOLINE 20 MG/ML ML IV ONE (09:05)
[2019-08-17] MEDS ORDERED: LIDOCAINE HCL/PF 100 MG/5 ML SYRINGE IV ONE (09:05)
[2019-08-17] MEDS ORDERED: ONDANSETRON 4 MG/2 ML VIAL ONE (09:05)
[2019-08-17] MEDS ORDERED: GLYCOPYRROLATE 0.2 MG/ML VIAL IV ONE (09:05)
[2019-08-17] MEDS ORDERED: DEXAMETHASONE 10 MG/ML VIAL ONE (09:05)
[2019-08-17] MEDS ORDERED: MIDAZOLAM 2 MG/2 ML VIAL ONE (09:05)
[2019-08-17] MEDS ORDERED: PHENYLEPHRINE 10 MG/ML VIAL ONE (09:05)
[2019-08-17] MEDS ORDERED: BUPIVACAINE 0.5% 50 ML VIAL IJ ONE (09:33)
[2019-08-17] MEDS ORDERED: NALOXONE HCL 0.4 MG/ML VIAL IV PRN ×2 (09:47→10:22)
[2019-08-17] MEDS ORDERED: fentaNYL 100 MCG/2 ML VIAL IV PRN ×2 (09:47→10:22)
[2019-08-17] MEDS ORDERED: LACTATED RINGERS 250 ML IV PRN ×2 (09:47→10:22)
[2019-08-17] MEDS ORDERED: FLUMAZENIL 0.1 MG/ML ML IV PRN ×2 (09:47→10:22)
[2019-08-17] MEDS ORDERED: IPRATROPIUM/ALBUTEROL 3 ML AMPUL.NEB NEB PRN ×3 (09:47→10:22)
[2019-08-17] MEDS ORDERED: fentaNYL 25 MCG PATCH TOPICAL SCH (10:00)
[2019-08-17] MEDS ORDERED: LACTATED RINGERS 1,000 ML IV SCH ×2 (10:00→10:22)
--- NOTE | 2019-08-17 10:07 | Brief Operative Note ---
Date of procedure: 08/17/19 Pre-op diagnosis: bacteremia with sepsis ;inadequate venous access Post-op diagnosis: same Procedure: port -a-cath insertion left subclavian Grafts/Implants: Yes (port -a-cath catheter) Anesthesia: GETA Findings: N/A Surgeon: Dara Clark Specimens Removed/Pathology: none sent Condition: stable Disposition: PACU
[2019-08-17] MEDS: ACETAMINOPHEN 650 MG/65 ML BOTTLE IV ONE ×2 (10:10→10:49)
[2019-08-17] MEDS ORDERED: CANNABIDIOL PO PRN (10:22)
[2019-08-17] MEDS ORDERED: ACETAMINOPHEN 325 MG TABLET PO PRN (10:22)
[2019-08-17] MEDS ORDERED: MAGNESIUM SULFATE 2 GM/50 ML BAG IV PRN (10:22)
[2019-08-17] MEDS ORDERED: PROMETHAZINE 25 MG SUPP.RECT PR PRN (10:22)
[2019-08-17] MEDS ORDERED: PROCHLORPERAZINE 10 MG/2 ML VIAL IV PRN (10:22)
[2019-08-17] MEDS ORDERED: ACETAMINOPHEN 650 MG/65 ML BOTTLE IV ONE (10:22)
[2019-08-17] MEDS ORDERED: TPN PER PHARMACY IV SCH (10:22)
[2019-08-17] MEDS ORDERED: POTASSIUM CHLORIDE 20 MEQ TABLET PO PRN ×2 (10:22)
[2019-08-17] MEDS ORDERED: SENNOSIDES 1 TABLET PO PRN (10:22)
[2019-08-17] MEDS ORDERED: ONDANSETRON 4 MG/2 ML VIAL IV PRN (10:22)
[2019-08-17] MEDS ORDERED: POTASSIUM CHLORIDE 40 MEQ in DEXTROSE 5% IN WATER 500 ML IV PRN (10:22)
[2019-08-17] MEDS ORDERED: VANCOMYCIN PER PHARMACY IV SCH (10:22)
--- NOTE | 2019-08-17 10:48 | Internal Med Progress Note ---
Medical - PN: Subj Patient information: Note initiated : 08/17/19 at 10:46 am Service Date, if different from initiated Date: [] Patient: Raúl Hammond 23 y/o M admitted on 08/10/19 for Fever. Chief Complaint: [] Interval history: Mr. Hammond is a 23 year old M Presents the ED with brother after becoming more irritable and "whiny" and also developing a fever. Patient recently seen in the ED for pneumonia and was given antibiotics. Chest x-ray today shows improvement. However he is tachycardic and hypotensive. Procalcitonin is elevated. Lactate okay. White blood cell count elevated. No obvious source as urine and chest x-ray are okay. Source could be PICC line as most likely source. Could be GI with history of GI procedures but spec more likely from picc. He has been on TPN for about a month, PICC line placed at that time. Sinus tach in the ED. Still tachycardic but improved with IV fluids. Case discussed with Dr. Clark will follow along. Source likely pick patient may benefit from port. 08/10 Uneventful night. Did not need any levo fed. Peers to be comfortable in bed this morning with brother at bedside. Leukocytosis improved. Afebrile overnight. 08/11 Patient slept most the day yesterday and so was up quite a bit last night. Otherwise no overnight events events or new issues. Will start low rate tube feedings through the feeding tube this morning. 08/12-patient experiencing nausea following tube feeds. Discontinued. Await Port-A-Cath placement once blood cultures negative. Mother at bedside. No overnight events. No concerns per staff. Resting comfortably during my visit. 08/13-patient failed attempts at tube feeds. Persistent nausea. Starting peripheral IV nutrition. White count 11.2. Tachycardia improved. Mother at bedside. No overnight events. No concerns per staff. 08/14-patient doing well. No overnight events. Blood cultures negative so far. Will likely undergo Port-A-Cath placement on Monday. On the peripheral parenteral nutrition. Family at bedside. 08/15-cultures negative so far. Due for Port-A-Cath placement tomorrow. Ongoing peripheral nutrition. Brother at bedside. Discussed plan. Will possibly discharge on Monday after Port-A-Cath placement. 3/21-patient doing well. No overnight events. Port-A-Cath placed today. Doing well postprocedure. Continue parenteral nutrition and IV antibiotics. Will discharge in 48 hours after completion of antibiotics. - Constitutional Vitals: Vital Signs Temp Pulse Resp BP Pulse Ox 97.1 F 105 H 13 106/79 100 08/17/19 10:40 08/17/19 10:40 08/17/19 10:40 08/17/19 10:40 08/17/19 10:40 Period Temp Pulse Resp BP Sys/Lemus Pulse Ox Last 24 Hr 97.1 F-99.5 F 82-117 8-20 99-137/52-79 94-100 Intake and Output 08/16/19 08/17/19 08/17/19 21:59 05:59 13:59 Intake Total 165 98 700 Output Total 300 2 6 Balance -135 96 694 Weight 83 lb Intake & Output: Intake & Output 08/16/19 08/17/19 08/17/19 21:59 05:59 13:59 Intake Total 165 98 700 Output Total 300 2 6 Balance -135 96 694 Weight 83 lb Intake: IV 165 98 0 Vancomycin 500 mg In Sodium 100 98 0 Chloride 0.9% 100 ml @ 100 mls/ hr IV Q8H [facility] Rx#:[id number] Tube Feeding 0 0 GI Tube Flush 0 0 IV - Manual Only 700 Output: Gastric Drainage 300 Left Upper Quadrant Gastrostomy 300 # of times incontinent of urine 2 1 Estimated Blood Loss 5 Other: Urine Color Dark Yellow Stool Size Moderate Small Stool Color Green Green Stool Consistency Watery Watery # of times incontinent of 1 1 Bowels General appearance: no acute distress Exam: Status post Port-A-Cath placement No anxiety agitation Medical - PN: Obj Da - Labs CBC & Chem 7: 08/15/19 04:35 08/17/19 05:00 Labs: Abnormal Lab Results 08/17/19 08/16/19 08/15/19 05:00 05:30 04:35 RBC Hgb Hct MCV MCH RDW MPV Eos % (Auto) BUN 3 L 2 L Creatinine 0.5 L 0.5 L 0.5 L Glucose Uric Acid 1.7 L 2.3 L Phosphorus 4.6 H GGT 87 H 93 H 88 H Albumin/Globulin Ratio 0.9 L Prealbumin 08/15/19 08/14/19 04:35 14:45 RBC 4.01 L Hgb 9.8 L Hct 31.5 L MCV 78.6 L MCH 24.4 L RDW 19.6 H MPV 11.1 H Eos % (Auto) 7.1 H BUN 3 L Creatinine 0.5 L Glucose 150 H Uric Acid Phosphorus GGT 93 H Albumin/Globulin Ratio Prealbumin 12.4 L Meds: Medications Acetaminophen (Tylenol) 650 mg PO Q6HP PRN PRN Reason: PAIN/FEVER > 101 Albuterol/Ipratropium (Duoneb) 3 ml NEB Q4HP PRN PRN Reason: Shortness Of Breath Albuterol/Ipratropium (Duoneb) 3 ml NEB ONCE PRN PRN Reason: Wheezing Stop: 08/17/19 11:47 Cyclobenzaprine HCl (Flexeril) 5 mg PT TID [facility] Famotidine (Pepcid) 20 mg IV Q12 [facility] Fentanyl (Sublimaze) 25 mcg IV Q2M PRN PRN Reason: Pain Stop: 08/17/19 11:47 Fentanyl (Duragesic) 25 mcg TOPICAL Q72H [facility] Flumazenil (Romazicon) 0.1 mg IV Q2MIN PRN PRN Reason: BENZODIAZEPINE REVERSAL Stop: 08/17/19 11:47 Calcium Gluconate 5 meq/Magnesium Sulfate 8.12 meq/Sodium Chloride 30 meq/Pot assium Chloride 30 meq/Multivitamins/Minerals 10 ml/Sterile Water 1,000 ml/ Amino Acids 2,045.2526 mls @ 90 mls/hr IV Q23H [facility] Fat Emulsion Intravenous (Intralipid 20%) 250 mls @ 25 mls/hr IV DAILY@1600 [facility] Potassium Chloride 40 meq/ (Dextrose) 520 mls @ 130 mls/hr IV UD PRN PRN Reason: Potassium < 3 Lactated Ringer's (Lactated Ringers) 1,000 mls @ 0 mls/hr IV PRN PRN PRN Reason: Hypovolemia Stop: 08/17/19 11:47 Lactated Ringer's (Lactated Ringers) 1,000 mls @ 20 mls/hr IV .Q24H [facility] Stop: 08/17/19 11:47 Magnesium Sulfate (Magnesium Sulfate) 2 gm in 50 mls @ 50 mls/hr IV UD PRN PRN Reason: Magnesium </= 1.6 Acetaminophen (Ofirmev) 650 mg in 65 mls @ 130 mls/hr IV Q6HP PRN; Protocol PRN Reason: PAIN/FEVER > 101 Vancomycin HCl 500 mg/ Sodium (Chloride) 100 mls @ 100 mls/hr IV Q8H [facility] Lorazepam (Ativan) 0.5 mg IV Q4HP PRN PRN Reason: ANXIETY/SEDATION Metoclopramide HCl (Reglan Oral Sabina) 10 mg PT Q6 [facility] Naloxone HCl (Narcan) 0.1 mg IV Q2MIN PRN PRN Reason: Opiate Reversal Stop: 08/17/19 11:47 Ondansetron HCl (Zofran) 4 mg IV Q4HP PRN PRN Reason: Nausea And Vomiting Cannabidiol (Cbd) (Extract 3 Drp) 1 dose PO PRN PRN PRN Reason: Pain Polyethylene Glycol (Miralax) 17 gm PT QID [facility] Potassium Chloride (Kdur) 40 meq PO UD PRN PRN Reason: Potssium is 3-3.5 Potassium Chloride (Kdur) 40 meq PO UD PRN PRN Reason: Potassium < 3 Prochlorperazine (Compazine) 10 mg IV Q6HP PRN PRN Reason: Nausea And Vomiting Promethazine HCl (Phenergan) 25 mg HI TIDP PRN PRN Reason: Pain Senna (Senokot) 2 tab PO DAILYP PRN PRN Reason: Constipation Sodium Chloride (Saline Flush) 10 ml IV Q8 [facility] Vancomycin HCl (Vancomycin Per Pharmacy) 1 order IV UD [facility]; Protocol Medical - PN: A/P - Time Spent With Patient Total time spent is greater than 50% in coordination of care (as documented) at patient's floor/unit and/or counseling patient: 25 - 35 minutes - Narrative A/P Narrative: Assessment * MRSE (Methicillin Resistant Staph Epidermidis) Bacteremia: PICC source-echo EF 60%, no vegetations identified. ID recommends transesophageal echocardiogram. Last positive blood culture 08/10. * Sepsis: 2/2 above. Clinically resolved. White count normalized. Infected catheter discontinued. * Hypotension: 2/2 above, resolved with IVF's * Parenteral nutrition. * Anemia, chronic stable * Angelman syndrome/developmental delay * GERD on PPI * h/o N/V with attempts at tube feeds. * chronic sinus tach: Persistent * Dysphagia, with G-J tube:on TPN, however unable to tolerate tube feeds after central line discontinued. Port-A-Cath placed today by surgery Plan: * Continue 7-days of Vanco from first negative blood culture * Continue parenteral nutrition * Continue medications via PEG * Discharge in 48 hours after completion of antibiotics * Schedule transesophageal echocardiogram as outpatient on discharge * Prophylaxis PPI/Lovenox Medical - PN: Qual - Stroke Symptom Onset Unknown: No - VTE Deep Vein Thrombosis/Pulmonary Embolism Present on Admission: No
[2019-08-17] MEDS: POLYETHYLENE GLYCOL 3350 17 GM PACKET PT SCH ×4 (13:01→21:54)
--- NOTE | 2019-08-17 13:40 | XRay Report ---
CLINICAL INFORMATION: port a cath insertion COMPARISON: 2019 FINDINGS: Left subclavian Port-A-Cath is in the right atrium with tip near the tricuspid valve plane. Heart size, mediastinum and pulmonary vessels are normal. The lungs are clear. No effusions. IMPRESSION: No acute disease. Left subclavian Port-A-Cath tip near the tricuspid valve plane consider withdrawing the line 2.5 cm. No acute cardiopulmonary disease Interpreted and Authenticated by: Winston Beckett 08/17/19
[2019-08-17] MEDS ORDERED: fentaNYL 25 MCG PATCH ONE (14:42)
[2019-08-17] MEDS: CYCLOBENZAPRINE 10 MG TABLET PT SCH ×3 (14:59→21:53)
[2019-08-17] MEDS: FAMOTIDINE/PF 20 MG/2 ML VIAL IV SCH ×2 (14:59→21:53)
[2019-08-17] MEDS: FAT EMULSION 20% 250 ML IV SCH (16:42)
[2019-08-17] MEDS ORDERED: MAGNESIUM SULFATE IV SCH ×2 (17:00)
[2019-08-17] MEDS ORDERED: [UNRECOGNIZED DRUG - OTHER] IV SCH ×2 (17:00)
[2019-08-17] MEDS ORDERED: CALCIUM GLUCONATE IV SCH ×2 (17:00)
[2019-08-17] MEDS ORDERED: SODIUM CHLORIDE IV SCH ×2 (17:00)
[2019-08-17] MEDS: LORazepam 2 MG/ML VIAL IV PRN (18:07)
[2019-08-18] MEDS: LORazepam 2 MG/ML VIAL IV PRN ×4 (00:02→16:25)
[2019-08-18] MEDS: ACETAMINOPHEN 650 MG/65 ML BOTTLE IV PRN ×4 (00:41→21:43)
[2019-08-18] MEDS: METOCLOPRAMIDE ORAL SOL 1 MG/ML ML PT SCH ×3 (04:14→17:15)
[2019-08-18] MEDS: VANCOMYCIN 500 MG in 0.9 % SODIUM CHLORIDE 100 ML IV SCH ×2 (05:52→14:52)
[2019-08-18] MEDS: 0.9 % SODIUM CHLORIDE 10 ML SYRINGE IV SCH ×3 (05:52→21:02)
[2019-08-18 07:36] LABS: ALT/SGPT 15 U/l (0-40); AST/SGOT 12 U/l (0-37); Albumin 2.9 gm/dL (3.2-5.2); Alkaline Phosphatase 98 U/L (39-117); Bilirubin,Direct < 0.2 mg/dL (0.0-0.3); Bilirubin,Total 0.2 mg/dL (0.0-1.0); Blood Urea Nitrogen 8 mg/dl (6-20); Calcium 8.8 mg/dl (8.6-10.4); Carbon Dioxide 23 mmol/L (22-30); Glomerular Filtration Rate 141; Lactate Dehydrogenase 189 U/L (94-250); Phosphorous 2.9 mg/dL (2.7-4.5); Triglycerides 46 mg/dl (<150)
[2019-08-18 07:39] LABS: Chloride 95 mmol/L (96-108); Uric Acid 1.3 mg/dL (2.5-8.0)
[2019-08-18] MEDS: FAMOTIDINE/PF 20 MG/2 ML VIAL IV SCH ×2 (09:09→21:04)
[2019-08-18] MEDS: CYCLOBENZAPRINE 10 MG TABLET PT SCH ×3 (09:09→21:02)
[2019-08-18] MEDS: POLYETHYLENE GLYCOL 3350 17 GM PACKET PT SCH ×4 (09:10→21:02)
--- NOTE | 2019-08-18 09:36 | Internal Med Progress Note ---
Medical - PN: Subj Patient information: Note initiated : 08/18/19 at 9:34 am Service Date, if different from initiated Date: [] Patient: Raúl Hammond 23 y/o M admitted on 08/10/19 for Fever. Chief Complaint: [] Interval history: Mr. Hammond is a 23 year old M Presents the ED with brother after becoming more irritable and "whiny" and also developing a fever. Patient recently seen in the ED for pneumonia and was given antibiotics. Chest x-ray today shows improvement. However he is tachycardic and hypotensive. Procalcitonin is elevated. Lactate okay. White blood cell count elevated. No obvious source as urine and chest x-ray are okay. Source could be PICC line as most likely source. Could be GI with history of GI procedures but spec more likely from picc. He has been on TPN for about a month, PICC line placed at that time. Sinus tach in the ED. Still tachycardic but improved with IV fluids. Case discussed with Dr. Clark will follow along. Source likely pick patient may benefit from port. 08/10 Uneventful night. Did not need any levo fed. Peers to be comfortable in bed this morning with brother at bedside. Leukocytosis improved. Afebrile overnight. 08/11 Patient slept most the day yesterday and so was up quite a bit last night. Otherwise no overnight events events or new issues. Will start low rate tube feedings through the feeding tube this morning. 08/12-patient experiencing nausea following tube feeds. Discontinued. Await Port-A-Cath placement once blood cultures negative. Mother at bedside. No overnight events. No concerns per staff. Resting comfortably during my visit. 08/13-patient failed attempts at tube feeds. Persistent nausea. Starting peripheral IV nutrition. White count 11.2. Tachycardia improved. Mother at bedside. No overnight events. No concerns per staff. 08/14-patient doing well. No overnight events. Blood cultures negative so far. Will likely undergo Port-A-Cath placement on Monday. On the peripheral parenteral nutrition. Family at bedside. 08/15-cultures negative so far. Due for Port-A-Cath placement tomorrow. Ongoing peripheral nutrition. Brother at bedside. Discussed plan. Will possibly discharge on Monday after Port-A-Cath placement. 08/16-patient doing well. No overnight events. Port-A-Cath placed today. Doing well postprocedure. Continue parenteral nutrition and IV antibiotics. Will discharge in 48 hours after completion of antibiotics. 08/17-patient doing well. No overnight events. No concerns per staff. Tolerating TPN. Post Port-A-Cath placement day 1. No pain. Mother at bedside. Will require outpatient transesophageal echocardiogram on discharge. - Constitutional Vitals: Vital Signs Temp Pulse Resp BP Pulse Ox 99.2 F H 127 H 16 115/20 99 08/18/19 07:20 08/18/19 07:20 08/18/19 07:20 08/18/19 07:20 08/18/19 07:20 Period Temp Pulse Resp BP Sys/Lemus Pulse Ox Last 24 Hr 97.1 F-99.2 F 82-127 8-16 99-131/20-79 95-100 Intake and Output 08/17/19 08/18/19 08/18/19 21:59 05:59 13:59 Intake Total 260 475 100 Output Total 2 154 Balance 258 321 100 Weight 82 lb 8 oz Intake & Output: Intake & Output 08/17/19 08/18/19 08/18/19 21:59 05:59 13:59 Intake Total 260 475 100 Output Total 2 154 Balance 258 321 100 Weight 82 lb 8 oz Intake: IV 200 415 100 Intralipid 20% 250 ml @ 25 mls/ 250 hr IV DAILY@1600 [facility] Rx#: [id number] Vancomycin 500 mg In Sodium 200 100 100 Chloride 0.9% 100 ml @ 100 mls/ hr IV Q8H [facility] Rx#:[id number] Tube Feeding 60 0 GI Tube Flush 0 60 Output: Gastric Drainage 150 Left Upper Quadrant Gastrostomy 150 # of times incontinent of urine 2 4 Other: # Unmeasured Emesis 1 General appearance: no acute distress Exam: Nonlabored breathing Resting comfortably No anxiety Medical - PN: Obj Da - Labs CBC & Chem 7: 08/15/19 04:35 08/18/19 06:38 Labs: Abnormal Lab Results 08/18/19 08/17/19 08/16/19 06:38 05:00 05:30 Sodium 123 L Potassium 5.7 H Chloride 95 L Anion Gap 5.0 L BUN 3 L Creatinine 0.6 L 0.5 L 0.5 L Uric Acid 1.3 L 1.7 L 2.3 L GGT 64 H 87 H 93 H Albumin 2.9 L Albumin/Globulin Ratio 0.9 L Meds: Medications Acetaminophen (Tylenol) 650 mg PO Q6HP PRN PRN Reason: PAIN/FEVER > 101 Albuterol/Ipratropium (Duoneb) 3 ml NEB Q4HP PRN PRN Reason: Shortness Of Breath Cyclobenzaprine HCl (Flexeril) 5 mg PT TID [facility] Last Admin: 08/18/19 09:09 Dose: 5 mg Documented by: Famotidine (Pepcid) 20 mg IV Q12 [facility] Last Admin: 08/18/19 09:09 Dose: 20 mg Documented by: Fentanyl (Duragesic) 25 mcg TOPICAL Q72H [facility] Fat Emulsion Intravenous (Intralipid 20%) 250 mls @ 25 mls/hr IV DAILY@1600 [facility] Last Infusion: 08/18/19 02:58 Dose: Infused Documented by: Potassium Chloride 40 meq/ (Dextrose) 520 mls @ 130 mls/hr IV UD PRN PRN Reason: Potassium < 3 Magnesium Sulfate (Magnesium Sulfate) 2 gm in 50 mls @ 50 mls/hr IV UD PRN PRN Reason: Magnesium </= 1.6 Acetaminophen (Ofirmev) 650 mg in 65 mls @ 130 mls/hr IV Q6HP PRN; Protocol PRN Reason: PAIN/FEVER > 101 Last Admin: 08/18/19 09:06 Dose: 130 mls/hr Documented by: Vancomycin HCl 500 mg/ Sodium (Chloride) 100 mls @ 100 mls/hr IV Q8H [facility] Last Infusion: 08/18/19 07:00 Dose: Infused Documented by: Calcium Gluconate 5 meq/Magnesium Sulfate 8.12 meq/Sodium Chloride 30 meq/Potassium Chloride 30 meq/Multivitamins/Minerals 10 ml/Amino Acids 1,045.2526 mls @ 45 mls/hr IV Q23H [facility] Last Admin: 08/17/19 16:42 Dose: 45 mls/hr Documented by: Lorazepam (Ativan) 0.5 mg IV Q4HP PRN PRN Reason: ANXIETY/SEDATION Last Admin: 08/18/19 04:13 Dose: 0.5 mg Documented by: Metoclopramide HCl (Reglan Oral Sabina) 10 mg PT Q6 [facility] Last Admin: 08/18/19 04:14 Dose: Not Given Documented by: Ondansetron HCl (Zofran) 4 mg IV Q4HP PRN PRN Reason: Nausea And Vomiting Cannabidiol (Cbd) (Extract 3 Drp) 1 dose PO PRN PRN PRN Reason: Pain Polyethylene Glycol (Miralax) 17 gm PT QID [facility] Last Admin: 08/18/19 09:10 Dose: 17 gm Documented by: Potassium Chloride (Kdur) 40 meq PO UD PRN PRN Reason: Potssium is 3-3.5 Potassium Chloride (Kdur) 40 meq PO UD PRN PRN Reason: Potassium < 3 Prochlorperazine (Compazine) 10 mg IV Q6HP PRN PRN Reason: Nausea And Vomiting Promethazine HCl (Phenergan) 25 mg [place] TIDP PRN PRN Reason: Pain Senna (Senokot) 2 tab PO DAILYP PRN PRN Reason: Constipation Sodium Chloride (Saline Flush) 10 ml IV Q8 [facility] Last Admin: 08/18/19 05:52 Dose: 10 ml Documented by: Vancomycin HCl (Vancomycin Per Pharmacy) 1 order IV [facility] [place]; Protocol Medical - PN: A/P - Time Spent With Patient Total time spent is greater than 50% in coordination of care (as documented) at patient's floor/unit and/or counseling patient: 15 - 24 minutes - Narrative A/P Narrative: Assessment * MRSE (Methicillin Resistant Staph Epidermidis) Bacteremia: PICC source-echo EF 60%, no vegetations identified. ID recommends transesophageal echocardiogram. Last positive blood culture 08/10. * Sepsis: 2/2 above. Clinically resolved. White count normalized. Infected catheter discontinued. * Hypotension: 2/2 above, resolved with IVF's * Parenteral nutrition. * Anemia, chronic stable * Angelman syndrome/developmental delay * GERD on PPI * h/o N/V with attempts at tube feeds. * chronic sinus tach: Persistent * Dysphagia, with G-J tube:on TPN, however unable to tolerate tube feeds after central line discontinued. Port-A-Cath placed today by surgery Plan: * Continue 7-days of Vanco from first negative blood culture * Continue parenteral nutrition * Continue medications via PEG * Discharge in 48 hours after completion of antibiotics * Schedule transesophageal echocardiogram as outpatient on discharge * Prophylaxis PPI/Lovenox Medical - PN: Qual - Stroke Symptom Onset Unknown: No - VTE Deep Vein Thrombosis/Pulmonary Embolism Present on Admission: No
--- NOTE | 2019-08-18 13:27 | General Surgery Progress Note ---
Subjective Narrative: Note initiated : 08/18/19 at 1:25 pm Service Date, if different from initiated Date: [] Patient: Raúl Hammond 23 y/o M admitted on 08/10/19 for Fever. Chief Complaint: [patient is doing well. His port site looks healthy and is being used for TPN and antibiotics. There is no significant swelling.] Objective Temp Pulse Resp BP Pulse Ox 97.7 F 62 18 98/59 96 08/18/19 12:00 08/18/19 12:00 08/18/19 12:00 08/18/19 12:00 08/18/19 12:00 - Additional Data Intake & Output - Last 24 hours: Intake & Output 08/16/19 08/17/19 08/18/19 08/19/19 05:59 05:59 05:59 05:59 Intake Total 173 999 8722 100 Output Total 5 302 412 41 Balance 022 121 1871 59 Weight 83 lb 83 lb 82 lb 8 oz - Labs 08/15/19 04:35 08/18/19 06:38 Diabetes panel 08/18/19 08/18/19 Range/Units 05:00 06:38 Sodium TNP 123 L Potassium TNP 5.7 H Chloride TNP 95 L Carbon Dioxide TNP 23 BUN TNP 8 Creatinine TNP 0.6 L Glucose TNP TNP Calcium TNP 8.8 AST TNP 12 ALT TNP 15 Alkaline Phosphatase TNP 98 Total Protein TNP 5.9 Albumin TNP 2.9 L Triglycerides TNP 46 Calcium panel 08/18/19 08/18/19 Range/Units 05:00 06:38 Calcium TNP 8.8 Phosphorus TNP 2.9 Albumin TNP 2.9 L Pituitary panel 08/18/19 08/18/19 Range/Units 05:00 06:38 Sodium TNP 123 L Potassium TNP 5.7 H Chloride TNP 95 L Carbon Dioxide TNP 23 BUN TNP 8 Creatinine TNP 0.6 L Glucose TNP TNP Calcium TNP 8.8 Adrenal panel 08/18/19 08/18/19 Range/Units 05:00 06:38 Sodium TNP 123 L Potassium TNP 5.7 H Chloride TNP 95 L Carbon Dioxide TNP 23 BUN TNP 8 Creatinine TNP 0.6 L Glucose TNP TNP Calcium TNP 8.8 Total Bilirubin TNP 0.2 AST TNP 12 ALT TNP 15 Alkaline Phosphatase TNP 98 Total Protein TNP 5.9 Albumin TNP 2.9 L Assessment and Plan (1) Sepsis associated hypotension Status: Acute Assessment and plan: ,. Port site is doing well. It can be readily accessed. 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
[2019-08-18] MEDS ORDERED: LEVOFLOXACIN 750 MG/150 ML BAG IV SCH (15:00)
[2019-08-18] MEDS ORDERED: MVI IV SCH (16:00)
[2019-08-18] MEDS ORDERED: SODIUM CHLORIDE IV SCH (16:00)
[2019-08-18] MEDS ORDERED: [UNRECOGNIZED DRUG - OTHER] IV SCH (16:00)
[2019-08-18] MEDS ORDERED: MAGNESIUM SULFATE IV SCH (16:00)
[2019-08-18] MEDS ORDERED: CALCIUM GLUCONATE IV SCH (16:00)
[2019-08-18] MEDS: FAT EMULSION 20% 250 ML IV SCH (16:26)
[2019-08-18] MEDS ORDERED: 0.9 % SODIUM CHLORIDE 1,000 ML IV ONE (20:05)
[2019-08-18] MEDS ORDERED: 0.9 % SODIUM CHLORIDE 1,000 ML IV SCH (20:15)
[2019-08-18] MEDS ORDERED: PIPERACILLIN SODIUM/TAZOBACTAM 2.25 GM in DEXTROSE 5% IN WATER 50 ML IV SCH (20:15)
[2019-08-18] MEDS ORDERED: PATIENTS OWN MEDICATION 1 DOSE MISCELL TOPICAL PRN (22:27)
[2019-08-18 22:44] LABS: Hematocrit 35.9 % (40.1-51.0); Hemoglobin 11.4 g/dL (13.7-17.5); Mean Cell Volume 78.4 fL (80.0-100.0); Mean Corpuscular HGB Conc 31.8 g/dL (31.0-36.0); Mean Platelet Volume 11.4 fL (7.4-10.4); Platelet Count 391 K/mcL (140-440); RBC 4.58 M/mcL (4.63-6.08); Red Cell Distribution Width 19.4 % (11.5-14.5); WBC 18.3 K/mcL (4.50-11.00)
[2019-08-18 23:04] LABS: Anisocytosis 1+ (NONE SEEN); Band Neutrophils % 2 % (0-10); Eosinophils % (Manual) 3 % (0-7); Lymphocytes % 2 % (15-49); Platelet Estimate NORMAL (NORMAL); RBC Morphology ABNORMAL (NORMAL); Segmented Neutrophils % 93 % (38-78)
[2019-08-18] MEDS ORDERED: IPRATROPIUM/ALBUTEROL 3 ML AMPUL.NEB NEB PRN (23:23)
[2019-08-18] MEDS ORDERED: POTASSIUM CHLORIDE 40 MEQ in DEXTROSE 5% IN WATER 500 ML IV PRN (23:23)
[2019-08-18] MEDS ORDERED: ACETAMINOPHEN 325 MG TABLET PO PRN (23:23)
[2019-08-18] MEDS ORDERED: POTASSIUM CHLORIDE 20 MEQ TABLET PO PRN ×2 (23:23)
[2019-08-18] MEDS ORDERED: PROMETHAZINE 25 MG SUPP.RECT PR PRN (23:23)
[2019-08-18] MEDS ORDERED: TPN PER PHARMACY IV SCH (23:23)
[2019-08-18] MEDS ORDERED: MAGNESIUM SULFATE 2 GM/50 ML BAG IV PRN (23:23)
[2019-08-18] MEDS ORDERED: SENNOSIDES 1 TABLET PO PRN (23:23)
[2019-08-18] MEDS ORDERED: CANNABIDIOL PO PRN (23:23)
[2019-08-19] MEDS ORDERED: LORazepam 2 MG/ML VIAL ONE (00:49)
[2019-08-19] MEDS: PROCHLORPERAZINE 10 MG/2 ML VIAL IV PRN (00:56)
[2019-08-19] MEDS: METOCLOPRAMIDE ORAL SOL 1 MG/ML ML PT SCH ×4 (00:57→17:38)
[2019-08-19] MEDS: PIPERACILLIN SODIUM/TAZOBACTAM 2.25 GM in DEXTROSE 5% IN WATER 50 ML IV SCH ×4 (00:57→17:38)
[2019-08-19] MEDS: 0.9 % SODIUM CHLORIDE 1,000 ML IV SCH ×3 (03:32→19:54)
[2019-08-19] MEDS ORDERED: ACETAMINOPHEN 1,000 MG/100 ML BOTTLE IV ONE (04:26)
[2019-08-19] MEDS: ACETAMINOPHEN 650 MG/65 ML BOTTLE IV PRN ×2 (04:53→21:11)
[2019-08-19] MEDS: 0.9 % SODIUM CHLORIDE 10 ML SYRINGE IV SCH ×3 (05:05→21:11)
[2019-08-19 06:36] LABS: ALT/SGPT 12 U/l (0-40); AST/SGOT 12 U/l (0-37); Albumin 2.9 gm/dL (3.2-5.2); Alkaline Phosphatase 78 U/L (39-117); Bilirubin,Direct < 0.2 mg/dL (0.0-0.3); Bilirubin,Total 0.3 mg/dL (0.0-1.0); Blood Urea Nitrogen 9 mg/dl (6-20); Carbon Dioxide 24 mmol/L (22-30); Chloride 101 mmol/L (96-108); Globulin 2.8 gm/dL (2.2-3.7); Glucose 100 mg/dL (70-105); Lactate Dehydrogenase 154 U/L (94-250); Phosphorous 3.7 mg/dL (2.7-4.5)
[2019-08-19 06:38] LABS: Glomerular Filtration Rate 166; Triglycerides 17 mg/dl (<150); Uric Acid 0.8 mg/dL (2.5-8.0)
--- NOTE | 2019-08-19 07:51 | XRay Report ---
HISTORY: Fever, nausea, vomiting and possible aspiration FINDINGS: Mild generalized alveolar infiltrates are present throughout both lungs. These have developed since 08/17/19. No pleural effusion. No adenopathy is detected. The heart size is normal. Port-A-Cath remains well-positioned with the tip in the right atrium. IMPRESSION: New onset bilateral pulmonary infiltrates which may be due to pneumonia or aspiration Interpreted and Authenticated by: Danny Garg 08/19/19
[2019-08-19] MEDS: CYCLOBENZAPRINE 10 MG TABLET PT SCH ×2 (07:52→15:39)
[2019-08-19] MEDS: ONDANSETRON 4 MG/2 ML VIAL IV PRN ×2 (07:53→13:22)
[2019-08-19] MEDS: LORazepam 2 MG/ML VIAL IV PRN ×2 (07:53→19:54)
[2019-08-19] MEDS ORDERED: DEXTROSE 50% 50 ML VIAL IV PRN (08:27)
[2019-08-19] MEDS ORDERED: DEXTROSE 31 GM ORAL.SUSP PO PRN (08:27)
[2019-08-19] MEDS: LEVOFLOXACIN 750 MG/150 ML BAG IV SCH (09:10)
[2019-08-19] MEDS: FAMOTIDINE/PF 20 MG/2 ML VIAL IV SCH ×2 (10:00→21:10)
[2019-08-19] MEDS: POLYETHYLENE GLYCOL 3350 17 GM PACKET PT SCH ×3 (10:21→17:36)
--- NOTE | 2019-08-19 10:24 | Internal Med Progress Note ---
Medical - PN: Subj Patient information: Note initiated : 08/19/19 at 10:22 am Service Date, if different from initiated Date: [] Patient: Raúl Hammond 23 y/o M admitted on 08/10/19 for Fever. Chief Complaint: [] Interval history: Mr. Hammond is a 23 year old M Presents the ED with brother after becoming more irritable and "whiny" and also developing a fever. Patient recently seen in the ED for pneumonia and was given antibiotics. Chest x-ray today shows improvement. However he is tachycardic and hypotensive. Procalcitonin is elevated. Lactate okay. White blood cell count elevated. No obvious source as urine and chest x-ray are okay. Source could be PICC line as most likely source. Could be GI with history of GI procedures but spec more likely from picc. He has been on TPN for about a month, PICC line placed at that time. Sinus tach in the ED. Still tachycardic but improved with IV fluids. Case discussed with Dr. Clark will follow along. Source likely pick patient may benefit from port. 08/10 Uneventful night. Did not need any levo fed. Peers to be comfortable in bed this morning with brother at bedside. Leukocytosis improved. Afebrile overnight. 08/11 Patient slept most the day yesterday and so was up quite a bit last night. Otherwise no overnight events events or new issues. Will start low rate tube feedings through the feeding tube this morning. 08/12-patient experiencing nausea following tube feeds. Discontinued. Await Port-A-Cath placement once blood cultures negative. Mother at bedside. No overnight events. No concerns per staff. Resting comfortably during my visit. 08/13-patient failed attempts at tube feeds. Persistent nausea. Starting peripheral IV nutrition. White count 11.2. Tachycardia improved. Mother at bedside. No overnight events. No concerns per staff. 08/14-patient doing well. No overnight events. Blood cultures negative so far. Will likely undergo Port-A-Cath placement on Monday. On the peripheral parenteral nutrition. Family at bedside. 08/15-cultures negative so far. Due for Port-A-Cath placement tomorrow. Ongoing peripheral nutrition. Brother at bedside. Discussed plan. Will possibly discharge on Monday after Port-A-Cath placement. 08/16-patient doing well. No overnight events. Port-A-Cath placed today. Doing well postprocedure. Continue parenteral nutrition and IV antibiotics. Will discharge in 48 hours after completion of antibiotics. 08/17-patient doing well. No overnight events. No concerns per staff. Tolerating TPN. Post Port-A-Cath placement day 1. No pain. Mother at bedside. Will require outpatient transesophageal echocardiogram on discharge. Addendum Patient transferred to ICU night of tachycardia at 190 along with fever 102, hyponatremia 123 and hyperkalemia. Stat CBC, lactate, NS bolus, blood cultures and chest x-ray ordered. Continue close monitoring 08/18-White count 18.3. Antibiotics escalated to Zosyn sodium up to 133, potassium down to 3.5 heart rate now around 150s. Patient critically ill. Family contemplating comfort care interventions. Patient in significant dist ress from spasm and pain. Started on Robaxin. Ongoing TPN. Chest imaging bilateral pneumonia - Constitutional Vitals: Vital Signs Temp Pulse Resp BP Pulse Ox 98.2 F 131 H 17 104/59 97 08/19/19 08:26 08/19/19 00:10 08/19/19 08:07 08/19/19 08:00 08/19/19 04:01 Period Temp Pulse Resp BP Sys/Lemus Pulse Ox Last 24 Hr 97.7 F-102 F 62-172 - 97-122/58-65 94-97 Intake and Output 08/18/19 08/19/19 08/19/19 21:59 05:59 13:59 Intake Total 2310.2526 465 50 Output Total 203 3 Balance 210.6 462 50 Weight 82 lb 81 lb 81 lb Patient Weight 08/20/19 05:59 Weight 81 lb Intake & Output: Intake & Output 08/18/19 08/19/19 08/19/19 21:59 05:59 13:59 Intake Total 2310.2526 465 50 Output Total 203 3 Balance 2107.2526 462 50 Weight 82 lb 81 lb 81 lb Intake: IV 2310.2526 465 50 Sodium Chloride 0.9% 1,000 ml @ 1000 Wide Open IV [facility] Rx#: [id number] OFIRMEV 1,000 mg In 100 ml @ 0 100 mls/hr IV .STK-MED ONE Rx#: [id number] Calcium Gluconate 5 Meq 1045.2526 Magnesium Sulfate 8.12 Meq Sodium Chloride 30 Meq Potassium Chloride 30 Meq Infuvite Adult 10 ml In Clinimix 5%-20% Solution 1,000 ml @ 45 mls/hr IV Q23H [facility] Rx#: [id number] Intralipid 20% 250 ml @ 25 mls/ 250 hr IV DAILY@1600 [facility] Rx#: [id number] Zosyn 2.25 gm In Dextrose 5% in 50 50 50 Water 50 ml @ 100 mls/hr IV Q6H [facility] Rx#:[id number] Tube Feeding 0 0 0 GI Tube Flush 0 Output: Gastric Drainage 200 Left Upper Quadrant Gastrostomy 200 # of times incontinent of urine 3 3 Other: Urine Color Dark Yellow # Unmeasured Emesis 1 # Bowel Movements 0 General appearance: moderate distress (Anxious and in pain) Exam: Frequently moaning Tachycardia between 1 50-1 60 Frequent spasm upper extremity Labored breathing Medical - PN: Obj Da - Labs CBC & Chem 7: 08/18/19 20:10 08/19/19 05:00 Labs: Abnormal Lab Results 08/19/19 08/18/19 08/18/19 05:00 20:10 06:38 WBC 18.3 H RBC 4.58 L Hgb 11.4 L Hct 35.9 L MCV 78.4 L MCH 24.9 L RDW 19.4 H MPV 11.4 H Seg Neutrophils % 93 H Lymphocytes % 2 L Anisocytosis 1+ A Sodium 123 L Potassium 5.7 H Chloride 95 L Anion Gap 5.0 L Creatinine 0.4 L 0.6 L Uric Acid 0.8 L 1.3 L Calcium 8.0 L GGT 63 H 64 H Total Protein 5.7 L Albumin 2.9 L 2.9 L Albumin/Globulin Ratio 08/17/19 05:00 WBC RBC Hgb Hct MCV MCH RDW MPV Seg Neutrophils % Lymphocytes % Anisocytosis Sodium Potassium Chloride Anion Gap Creatinine 0.5 L Uric Acid 1.7 L Calcium GGT 87 H Total Protein Albumin Albumin/Globulin Ratio 0.9 L Meds: Medications Acetaminophen (Tylenol) 650 mg PO Q6HP PRN PRN Reason: PAIN/FEVER > 101 Albuterol/Ipratropium (Duoneb) 3 ml NEB Q4HP PRN PRN Reason: Shortness Of Breath Cyclobenzaprine HCl (Flexeril) 5 mg PT TID [facility] Last Admin: 08/19/19 07:52 Dose: 5 mg Documented by: Dextrose (Dextrose 50%) 0 ml IV UD PRN PRN Reason: Hypoglycemia Diagnostic Test (Pha) (Accu-Chek) 1 each FS Q6 [facility] Famotidine (Pepcid) 20 mg IV Q12 [facility] Last Admin: 08/19/19 10:00 Dose: 20 mg Documented by: Fentanyl (Duragesic) 25 mcg TOPICAL Q72H [facility] Glucose (Insta-Glucose) 15 gm PO PRN PRN PRN Reason: Hypoglycemia Calcium Gluconate 5 meq/Magnesium Sulfate 8.12 meq/Sodium Chloride 50 meq/Multivitamins/Minerals 10 ml/Sodium Phosphate 20 mmol/Amino Acids 1,041.9193 mls @ 45 mls/hr IV Q23H [facility] Fat Emulsion Intravenous (Intralipid 20%) 250 mls @ 25 mls/hr IV DAILY@1600 [facility] Potassium Chloride 40 meq/ (Dextrose) 520 mls @ 130 mls/hr IV UD PRN PRN Reason: Potassium < 3 Levofloxacin (Levaquin) 750 mg in 150 mls @ 100 mls/hr IV Q24H [facility] Last Admin: 08/19/19 09:10 Dose: 100 mls/hr Documented by: Magnesium Sulfate (Magnesium Sulfate) 2 gm in 50 mls @ 50 mls/hr IV UD PRN PRN Reason: Magnesium </= 1.6 Sodium Chloride (Sodium Chloride 0.9%) 1,000 mls @ 100 mls/hr IV .Q10H [facility] Last Admin: 08/19/19 03:32 Dose: Not Given Documented by: Acetaminophen (Ofirmev) 650 mg in 65 mls @ 130 mls/hr IV Q6HP PRN; Protocol PRN Reason: PAIN/FEVER > 101 Piperacillin Sod/Tazobactam (Sod 2.25 gm/ Dextrose) 50 mls @ 100 mls/hr IV Q6H [facility]; Protocol Last Infusion: 08/19/19 07:00 Dose: Infused Documented by: Insulin Human Lispro (Humalog) 0 unit SQ Q6 [facility]; Protocol Lorazepam (Ativan) 0.5 mg IV Q4HP PRN PRN Reason: ANXIETY/SEDATION Last Admin: 08/19/19 07:53 Dose: 0.5 mg Documented by: Methocarbamol (Robaxin) 250 - 500 mg IV Q6HP PRN PRN Reason: Muscle Spasm Metoclopramide HCl (Reglan Oral Sabina) 10 mg PT Q6 [facility] Last Admin: 08/19/19 05:00 Dose: Not Given Documented by: Ondansetron HCl (Zofran) 4 mg IV Q4HP PRN PRN Reason: Nausea And Vomiting Last Admin: 08/19/19 07:53 Dose: 4 mg Documented by: Cannabidiol (Cbd) (Extract 3 Drp) 1 dose PO PRN PRN PRN Reason: Pain Theragesic Topical (Oint) 1 dose TOPICAL PRN PRN PRN Reason: Pain Polyethylene Glycol (Miralax) 17 gm PT QID [facility] Last Admin: 08/19/19 10:21 Dose: Not Given Documented by: Potassium Chloride (Kdur) 40 meq PO UD PRN PRN Reason: Potssium is 3-3.5 Potassium Chloride (Kdur) 40 meq PO UD PRN PRN Reason: Potassium < 3 Prochlorperazine (Compazine) 10 mg IV Q6HP PRN PRN Reason: Nausea And Vomiting Last Admin: 08/19/19 00:56 Dose: 10 mg Documented by: Promethazine HCl (Phenergan) 25 mg [place] TIDP PRN PRN Reason: Pain Senna (Senokot) 2 tab PO DAILYP PRN PRN Reason: Constipation Sodium Chloride (Saline Flush) 10 ml IV Q8 [facility] Last Admin: 08/19/19 05:05 Dose: Not Given Documented by: Medical - PN: A/P - Time Spent With Patient Total time spent is greater than 50% in coordination of care (as documented) at patient's floor/unit and/or counseling patient: Greater than 35 minutes - Narrative A/P Narrative: Assessment * Severe sepsis with white count 19,000. Secondary bilateral pneumonia. Broad antibiotic coverage/crystalloids/blood cultures * Bilateral pneumonia likely secondary aspiration after recurrent emesis-on antibiotic coverage * Hyperkalemia and hyponatremia clinically improved. Adjust TPN * MRSE (Methicillin Resistant Staph Epidermidis) Bacteremia: PICC source-echo EF 60%, no vegetations identified. On IV vancomycin. ID recommends transesophageal echocardiogram. Last positive blood culture 08/10. * Hypotension secondary sepsis-continue crystalloids * Parenteral nutrition. * Anemia, chronic stable * Angelman syndrome/developmental delay * GERD on PPI * h/o N/V with attempts at tube feeds. * chronic sinus tach: Persistent * Dysphagia, with G-J tube:on TPN, however unable to tolerate tube feeds after central line discontinued. Port-A-Cath placed today by surgery Plan: * Continue vancomycin/Zosyn * Aspiration precaution * Sepsis management guidelines * Patient critically ill and high risk mortality. Family aware * Continue parenteral nutrition * Schedule transesophageal echocardiogram as outpatient on discharge * Prophylaxis PPI/Lovenox Medical - PN: Qual - Stroke Symptom Onset Unknown: No - VTE Deep Vein Thrombosis/Pulmonary Embolism Present on Admission: No
[2019-08-19] MEDS: INSULIN LISPRO 1 UNIT/0.01 ML UNIT SQ SCH ×2 (12:18→17:37)
[2019-08-19] MEDS ORDERED: [UNRECOGNIZED DRUG - OTHER] IV SCH (15:00)
[2019-08-19] MEDS ORDERED: CALCIUM GLUCONATE IV SCH (15:00)
[2019-08-19] MEDS ORDERED: SODIUM CHLORIDE IV SCH (15:00)
[2019-08-19] MEDS ORDERED: MVI IV SCH (15:00)
[2019-08-19] MEDS ORDERED: MAGNESIUM SULFATE IV SCH (15:00)
[2019-08-19] MEDS: METHOCARBAMOL 1,000 MG/10 ML VIAL IV PRN ×2 (15:39→23:13)
[2019-08-19] MEDS: FAT EMULSION 20% 250 ML IV SCH (16:00)
--- NOTE | 2019-08-19 16:29 | Operative Note ---
DATE OF OPERATION: 08/17/2019 PREOPERATIVE DIAGNOSES: Bacteremia with sepsis and inadequate venous access. POSTOPERATIVE DIAGNOSES: Bacteremia with sepsis and inadequate venous access. PROCEDURE: Port-A-Cath insertion, left subclavian vein. SURGEON: Dara Clark M.D. DESCRIPTION OF PROCEDURE: Under general anesthesia with endotracheal intubation, the patient's left chest was prepped and draped in the sterile field. Timeout procedure was carried out as per protocol. He was placed in Trendelenburg position, and the left subclavian vein was accessed. Guidewire was placed and under fluoroscopic guidance, it was positioned in the superior vena cava. The introducer was placed over the guidewire and positioned in the superior vena cava, after which the dilator was removed, and the catheter was positioned under fluoroscopic guidance. The catheter was tunneled and attached to the port chamber uneventfully. The system was flushed with heparinized saline. The chamber was placed in the pocket. It was sutured to the fascia with a 2-0 Prolene. Subcutaneous tissue was closed with 2-0 Monocryl. Skin was closed with 4-0 Vicryl. A sterile dressing was placed. The patient was awakened from anesthesia uneventfully, extubated, and transferred to the postanesthetic care unit in stable, satisfactory condition. LCS:bentley Job ID: [id number] Doc ID: [id number] Dara Clark M.D.
[2019-08-19] MEDS: THERAGESIC TOPICAL PRN (18:58)
[2019-08-20] MEDS: PIPERACILLIN SODIUM/TAZOBACTAM 2.25 GM in DEXTROSE 5% IN WATER 50 ML IV SCH ×5 (02:30→23:42)
[2019-08-20] MEDS: PROCHLORPERAZINE 10 MG/2 ML VIAL IV PRN ×2 (04:57→16:19)
[2019-08-20] MEDS: 0.9 % SODIUM CHLORIDE 1,000 ML IV SCH ×3 (06:22→22:16)
[2019-08-20] MEDS: INSULIN LISPRO 1 UNIT/0.01 ML UNIT SQ SCH ×5 (06:23→23:49)
[2019-08-20] MEDS: 0.9 % SODIUM CHLORIDE 10 ML SYRINGE IV SCH ×4 (06:23→22:15)
[2019-08-20 06:58] LABS: ALT/SGPT 11 U/l (0-40); AST/SGOT 13 U/l (0-37); Albumin 2.7 gm/dL (3.2-5.2); Albumin/Globulin Ratio 0.8 (1.0-2.3); Alkaline Phosphatase 74 U/L (39-117); Bilirubin,Direct < 0.2 mg/dL (0.0-0.3); Bilirubin,Total 0.2 mg/dL (0.0-1.0); Calcium 8.4 mg/dl (8.6-10.4); Carbon Dioxide 24 mmol/L (22-30); Globulin 3.3 gm/dL (2.2-3.7); Glucose 83 mg/dL (70-105); Lactate Dehydrogenase 147 U/L (94-250); Phosphorous 3.6 mg/dL (2.7-4.5); Triglycerides 47 mg/dl (<150); Uric Acid 0.8 mg/dL (2.5-8.0)
[2019-08-20 07:09] LABS: Blood Urea Nitrogen 5 mg/dl (6-20); Chloride 109 mmol/L (96-108); Glomerular Filtration Rate 152
[2019-08-20] MEDS: METHOCARBAMOL 1,000 MG/10 ML VIAL IV PRN (07:53)
[2019-08-20] MEDS: ACETAMINOPHEN 650 MG/65 ML BOTTLE IV PRN ×2 (07:54→16:45)
[2019-08-20] MEDS ORDERED: fentaNYL 25 MCG PATCH TOPICAL SCH ×2 (10:00)
[2019-08-20] MEDS: FAMOTIDINE/PF 20 MG/2 ML VIAL IV SCH ×2 (10:07→21:07)
[2019-08-20] MEDS: THERAGESIC TOPICAL PRN ×2 (10:08→22:08)
[2019-08-20] MEDS: LEVOFLOXACIN 750 MG/150 ML BAG IV SCH (10:09)
[2019-08-20] MEDS: LORazepam 2 MG/ML VIAL IV PRN ×2 (10:34→17:13)
--- NOTE | 2019-08-20 10:35 | Internal Med Progress Note ---
Medical - PN: Subj Patient information: Note initiated : 08/20/19 at 10:32 am Service Date, if different from initiated Date: [] Patient: Raúl Hammond 23 y/o M admitted on 08/10/19 for Fever. Chief Complaint: [] Interval history: Mr. Hammond is a 23 year old M Presents the ED with brother after becoming more irritable and "whiny" and also developing a fever. Patient recently seen in the ED for pneumonia and was given antibiotics. Chest x-ray today shows improvement. However he is tachycardic and hypotensive. Procalcitonin is elevated. Lactate okay. White blood cell count elevated. No obvious source as urine and chest x-ray are okay. Source could be PICC line as most likely source. Could be GI with history of GI procedures but spec more likely from picc. He has been on TPN for about a month, PICC line placed at that time. Sinus tach in the ED. Still tachycardic but improved with IV fluids. Case discussed with Dr. Clark will follow along. Source likely pick patient may benefit from port. 08/10 Uneventful night. Did not need any levo fed. Peers to be comfortable in bed this morning with brother at bedside. Leukocytosis improved. Afebrile overnight. 08/11 Patient slept most the day yesterday and so was up quite a bit last night. Otherwise no overnight events events or new issues. Will start low rate tube feedings through the feeding tube this morning. 08/12-patient experiencing nausea following tube feeds. Discontinued. Await Port-A-Cath placement once blood cultures negative. Mother at bedside. No overnight events. No concerns per staff. Resting comfortably during my visit. 08/13-patient failed attempts at tube feeds. Persistent nausea. Starting peripheral IV nutrition. White count 11.2. Tachycardia improved. Mother at bedside. No overnight events. No concerns per staff. 08/14-patient doing well. No overnight events. Blood cultures negative so far. Will likely undergo Port-A-Cath placement on Monday. On the peripheral parenteral nutrition. Family at bedside. 08/15-cultures negative so far. Due for Port-A-Cath placement tomorrow. Ongoing peripheral nutrition. Brother at bedside. Discussed plan. Will possibly discharge on Monday after Port-A-Cath placement. 08/16-patient doing well. No overnight events. Port-A-Cath placed today. Doing well postprocedure. Continue parenteral nutrition and IV antibiotics. Will discharge in 48 hours after completion of antibiotics. 08/17-patient doing well. No overnight events. No concerns per staff. Tolerating TPN. Post Port-A-Cath placement day 1. No pain. Mother at bedside. Will require outpatient transesophageal echocardiogram on discharge. Addendum Patient transferred to ICU night of tachycardia at 190 along with fever 102, hyponatremia 123 and hyperkalemia. Stat CBC, lactate, NS bolus, blood cultures and chest x-ray ordered. Continue close monitoring 08/18-White count 18.3. Antibiotics escalated to Zosyn sodium up to 133, potassium down to 3.5 heart rate now around 150s. Patient critically ill. Family contemplating comfort care interventions. Patient in significant dist ress from spasm and pain. Started on Robaxin. Ongoing TPN. Chest imaging bilateral pneumonia 08/19-patient antibiotic coverage for bilateral aspiration pneumonia. Significant pain and spasm requiring Robaxin. White count 18,000. Family contemplating palliation. Extended family meeting today with son and mother for goals of care. Patient's father will be coming in from [place] on . Family would like to have care conference in his presence. T-max 101 - Constitutional Vitals: Vital Signs Temp Pulse Resp BP Pulse Ox 97.9 F 98 H 16 128/72 97 08/20/19 07:59 08/20/19 07:59 08/20/19 07:59 08/20/19 07:59 08/20/19 07:59 Period Temp Pulse Resp BP Sys/Lemus Pulse Ox Last 24 Hr 97.6 F-98.3 F 95-106 14-20 99-128/58-81 97-98 Intake and Output 08/19/19 08/20/19 08/20/19 21:59 05:59 13:59 Intake Total 073 23 2207 Output Total 1 2 1 Balance 401 76 5406 Weight 82 lb 8 oz Intake & Output: Intake & Output 08/19/19 08/20/19 08/20/19 21:59 05:59 13:59 Intake Total 859 33 1011 Output Total 1 2 1 Balance 640 33 6022 Weight 82 lb 8 oz Intake: IV 765 26 0885 Sodium Chloride 0.9% 1,000 ml @ 933 1000 100 mls/hr IV .Q10H [facility] Rx#: [id number] Zosyn 2.25 gm In Dextrose 5% in 0 50 Water 50 ml @ 100 mls/hr IV Q6H [facility] Rx#:[id number] Tube Feeding 0 0 Output: # of times incontinent of urine 1 2 1 General appearance: no acute distress Exam: Resting comfortably Intermittent pain with distress Labored breathing Medical - PN: Obj Da - Labs CBC & Chem 7: 08/18/19 20:10 08/20/19 05:00 Labs: Abnormal Lab Results 08/20/19 08/19/19 08/18/19 05:00 05:00 20:10 WBC 18.3 H RBC 4.58 L Hgb 11.4 L Hct 35.9 L MCV 78.4 L MCH 24.9 L RDW 19.4 H MPV 11.4 H Seg Neutrophils % 93 H Lymphocytes % 2 L Anisocytosis 1+ A Sodium Potassium Chloride 109 H Anion Gap BUN 5 L Creatinine 0.5 L 0.4 L Uric Acid 0.8 L 0.8 L Calcium 8.4 L 8.0 L GGT 63 H Total Protein 5.7 L Albumin 2.7 L 2.9 L Albumin/Globulin Ratio 0.8 L 08/18/19 06:38 WBC RBC Hgb Hct MCV MCH RDW MPV Seg Neutrophils % Lymphocytes % Anisocytosis Sodium 123 L Potassium 5.7 H Chloride 95 L Anion Gap 5.0 L BUN Creatinine 0.6 L Uric Acid 1.3 L Calcium GGT 64 H Total Protein Albumin 2.9 L Albumin/Globulin Ratio Meds: Medications Albuterol/Ipratropium (Duoneb) 3 ml NEB Q4HP PRN PRN Reason: Shortness Of Breath Dextrose (Dextrose 50%) 0 ml IV UD PRN PRN Reason: Hypoglycemia Diagnostic Test (Pha) (Accu-Chek) 1 each FS Q6 [facility] Last Admin: 08/20/19 05:58 Dose: 1 each Documented by: Famotidine (Pepcid) 20 mg IV Q12 [facility] Last Admin: 08/20/19 10:07 Dose: 20 mg Documented by: Fentanyl (Duragesic) 25 mcg TOPICAL Q72H [facility] Last Admin: 08/20/19 10:15 Dose: 25 mcg Documented by: Glucose (Insta-Glucose) 15 gm PO PRN PRN PRN Reason: Hypoglycemia Fat Emulsion Intravenous (Intralipid 20%) 250 mls @ 25 mls/hr IV DAILY@1600 [facility] Last Admin: 08/19/19 16:00 Dose: 25 mls/hr Documented by: Potassium Chloride 40 meq/ (Dextrose) 520 mls @ 130 mls/hr IV UD PRN PRN Reason: Potassium < 3 Levofloxacin (Levaquin) 750 mg in 150 mls @ 100 mls/hr IV Q24H [facility] Last Admin: 08/20/19 10:09 Dose: 100 mls/hr Documented by: Magnesium Sulfate (Magnesium Sulfate) 2 gm in 50 mls @ 50 mls/hr IV UD PRN PRN Reason: Magnesium </= 1.6 Sodium Chloride (Sodium Chloride 0.9%) 1,000 mls @ 100 mls/hr IV .Q10H [facility] Last Admin: 08/20/19 06:22 Dose: 100 mls/hr Documented by: Acetaminophen (Ofirmev) 650 mg in 65 mls @ 130 mls/hr IV Q6HP PRN; Protocol PRN Reason: PAIN/FEVER > 101 Last Infusion: 08/20/19 08:24 Dose: Infused Documented by: Piperacillin Sod/Tazobactam (Sod 2.25 gm/ Dextrose) 50 mls @ 100 mls/hr IV Q6H [facility]; Protocol Last Admin: 08/20/19 06:24 Dose: 100 mls/hr Documented by: Calcium Gluconate 5 meq/Magnesium Sulfate 8.12 meq/Sodium Chloride 40 meq/Multivitamins/Minerals 10 ml/Amino Acids 1,032.7526 mls @ 45 mls/hr IV Q23H [facility] Insulin Human Lispro (Humalog) 0 unit SQ Q6 [facility]; Protocol Last Admin: 08/20/19 06:23 Dose: Not Given Documented by: Lorazepam (Ativan) 0.5 mg IV Q4HP PRN PRN Reason: ANXIETY/SEDATION Last Admin: 08/19/19 19:54 Dose: 0.5 mg Documented by: Methocarbamol (Robaxin) 250 mg IV Q6 [facility] Ondansetron HCl (Zofran) 4 mg IV Q4HP PRN PRN Reason: Nausea And Vomiting Last Admin: 08/19/19 13:22 Dose: 4 mg Documented by: Cannabidiol (Cbd) (Extract 3 Drp) 1 dose PO PRN PRN PRN Reason: Pain Theragesic Topical (Oint) 1 dose TOPICAL PRN PRN PRN Reason: Pain Last Admin: 08/20/19 10:08 Dose: 1 dose Documented by: Prochlorperazine (Compazine) 10 mg IV Q6HP PRN PRN Reason: Nausea And Vomiting Last Admin: 08/20/19 04:57 Dose: 10 mg Documented by: Promethazine HCl (Phenergan) 25 mg AL TIDP PRN PRN Reason: Pain Sodium Chloride (Saline Flush) 10 ml IV Q8 [facility] Last Admin: 08/20/19 06:23 Dose: Not Given Documented by: Medical - PN: A/P - Time Spent With Patient Total time spent is greater than 50% in coordination of care (as documented) at patient's floor/unit and/or counseling patient: 25 - 35 minutes - Narrative A/P Narrative: Assessment * Severe sepsis with elevated white count secondary to aspiration pneumonia. On antibiotic coverage. * Bilateral pneumonia likely secondary aspiration -keep n.p.o./TPN/aspiration precaution * MRSE (Methicillin Resistant Staph Epidermidis) Bacteremia: PICC source-echo EF 60%, no vegetations identified. On IV vancomycin. ID recommends transesophageal echocardiogram. Last positive blood culture 08/10. * Parenteral nutrition via port. * Anemia, chronic stable * Angelman syndrome/developmental delay * GERD on PPI * Severe gastroparesis with nausea vomiting. DC tube feeds * Dysphagia, with G-J tube:on TPN, however unable to tolerate tube feeds due to severe gastroparesis Plan: * Continue vancomycin/Zosyn * Aspiration precaution * Sepsis management guidelines * Patient critically ill and high risk mortality. Family conference on for goals of care and likely transition to palliation * Continue parenteral nutrition * MIKEY may be canceled if family wishes for comfort intervention * Prophylaxis PPI/Lovenox Medical - PN: Qual - Stroke Symptom Onset Unknown: No - VTE Deep Vein Thrombosis/Pulmonary Embolism Present on Admission: No
[2019-08-20] MEDS: METHOCARBAMOL 1,000 MG/10 ML VIAL IV SCH ×2 (13:16→17:40)
[2019-08-20] MEDS ORDERED: MVI IV SCH (15:00)
[2019-08-20] MEDS ORDERED: [UNRECOGNIZED DRUG - OTHER] IV SCH (15:00)
[2019-08-20] MEDS ORDERED: CALCIUM GLUCONATE IV SCH (15:00)
[2019-08-20] MEDS ORDERED: MAGNESIUM SULFATE IV SCH (15:00)
[2019-08-20] MEDS ORDERED: SODIUM CHLORIDE IV SCH (15:00)
[2019-08-20] MEDS: FAT EMULSION 20% 250 ML IV SCH (15:01)
[2019-08-20] MEDS ORDERED: DIAZEPAM 10 MG/2 ML SYRINGE IV PRN (18:23)
[2019-08-20] MEDS ORDERED: PROMETHAZINE 25 MG/ML VIAL IV PRN ×2 (18:31→21:12)
[2019-08-20] MEDS ORDERED: PROCHLORPERAZINE 10 MG/2 ML VIAL IV PRN (21:12)
[2019-08-20] MEDS ORDERED: DEXTROSE 50% 50 ML VIAL IV PRN (21:12)
[2019-08-20] MEDS ORDERED: MAGNESIUM SULFATE 2 GM/50 ML BAG IV PRN (21:12)
[2019-08-20] MEDS ORDERED: CANNABIDIOL PO PRN (21:12)
[2019-08-20] MEDS ORDERED: POTASSIUM CHLORIDE 40 MEQ in DEXTROSE 5% IN WATER 500 ML IV PRN (21:12)
[2019-08-20] MEDS ORDERED: IPRATROPIUM/ALBUTEROL 3 ML AMPUL.NEB NEB PRN (21:12)
[2019-08-20] MEDS ORDERED: TPN PER PHARMACY IV SCH (21:12)
[2019-08-20] MEDS ORDERED: DEXTROSE 31 GM ORAL.SUSP PO PRN (21:12)
[2019-08-20] MEDS: DIAZEPAM 10 MG/2 ML SYRINGE IV PRN (21:44)
[2019-08-21] MEDS: LORazepam 2 MG/ML VIAL IV PRN ×4 (01:36→21:45)
[2019-08-21] MEDS: ACETAMINOPHEN 650 MG/65 ML BOTTLE IV PRN ×4 (01:39→23:56)
[2019-08-21] MEDS: PIPERACILLIN SODIUM/TAZOBACTAM 2.25 GM in DEXTROSE 5% IN WATER 50 ML IV SCH ×3 (05:04→18:47)
[2019-08-21] MEDS: INSULIN LISPRO 1 UNIT/0.01 ML UNIT SQ SCH ×3 (05:10→18:47)
[2019-08-21] MEDS: 0.9 % SODIUM CHLORIDE 10 ML SYRINGE IV SCH ×3 (05:20→20:54)
[2019-08-21] MEDS: 0.9 % SODIUM CHLORIDE 1,000 ML IV SCH ×2 (07:19→19:30)
[2019-08-21 08:00] LABS: ALT/SGPT 8 U/l (0-40); AST/SGOT 10 U/l (0-37); Albumin 2.5 gm/dL (3.2-5.2); Albumin/Globulin Ratio 0.9 (1.0-2.3); Alkaline Phosphatase 55 U/L (39-117); Bilirubin,Direct < 0.2 mg/dL (0.0-0.3); Bilirubin,Total 0.2 mg/dL (0.0-1.0); Blood Urea Nitrogen 4 mg/dl (6-20); Calcium 8.4 mg/dl (8.6-10.4); Carbon Dioxide 22 mmol/L (22-30); Chloride 99 mmol/L (96-108); Globulin 2.9 gm/dL (2.2-3.7); Glomerular Filtration Rate 141; Lactate Dehydrogenase 150 U/L (94-250); Phosphorous 3.2 mg/dL (2.7-4.5)
[2019-08-21] MEDS: FAMOTIDINE/PF 20 MG/2 ML VIAL IV SCH ×2 (09:30→20:54)
[2019-08-21] MEDS: LEVOFLOXACIN 750 MG/150 ML BAG IV SCH (09:31)
[2019-08-21 09:48] LABS: ALT/SGPT 10 U/l (0-40); AST/SGOT 11 U/l (0-37); Albumin 3.1 gm/dL (3.2-5.2); Alkaline Phosphatase 68 U/L (39-117); Bilirubin,Direct < 0.2 mg/dL (0.0-0.3); Bilirubin,Total 0.2 mg/dL (0.0-1.0); Blood Urea Nitrogen 5 mg/dl (6-20); Calcium 8.6 mg/dl (8.6-10.4); Carbon Dioxide 25 mmol/L (22-30); Chloride 103 mmol/L (96-108); Globulin 3.1 gm/dL (2.2-3.7); Glomerular Filtration Rate 166; Glucose 103 mg/dL (70-105); Lactate Dehydrogenase 169 U/L (94-250); Phosphorous 3.7 mg/dL (2.7-4.5); Triglycerides 37 mg/dl (<150); Uric Acid 0.6 mg/dL (2.5-8.0)
--- NOTE | 2019-08-21 10:36 | Internal Med Progress Note ---
Medical - PN: Subj Patient information: Note initiated : 08/21/19 at 10:31 am Service Date, if different from initiated Date: [] Patient: Raúl Hammond 23 y/o M admitted on 08/10/19 for Fever. Chief Complaint: [] Interval history: Mr. Hammond is a 23 year old M Presents the ED with brother after becoming more irritable and "whiny" and also developing a fever. Patient recently seen in the ED for pneumonia and was given antibiotics. Chest x-ray today shows improvement. However he is tachycardic and hypotensive. Procalcitonin is elevated. Lactate okay. White blood cell count elevated. No obvious source as urine and chest x-ray are okay. Source could be PICC line as most likely source. Could be GI with history of GI procedures but spec more likely from picc. He has been on TPN for about a month, PICC line placed at that time. Sinus tach in the ED. Still tachycardic but improved with IV fluids. Case discussed with Dr. Clark will follow along. Source likely pick patient may benefit from port. 08/10 Uneventful night. Did not need any levo fed. Peers to be comfortable in bed this morning with brother at bedside. Leukocytosis improved. Afebrile overnight. 08/11 Patient slept most the day yesterday and so was up quite a bit last night. Otherwise no overnight events events or new issues. Will start low rate tube feedings through the feeding tube this morning. 08/12-patient experiencing nausea following tube feeds. Discontinued. Await Port-A-Cath placement once blood cultures negative. Mother at bedside. No overnight events. No concerns per staff. Resting comfortably during my visit. 08/13-patient failed attempts at tube feeds. Persistent nausea. Starting peripheral IV nutrition. White count 11.2. Tachycardia improved. Mother at bedside. No overnight events. No concerns per staff. 08/14-patient doing well. No overnight events. Blood cultures negative so far. Will likely undergo Port-A-Cath placement on Monday. On the peripheral parenteral nutrition. Family at bedside. 08/15-cultures negative so far. Due for Port-A-Cath placement tomorrow. Ongoing peripheral nutrition. Brother at bedside. Discussed plan. Will possibly discharge on Monday after Port-A-Cath placement. 08/16-patient doing well. No overnight events. Port-A-Cath placed today. Doing well postprocedure. Continue parenteral nutrition and IV antibiotics. Will discharge in 48 hours after completion of antibiotics. 08/17-patient doing well. No overnight events. No concerns per staff. Tolerating TPN. Post Port-A-Cath placement day 1. No pain. Mother at bedside. Will require outpatient transesophageal echocardiogram on discharge. Addendum Patient transferred to ICU night of tachycardia at 190 along with fever 102, hyponatremia 123 and hyperkalemia. Stat CBC, lactate, NS bolus, blood cultures and chest x-ray ordered. Continue close monitoring 08/18-White count 18.3. Antibiotics escalated to Zosyn sodium up to 133, potassium down to 3.5 heart rate now around 150s. Patient critically ill. Family contemplating comfort care interventions. Patient in significant dist ress from spasm and pain. Started on Robaxin. Ongoing TPN. Chest imaging bilateral pneumonia 08/19-patient antibiotic coverage for bilateral aspiration pneumonia. Significant pain and spasm requiring Robaxin. White count 18,000. Family contemplating palliation. Extended family meeting today with son and mother for goals of care. Patient's father will be coming in from [place] on . Family would like to have care conference in his presence. T-max 101 08/20-patient doing well. No overnight events. No concerns per staff. Mom at bedside. Afebrile. Await CBC. Potassium 3.2 - Constitutional Vitals: Vital Signs Temp Pulse Resp BP Pulse Ox 98.9 F 94 H 16 103/64 94 08/21/19 07:37 08/21/19 07:37 08/21/19 07:37 08/21/19 07:37 08/21/19 07:37 Period Temp Pulse Resp BP Sys/Lemus Pulse Ox Last 24 Hr 97.0 F-98.9 F 88-113 12-16 103-141/64-87 94-99 Intake and Output 08/20/19 08/21/19 08/21/19 21:59 05:59 13:59 Intake Total 2425.9193 365 1000 Output Total 3 2 0 Balance 2422.9193 363 1000 Weight 82 lb Intake & Output: Intake & Output 08/20/19 08/21/19 08/21/19 21:59 05:59 13:59 Intake Total 2425.9193 365 1000 Output Total 3 2 0 Balance 2422.9193 363 1000 Weight 82 lb Intake: IV 2425.9193 365 1000 Sodium Chloride 0.9% 1,000 ml @ 1000 1000 100 mls/hr IV .Q10H [facility] Rx#: [id number] Calcium Gluconate 5 Meq 269 Magnesium Sulfate 8.12 Meq Sodium Chloride 40 Meq Infuvite Adult 10 ml In Clinimix 5%-20% Solution 1,000 ml @ 45 mls/hr IV Q23H [facility] Rx#:[id number] Calcium Gluconate 5 Meq 1041.9193 Magnesium Sulfate 8.12 Meq Sodium Chloride 50 Meq Infuvite Adult 10 ml Sodium Phosphate 20 Mmol In Clinimix 5%-20% Solution 1,000 ml @ 45 mls/hr IV Q23H [facility] Rx#:[id number] Intralipid 20% 250 ml @ 25 mls/ 250 hr IV DAILY@1600 [facility] Rx#: [id number] Zosyn 2.25 gm In Dextrose 5% in 50 50 Water 50 ml @ 100 mls/hr IV Q6H [facility] Rx#:[id number] Oral 0 Tube Feeding 0 0 0 GI Tube Flush 0 0 Output: Gastric Drainage 0 0 0 Left Upper Quadrant Gastrostomy 0 0 0 # of times incontinent of urine 3 2 General appearance: no acute distress Exam: Resting comfortably Occasionally moaning due to spasm TPN via port Medical - PN: Obj Da - Labs CBC & Chem 7: 08/21/19 08:27 08/21/19 08:27 Labs: Abnormal Lab Results 08/21/19 08/21/19 08/20/19 08:27 05:58 05:00 WBC RBC Hgb Hct MCV MCH RDW MPV Seg Neutrophils % Lymphocytes % Anisocytosis Potassium 3.2 L Chloride 109 H BUN 5 L 4 L 5 L Creatinine 0.4 L 0.6 L 0.5 L Uric Acid 0.6 L 0.8 L Calcium 8.4 L 8.4 L GGT Total Protein 5.4 L Albumin 3.1 L 2.5 L 2.7 L Albumin/Globulin Ratio 0.9 L 0.8 L 08/19/19 08/18/19 05:00 20:10 WBC 18.3 H RBC 4.58 L Hgb 11.4 L Hct 35.9 L MCV 78.4 L MCH 24.9 L RDW 19.4 H MPV 11.4 H Seg Neutrophils % 93 H Lymphocytes % 2 L Anisocytosis 1+ A Potassium Chloride BUN Creatinine 0.4 L Uric Acid 0.8 L Calcium 8.0 L GGT 63 H Total Protein 5.7 L Albumin 2.9 L Albumin/Globulin Ratio Meds: Medications Albuterol/Ipratropium (Duoneb) 3 ml NEB Q4HP PRN PRN Reason: Shortness Of Breath Dextrose (Dextrose 50%) 0 ml IV UD PRN PRN Reason: Hypoglycemia Diagnostic Test (Pha) (Accu-Chek) 1 each FS Q6 [facility] Last Admin: 08/21/19 05:09 Dose: 1 each Documented by: Diazepam (Valium) 2.5 - 5 mg IV Q6HP PRN PRN Reason: Muscle Spasm Last Admin: 08/20/19 21:44 Dose: 2.5 mg Documented by: Famotidine (Pepcid) 20 mg IV Q12 [facility] Last Admin: 08/21/19 09:30 Dose: 20 mg Documented by: Fentanyl (Duragesic) 25 mcg TOPICAL Q72H [facility] Glucose (Insta-Glucose) 15 gm PO PRN PRN PRN Reason: Hypoglycemia Calcium Gluconate 5 meq/Magnesium Sulfate 8.12 meq/Sodium Chloride 40 meq/Multivitamins/Minerals 10 ml/Amino Acids 1,032.7526 mls @ 45 mls/hr IV Q23H [facility] Last Admin: 08/20/19 21:05 Dose: 45 mls/hr Documented by: Fat Emulsion Intravenous (Intralipid 20%) 250 mls @ 25 mls/hr IV DAILY@1600 [facility] Potassium Chloride 40 meq/ (Dextrose) 520 mls @ 130 mls/hr IV UD PRN PRN Reason: Potassium < 3 Levofloxacin (Levaquin) 750 mg in 150 mls @ 100 mls/hr IV Q24H [facility] Last Admin: 08/21/19 09:31 Dose: 100 mls/hr Documented by: Magnesium Sulfate (Magnesium Sulfate) 2 gm in 50 mls @ 50 mls/hr IV UD PRN PRN Reason: Magnesium </= 1.6 Sodium Chloride (Sodium Chloride 0.9%) 1,000 mls @ 100 mls/hr IV .Q10H [facility] Last Admin: 08/21/19 07:19 Dose: 100 mls/hr Documented by: Acetaminophen (Ofirmev) 650 mg in 65 mls @ 130 mls/hr IV Q6HP PRN; Protocol PRN Reason: PAIN/FEVER > 101 Last Admin: 08/21/19 09:37 Dose: 130 mls/hr Documented by: Piperacillin Sod/Tazobactam (Sod 2.25 gm/ Dextrose) 50 mls @ 100 mls/hr IV Q6H [facility]; Protocol Last Admin: 08/21/19 05:04 Dose: 100 mls/hr Documented by: Insulin Human Lispro (Humalog) 0 unit SQ Q6 [facility]; Protocol Last Admin: 08/21/19 05:10 Dose: Not Given Documented by: Lorazepam (Ativan) 0.5 mg IV Q4HP PRN PRN Reason: ANXIETY/SEDATION Last Admin: 08/21/19 09:31 Dose: 0.5 mg Documented by: Ondansetron HCl (Zofran) 4 mg IV Q4HP PRN PRN Reason: Nausea And Vomiting Cannabidiol (Cbd) (Extract 3 Drp) 1 dose PO PRN PRN PRN Reason: Pain Theragesic Topical (Oint) 1 dose TOPICAL PRN PRN PRN Reason: Pain Last Admin: 08/20/19 22:08 Dose: 1 dose Documented by: Prochlorperazine (Compazine) 10 mg IV Q6HP PRN PRN Reason: Nausea And Vomiting Promethazine HCl (Phenergan) 6.25 mg IV Q4HP PRN PRN Reason: Nausea And Vomiting Sodium Chloride (Saline Flush) 10 ml IV Q8 [facility] Last Admin: 08/21/19 05:20 Dose: Not Given Documented by: Medical - PN: A/P - Time Spent With Patient Total time spent is greater than 50% in coordination of care (as documented) at patient's floor/unit and/or counseling patient: 25 - 35 minutes - Narrative A/P Narrative: Assessment * Severe sepsis secondary to aspiration pneumonia. On antibiotic coverage. * Bilateral pneumonia likely secondary aspiration - keep n.p.o./TPN/aspiration precaution * MRSE (Methicillin Resistant Staph Epidermidis) Bacteremia: PICC source-echo EF 60%, no vegetations identified. On IV vancomycin. ID recommends transesophageal echocardiogram. Last positive blood culture 08/10. * Hypokalemia 3.2. Potassium per TPN * Parenteral nutrition via port. * Anemia, chronic stable * Angelman syndrome/developmental delay * GERD on PPI * Severe gastroparesis with nausea vomiting. DC tube feeds * Dysphagia, with G-J tube:on TPN, however unable to tolerate tube feeds due to severe gastroparesis Plan: * Continue antibiotic * Continue aspiration precaution * Sepsis management guidelines * Patient remains morbidly ill and high risk mortality. Family conference on for goals of care and likely transition to palliation * Continue parenteral nutrition * MIKEY may be canceled if family wishes for comfort intervention * Prophylaxis PPI/Lovenox Medical - PN: Qual - Stroke Symptom Onset Unknown: No - VTE Deep Vein Thrombosis/Pulmonary Embolism Present on Admission: No
[2019-08-21 11:02] LABS: Hematocrit 27.9 % (40.1-51.0); Hemoglobin 8.6 g/dL (13.7-17.5); Mean Cell Volume 79.7 fL (80.0-100.0); Mean Corpuscular HGB Conc 30.8 g/dL (31.0-36.0); Mean Platelet Volume 10.6 fL (7.4-10.4); Platelet Count 308 K/mcL (140-440); WBC 8.7 K/mcL (4.50-11.00)
[2019-08-21 11:27] LABS: Anisocytosis 2+ (NONE SEEN); Band Neutrophils % 2 % (0-10); Eosinophils % (Manual) 8 % (0-7); Lymphocytes % 25 % (15-49); Monocytes % (Manual) 4 % (1-12); Ovalocytes OCC (NONE SEEN); Platelet Estimate NORMAL (NORMAL); RBC Morphology ABNORMAL (NORMAL); Segmented Neutrophils % 61 % (38-78)
[2019-08-21] MEDS: ONDANSETRON 4 MG/2 ML VIAL IV PRN ×2 (12:43→18:47)
[2019-08-21] MEDS ORDERED: fentaNYL 25 MCG PATCH TOPICAL SCH (13:00)
[2019-08-21] MEDS ORDERED: MAGNESIUM SULFATE IV SCH (14:00)
[2019-08-21] MEDS ORDERED: CALCIUM GLUCONATE 5 MEQ, MAGNESIUM SULFATE 8.12 MEQ, SODIUM CHLORIDE 40 MEQ, POTASSIUM ... IV SCH (14:00)
[2019-08-21] MEDS ORDERED: MVI IV SCH (14:00)
[2019-08-21] MEDS ORDERED: [UNRECOGNIZED DRUG - OTHER] IV SCH (14:00)
[2019-08-21] MEDS ORDERED: CALCIUM GLUCONATE IV SCH (14:00)
[2019-08-21] MEDS ORDERED: SODIUM CHLORIDE IV SCH (14:00)
[2019-08-21] MEDS: FAT EMULSION 20% 250 ML IV SCH (14:35)
[2019-08-21] MEDS: THERAGESIC TOPICAL PRN (19:09)
[2019-08-21] MEDS: DIAZEPAM 10 MG/2 ML SYRINGE IV PRN (19:14)
[2019-08-22] MEDS: INSULIN LISPRO 1 UNIT/0.01 ML UNIT SQ SCH ×4 (00:03→17:38)
[2019-08-22] MEDS: PIPERACILLIN SODIUM/TAZOBACTAM 2.25 GM in DEXTROSE 5% IN WATER 50 ML IV SCH ×4 (00:35→17:36)
[2019-08-22] MEDS: 0.9 % SODIUM CHLORIDE 1,000 ML IV SCH ×4 (04:23→21:48)
[2019-08-22] MEDS: LORazepam 2 MG/ML VIAL IV PRN ×3 (04:24→14:53)
[2019-08-22] MEDS: 0.9 % SODIUM CHLORIDE 10 ML SYRINGE IV SCH ×3 (04:24→20:05)
[2019-08-22] MEDS: ACETAMINOPHEN 650 MG/65 ML BOTTLE IV PRN ×2 (06:35→18:30)
[2019-08-22 06:37] LABS: Basophils # (Auto) 0.03 K/mcL (0.00-0.30); Basophils % (Auto) 0.4 % (0.0-2.0); Eosinophils % (Auto) 15.1 % (0.0-7.0); Granulocytes % (Auto) 53.3 % (38.0-78.0); Hematocrit 27.3 % (40.1-51.0); Hemoglobin 8.4 g/dL (13.7-17.5); Lymphocytes # (Auto) 1.76 K/mcL (1.50-4.80); Lymphocytes % (Auto) 24.1 % (15.5-49.0); Mean Cell Volume 80.5 fL (80.0-100.0); Mean Corpuscular HGB Conc 30.8 g/dL (31.0-36.0); Mean Platelet Volume 10.5 fL (7.4-10.4); Monocytes # (Auto) 0.52 K/mcL (0.10-0.90); Monocytes % (Auto) 7.1 % (1.0-12.0); Platelet Count 320 K/mcL (140-440); RBC 3.39 M/mcL (4.63-6.08); Red Cell Distribution Width 18.9 % (11.5-14.5); WBC 7.3 K/mcL (4.50-11.00)
[2019-08-22 07:10] LABS: ALT/SGPT 8 U/l (0-40); AST/SGOT 10 U/l (0-37); Albumin 2.9 gm/dL (3.2-5.2); Alkaline Phosphatase 56 U/L (39-117); Bilirubin,Direct < 0.2 mg/dL (0.0-0.3); Bilirubin,Total < 0.2 mg/dL (0.0-1.0); Calcium 8.6 mg/dl (8.6-10.4); Carbon Dioxide 27 mmol/L (22-30); Chloride 104 mmol/L (96-108); Glucose 165 mg/dL (70-105); Lactate Dehydrogenase 134 U/L (94-250); Triglycerides 53 mg/dl (<150)
[2019-08-22 07:26] LABS: Blood Urea Nitrogen 5 mg/dl (6-20); Glomerular Filtration Rate 166; Uric Acid 0.8 mg/dL (2.5-8.0)
[2019-08-22] MEDS: LEVOFLOXACIN 750 MG/150 ML BAG IV SCH (08:51)
[2019-08-22] MEDS: FAMOTIDINE/PF 20 MG/2 ML VIAL IV SCH ×2 (08:51→20:08)
[2019-08-22] MEDS: ONDANSETRON 4 MG/2 ML VIAL IV PRN (10:09)
[2019-08-22] MEDS: DIAZEPAM 10 MG/2 ML SYRINGE IV PRN ×2 (11:22→22:13)
--- NOTE | 2019-08-22 11:39 | Internal Med Progress Note ---
Medical - PN: Subj Patient information: Note initiated : 08/22/19 at 11:32 am Service Date, if different from initiated Date: [] Patient: Raúl Hammond 23 y/o M admitted on 08/10/19 for Fever. Chief Complaint: [] Interval history: Mr. Hammond is a 23 year old M Presents the ED with brother after becoming more irritable and "whiny" and also developing a fever. Patient recently seen in the ED for pneumonia and was given antibiotics. Chest x-ray today shows improvement. However he is tachycardic and hypotensive. Procalcitonin is elevated. Lactate okay. White blood cell count elevated. No obvious source as urine and chest x-ray are okay. Source could be PICC line as most likely source. Could be GI with history of GI procedures but spec more likely from picc. He has been on TPN for about a month, PICC line placed at that time. Sinus tach in the ED. Still tachycardic but improved with IV fluids. Case discussed with Dr. Clark will follow along. Source likely pick patient may benefit from port. 08/10 Uneventful night. Did not need any levo fed. Peers to be comfortable in bed this morning with brother at bedside. Leukocytosis improved. Afebrile overnight. 08/11 Patient slept most the day yesterday and so was up quite a bit last night. Otherwise no overnight events events or new issues. Will start low rate tube feedings through the feeding tube this morning. 08/12-patient experiencing nausea following tube feeds. Discontinued. Await Port-A-Cath placement once blood cultures negative. Mother at bedside. No overnight events. No concerns per staff. Resting comfortably during my visit. 08/13-patient failed attempts at tube feeds. Persistent nausea. Starting peripheral IV nutrition. White count 11.2. Tachycardia improved. Mother at bedside. No overnight events. No concerns per staff. 08/14-patient doing well. No overnight events. Blood cultures negative so far. Will likely undergo Port-A-Cath placement on Monday. On the peripheral parenteral nutrition. Family at bedside. 08/15-cultures negative so far. Due for Port-A-Cath placement tomorrow. Ongoing peripheral nutrition. Brother at bedside. Discussed plan. Will possibly discharge on Monday after Port-A-Cath placement. 08/16-patient doing well. No overnight events. Port-A-Cath placed today. Doing well postprocedure. Continue parenteral nutrition and IV antibiotics. Will discharge in 48 hours after completion of antibiotics. 08/17-patient doing well. No overnight events. No concerns per staff. Tolerating TPN. Post Port-A-Cath placement day 1. No pain. Mother at bedside. Will require outpatient transesophageal echocardiogram on discharge. Addendum Patient transferred to ICU night of tachycardia at 190 along with fever 102, hyponatremia 123 and hyperkalemia. Stat CBC, lactate, NS bolus, blood cultures and chest x-ray ordered. Continue close monitoring 08/18-White count 18.3. Antibiotics escalated to Zosyn sodium up to 133, potassium down to 3.5 heart rate now around 150s. Patient critically ill. Family contemplating comfort care interventions. Patient in significant dist ress from spasm and pain. Started on Robaxin. Ongoing TPN. Chest imaging bilateral pneumonia 08/19-patient antibiotic coverage for bilateral aspiration pneumonia. Significant pain and spasm requiring Robaxin. White count 18,000. Family contemplating palliation. Extended family meeting today with son and mother for goals of care. Patient's father will be coming in from [place] on . Family would like to have care conference in his presence. T-max 101 08/20-patient doing well. No overnight events. No concerns per staff. Mom at bedside. Afebrile. Await CBC. Potassium 3.2 08/21-patient status quo. White count down to 7000. Currently afebrile. Potassium 3.2. On TPN. On antibiotic coverage. Aspiration precautions. Discussed in the presence of nursing staff and case management son and patient's mother Karla. Patient mother would want to pursue hospice which will be coordinated by case management. Goals of care discussion included prognosis and if any other further interventions were available. Mother Karla understands that multiple hospitalization and treatment over the last few months have failed to improve Raúl's quality of life. He continues to aspirate and deteriorate. The episodes has become more frequent and mother feels would be best to pursue hospice and comfort care. - Constitutional Vitals: Vital Signs Temp Pulse Resp BP Pulse Ox 97.8 F 99 H 16 102/62 96 08/22/19 08:00 08/22/19 08:00 08/22/19 08:00 08/22/19 08:00 08/22/19 08:00 Period Temp Pulse Resp BP Sys/Lemus Pulse Ox Last 24 Hr 97.5 F-98.5 F 99-116 14-18 100-127/60-76 93-100 Intake and Output 08/21/19 08/22/19 08/22/19 21:59 05:59 13:59 Intake Total 1901 1253 0 Output Total 404 263 0 Balance 1497 990 0 Weight 83 lb 83 lb Patient Weight 08/23/19 05:59 Weight 83 lb Intake & Output: Intake & Output 08/21/19 08/22/19 08/22/19 21:59 05:59 13:59 Intake Total 1901 1253 0 Output Total 404 263 0 Balance 1497 990 0 Weight 83 lb 83 lb Intake: IV 1901 1253 Sodium Chloride 0.9% 1,000 ml @ 1000 888 100 mls/hr IV .Q10H [facility] Rx#: [id number] Calcium Gluconate 5 Meq 786 Magnesium Sulfate 8.12 Meq Sodium Chloride 40 Meq Infuvite Adult 10 ml In Clinimix 5%-20% Solution 1,000 ml @ 45 mls/hr IV Q23H [facility] Rx#:[id number] Intralipid 20% 250 ml @ 25 mls/ 250 hr IV DAILY@1600 [facility] Rx#: [id number] Zosyn 2.25 gm In Dextrose 5% in 50 50 Water 50 ml @ 100 mls/hr IV Q6H [facility] Rx#:[id number] Oral 0 Tube Feeding 0 0 0 GI Tube Flush 0 Output: Gastric Drainage 200 30 0 Left Upper Quadrant Gastrostomy 200 30 0 Drainage 200 Left Abdomen G-Tube 200 Drainage 230 Left Abdomen G-Tube 230 # of times incontinent of urine 4 3 Other: Urine Odor Normal # Unmeasured Emesis 1 General appearance: no acute distress Exam: Resting comfortably Medical - PN: Obj Da - Labs CBC & Chem 7: 08/22/19 05:23 08/22/19 05:23 Labs: Abnormal Lab Results 08/22/19 08/22/19 08/21/19 05:23 05:23 08:27 RBC 3.39 L 3.50 L Hgb 8.4 L 8.6 L Hct 27.3 L 27.9 L MCV 79.7 L MCH 24.8 L 24.6 L MCHC 30.8 L 30.8 L RDW 18.9 H 19.0 H MPV 10.5 H 10.6 H Eos % (Auto) 15.1 H Eos # (Auto) 1.10 H Eosinophils % (Manual) 8 H Anisocytosis 2+ A Ovalocytes Occ A Potassium 3.2 L Chloride Anion Gap 7.0 L BUN 5 L Creatinine 0.4 L Glucose 165 H Uric Acid 0.8 L Calcium Total Protein Albumin 2.9 L Albumin/Globulin Ratio 08/21/19 08/21/19 08/20/19 08:27 05:58 05:00 RBC Hgb Hct MCV MCH MCHC RDW MPV Eos % (Auto) Eos # (Auto) Eosinophils % (Manual) Anisocytosis Ovalocytes Potassium 3.2 L Chloride 109 H Anion Gap BUN 5 L 4 L 5 L Creatinine 0.4 L 0.6 L 0.5 L Glucose Uric Acid 0.6 L 0.8 L Calcium 8.4 L 8.4 L Total Protein 5.4 L Albumin 3.1 L 2.5 L 2.7 L Albumin/Globulin Ratio 0.9 L 0.8 L Meds: Medications Albuterol/Ipratropium (Duoneb) 3 ml NEB Q4HP PRN PRN Reason: Shortness Of Breath Dextrose (Dextrose 50%) 0 ml IV UD PRN PRN Reason: Hypoglycemia Diagnostic Test (Pha) (Accu-Chek) 1 each FS Q6 [facility] Last Admin: 08/22/19 05:47 Dose: 1 each Documented by: Diazepam (Valium) 2.5 - 5 mg IV Q6HP PRN PRN Reason: Muscle Spasm Last Admin: 08/22/19 11:22 Dose: 2.5 mg Documented by: Famotidine (Pepcid) 20 mg IV Q12 [facility] Last Admin: 08/22/19 08:51 Dose: 20 mg Documented by: Fentanyl (Duragesic) 25 mcg TOPICAL Q72H [facility] Last Admin: 08/21/19 14:35 Dose: 25 mcg Documented by: Glucose (Insta-Glucose) 15 gm PO PRN PRN PRN Reason: Hypoglycemia Fat Emulsion Intravenous (Intralipid 20%) 250 mls @ 25 mls/hr IV DAILY@1600 [facility] Last Infusion: 08/22/19 00:40 Dose: Infused Documented by: Potassium Chloride 40 meq/ (Dextrose) 520 mls @ 130 mls/hr IV UD PRN PRN Reason: Potassium < 3 Levofloxacin (Levaquin) 750 mg in 150 mls @ 100 mls/hr IV Q24H [facility] Last Admin: 08/22/19 08:51 Dose: 100 mls/hr Documented by: Magnesium Sulfate (Magnesium Sulfate) 2 gm in 50 mls @ 50 mls/hr IV UD PRN PRN Reason: Magnesium </= 1.6 Sodium Chloride (Sodium Chloride 0.9%) 1,000 mls @ 100 mls/hr IV .Q10H [facility] Last Admin: 08/22/19 04:23 Dose: 100 mls/hr Documented by: Acetaminophen (Ofirmev) 650 mg in 65 mls @ 130 mls/hr IV Q6HP PRN; Protocol PRN Reason: PAIN/FEVER > 101 Last Admin: 08/22/19 06:35 Dose: 130 mls/hr Documented by: Piperacillin Sod/Tazobactam (Sod 2.25 gm/ Dextrose) 50 mls @ 100 mls/hr IV Q6H [facility]; Protocol Last Admin: 08/22/19 05:45 Dose: 100 mls/hr Documented by: Calcium Gluconate 5 meq/Magnesium Sulfate 8.12 meq/Sodium Chloride 30 meq/Potassium Chloride 40 meq/Multivitamins/Minerals 10 ml/Amino Acids 1,050.2526 mls @ 45 mls/hr IV Q23H [facility] Insulin Human Lispro (Humalog) 0 unit SQ Q6 [facility]; Protocol Last Admin: 08/22/19 05:48 Dose: Not Given Documented by: Lorazepam (Ativan) 0.5 mg IV Q4HP PRN PRN Reason: ANXIETY/SEDATION Last Admin: 08/22/19 10:45 Dose: 0.5 mg Documented by: Ondansetron HCl (Zofran) 4 mg IV Q4HP PRN PRN Reason: Nausea And Vomiting Last Admin: 08/22/19 10:09 Dose: 4 mg Documented by: Cannabidiol (Cbd) (Extract 3 Drp) 1 dose PO PRN PRN PRN Reason: Pain Theragesic Topical (Oint) 1 dose TOPICAL PRN PRN PRN Reason: Pain Last Admin: 08/21/19 19:09 Dose: 1 dose Documented by: Prochlorperazine (Compazine) 10 mg IV Q6HP PRN PRN Reason: Nausea And Vomiting Promethazine HCl (Phenergan) 6.25 mg IV Q4HP PRN PRN Reason: Nausea And Vomiting Sodium Chloride (Saline Flush) 10 ml IV Q8 [facility] Last Admin: 08/22/19 04:24 Dose: Not Given Documented by: Medical - PN: A/P - Time Spent With Patient Total time spent is greater than 50% in coordination of care (as documented) at patient's floor/unit and/or counseling patient: 25 - 35 minutes - Narrative A/P Narrative: Assessment * Severe sepsis secondary to aspiration pneumonia. Clinically improving on antibiotic coverage * Bilateral pneumonia likely secondary to aspiration -currently n.p.o. on TPN * MRSE (Methicillin Resistant Staph Epidermidis) Bacteremia: PICC source-echo EF 60%, no vegetations identified. On IV vancomycin. ID recommends transesophageal echocardiogram. Last positive blood culture 08/10. However mother now pursuing hospice. Will cancel transesophageal echocardiogram * Hypokalemia 3.2. Potassium per TPN * Parenteral nutrition via port. * Anemia, chronic stable * Angelman syndrome/developmental delay * GERD on PPI * Severe gastroparesis with nausea vomiting. DC tube feeds * Dysphagia, with G-J tube:on TPN, however unable to tolerate tube feeds due to severe gastroparesis Plan: * Continue aspiration precaution * End-of-life care discussions * Case management to coordinate hospice * Keep n.p.o./TPN until further arrival * Cancel MIKEY * Prophylaxis PPI/Lovenox Medical - PN: Qual - Stroke Symptom Onset Unknown: No - VTE Deep Vein Thrombosis/Pulmonary Embolism Present on Admission: No
[2019-08-22] MEDS ORDERED: MAGNESIUM SULFATE IV SCH (13:00)
[2019-08-22] MEDS ORDERED: SODIUM CHLORIDE IV SCH (13:00)
[2019-08-22] MEDS ORDERED: CALCIUM GLUCONATE IV SCH (13:00)
[2019-08-22] MEDS ORDERED: [UNRECOGNIZED DRUG - OTHER] IV SCH (13:00)
[2019-08-22] MEDS: FAT EMULSION 20% 250 ML IV SCH (16:00)
[2019-08-23] MEDS: PIPERACILLIN SODIUM/TAZOBACTAM 2.25 GM in DEXTROSE 5% IN WATER 50 ML IV SCH ×2 (00:10→05:51)
[2019-08-23] MEDS: LORazepam 2 MG/ML VIAL IV PRN ×3 (00:10→12:37)
[2019-08-23] MEDS: INSULIN LISPRO 1 UNIT/0.01 ML UNIT SQ SCH ×3 (00:13→12:00)
[2019-08-23] MEDS: ACETAMINOPHEN 650 MG/65 ML BOTTLE IV PRN ×2 (01:59→08:25)
[2019-08-23] MEDS: DIAZEPAM 10 MG/2 ML SYRINGE IV PRN ×3 (03:45→13:07)
[2019-08-23] MEDS: 0.9 % SODIUM CHLORIDE 1,000 ML IV SCH ×2 (04:06→09:15)
[2019-08-23] MEDS: 0.9 % SODIUM CHLORIDE 10 ML SYRINGE IV SCH (05:07)
--- NOTE | 2019-08-23 06:27 | Discharge Summary ---
Medical - DS: Prov Patient information: Note initiated : 08/23/19 at 6:25 am Service Date, if different from initiated Date: [] Patient: Raúl Hammond 23 y/o M admitted on 08/10/19 for Fever. Chief Complaint: [] Date of admission: 08/10/19 21:41 Discharge date: 08/23/19 Primary care physician: Inez Elkins Consults: 08/10/19 Consult to Physician [CONS] Stat Comment: Consulting Provider: Singh Gilmore Reason For Exam: Physician to Consult 08/10/19 21:05 Consult to Physician [CONS] Routine Comment: Consulting Provider: Dara Clark Reason For Exam: Physician to Consult Medical - DS: Meds - Discharge Medications Prescriptions: LORazepam [Lorazepam Intensol] 2 mg PO Q4H PRN #30 ml PRN Reason: Anxiety morphine 10 mg PO Q2HP PRN #20 oral.conc PRN Reason: Anxiety Scopolamine [Transderm-Scop] 1 each TD Q72 PRN #7 patch.td72 PRN Reason: Nausea Ondansetron [Zofran ODT] 4 mg SL Q4-6HP PRN #10 tablet PRN Reason: Nausea Active and Home Medications: Home Medications polyethylene glycol 3350 17 gram/dose oral powder 17 g PT QID 03/06/15 [History Confirmed 08/10/19 Last Taken 08/01/19 07:00] omeprazole 20 mg tablet,delayed release 20 mg PT BID tab 04/04/19 [History Confirmed 08/10/19 Last Taken 08/01/19 07:00] Cannabidiol (Cbd) Extract [Epidiolex] 3 drp PT PRN PRN 05/02/19 [History Confirmed 08/10/19 Last Taken 06/06/19 18:00] Promethazine [Phenergan] 25 mg VT TID PRN 05/02/19 [History Confirmed 08/10/19 Last Taken 08/01/19 07:00] Ondansetron [Zofran ODT] 4 mg SL Q4-6HP PRN #10 tab 05/15/19 [Rx Confirmed 08/10/19 Last Taken 08/01/19 07:00] Metoclopramide Oral Sabina [Reglan Oral Sabina] 10 mg PT Q6 12/23/19 [History Confirmed 08/10/19 Last Taken 08/01/19 07:00] LORazepam [Ativan] 0.5 mg PO Q4HP PRN #90 tab 07/05/19 [Rx Confirmed 08/10/19 Last Taken 08/01/19 07:00] Lancets [Trueplus Lancet] 1 each MC Q6-12HP PRN #100 each 07/05/19 [Rx Confirmed 08/10/19 Last Taken Unknown] Flexeril 5 mg G-TUBE TID 07/20/19 [History Confirmed 08/10/19 Last Taken 08/01/19 07:00] Amoxicillin/Clavulanate [Augmentin] 400 mg PO Q12H #100 ml 08/01/19 [Rx Confirmed 08/10/19 Last Taken Unknown] fentanyl 25 mcg/hr transdermal patch 25 mcg TRANSDERMA Q3D #10 patch.td72 08/07/19 [Rx Confirmed 08/10/19 Last Taken Unknown] Ferrous Sulfate [Iron] 325 mg G-TUBE DAILY 08/10/19 [History Confirmed 08/22/19 Last Taken Unknown] TPN Electrolytes II IV Soln 1,200 ml IV QDAY 08/10/19 [History Confirmed 08/22/19 Last Taken 08/10/19] Medical - DS: Hosp Hospital Course: Discharge diagnosis * Severe sepsis secondary to aspiration pneumonia. Patient now on hospice as per mother's decision * Bilateral pneumonia likely secondary to aspiration * MRSE (Methicillin Resistant Staph Epidermidis) Bacteremia: PICC source-echo EF 60%, no vegetations identified. On IV vancomycin. ID recommends transesophageal echocardiogram. Last positive blood culture 08/10. However mother now pursuing hospice. Will cancel transesophageal echocardiogram * Hypokalemia * Parenteral nutrition -discontinued per family request * Anemia, chronic * Angelman syndrome/developmental delay. Recurrent muscle spasm requiring Robaxin/pain medications for comfort * GERD on PPI * Severe gastroparesis with nausea vomiting. On as needed antiemetics * Dysphagia, with G-J tube: Has been on TPN recently. Per family will be discontinued for hospice Brief hospital course Mr. Hammond is a 23 year old M Presents the ED with brother after becoming more irritable and "whiny" and also developing a fever. Patient recently seen in the ED for pneumonia and was given antibiotics. Chest x-ray today shows improvement. However he is tachycardic and hypotensive. Procalcitonin is elevated. Lactate okay. White blood cell count elevated. No obvious source as urine and chest x-ray are okay. Source could be PICC line as most likely source. Could be GI with history of GI procedures but spec more likely from picc. He has been on TPN for about a month, PICC line placed at that time. Sinus tach in the ED. Still tachycardic but improved with IV fluids. Case discussed with Dr. Clark will follow along. Source likely pick patient may benefit from port. 08/10 Uneventful night. Did not need any levo fed. Peers to be comfortable in bed this morning with brother at bedside. Leukocytosis improved. Afebrile overnight. 08/11 Patient slept most the day yesterday and so was up quite a bit last night. Otherwise no overnight events events or new issues. Will start low rate tube feedings through the feeding tube this morning. 08/12-patient experiencing nausea following tube feeds. Discontinued. Await Port-A-Cath placement once blood cultures negative. Mother at bedside. No overnight events. No concerns per staff. Resting comfortably during my visit. 08/13-patient failed attempts at tube feeds. Persistent nausea. Starting peripheral IV nutrition. White count 11.2. Tachycardia improved. Mother at bedside. No overnight events. No concerns per staff. 08/14-patient doing well. No overnight events. Blood cultures negative so far. Will likely undergo Port-A-Cath placement on Monday. On the peripheral parenteral nutrition. Family at bedside. 08/15-cultures negative so far. Due for Port-A-Cath placement tomorrow. Ongoing peripheral nutrition. Brother at bedside. Discussed plan. Will possibly discharge on Monday after Port-A-Cath placement. 08/16-patient doing well. No overnight events. Port-A-Cath placed today. Doing well postprocedure. Continue parenteral nutrition and IV antibiotics. Will discharge in 48 hours after completion of antibiotics. 08/17-patient doing well. No overnight events. No concerns per staff. Tolerating TPN. Post Port-A-Cath placement day 1. No pain. Mother at bedside. Will require outpatient transesophageal echocardiogram on discharge. Addendum Patient transferred to ICU night of tachycardia at 190 along with fever 102, hyponatremia 123 and hyperkalemia. Stat CBC, lactate, NS bolus, blood cultures and chest x-ray ordered. Continue close monitoring 08/18-White count 18.3. Antibiotics escalated to Zosyn sodium up to 133, potassium down to 3.5 heart rate now around 150s. Patient critically ill. Family contemplating comfort care interventions. Patient in significant distress from spasm and pain. Started on Robaxin. Ongoing TPN. Chest imaging bilateral pneumonia 08/19-patient antibiotic coverage for bilateral aspiration pneumonia. Significant pain and spasm requiring Robaxin. White count 18,000. Family contemplating palliation. Extended family meeting today with son and mother for goals of care. Patient's father will be coming in from [place] on . Family would like to have care conference in his presence. T-max 101 08/20-patient doing well. No overnight events. No concerns per staff. Mom at bedside. Afebrile. Await CBC. Potassium 3.2 08/21-patient status quo. White count down to 7000. Currently afebrile. Potassium 3.2. On TPN. On antibiotic coverage. Aspiration precautions. Discussed in the presence of nursing staff and case management son and patient's mother Karla. Patient mother would want to pursue hospice which will be coordinated by case management. Goals of care discussion included prognosis and if any other further interventions were available. Mother Karla understands that multiple hospitalization and treatment over the last few months have failed to improve Raúl's quality of life. He continues to aspirate and deteriorate. The episodes has become more frequent and mother feels would be best to pursue hospice and comfort care. 08/22-patient discharging with home hospice. Instructions as below. No overnight events or additional concerns per staff. Continue all diet activity and treatments for comfort. Discharge diagnosis: . - Time Spent with Patient Total time spent providing and/or coordinating discharge services: Greater than 30 minutes Medical - DS: Exam - Constitutional Vitals: Vital Signs Temp Pulse Resp BP BP Pulse Ox 08/23/19 03:46 97.8 F 116 H 16 113/68 96 08/22/19 23:42 99.0 F 116 H 16 106/67 08/22/19 20:00 98.3 F 117 H 18 100/45 99 08/22/19 19:54 106 H 08/22/19 16:00 98.2 F 106 H 16 92/51 95 08/22/19 12:00 97.7 F 116 H 16 101/59 99 08/22/19 08:00 97.8 F 99 H 16 102/62 96 Intake and Output 08/22/19 08/23/19 08/23/19 21:59 05:59 13:59 Intake Total 1115 1292 Output Total 62 3 1 Balance 1053 1289 -1 Intake: IV 1115 1292 Sodium Chloride 0.9% 1,000 ml @ 1000 992 100 mls/hr IV .Q10H [facility] Rx#: [id number] Intralipid 20% 250 ml @ 25 mls/ 250 hr IV DAILY@1600 [facility] Rx#: [id number] Zosyn 2.25 gm In Dextrose 5% in 50 50 Water 50 ml @ 100 mls/hr IV Q6H [facility] Rx#:[id number] Tube Feeding 0 0 GI Tube Flush 0 0 Output: Gastric Drainage 60 Left Upper Quadrant Gastrostomy 60 # of times incontinent of urine 2 3 1 Other: Weight 83 lb 1.6 oz Medical - DS: Data Labs on day of discharge: Labs from last 24 hours 08/22/19 08/22/19 05:23 05:23 WBC 7.3 RBC 3.39 L Hgb 8.4 L Hct 27.3 L MCV 80.5 MCH 24.8 L MCHC 30.8 L RDW 18.9 H Plt Count 320 MPV 10.5 H Gran % 53.3 Lymph % (Auto) 24.1 [place] % (Auto) 7.1 Eos % (Auto) 15.1 H Baso % (Auto) 0.4 Gran # 3.88 Lymph # (Auto) 1.76 [place] # (Auto) 0.52 Eos # (Auto) 1.10 H Baso # (Auto) 0.03 Sodium 138 Potassium 3.2 L Chloride 104 Carbon Dioxide 27 Anion Gap 7.0 L BUN 5 L Creatinine 0.4 L GFR Calculation 166 Glucose 165 H Uric Acid 0.8 L Calcium 8.6 Phosphorus 4.0 Magnesium 2.0 Total Bilirubin < 0.2 Direct Bilirubin < 0.2 GGT 45 AST 10 ALT 8 Alkaline Phosphatase 56 Lactate Dehydrogenase 134 Total Protein 5.9 Albumin 2.9 L Globulin 3.0 Albumin/Globulin Ratio 1.0 Triglycerides 53 Preliminary micro results at discharge 08/18/19 20:10 Blood Culture - Preliminary Blood 08/18/19 20:15 Blood Culture - Preliminary Blood Medical - DS: A/P - Patient/Caregiver Discharge Instructions Activity: other (For comfort) Diet: Regular Diet (For comfort) Additional Instructions: Continue home hospice. Prescriptions: LORazepam [Lorazepam Intensol] 2 mg PO Q4H PRN #30 ml PRN Reason: Anxiety morphine 10 mg PO Q2HP PRN #20 oral.conc PRN Reason: Anxiety Scopolamine [Transderm-Scop] 1 each TD Q72 PRN #7 patch.td72 PRN Reason: Nausea Ondansetron [Zofran ODT] 4 mg SL Q4-6HP PRN #10 tablet PRN Reason: Nausea - Follow up Plan Follow up with: Inez Elkins ARNP [Primary Care Provider] - (as needed.) Disposition: Home, Self-Care Care Plan Goals: This discharge packet is provided to you to help keep you informed about your care. We want to ensure you get everything you need when you go home. You will also be receiving a call from us in a few days to follow up with you and see how you are doing since your discharge. This gives us a chance to listen to any concerns you maybe experiencing since you were discharged or any additional needs you may have, as well as providing us feedback on your care experience. We strive to always provide excellent care and thank you for your feedback and for choosing [facility]. Prognosis: Serious Rehab Potential: Critical I certify that the patient requires SNF services: No Overall status at discharge: patient is not back to baseline Medical - DS: Qual - VTE Deep Vein Thrombosis/Pulmonary Embolism Present on Admission: No
[2019-08-23] MEDS: FAMOTIDINE/PF 20 MG/2 ML VIAL IV SCH (08:24)
[2019-08-23] MEDS: LEVOFLOXACIN 750 MG/150 ML BAG IV SCH (08:24)
[2019-08-23] MEDS ORDERED: fentaNYL 25 MCG PATCH TOPICAL SCH (10:00)
[2019-08-23] MEDS: THERAGESIC TOPICAL PRN (13:07)
== END 2019-08-23 13:20 | disposition home or self-care (01) | DRG 871 ==
LOC: ED 16:10 → ICU 21:41 → MEDSUR 08-15 08:34 → ICU 08-18 23:22 → MEDSUR 08-20 21:05
PROVIDERS: ADMIT Internal Medicine; ATTEND Internal Medicine